=== PATIENT | female | born 1970 | race Hispanic/Latino ===

== ENCOUNTER 2018-07-03 00:18 | Observation (INO) | payer MEDICAID ==
[~2018-07-03] VITALS: Ht 152.4 cm; Wt 97.2 kg
[2018-07-03] VITALS (9 sets, daily range): BP systolic 132–213; BP diastolic 60–102
--- OUTSIDE RECORDS SUMMARY | 2018-07-03 00:20 | XMS REPORT ---
Author Author [facility] Address Unknown Phone Unavailable Care Team Providers Care Landman Name Role Phone Sarwat WHYTE Unavailable Unavailable Payers Payer Name Policy Type Policy Number Effective Date Expiration Date Problems This patient has no known problems. Allergies, Adverse Reactions, Alerts Allergy Name Allergy Type Status Severity Reaction(s) Onset Date Inactive Date Treating Clinician Comments No Known Allergies DA Active U 2017-06-02 00:00:00 Medications This patient has no known medications. Results Test Description Test Time Test Comments Text Results Atomic Results Result Comments ABDOMEN ACUTE SERIES W/PA CXR 2018-03-29 23:30:00 [facility] [address] [place] [id number] Patient Name: MERLY MORGAN MR #: [id number] : 1970 Age/Sex: 48/F Req #: [id number] Adm Physician: Ordered by: ANURADHA WHYTE MD Report #: [id number] Location: ER Room/Bed: Procedure: [id number] DX/ABDOMEN ACUTE SERIES W/PA CXR Exam Date: 03/29/18 Exam Time: 2240 REPORT STATUS: Signed ABDOMEN ACUTE SERIES W/PA CXR Clinical history: Abdominal pain Technique: AP view abdomen, supine and upright, frontal view of the chest Comparison: None Findings: Abdomen: Nonobstructive bowel gas pattern. Moderate to large stool burden. No free air. Other: Heart size is upper limits of normal. No consolidation or edema. No effusion or pneumothorax. Impression: Nonobstructive bowel gas pattern with moderate to large stool burden. Signed by: Dr Darlene Galvez MD on 03/29/2018 11:32 PM Dictated By: DARLENE GALVEZ MD 233 Transcribed By: AILYN on 03/29/182331 COPY TO: ANURADHA WHYTE MD
[2018-07-03] MEDS ORDERED: PROCARDIA XL60 MG PO (00:42)
[2018-07-03] MEDS ORDERED: LOPRESSOR25 MG PO (00:42)
[2018-07-03] MEDS ORDERED: ASPIRIN 81 MG CHEW TAB PO ONE (00:45)
[2018-07-03] MEDS ORDERED: LABETALOL HCL 5 MG/ML 20ML VIAL IV STA (00:47)
[2018-07-03 01:05] LABS: BASOPHILS # (AUTO) 0.1 (0.0-0.1); BASOPHILS % 0.4 % (0.0-1.0); EOSINOPHILS # (AUTO) 0.7 (0.0-0.4); EOSINOPHILS % 5.1 % (0.0-6.0); HEMATOCRIT 26.4 % (34.2-44.1); LYMPHOCYTES # (AUTO) 2.2 (1.0-3.2); LYMPHOCYTES % 16.1 % (18.0-39.1); MEAN CORPUSCULAR HEMOGLOBIN 23.8 pg (28-32); MEAN CORPUSCULAR HGB CONC 30.3 g/dL (31-35); MEAN CORPUSCULAR VOLUME 78.6 fL (81-99); NEUTROPHILS # (AUTO) 9.6 (2.1-6.9); NEUTROPHILS % 70.9 % (38.7-80.0); PLATELET COUNT 348 x10e3/uL (140-360); RED BLOOD COUNT 3.36 x10e6/uL (3.6-5.1); RED CELL DISTRIBUTION WIDTH 14.5 % (11.7-14.4)
[2018-07-03 01:15] LABS: INR 0.86; PROTHROMBIN TIME 12.5 seconds (11.9-14.5)
[2018-07-03 01:16] LABS: PARTIAL THROMBOPLASTIN TIME 35.4 seconds (23.8-35.5)
[2018-07-03] MEDS ORDERED: LABETALOL HCL 20 MG/4 ML SYRINGE IV ONE (01:22)
--- NOTE | 2018-07-03 01:32 | Diagnostic Imaging Report ---
CHEST 2 VIEWS, Technique: CHEST 2 VIEWS Comparison: 03/29/2018 Clinical history: Chest pain DISCUSSION: Slightly enlarged cardiac silhouette with central vascular congestion. No consolidation or edema. No effusion or pneumothorax. IMPRESSION: Slightly enlarged cardiac silhouette with central vascular congestion. Signed by: Dr Tasha Galvez MD on 07/03/2018 1:29 AM
[2018-07-03 01:38] LABS: BLOOD UREA NITROGEN 52 mg/dL (7-26); CARBON DIOXIDE 22 mmol/L (22-29); GLUCOSE 126 mg/dL (74-118)
[2018-07-03 02:04] LABS: ANION GAP 11.6 mmol/L (8-16); BUN/CREATININE RATIO 20 (6-25); CALCIUM 8.6 mg/dL (8.4-10.2); CHLORIDE 107 mmol/L (98-107); CREATINE KINASE 46 IU/L (29-168); CREATININE, SERUM 2.64 mg/dL (0.57-1.11); EST GLOMERULAR FILTRATION RATE 19 ML/MIN (60-); POTASSIUM 4.6 mmol/L (3.5-5.1); SODIUM 136 mmol/L (136-145)
[2018-07-03] MEDS ORDERED: NITROGLYCERIN 0.4 MG SUBL SL PRN (02:15)
[2018-07-03] MEDS ORDERED: ONDANSETRON HCL INJ 2 MG/ML VIAL IV PRN ×2 (02:15→10:30)
[2018-07-03] MEDS ORDERED: MORPHINE SULFATE 2 MG/ML SYR IV PRN (02:15)
[2018-07-03] MEDS ORDERED: HYDRALAZINE HCL 20 MG/ML VIAL IV PRN ×2 (02:15→10:30)
[2018-07-03] MEDS ORDERED: DEXTROSE 50% SYRINGE 50 ML IV PRN ×2 (02:30→09:45)
[2018-07-03] MEDS ORDERED: INSULIN LISPRO 100 UNIT/1 ML 3ML VIAL SQ SCH (07:30)
[2018-07-03 08:05] LABS: AMPHETAMINES SCREEN,URINE NEGATIVE (NEGATIVE); BENZODIAZEPINES SCREEN,URINE NEGATIVE (NEGATIVE); PHENCYCLIDINE SCREEN,URINE NEGATIVE (NEGATIVE)
[2018-07-03 08:30] LABS: CREATINE KINASE MB 0.9 ng/mL (0-5.0)
[2018-07-03] MEDS ORDERED: NIFEDIPINE CR 30 MG TAB PO SCH (09:00)
[2018-07-03] MEDS ORDERED: METOPROLOL TARTRATE 25 MG TAB PO SCH (09:00)
[2018-07-03] MEDS: ASPIRIN 81 MG ENTERIC COATED PO SCH (09:25)
[2018-07-03] MEDS: FAMOTIDINE 20 MG/2 ML VIAL IV SCH ×2 (09:25→21:43)
[2018-07-03] MEDS ORDERED: NOVOLOG100 UNIT/1 SQ ×2 (09:49)
[2018-07-03 10:29] LABS: CLARITY,URINE HAZY (CLEAR); COLOR,URINE YELLOW (YELLOW); LEUKOCYTE ESTERASE ,URINE TRACE (NEGATIVE); NITRITE,URINE NEGATIVE (NEGATIVE); PROTEIN,URINE DIPSTICK 3+ (NEGATIVE)
[2018-07-03 10:30] LABS: AMORPHOUS SEDIMENT,URINE FEW (FEW); BACTERIA,URINE MODERATE /HPF; BILIRUBIN,URINE NEGATIVE (NEGATIVE); EPITHELIAL CELLS,URINE FEW /LPF; KETONES,URINE NEGATIVE (NEGATIVE); RBC,URINE 0-5 /HPF (0-5); URINE UROBILINOGEN 0.2 mg/dL (0.2 - 1); WBC,URINE (MAN) 21-50 /HPF (0-5)
[2018-07-03] MEDS ORDERED: ACETAMINOPHEN 325 MG TAB PO PRN (10:30)
[2018-07-03] MEDS ORDERED: VANCOMYCIN 1GM/NS 250 ML 250 ML IV SCH (10:30)
[2018-07-03] MEDS ORDERED: FUROSEMIDE INJ 10 MG/ML 2 ML VIAL ONE (11:25)
[2018-07-03] MEDS: INSULIN LISPRO 100 UNIT/1 ML 3ML VIAL SQ SCH ×3 (11:30→21:43)
[2018-07-03] MEDS ORDERED: FUROSEMIDE INJ 10 MG/ML 2 ML VIAL IV ONE (12:00)
--- NOTE | 2018-07-03 12:23 | Diagnostic Imaging Report ---
Exam: Head CT without contrast History:A 48-year-old female with headache and hypertension. Comparison: None Technique: Axial images were obtained from the skull base to the vertex. Coronal and sagittal images reconstructed from the axial data. Dose modulation, iterative reconstruction, and/or weight based adjustment of the mA/kV was utilized to reduce the radiation dose to as low as reasonably achievable. Intravenous contrast: None Findings: Scalp/skull: No abnormalities. Extra-axial spaces: No masses. No fluid collections. Brain sulci: Adequate for age Ventricles: Normal in size and configuration. No hydrocephalus. Parenchyma: Subtle hypodensities in the supratentorial white matter are small vessel ischemic changes. No masses, hemorrhage, acute or chronic cortical vascular insults. Sellar/suprasellar region: Partially empty sella. Craniocervical junction: Patent foramen magnum. No Chiari one malformation. Impression: No acute abnormalities. Chronic findings: Mild nonspecific supratentorial white matter small vessel ischemic changes. Nonenlarged partially empty sella A preliminary report was provided by Dr. Regan on 07/03/2018 12:22 PM. Signed by: Dr. Contreras Lozano M.D. on 07/03/2018 1:42 PM
[2018-07-03] MEDS ORDERED: SODIUM CHLORIDE 0.9% 250ML 250 ML ONE (15:55)
[2018-07-03] MEDS: PIPER-TAZ 3.375 GM 50 ML IV SCH ×2 (16:45→22:04)
[2018-07-03 16:51] LABS: CREATINE KINASE MB 0.8 ng/mL (0-5.0)
[2018-07-03] MEDS ORDERED: FAMOTIDINE 20 MG/2 ML VIAL IV SCH (17:00)
[2018-07-03] MEDS: VANCOMYCIN 1GM/NS 250 ML 250 ML IV SCH (20:31)
[2018-07-04] VITALS (8 sets, daily range): BP systolic 140–175; BP diastolic 74–90
[2018-07-04 04:15] LABS: BASOPHILS # (AUTO) 0.1 (0.0-0.1); BASOPHILS % 0.6 % (0.0-1.0); EOSINOPHILS # (AUTO) 0.8 (0.0-0.4); EOSINOPHILS % 6.4 % (0.0-6.0); HEMATOCRIT 23.7 % (34.2-44.1); HEMOGLOBIN 7.2 g/dL (12.0-16.0); LYMPHOCYTES # (AUTO) 1.9 (1.0-3.2); LYMPHOCYTES % 15.5 % (18.0-39.1); MEAN CORPUSCULAR HEMOGLOBIN 23.7 pg (28-32); MEAN CORPUSCULAR HGB CONC 30.4 g/dL (31-35); MONOCYTES # (AUTO) 1.1 (0.2-0.8); MONOCYTES % 8.7 % (4.4-11.3); NEUTROPHILS # (AUTO) 8.6 (2.1-6.9); NEUTROPHILS % 68.4 % (38.7-80.0); PLATELET COUNT 320 x10e3/uL (140-360); RED BLOOD COUNT 3.04 x10e6/uL (3.6-5.1); RED CELL DISTRIBUTION WIDTH 14.8 % (11.7-14.4)
[2018-07-04 04:38] LABS: ANION GAP 9.9 mmol/L (8-16); CALCIUM 8.3 mg/dL (8.4-10.2); CREATININE, SERUM 2.77 mg/dL (0.57-1.11); MAGNESIUM 1.8 MG/DL (1.3-2.1); POTASSIUM 4.9 mmol/L (3.5-5.1)
[2018-07-04 04:59] LABS: FERRITIN 45.91 ng/mL (4.63-204.00)
[2018-07-04 05:20] LABS: CHOL/HDL RATIO 3.9 (3.0-3.6)
[2018-07-04 05:39] LABS: FOLATE 4.5 ng/mL (7.0-15.4)
[2018-07-04] MEDS: PIPER-TAZ 3.375 GM 50 ML IV SCH (05:53)
[2018-07-04] MEDS: INSULIN LISPRO 100 UNIT/1 ML 3ML VIAL SQ SCH ×4 (08:00→21:16)
[2018-07-04] MEDS ORDERED: SODIUM CHLORIDE 0.9% 1000ML 1,000 ML IV ONE (08:30)
[2018-07-04] MEDS ORDERED: SODIUM CHLORIDE 0.9% 250ML 250 ML IV ONE (08:30)
[2018-07-04] MEDS ORDERED: FUROSEMIDE INJ 10 MG/ML 2 ML VIAL IV ONE (08:30)
[2018-07-04] MEDS ORDERED: IBUPROFEN 400 MG TAB PO PRN (09:00)
[2018-07-04] MEDS ORDERED: NIFEDIPINE CR 30 MG TAB PO SCH (09:00)
[2018-07-04] MEDS ORDERED: METOPROLOL TARTRATE 25 MG TAB PO SCH ×2 (09:00)
[2018-07-04] MEDS: FAMOTIDINE 20 MG/2 ML VIAL IV SCH ×2 (09:23→21:14)
[2018-07-04] MEDS: ASPIRIN 81 MG ENTERIC COATED PO SCH (09:23)
[2018-07-04] MEDS: FOLIC ACID 1 MG TAB PO SCH (09:23)
[2018-07-04] MEDS: OYST-CAL-D 500MG TABLET PO SCH ×2 (09:25→16:55)
[2018-07-04] MEDS: NIFEDIPINE CR 30 MG TAB PO SCH (09:25)
[2018-07-04] MEDS: GUAIFENESIN 600MG/DEXTROMETHORPHAN 30MG TABSR PO SCH ×2 (09:25→16:55)
[2018-07-04] MEDS: POLYETHYLENE GLYCOL 3350 17 GM PACK PO SCH ×2 (09:59→16:55)
[2018-07-04] MEDS: DOCUSATE SODIUM 100 MG CAP PO SCH ×2 (09:59→16:55)
[2018-07-04] MEDS ORDERED: MORPHINE SULFATE INJ 4 MG/ML INJ IV PRN (10:15)
[2018-07-04] MEDS ORDERED: FUROSEMIDE INJ 10 MG/ML 2 ML VIAL IV PRN (13:15)
[2018-07-04] MEDS ORDERED: SODIUM CHLORIDE 0.9% 250ML 250 ML ONE (14:00)
--- NOTE | 2018-07-04 15:46 | Consultation ---
DATE OF CONSULTATION: REASON: Hidradenitis. HISTORY: This patient is a 48-year-old female comes into the emergency room with chest pain. She was admitted. The patient has underlying obesity. The patient does have history of hidradenitis. She has been treated with surgical debridement. She was given antibiotic, but she did not get it because she could not afford them. The patient is admitted with chest pain. Cardiology workup is in progress, but, however, surgery was consulted because of hidradenitis on the left axilla. Patient has no fever, no chills. Patient is currently comfortable, laying in bed with no complaints. PHYSICAL EXAMINATION: GENERAL: She is alert, oriented, does not seem to be in any acute distress. VITALS: Stable. Currently afebrile. HEENT: She is not icteric. NECK: Supple. CHEST: Coarse. HEART: S1, S2. No S3, S4, murmur. ABDOMEN: Soft. Bowel sounds present. No tenderness. EXTREMITIES: No edema. In the left axilla, there is erythema and induration. The scar from previous surgeries. IMPRESSION: Hidradenitis, old. I would suggest to, while in the hospital, continue with vancomycin; however, can discharge home with oral doxycycline for 6 months. Follow up as an outpatient. Job#: [id number] CQ
[2018-07-04] MEDS ORDERED: PIPER-TAZ 3.375 GM 50 ML IV SCH (18:00)
[2018-07-04 20:39] LABS: HEMATOCRIT 32.1 % (34.2-44.1); HEMOGLOBIN 10.1 g/dL (12.0-16.0)
[2018-07-04] MEDS ORDERED: LORAZEPAM 0.5 MG TAB PO PRN (20:45)
[2018-07-04] MEDS ORDERED: MIRTAZAPINE 15 MG TAB PO SCH (21:00)
[2018-07-04] MEDS: VANCOMYCIN 1GM/NS 250 ML 250 ML IV SCH (21:14)
[2018-07-04] MEDS: METOPROLOL TARTRATE 25 MG TAB PO SCH (21:14)
--- NOTE | 2018-07-04 22:35 | Consultation ---
DATE OF CONSULTATION: July 04, 2018 PSYCHIATRIC CONSULTATION REASON FOR CONSULTATION: To evaluate the patient's mood. HISTORY OF PRESENT ILLNESS: The patient is a 48-year-old female admitted to the hospital for chest pain, hypertensive urgency and renal insufficiency. Psychiatric consultation was sought to evaluate the patient's mood. As per the medical record, the patient came into the ER due to chest pain. Past medical history includes diabetes, hypertensive urgency and renal insufficiency. Upon evaluation today, the patient is found to be in the room surrounded by family members. She is alert, awake and oriented to situation. She states that she is feeling depressed and anxious due to her medical issues and her family issues. She denies feeling hopeless or helpless. She denies any passive wish. She denies any suicidal or homicidal ideation. She reports poor sleep and poor appetite. She denies any hallucination. PAST PSYCHIATRIC HISTORY: The patient denies past psychiatric history. She denies past suicide thoughts. She has alcohol and drug use. FAMILY HISTORY: Denies. SOCIAL HISTORY: The patient states she lives with her daughter. MENTAL STATUS EXAMINATION: The patient is a middle aged female. She is alert, awake and oriented to situation. Her mood is depressed and anxious. She denies any suicidal or homicidal ideation. She denies any hallucination. Thought process is concrete. No delusion elicited. Insight and judgment are fair. Memory is grossly intact. Cognitive retention is average. CURRENT MEDICATIONS 1. MiraLAX. 2. Colace. 3. Mucinex. 4. Calcium carbonate. 5. Insulin. 6. Furosemide. 7. Sodium chloride. 8. Nifedipine. 9. Folic acid. 10. Famotidine. 11. Aspirin. 12. Vancomycin. 13. Hydralazine. 14. Morphine. 15. Metoprolol. 16. Ibuprofen. 17. Ondansetron. 18. Acetaminophen. 19. Dextrose. 20. Nitroglycerin. CURRENT LABS: WBC is 12.48, RBC is 3.04, hemoglobin 7.2, hematocrit 23.7, and platelets 320,000. Chemistry: Sodium 134, potassium 4.9, chloride 107, CO2 22, BUN 51, creatinine 2.77. AST 10, ALT 6. ASSESSMENT: Adjustment disorder with mixed mood. PLAN 1. Add Remeron 15 mg p.o. nightly. 2. Add Ativan 0.5 mg p.o. q.6 h. p.r.n. 3. Monitor for mood. Thank you for the consultation. Dictated By: GISELLE Uriostegui. Job#: [id number]
[2018-07-05] VITALS: BP 141/78
[2018-07-05 04:00] VITALS: BP 175/85
[2018-07-05] MEDS: INSULIN LISPRO 100 UNIT/1 ML 3ML VIAL SQ SCH ×2 (07:30→12:10)
[2018-07-05 07:36] LABS: BASOPHILS # (AUTO) 0.1 (0.0-0.1); BASOPHILS % 0.7 % (0.0-1.0); EOSINOPHILS # (AUTO) 0.9 (0.0-0.4); EOSINOPHILS % 7.4 % (0.0-6.0); HEMATOCRIT 31.2 % (34.2-44.1); HEMOGLOBIN 9.7 g/dL (12.0-16.0); LYMPHOCYTES # (AUTO) 1.9 (1.0-3.2); LYMPHOCYTES % 15.1 % (18.0-39.1); MEAN CORPUSCULAR HEMOGLOBIN 24.9 pg (28-32); MEAN CORPUSCULAR HGB CONC 31.1 g/dL (31-35); MEAN CORPUSCULAR VOLUME 80.2 fL (81-99); MONOCYTES # (AUTO) 0.9 (0.2-0.8); MONOCYTES % 7.7 % (4.4-11.3); NEUTROPHILS # (AUTO) 8.4 (2.1-6.9); NEUTROPHILS % 68.6 % (38.7-80.0); PLATELET COUNT 331 x10e3/uL (140-360); RED BLOOD COUNT 3.89 x10e6/uL (3.6-5.1); RED CELL DISTRIBUTION WIDTH 15.4 % (11.7-14.4)
[2018-07-05 07:51] LABS: ANION GAP 13.2 mmol/L (8-16); CALCIUM 8.6 mg/dL (8.4-10.2); CREATININE, SERUM 3.22 mg/dL (0.57-1.11); POTASSIUM 5.2 mmol/L (3.5-5.1)
[2018-07-05 08:33] VITALS: BP 171/96
[2018-07-05 09:05] VITALS: BP 171/96
[2018-07-05] MEDS: FOLIC ACID 1 MG TAB PO SCH (09:05)
[2018-07-05] MEDS: FAMOTIDINE 20 MG/2 ML VIAL IV SCH (09:05)
[2018-07-05] MEDS: POLYETHYLENE GLYCOL 3350 17 GM PACK PO SCH (09:05)
[2018-07-05] MEDS: OYST-CAL-D 500MG TABLET PO SCH (09:05)
[2018-07-05] MEDS: GUAIFENESIN 600MG/DEXTROMETHORPHAN 30MG TABSR PO SCH (09:05)
[2018-07-05] MEDS: ASPIRIN 81 MG ENTERIC COATED PO SCH (09:05)
[2018-07-05] MEDS: METOPROLOL TARTRATE 25 MG TAB PO SCH (09:05)
[2018-07-05] MEDS: DOCUSATE SODIUM 100 MG CAP PO SCH (09:05)
[2018-07-05] MEDS: NIFEDIPINE CR 30 MG TAB PO SCH (09:05)
[2018-07-05] MEDS ORDERED: NIFEDIPINE ER30 M1 PO (10:10)
[2018-07-05] MEDS ORDERED: LOPRESSOR25 MG PO ×2 (10:10)
[2018-07-05] MEDS ORDERED: ATIVAN0.5 MG PO (10:10)
[2018-07-05] MEDS ORDERED: MUCINEX DM ER1 EACH PO (10:10)
[2018-07-05] MEDS ORDERED: FOLIC ACID1 MG PO (10:10)
[2018-07-05] MEDS ORDERED: MIRTAZAPINE15 MG PO (10:10)
[2018-07-05] MEDS ORDERED: Calcium Carbonate PO (10:10)
[2018-07-05] MEDS ORDERED: DOXYCYCLINE HY100 MG PO (10:51)
[2018-07-05 11:57] VITALS: BP 157/91
--- NOTE | 2018-07-05 14:51 | Discharge Summary ---
ADMISSION DIAGNOSES 1. Chest pain. 2. Hypertensive urgency. 3. Type 2 diabetes. 4. Acute kidney injury on chronic kidney disease 4. 5. Leukocytosis. 6. Right axillary buttock and labial wounds. 7. Dizziness. 8. Obesity. 9. Anemia. DISCHARGE DIAGNOSES 1. Chest pain. 2. Hypertensive urgency. 3. Type 2 diabetes. 4. Acute kidney injury on chronic kidney disease 4. 5. Leukocytosis. 6. Right axillary buttock and labial wounds. 7. Dizziness. 8. Obesity. 9. Anemia. 10. Rule out acute coronary syndrome. 11. Rule out transient ischemic attack. 12. Rule out cerebrovascular accident. 13. Rule out flu. 14. Rule out gastrointestinal bleed. 15. Hidradenitis suppurativa. HISTORY: Patient has a history of hypertension, type 2 diabetes, CKD 4. SURGICAL HISTORY: Hysterectomy. FAMILY HISTORY: Patient's grandma and dad have diabetes. Patient's mom had cancer. SOCIAL HISTORY: Patient admits to alcohol and tobacco use but quit 10 years ago. She denies illicit drug use. HOSPITAL COURSE: A 48-year-old female complains of central intermittent chest pressure that does not radiate but is associated with shortness of breath and dizziness since she went to her uncle's on Wednesday. Nothing improves or worsens the pain. She also has hypertension but did not fill her meds due to issues with money. She also complains of right axillary wound that is intermittent since she was 16 years old. Patient appears to be a poor historian and keeps changing her story. On admission, patient troponins negative x3. Echo showed EF of 50% to 55%. Carotid Doppler showed elevated velocities due to tortuous vessel but no significant stenosis. EKG was normal sinus rhythm x2. Chest x-ray shows slightly enlarged cardiac silhouette with central vascular congestion. CT of the brain showed no acute abnormalities. ID was consulted who diagnosed the patient with hidradenitis. Psychology was also consulted for patient's apparent mood disorder. Patient was started on Remeron and Ativan per psych. Patient's blood pressure was controlled with nifedipine and metoprolol. CKD 4 was stable. Patient will discharge home with 30 days of doxycycline b.i.d. per infectious disease. She was also given a prescription for nifedipine, metoprolol which she was advised to fill as well as lorazepam p.r.n., Remeron, Mucinex, folic acid, and calcium carbonate. She will follow up with primary care in 1 to [address] Montgomery as discussed. I informed the patient and daughter of the importance of taking care of her blood pressure and diabetes. Patient verbalized understanding. Vital signs stable, patient afebrile. Patient agrees to discharge plan and is ready for discharge. Dictated by Jodi Galan NP BENNY BARRIOS MD Job#: [id number]
== END 2018-07-05 12:29 | disposition home or self-care (01) ==
LOC: ER 00:18 → ERHOLD 02:44 → MED/SURG 03:15
PROVIDERS: ADMIT Internal Medicine; ATTEND Internal Medicine
DX: R07.9 Chest pain, unspecified (principal); I16.0 Hypertensive urgency; E78.5 Hyperlipidemia, unspecified; E66.9 Obesity, unspecified; L73.2 Hidradenitis suppurativa; T36.96XA Underdosing of unspecified systemic antibiotic, initial encounter; Z91.120 Patient's intentional underdosing of medication regimen due to financial hardship; F43.23 Adjustment disorder with mixed anxiety and depressed mood; E11.22 Type 2 diabetes mellitus with diabetic chronic kidney disease; I12.9 Hypertensive chronic kidney disease with stage 1 through stage 4 chronic kidney disease, or unspecified chronic kidney disease; N18.4 Chronic kidney disease, stage 4 (severe); N17.9 Acute kidney failure, unspecified; D72.829 Elevated white blood cell count, unspecified; D64.9 Anemia, unspecified; E83.51 Hypocalcemia; Z87.891 Personal history of nicotine dependence; Z83.3 Family history of diabetes mellitus; Z82.49 Family history of ischemic heart disease and other diseases of the circulatory system; Z79.4 Long term (current) use of insulin
CPT/HCPCS: 36415 ×3; 36430; 70450; 71046; 80048 ×3; 80061; 80307; 81001; 82270; 82550; 82553; 82607; 82728; 82746; 82948 ×3; 83036; 83540; 83735; 83880 ×3; 84466; 84484; 85014; 85018; 85025 ×3; 85610; 85730; 86850; 86900; 86920; 87040; 87071; 87086; 87205; 87400; 93005; 93306; 93880; 97139; 99284; G0378 ×3; J0360; J1940 ×2; J2543 ×2; J3370 ×2; J7030; J7050 ×2; P9016

== ENCOUNTER 2018-11-09 21:23 | Emergency (ER) | payer SELFPAY ==
[~2018-11-09] VITALS: Ht 152.4 cm; Wt 97.1 kg
[~2018-11-09 21:23] MED LIST: ATIVAN0.5 MG PO; Calcium Carbonate PO; DOXYCYCLINE HY100 MG PO; FOLIC ACID1 MG PO; LOPRESSOR25 MG PO; MIRTAZAPINE15 MG PO; MUCINEX DM ER1 EACH PO; NIFEDIPINE ER30 M1 PO; NOVOLOG100 UNIT/1 SQ; PROCARDIA XL60 MG PO
[2018-11-09] MEDS ORDERED: CLONIDINE HCL 0.1 MG TAB PO ONE (21:45)
--- NOTE | 2018-11-09 22:40 | Diagnostic Imaging Report ---
EXAMINATION: CHEST SINGLE (PORTABLE) COMPARISON: Chest x-ray 07/03/2018 INDICATION: ^chest pain ^[id number] ^2211 ^Y DISCUSSION: Frontal view of the chest obtained at 2217 hours. HEART AND MEDIASTINUM: The heart is top normal in size but stable in morphology. LINES: None. LUNGS: The lungs are well inflated and clear. No pneumonia or pulmonary edema. PLEURA: No pleural effusion or pneumothorax. BONES AND SOFT TISSUES: No focal osseous lesion. The soft tissues are normal. IMPRESSION: Stable chest. No acute cardiopulmonary disease. Signed by: Dr. Anthony Dominique MD on 11/09/2018 10:37 PM
[2018-11-09 23:06] LABS: BASOPHILS # (AUTO) 0.1 (0.0-0.1); BASOPHILS % 0.4 % (0.0-1.0); EOSINOPHILS # (AUTO) 0.5 (0.0-0.4); HEMOGLOBIN 8.5 g/dL (12.0-16.0); LYMPHOCYTES # (AUTO) 1.6 (1.0-3.2); LYMPHOCYTES % 9.7 % (18.0-39.1); MEAN CORPUSCULAR HEMOGLOBIN 25.6 pg (28-32); MEAN CORPUSCULAR HGB CONC 31.5 g/dL (31-35); MEAN CORPUSCULAR VOLUME 81.3 fL (81-99); MONOCYTES # (AUTO) 0.9 (0.2-0.8); MONOCYTES % 5.1 % (4.4-11.3); NEUTROPHILS # (AUTO) 13.6 (2.1-6.9); NEUTROPHILS % 81.3 % (38.7-80.0); PLATELET COUNT 348 x10e3/uL (140-360); RED BLOOD COUNT 3.32 x10e6/uL (3.6-5.1); RED CELL DISTRIBUTION WIDTH 14.4 % (11.7-14.4)
[2018-11-09 23:23] LABS: ALBUMIN 2.2 g/dL (3.5-5.0); ALBUMIN/GLOBULIN RATIO 0.4 (0.8-2.0); ANION GAP 14.2 mmol/L (8-16); CALCIUM 9.3 mg/dL (8.4-10.2); CREATININE, SERUM 2.83 mg/dL (0.57-1.11); POTASSIUM 5.2 mmol/L (3.5-5.1)
[2018-11-09 23:35] LABS: CREATINE KINASE MB 0.8 ng/mL (0-5.0)
[2018-11-10 01:54] VITALS: BP 166/86
== END 2018-11-10 02:15 | disposition home or self-care (01) ==
LOC: ER 21:23
DX: R07.89 Other chest pain (principal); I10 Essential (primary) hypertension; N28.9 Disorder of kidney and ureter, unspecified; E11.9 Type 2 diabetes mellitus without complications; E78.5 Hyperlipidemia, unspecified
CPT/HCPCS: 36415; 71045; 80053; 82550; 82553; 84484; 85025; 93005; 99284

== ENCOUNTER 2019-08-29 10:48 | Inpatient (IN) | payer SELFPAY ==
[~2019-08-29] VITALS: Ht 152.4 cm; Wt 97.1 kg
[2019-08-29] MEDS ORDERED: HYDRALAZINE HCL 20 MG/ML VIAL IV STA (11:09)
[2019-08-29] MEDS ORDERED: ASPIRIN 81 MG CHEW TAB PO NR (11:15)
[2019-08-29] MEDS ORDERED: ASPIRIN 81 MG CHEW TAB PO ONE ×2 (11:15→16:00)
[2019-08-29] MEDS ORDERED: SODIUM CHLORIDE 0.9% 1000ML 1,000 ML IV ONE (11:15)
--- NOTE | 2019-08-29 12:17 | Diagnostic Imaging Report ---
EXAMINATION: CHEST SINGLE (NOT PORTABLE) INDICATION: Chest pain COMPARISON: Chest radiograph 11/09/2018 FINDINGS: LINES/TUBES:None LUNGS:The lungs are well-inflated. No focal consolidation or pulmonary edema. PLEURA:No pleural effusion or pneumothorax. MEDIASTINUM:The cardiomediastinal silhouette appears normal in size and shape. BONES/SOFT TISSUES:No acute osseous injury. ABDOMEN:No free air under the diaphragm. IMPRESSION: No focal pneumonia or pulmonary edema. Signed by: Dyllan Hansen MD on 08/29/2019 12:14 PM
[2019-08-29 13:46] LABS: BASOPHILS # (AUTO) 0.1 (0.0-0.1); BASOPHILS % 0.5 % (0.0-1.0); EOSINOPHILS # (AUTO) 0.8 (0.0-0.4); EOSINOPHILS % 5.8 % (0.0-6.0); HEMATOCRIT 23.4 % (34.2-44.1); HEMOGLOBIN 7.2 g/dL (12.0-16.0); LYMPHOCYTES # (AUTO) 1.8 (1.0-3.2); LYMPHOCYTES % 12.5 % (18.0-39.1); MEAN CORPUSCULAR HEMOGLOBIN 24.9 pg (28-32); MEAN CORPUSCULAR HGB CONC 30.8 g/dL (31-35); MONOCYTES % 6.8 % (4.4-11.3); NEUTROPHILS # (AUTO) 10.8 (2.1-6.9); NEUTROPHILS % 74.1 % (38.7-80.0); PLATELET COUNT 265 x10e3/uL (140-360); RED BLOOD COUNT 2.89 x10e6/uL (3.6-5.1); RED CELL DISTRIBUTION WIDTH 15.6 % (11.7-14.4)
[2019-08-29 14:05] LABS: ALBUMIN 2.6 g/dL (3.5-5.0); ALBUMIN/GLOBULIN RATIO 0.6 (0.8-2.0); ANION GAP 15.9 mmol/L (8-16); CALCIUM 8.1 mg/dL (8.4-10.2); CREATININE, SERUM 5.13 mg/dL (0.57-1.11); POTASSIUM 4.9 mmol/L (3.5-5.1)
[2019-08-29 14:11] LABS: CREATINE KINASE MB 1.2 ng/mL (0-5.0)
[2019-08-29 15:42] LABS: CLARITY,URINE CLOUDY (CLEAR); COLOR,URINE YELLOW (YELLOW); LEUKOCYTE ESTERASE ,URINE NEGATIVE (NEGATIVE); NITRITE,URINE NEGATIVE (NEGATIVE)
[2019-08-29 15:43] LABS: BILIRUBIN,URINE NEGATIVE (NEGATIVE); KETONES,URINE NEGATIVE (NEGATIVE); PROTEIN,URINE DIPSTICK 3+ (NEGATIVE); URINE UROBILINOGEN 0.2 mg/dL (0.2 - 1)
[2019-08-29 15:45] LABS: STREPTOCOCCUS GRP A ANTIGEN POSITIVE (NEGATIVE)
[2019-08-29] MEDS ORDERED: FUROSEMIDE INJ 10 MG/ML 4 ML VIAL IV NR (15:45)
[2019-08-29 15:47] LABS: INFLUENZAE A&B ANTIGEN (RAPID) NEGATIVE (NEGATIVE)
[2019-08-29 15:56] LABS: EPITHELIAL CELLS,URINE FEW /LPF; WBC,URINE (MAN) 0-5 /HPF (0-5)
[2019-08-29 15:57] LABS: AMORPHOUS SEDIMENT,URINE FEW (FEW)
[2019-08-29] MEDS ORDERED: MORPHINE SULFATE 2 MG/ML SYR 1ML IV PRN (16:00)
[2019-08-29] MEDS ORDERED: DEXTROSE 50% SYRINGE 50 ML IV PRN (16:00)
[2019-08-29] MEDS ORDERED: HYDRALAZINE HCL 20 MG/ML VIAL IV PRN (16:00)
[2019-08-29] MEDS ORDERED: ONDANSETRON HCL INJ 2MG/ML 2ML 2 MG/ML VIAL IV PRN (16:00)
[2019-08-29] MEDS ORDERED: SODIUM CHLORIDE FLUSH 10 ML SYR INJ PRN (16:00)
[2019-08-29] MEDS ORDERED: CLONIDINE HCL 0.2 MG TAB PO NR (16:45)
[2019-08-29] MEDS: INSULIN REGULAR, HUMAN 100 UNIT/1 ML 3ML VIAL SQ SCH ×2 (16:57→22:33)
[2019-08-29] MEDS: SODIUM BICARBONATE 650 MG TAB PO SCH (16:57)
[2019-08-29] MEDS ORDERED: PENICILLIN G BENZATHINE LA 1.2 MU TBX IM NR (19:08)
[2019-08-29 22:48] VITALS: BP 161/79
[2019-08-29 23:00] VITALS: BP 161/79
[2019-08-30] VITALS (8 sets, daily range): BP systolic 143–189; BP diastolic 68–111
--- NOTE | 2019-08-30 00:45 | Consultation ---
DATE OF CONSULTATION: 08/29/2019 Cardiac Consultation REASON FOR CONSULTATION: Volume overload, hypertension. HISTORY OF PRESENT ILLNESS: A 49-year-old lady, who is very poorly historian. She has known diabetes mellitus of many years duration, hypertension poorly compliant, obesity, and chronic kidney disease. The patient was at this institution in 2018, with axillary abscess where she was treated. At that time, her creatinine was 3.2. She has not followed and she does not take any medication. She came to this institution with failure to thrive, weakness, shortness of breath, severe hypertension, nausea, not feeling well and debilitated. The patient's lab showed BUN of 75, creatinine of 5.1, her CO2 at 16. Her chest x-ray showed cardiomegaly with possible mild volume overload. She was anemic with hemoglobin of 7.2. Her blood pressure was 210/110. Cardiac consultation is obtained. I visited with the patient, whom she does have all above health problems as described. REVIEW OF SYSTEMS: GENERAL: Weakness, no energy. HEENT: Decreased vision. PULMONARY AND CARDIAC: Easy fatigue and shortness of breath on minimal activity, vague chest discomfort at that time. No pleuritic chest pain or pericarditic chest pain. GI: Bloating, indigestion, nausea. No hematemesis. No melena. : Increased frequency of urination. MUSCULOSKELETAL: Back pain, tingling and numbness of the lower extremities. ENDOCRINE: Poorly controlled diabetes. SKIN: She does have repeated skin infections and axillaries abscess. She does have skin discoloration. ENDOCRINE: Poorly controlled diabetes. SOCIAL HISTORY: She is . She is nonsmoker. No alcohol drinker. HOME MEDICATIONS: Not taking any. ALLERGIES: NONE. PAST MEDICAL HISTORY: 1. Hypertension. 2. Diabetes mellitus. 3. Chronic kidney disease. 4. Obesity. 5. Chronic anemia. 6. Right axillary abscess and repeated skin infection. FAMILY HISTORY: Father at age 48 with myocardial infarction, he was diabetic. Mother in her 70s. She was also diabetic. Eight siblings, several of them are diabetic. Five children. PHYSICAL EXAMINATION: VITAL SIGNS: An obese lady. Height of 5 feet, weight of 214 pounds. Blood pressure 180/110, heart rate of 80, respiratory rate of 18. HEENT: Pupils are reactive. NECK: Elevation of jugular venous pulsation noted. CHEST: Bilateral basilar crackles. HEART: PMI, 5th left intercostal space. Normal first and second heart sounds with ejection systolic murmur. ABDOMEN: Soft. EXTREMITIES: No cyanosis, no clubbing, mild peripheral edema. NEURO: Decreased feet pulses. NEUROLOGIC: Awake, alert, able to move her extremities. LABORATORY DATA: BUN of 75, creatinine of 5.1, potassium of 4.9, bicarb of 16. Hemoglobin of 7.2, hematocrit 23%, [place] [id number]. EKG show normal sinus rhythm, nonspecific ST changes. IMPRESSION AND PLAN: 1. Diabetes mellitus, severe end organ damage. 2. Hypertension. 3. Volume overload. 4. Chronic renal insufficiency. 5. End-organ damage, secondary to diabetes. 6. Peripheral neuropathy. 7. Anemia. 8. Electrolyte imbalance. 9. Repeated skin infection. 10. Obesity. 11. Probability of coronary artery disease. Cardiac-michaels, we would recommend medical therapy for the time being controlling blood pressure. I believe the patient will probably start her hemodialysis. This will help quite a lot of her volume load, blood pressure, etc. For the time being, the treatment is medical till the patient establish hemodialysis. MD YASSINE Yeung/CORTEZL /[id number]
[2019-08-30 03:29] LABS: CREATINE KINASE MB 1.4 ng/mL (0-5.0)
[2019-08-30 05:06] LABS: BASOPHILS # (AUTO) 0.1 (0.0-0.1); BASOPHILS % 0.6 % (0.0-1.0); EOSINOPHILS # (AUTO) 0.9 (0.0-0.4); EOSINOPHILS % 7.1 % (0.0-6.0); LYMPHOCYTES # (AUTO) 1.7 (1.0-3.2); LYMPHOCYTES % 12.7 % (18.0-39.1); MEAN CORPUSCULAR HEMOGLOBIN 24.5 pg (28-32); MEAN CORPUSCULAR HGB CONC 30.6 g/dL (31-35); MEAN CORPUSCULAR VOLUME 79.9 fL (81-99); MONOCYTES # (AUTO) 0.9 (0.2-0.8); NEUTROPHILS # (AUTO) 9.4 (2.1-6.9); NEUTROPHILS % 72.3 % (38.7-80.0); PLATELET COUNT 244 x10e3/uL (140-360); RED BLOOD COUNT 2.78 x10e6/uL (3.6-5.1); RED CELL DISTRIBUTION WIDTH 15.7 % (11.7-14.4)
[2019-08-30 05:17] LABS: INR 1.05; PROTHROMBIN TIME 13.9 seconds (11.9-14.5)
[2019-08-30 05:18] LABS: PARTIAL THROMBOPLASTIN TIME 35.4 seconds (23.8-35.5)
[2019-08-30 05:20] LABS: HEMATOCRIT 22.2 % (34.2-44.1); HEMOGLOBIN 6.8 g/dL (12.0-16.0)
[2019-08-30 05:32] LABS: ANION GAP 13.7 mmol/L (8-16); CALCIUM 7.8 mg/dL (8.4-10.2); CREATININE, SERUM 5.24 mg/dL (0.57-1.11); POTASSIUM 4.7 mmol/L (3.5-5.1)
[2019-08-30 05:59] LABS: CREATINE KINASE MB 1.5 ng/mL (0-5.0)
--- NOTE | 2019-08-30 06:00 | NUR ---
PAGED DR VARNER FOR LOW HGB.
--- NOTE | 2019-08-30 06:12 | NUR ---
NOTIFIED DR SUBRAMANIAN ABOUT CONSULT AND LOW HGB 6.8
--- NOTE | 2019-08-30 06:26 | NUR ---
SPOKE TO DR VARNER ABOUT LOW HBG, NEW ORDER RECEIVED FOR TRANSFUSION 2 UNIT OF BLOOD
[2019-08-30] MEDS ORDERED: SODIUM CHLORIDE 0.9% 250ML 250 ML IV ONE (06:30)
--- NOTE | 2019-08-30 07:12 | Diagnostic Imaging Report ---
EXAMINATION: CHEST SINGLE (PORTABLE) COMPARISON: Chest x-ray 08/29/2019 INDICATION: Chest pain. DISCUSSION: HEART AND MEDIASTINUM: The cardiac silhouette is mildly enlarged. LINES: None. LUNGS: Mild prominence of the pulmonary vasculature bilaterally suggestive of mild congestion.. No pneumonia or pulmonary edema. PLEURA: No pleural effusion or pneumothorax. BONES AND SOFT TISSUES: No focal osseous lesion. The soft tissues are normal. IMPRESSION: Mild bilateral pulmonary venous congestion. Signed by: Dr. Matilde Felix M.D. on 08/30/2019 7:10 AM
[2019-08-30] MEDS: INSULIN REGULAR, HUMAN 100 UNIT/1 ML 3ML VIAL SQ SCH ×4 (07:30→20:23)
[2019-08-30] MEDS: SODIUM BICARBONATE 650 MG TAB PO SCH ×2 (08:56→17:00)
[2019-08-30] MEDS ORDERED: SODIUM CHLORIDE 0.9% 250ML 250 ML ONE ×2 (11:10→16:18)
[2019-08-30] MEDS ORDERED: HYDRALAZINE HCL 20 MG/ML VIAL IV PRN (13:00)
[2019-08-30] MEDS ORDERED: HYDRALAZINE HCL 25 MG TAB PO SCH (14:00)
--- NOTE | 2019-08-30 14:14 | NUR ---
1ST Unit of blood finished, no adverse reaction noted, patient up in bed talking thru phone
[2019-08-30] MEDS: HYDRALAZINE HCL 25 MG TAB PO SCH ×2 (14:22→20:39)
[2019-08-30] MEDS: AMLODIPINE BESYLATE 5 MG TAB PO SCH (14:25)
[2019-08-30] MEDS: FUROSEMIDE INJ 10 MG/ML 4 ML VIAL IV SCH ×2 (14:25→20:38)
--- NOTE | 2019-08-30 16:16 | Diagnostic Imaging Report ---
Renal ultrasound, 08/30/2019. History: Chronic kidney disease. Discussion: Transverse and longitudinal images of the kidneys were obtained demonstrating normal renal sizes but mildly increased cortical echogenicities. There is no evidence of hydronephrosis, mass, or renal calculus. The right kidney measures 10 cm and the left kidney measures 10.7 cm in length. Renal cortex measures 1.1 and 1.6 cm respectively. The urinary bladder is unremarkable. Bladder volume measures 45 mL. There is no evidence of free fluid. IMPRESSION: Increase renal echogenicity suggestive of medical renal disease. No evidence of hydronephrosis or nephrolithiasis. Signed by: Mayur Fuentes on 08/30/2019 4:13 PM
[2019-08-30] MEDS ORDERED: METOPROLOL TARTRATE 25 MG TAB PO SCH (17:00)
[2019-08-30 17:18] LABS: CREATINE KINASE MB 1.4 ng/mL (0-5.0)
--- NOTE | 2019-08-30 19:35 | NUR ---
2ND UNIT OF BLOOD FINISHED. VITAL SIGN STABLE AT THIS TIME. CONTINUE TO MONITOR CLOSELY
--- NOTE | 2019-08-30 20:26 | History and Physical ---
CHIEF COMPLAINT: Shortness of breath and medical noncompliance. HISTORY OF PRESENT ILLNESS: A 49-year-old female, morbidly obese, history of type 2 diabetes, hypertension, very noncompliant with her medical care, goes to multiple hospitals where she is admitted for similar findings, has underlying chronic kidney disease, comes into the ED with complaints of shortness of breath, found to be anemic and underlying chest pain. As for her chest pain, Cardiology was consulted. Cardiac enzymes were found to be negative. EKG shows no acute findings. Cardiology evaluated the patient already. As for her shortness of breath, it is likely secondary to anemia. Imaging studies have found to be negative. Hemoglobin is 6.8. The patient has a history of anemia in the past as well. The patient has received blood transfusions in the past. Denies any palpitation, nausea, or vomiting. The patient is seen and evaluated at bedside on the medical floor. She is currently doing very well at baseline with no other complaints at this time. REVIEW OF SYSTEMS: Pertinent Positives: Shortness of breath and chest pain. The rest of 14-point review of systems have been reviewed with the patient and are negative. ALLERGIES: NO KNOWN DRUG ALLERGIES. HOME MEDICATIONS: See med reconciliation form. PAST MEDICAL HISTORY: Type 2 diabetes, morbid obese, hypertension, hyperlipidemia, CKD, and medical noncompliance. PAST SURGICAL HISTORY: Reports none. FAMILY HISTORY: Hypertension and diabetes. SOCIAL HISTORY: No drugs. No alcohol. Does not smoke. Good social support. The patient does not work. PHYSICAL EXAMINATION: VITAL SIGNS: Temperature is 97.7, pulse 82, respiratory rate is 18, blood pressure 183/110, pulse ox 98% on room air. GENERAL: Not in acute distress. Alert and oriented x3. Cooperative on examination. HEENT: Head is normocephalic and atraumatic. Eyes; pupils are equal, round, and reactive to light bilaterally. Extraocular movements are intact bilaterally. Throat; no evidence of erythema or exudates in the posterior pharynx. Has poor dentition. NECK: Supple. Good range of motion. PULMONARY: Clear to auscultation bilaterally. No wheezing, rales or rhonchi. No crackles appreciated. CARDIOVASCULAR: Positive S1 and S2. No murmurs, rubs, or gallops. ABDOMEN: Soft, nondistended, nontender to palpation. Bowel sounds are present. MUSCULOSKELETAL: Strength is 5/5 throughout. No evidence of any muscle deficits on examination. No weakness appreciated. NEUROLOGIC: Cranial nerves II through XII grossly intact. No evidence of any neurologic deficits on exam. SKIN: Intact. Warm to touch. Good cap refill. PSYCHIATRIC: Normal affect and mood. EXTREMITIES: No edema. Good range of motion throughout. LABORATORY DATA: Labs show white count 12.9, hemoglobin 6.8, hematocrit 27, platelets of 244. Coagulation; PT 13, INR 1, PTT 35. Chemistry; sodium 138, potassium 4.7, chloride 113, bicarb is 16, anion gap of 13, BUN 76, creatinine is 5.2, glucose 128, calcium is 7.8. Troponins were all negative. LFTs within normal range. Albumin was 2.6. Urinalysis; 3+ protein, 1+ glucose. IMAGING STUDIES: Chest x-ray shows mild bilateral pulmonary venous congestion. IMPRESSION: 1. Anemia, likely leading to underlying shortness of breath-resolved. 2. Uncontrolled hypertension. 3. Chronic kidney disease stage 5 at baseline. 4. Uncontrolled type 2 diabetes. 5. Medical noncompliance. 6. Morbidly obese. PLAN: At this time, the patient's shortness of breath all resolved. Imaging studies performed, shows pulmonary vascular congestion. The patient will be on IV Lasix. She is receiving 2 units of packed RBCs today. She did report after the blood, she is actually feeling much better now during the blood transfusion. We will get repeat labs in the morning. Resume same antihypertensive medications and adjust accordingly. Insulin sliding scale. Resume same insulin at home. Repeat labs in the morning. Cardiology consulted. If everything is negative and cleared by Cardiology, discharge to home. Once again, I have talked to the patient about [facility]. She reports she has been there several times and refused to sign up. The patient is very noncompliant with her medical care. We will continue to follow. MD TEDDY Gonzalez/MODL /[id number]
[2019-08-30] MEDS: MIRTAZAPINE 15 MG TAB PO SCH (20:38)
[2019-08-30] MEDS: METOPROLOL TARTRATE 25 MG TAB PO SCH (20:38)
[2019-08-30] MEDS: ONDANSETRON HCL 4 MG ORAL DISINTEGRATING TAB PO PRN (20:39)
[2019-08-30] MEDS ORDERED: INSULIN LISPRO 100 UNIT/1 ML 3ML VIAL SQ SCH (21:00)
[2019-08-31] VITALS (8 sets, daily range): BP systolic 112–137; BP diastolic 59–97
[2019-08-31 05:17] LABS: BASOPHILS # (AUTO) 0.1 (0.0-0.1); BASOPHILS % 0.7 % (0.0-1.0); EOSINOPHILS # (AUTO) 0.2 (0.0-0.4); EOSINOPHILS % 1.6 % (0.0-6.0); HEMATOCRIT 28.8 % (34.2-44.1); HEMOGLOBIN 9.1 g/dL (12.0-16.0); LYMPHOCYTES # (AUTO) 1.1 (1.0-3.2); LYMPHOCYTES % 7.5 % (18.0-39.1); MEAN CORPUSCULAR HEMOGLOBIN 25.4 pg (28-32); MEAN CORPUSCULAR HGB CONC 31.6 g/dL (31-35); MEAN CORPUSCULAR VOLUME 80.4 fL (81-99); MONOCYTES # (AUTO) 0.6 (0.2-0.8); MONOCYTES % 3.6 % (4.4-11.3); NEUTROPHILS % 86.2 % (38.7-80.0); PLATELET COUNT 333 x10e3/uL (140-360); RED BLOOD COUNT 3.58 x10e6/uL (3.6-5.1); RED CELL DISTRIBUTION WIDTH 15.9 % (11.7-14.4)
[2019-08-31 05:35] LABS: ANION GAP 16.5 mmol/L (8-16); CALCIUM 8.1 mg/dL (8.4-10.2); CREATININE, SERUM 5.33 mg/dL (0.57-1.11); POTASSIUM 5.5 mmol/L (3.5-5.1)
[2019-08-31] MEDS: ONDANSETRON HCL 4 MG ORAL DISINTEGRATING TAB PO PRN (05:45)
[2019-08-31] MEDS: HYDRALAZINE HCL 25 MG TAB PO SCH ×3 (05:50→21:16)
[2019-08-31] MEDS: INSULIN REGULAR, HUMAN 100 UNIT/1 ML 3ML VIAL SQ SCH ×4 (07:30→21:00)
[2019-08-31] MEDS ORDERED: INSULIN LISPRO 100 UNIT/1 ML 3ML VIAL SQ SCH (07:30)
[2019-08-31] MEDS: ASPIRIN 325 MG TAB PO SCH (08:47)
[2019-08-31] MEDS: METOPROLOL TARTRATE 25 MG TAB PO SCH ×2 (08:47→20:57)
[2019-08-31] MEDS: AMLODIPINE BESYLATE 5 MG TAB PO SCH (08:47)
[2019-08-31] MEDS: FUROSEMIDE INJ 10 MG/ML 4 ML VIAL IV SCH ×2 (08:47→20:59)
[2019-08-31] MEDS: FOLIC ACID 1 MG TAB PO SCH (08:47)
[2019-08-31] MEDS: NIFEDIPINE CR 30 MG TAB PO SCH (08:47)
[2019-08-31] MEDS: SODIUM BICARBONATE 650 MG TAB PO SCH ×2 (08:48→17:37)
[2019-08-31] MEDS ORDERED: SOD POLYSTYRENE SULFONATE SUSP 15 GM/60 ML BTL PO NR (12:30)
--- NOTE | 2019-08-31 18:15 | NUR ---
Patient resting in bed, Alert with no distress, tolerated Dinner
--- NOTE | 2019-08-31 19:15 | NUR ---
Received report from day RN- 49 year old female in semi-fowlers position. Alert and oriented x3. Respirations even and unlabored. Tele#29 monitor on-SR.Denies pain. Call light within reach.
[2019-08-31] MEDS ORDERED: SOD POLYSTYRENE SULFONATE SUSP 15 GM/60 ML BTL PO ONE (20:00)
[2019-08-31] MEDS ORDERED: CEFTRIAXONE SOD 1 GM/NS 50 ML 50 ML IV SCH (20:00)
[2019-08-31] MEDS: MIRTAZAPINE 15 MG TAB PO SCH (20:57)
[2019-09-01] VITALS (8 sets, daily range): BP systolic 110–169; BP diastolic 56–84
--- NOTE | 2019-09-01 01:12 | NUR ---
PCT CALLED NURSE TO ROOM AT 1112 PT HAD SHOWER HELPED BACK TO BED AFTER C/O OF FEELING WEAK. PT IS ALERT AND ORIENTED X3. t 96.1 hr 78 r20 O2 SAT 97% ON ra B/P LEFT WRIST 143/78. ACCUCHECK WAS 117. MONITOR PLACED BACK ON. PT COVEERED WITH WARM BLANKET. PT REPORT FEELING BETTER. AT 0130 PT SAID, " I AM BLEEDING DOWN THERE. i HAVE BOILS IN MY RT GROIN AND UNDER BOTH ARMS. tHE ONLY ONE BLEEDING IS RT GROIN LESION. " SCAR TISSUE NOTED UNDER BOTH ARMS HARD TO PALPATION.PT STATES" i HAVE HAD THEM FOR A LONG TIME." MULTIPLE LESIONS NOTED IN RT GROIN ONLY ONE BLEEDING SMALL AMOUNT.TELFA DRESSING AND ABD PAD ON.PT REPORTS SHE HAS HAD THIS A WHILE TOO BUT NOT BLEEDING.WILL NOTIFY PHYSICIAN. Addendum: 09/01/19 at 0715 by NOEL WILSON RN pct called nurse to room at 0112- not at 1112
[2019-09-01 05:10] LABS: BASOPHILS # (AUTO) 0.1 (0.0-0.1); BASOPHILS % 0.5 % (0.0-1.0); EOSINOPHILS # (AUTO) 0.9 (0.0-0.4); HEMATOCRIT 30.7 % (34.2-44.1); HEMOGLOBIN 9.3 g/dL (12.0-16.0); LYMPHOCYTES # (AUTO) 1.6 (1.0-3.2); LYMPHOCYTES % 9.4 % (18.0-39.1); MEAN CORPUSCULAR HEMOGLOBIN 25.3 pg (28-32); MEAN CORPUSCULAR HGB CONC 30.3 g/dL (31-35); MONOCYTES # (AUTO) 1.1 (0.2-0.8); MONOCYTES % 6.3 % (4.4-11.3); NEUTROPHILS # (AUTO) 13.2 (2.1-6.9); NEUTROPHILS % 78.1 % (38.7-80.0); PLATELET COUNT 320 x10e3/uL (140-360); RED BLOOD COUNT 3.68 x10e6/uL (3.6-5.1)
[2019-09-01 05:23] LABS: MEAN CORPUSCULAR VOLUME 83.4 fL (81-99)
[2019-09-01 05:28] LABS: ALBUMIN 2.6 g/dL (3.5-5.0); ALBUMIN/GLOBULIN RATIO 0.5 (0.8-2.0); ALKALINE PHOSPHATASE 101 IU/L (40-150); ANION GAP 17.4 mmol/L (8-16); BLOOD UREA NITROGEN 73 mg/dL (7-26); BUN/CREATININE RATIO 12 (6-25); CALCIUM 7.7 mg/dL (8.4-10.2); CARBON DIOXIDE 17 mmol/L (22-29); CHLORIDE 107 mmol/L (98-107); EST GLOMERULAR FILTRATION RATE 7 ML/MIN (60-); GLUCOSE 116 mg/dL (74-118); POTASSIUM 4.4 mmol/L (3.5-5.1); SODIUM 137 mmol/L (136-145)
[2019-09-01 05:42] LABS: ALANINE AMINOTRANSFERASE < 6 IU/L (0-55)
--- NOTE | 2019-09-01 06:28 | NUR ---
PAGE PLACED FOR MD VARNER CONCERNING WOUND TO PT GROIN, NO ANSWER UNABLE TO LEAVE MESSAGE. WILL ATTEMPT AGAIN
[2019-09-01] MEDS: HYDRALAZINE HCL 25 MG TAB PO SCH ×2 (06:33→14:00)
--- NOTE | 2019-09-01 07:00 | NUR ---
BEDSIDE SHIFT REPORT RECEIVED FROM THE SOLAR POWER INSTALLER RN. EDUCATED PT ABOUT FALL PRECAUTIONS. CALL LIGHT WITH IN EASY REACH. INSTRUCTED PT TO USE CALL LIGHT FOR ALL THE NEEDS. PT VERBALIZED UNDERSTANDING. BED IS LOW AND LOCKED. SIDE RAILS X2. BED ALARM IS ON. PT DENIES NEEDS AT THIS TIME.
[2019-09-01] MEDS: INSULIN REGULAR, HUMAN 100 UNIT/1 ML 3ML VIAL SQ SCH ×4 (07:30→21:00)
[2019-09-01] MEDS: FUROSEMIDE INJ 10 MG/ML 4 ML VIAL IV SCH (08:19)
[2019-09-01] MEDS: ASPIRIN 325 MG TAB PO SCH (08:20)
[2019-09-01] MEDS: FOLIC ACID 1 MG TAB PO SCH (08:20)
[2019-09-01] MEDS: AMLODIPINE BESYLATE 5 MG TAB PO SCH (08:20)
[2019-09-01] MEDS: SODIUM BICARBONATE 650 MG TAB PO SCH ×2 (08:21→17:09)
[2019-09-01] MEDS: NIFEDIPINE CR 30 MG TAB PO SCH (08:21)
[2019-09-01] MEDS: METOPROLOL TARTRATE 25 MG TAB PO SCH ×2 (08:22→21:28)
[2019-09-01] MEDS: ACETAMINOPHEN 325 MG TAB PO PRN (08:46)
[2019-09-01 09:54] LABS: CHOL/HDL RATIO 3.9 (3.0-3.6)
--- NOTE | 2019-09-01 13:15 | NUR ---
Visit made by MANI Floyd. Sign Language Teacher provided pastoral presence, hospitality, and supportive listening. Sign Language Teacher informed pt/family of the scope of [employer] and availability. MEAGAN MURRAY Sign Language Teacher Spiritual Care Department O: [phone] Pager: [phone] ([phone] number calling from)
--- NOTE | 2019-09-01 19:00 | NUR ---
BEDSIDE SHIFT REPORT GIVEN TO THE RUG MEASURER RN. PT DENIED FURTHER NEEDS.
--- NOTE | 2019-09-01 19:02 | NUR ---
RECEIVED REPORT FROM DAY RN. PT IS ALERT AND ORIENTED X1. RT SIDED WEAKNESS NOTED- WEAK RT ARM. PT RESTING IN BED IN SEMI-FOWLERS POSITION. RESPIRATIONS EVEN AND UNLABORED.TELE -SR. 20G PIV IN LEFT FOREARM- SITE HEALTHY. BED IN LOW POSITION. CALL LIGHT WITHIN REACH.PUREWICK ON - DIAPER ON.REPOSITIONED.SCDS ON GABRIELLE LOWER EXTREMITIES.
--- NOTE | 2019-09-01 19:16 | NUR ---
Report received from day RN. Pt is alert and oriented x3. Pt in semi-fowlers position. Respirations even and unlabored. 20g SL in rt AC.Dressing to rt groin dry and intact.Pt up to BR with minimal assist.pt denies pain.Bed in low position. Call light within reach.
[2019-09-01] MEDS ORDERED: SODIUM CHLORIDE 0.9% 1000ML 1,000 ML IV ONE (20:00)
[2019-09-01] MEDS ORDERED: VANCOMYCIN 1GM/NS 250 ML 250 ML IV ONE (20:00)
[2019-09-01] MEDS ORDERED: PIPER-TAZ 3.375 GM 50 ML IV SCH (21:00)
--- NOTE | 2019-09-01 21:20 | NUR ---
IV rt AC leaking when flushed. IV d/c with catheter intact. Pressure dressing to site. No bleeding noted. Pt tolerated procedure well.
[2019-09-01] MEDS: MIRTAZAPINE 15 MG TAB PO SCH (21:24)
[2019-09-01] MEDS: ATORVASTATIN 10 MG TAB PO SCH (21:24)
[2019-09-01] MEDS ORDERED: HYDRALAZINE HCL 25 MG TAB PO SCH (22:00)
--- NOTE | 2019-09-01 22:00 | NUR ---
IV attempted x3 using vein finder- unsuccessful. Charge Nurse notified.
--- NOTE | 2019-09-01 22:33 | NUR ---
IV 22 g started by Charge nurse into rt wrist. IVF started ns at 75ml/hr via pump. IV ABT started as per Dr orders. Pt tolerated procedure well.
[2019-09-01] MEDS: CEFEPIME 1GM/NS 0.9% 50 ML 50 ML IV SCH (22:35)
[2019-09-01] MEDS: MUPIROCIN 2% OINT 22 GM TUBE TOP SCH (23:15)
[2019-09-02] VITALS (8 sets, daily range): BP systolic 119–154; BP diastolic 56–77
[2019-09-02 06:54] LABS: BASOPHILS # (AUTO) 0.1 (0.0-0.1); BASOPHILS % 0.6 % (0.0-1.0); EOSINOPHILS # (AUTO) 1.3 (0.0-0.4); EOSINOPHILS % 9.9 % (0.0-6.0); HEMOGLOBIN 9.5 g/dL (12.0-16.0); LYMPHOCYTES # (AUTO) 1.8 (1.0-3.2); LYMPHOCYTES % 13.4 % (18.0-39.1); MEAN CORPUSCULAR HEMOGLOBIN 25.3 pg (28-32); MEAN CORPUSCULAR HGB CONC 30.6 g/dL (31-35); MEAN CORPUSCULAR VOLUME 82.7 fL (81-99); MONOCYTES # (AUTO) 1.1 (0.2-0.8); MONOCYTES % 8.1 % (4.4-11.3); NEUTROPHILS % 67.5 % (38.7-80.0); PLATELET COUNT 334 x10e3/uL (140-360); RED BLOOD COUNT 3.75 x10e6/uL (3.6-5.1)
--- NOTE | 2019-09-02 07:00 | NUR ---
RCD PT AT BED PT IS ALERT AND ORIENTED AND RESTING ON BED IV PATENT BY SALINE FLUSH BED LOW AND LOCKED CALL LIGHT IN REACH
[2019-09-02 07:20] LABS: ANION GAP 16.3 mmol/L (8-16); CALCIUM 7.4 mg/dL (8.4-10.2); CREATININE, SERUM 6.2 mg/dL (0.57-1.11); POTASSIUM 4.3 mmol/L (3.5-5.1)
[2019-09-02] MEDS: INSULIN REGULAR, HUMAN 100 UNIT/1 ML 3ML VIAL SQ SCH ×4 (07:30→20:25)
[2019-09-02] MEDS: SODIUM BICARBONATE 650 MG TAB PO SCH ×2 (09:00→16:38)
[2019-09-02] MEDS: HYDRALAZINE HCL 25 MG TAB PO SCH ×2 (09:00→16:38)
[2019-09-02] MEDS: NIFEDIPINE CR 30 MG TAB PO SCH (09:00)
[2019-09-02] MEDS: FOLIC ACID 1 MG TAB PO SCH (09:00)
[2019-09-02] MEDS: ASPIRIN 325 MG TAB PO SCH (09:00)
[2019-09-02] MEDS: METOPROLOL TARTRATE 25 MG TAB PO SCH ×2 (09:00→20:25)
[2019-09-02] MEDS: MUPIROCIN 2% OINT 22 GM TUBE TOP SCH ×3 (09:00→20:37)
[2019-09-02] MEDS ORDERED: DOCUSATE SODIUM 100 MG CAP PO PRN (12:45)
--- NOTE | 2019-09-02 18:42 | NUR ---
PT RESTING ON BED BED SIDE REPORT GIVEN TO ONCOMING NURSE
[2019-09-02] MEDS: CEFEPIME 1GM/NS 0.9% 50 ML 50 ML IV SCH (20:20)
[2019-09-02] MEDS: MIRTAZAPINE 15 MG TAB PO SCH (20:25)
[2019-09-02] MEDS: ATORVASTATIN 10 MG TAB PO SCH (20:25)
--- NOTE | 2019-09-02 20:25 | NUR ---
PATIENT IS IN STABLE CONDITION, NO SIGNS OF DISTRESS NOTED. IV ANTIBIOTICS ARE RUNNING AT ORDERED RATE AND PATIENT VOICES A HEADACHE AT A LEVEL OF 5 AND WAS MEDICATED ORDERED. BED IS IN LOWEST POSITION, BOTH SIDE RAILS ARE UP, CALL LIGHT WITHIN EASY REACH, WILL CONTINUE TO MONITOR.
[2019-09-02] MEDS: ACETAMINOPHEN 325 MG TAB PO PRN (20:54)
[2019-09-03 01:04] VITALS: BP 142/76
[2019-09-03 05:00] VITALS: BP 152/81
[2019-09-03 05:28] LABS: BASOPHILS # (AUTO) 0.1 (0.0-0.1); BASOPHILS % 0.6 % (0.0-1.0); EOSINOPHILS % 8.3 % (0.0-6.0); HEMATOCRIT 29.8 % (34.2-44.1); HEMOGLOBIN 8.8 g/dL (12.0-16.0); LYMPHOCYTES # (AUTO) 1.4 (1.0-3.2); LYMPHOCYTES % 10.9 % (18.0-39.1); MEAN CORPUSCULAR HEMOGLOBIN 25.2 pg (28-32); MEAN CORPUSCULAR HGB CONC 29.5 g/dL (31-35); MEAN CORPUSCULAR VOLUME 85.4 fL (81-99); MONOCYTES # (AUTO) 0.8 (0.2-0.8); MONOCYTES % 6.5 % (4.4-11.3); NEUTROPHILS # (AUTO) 9.2 (2.1-6.9); NEUTROPHILS % 73.3 % (38.7-80.0); PLATELET COUNT 280 x10e3/uL (140-360); RED BLOOD COUNT 3.49 x10e6/uL (3.6-5.1); RED CELL DISTRIBUTION WIDTH 15.7 % (11.7-14.4)
[2019-09-03 05:39] LABS: ANION GAP 17.2 mmol/L (8-16); CALCIUM 7.5 mg/dL (8.4-10.2); CREATININE, SERUM 5.78 mg/dL (0.57-1.11); POTASSIUM 4.2 mmol/L (3.5-5.1)
--- NOTE | 2019-09-03 07:00 | NUR ---
RCD PT AT BED PT IS ALERT AND ORIENTED AND RESTING ON BED IV PATENT BY SALINE FLUSH BED LOW AND LOCKED CALL LIGHT IN REACH
[2019-09-03] MEDS: INSULIN REGULAR, HUMAN 100 UNIT/1 ML 3ML VIAL SQ SCH ×3 (07:30→16:04)
[2019-09-03 08:30] VITALS: BP 144/79
[2019-09-03 08:38] VITALS: BP 144/79
[2019-09-03] MEDS: HYDRALAZINE HCL 25 MG TAB PO SCH ×2 (09:00→16:04)
[2019-09-03] MEDS: METOPROLOL TARTRATE 25 MG TAB PO SCH (09:00)
[2019-09-03] MEDS: FOLIC ACID 1 MG TAB PO SCH (09:00)
[2019-09-03] MEDS: SODIUM BICARBONATE 650 MG TAB PO SCH ×2 (09:00→16:04)
[2019-09-03] MEDS: NIFEDIPINE CR 30 MG TAB PO SCH (09:00)
[2019-09-03] MEDS: MUPIROCIN 2% OINT 22 GM TUBE TOP SCH ×2 (09:00→15:00)
[2019-09-03] MEDS: ASPIRIN 325 MG TAB PO SCH (09:00)
[2019-09-03 11:54] VITALS: BP 130/72
[2019-09-03] MEDS ORDERED: LACTULOSE SYRUP 20 GM/30 ML UDC PO NR (13:15)
--- NOTE | 2019-09-03 16:02 | NUR ---
RCD PT FROM ER BY BED PT IS ALERT AND ORIENTED PT RESTING ON BED NO SIGNS OF ANY DISTRESS NOTED VITALS CHECKED IV PATENT BY SALINE FLUSH ADMISSION ASSESSMENT AND HISTORY DONE FAMILY AT BED SIDE INSTRUCTED THE PT AND FAMILY REGARDING HOSPITAL POLICY AND ROUTINE BED LOW AND LOCKED CALL LIGHT IN REACH Addendum: 09/03/19 at 1647 by Betty Ceron RN WRONG PATIENT
[2019-09-03 16:08] VITALS: BP 179/94
[2019-09-03] MEDS ORDERED: FUROSEMIDE40 MG PO (18:01)
[2019-09-03] MEDS ORDERED: SODIUM BICARBO650 MG PO (18:02)
[2019-09-03] MEDS ORDERED: LIPITOR20 MG PO (18:03)
[2019-09-03] MEDS ORDERED: KEFLEX500 MG PO (18:03)
[2019-09-03] MEDS ORDERED: ASPIR 8181 MG PO (18:04)
--- NOTE | 2019-09-03 18:40 | NUR ---
DISCHARGE INSTRUCTIONS GIVEN REGARDING LOW POTASSIUM DIET,STOPPED MEDS AND IMPORTANCE OF FOLLOW UP WITH CARDIOLOGY AND NEPHROLOGY
--- NOTE | 2019-09-03 18:44 | NUR ---
PATIENT WENT HOME IN SAFE CONDITION WITH HER SON
--- NOTE | 2019-09-04 01:35 | Discharge Summary ---
FINAL DISCHARGE DIAGNOSES: 1. Hypertension urgency-improved. 2. Chronic kidney disease stage 5 at baseline. 3. Uncontrolled type 2 diabetes. 4. Anemia, status post blood transfusion, resolved. 5. Right groin cellulitis, improved. 6. Morbidly obese. 7. Medical noncompliance. 8. Atypical chest pain. CADWORX PIPING DESIGNER: Cardiology. VITAL SIGNS: Temperature is 97.5, pulse is 81, respiratory rate is 18, blood pressure 130/72, pulse ox 97% on room air. LABORATORY FINDINGS: Show white count is 4.5, hemoglobin 8.8, hematocrit was 29.8, and platelets of 280. Coagulation; PT 13, INR 1, PTT 35. Chemistry; sodium 137, potassium 4.2, chloride 107, bicarb 17, anion gap is 17, BUN 64, bicarb 12.7, calcium 7.5, albumin was 2.6. LFTs within normal range. Troponins were all negative. Corrected calcium is greater than 8. LDL was 88. Urinalysis was found to be negative. Serology flu was negative. Group A strep throat was found to be positive for group A strep. MICROBIOLOGY: None were collected by the ER. IMAGING STUDIES: Chest x-ray shows no focal pneumonia or pulmonary edema. Renal ultrasound shows increased echogenicity suggestive of renal medical disease. No evidence of hydronephrosis or nephrolithiasis. Right kidney is 10 cm and left kidney is 10.7 cm. Chest x-ray on 08/30/2019, mild bilateral pulmonary venous congestion. HOSPITAL COURSE: This is a 49-year-old female, very noncompliant with the medical care, has a history of hypertension and type 2 diabetes, comes into the ED with complaints of chest pain as well as shortness of breath. The patient was admitted for further evaluation and management. The patient was found to be anemic, requiring blood transfusion with much improvement in hemoglobin level prior to being discharged home. Hemoglobin was 8.8 prior to discharge. The patient likely has underlying anemia of chronic disease as well as anemia of renal failure. The patient's hemoglobin maintained stable here in the hospital stay. Cardiology was consulted for chest pain, found to be atypical in nature. Cardiac enzymes found to be negative. EKG showed no acute findings. No longer on cardiac telemetry. Cardiology recommends cardioprotective medications for discharge home. She was also found to have some leukocytosis, but it was found that she had this right groin cellulitis that she did not report to us, in which she was initiated antibiotics with much improvement in white count of 12.5 prior to being discharged home. She was afebrile. Normotensive. Respiratory rate is good. She was discharged on oral antibiotics. She was on IV antibiotics while here in the hospital stay. As far her blood pressure, that was controlled and managed appropriately after adjustment of her antihypertensive medications. She also required IV diuretics for diuresis and she has noted incomplete edema as well as pulmonary edema. On discharge, the patient was doing well, back to normal baseline. She was afebrile. Normotensive. Breathing well with no complaints. On the day of discharge, vital signs were stable, labs reviewed and stable. The patient was seen, evaluated, and examined thoroughly on the day of discharge with no other complaints. The patient verbalized understanding and agreed to plan of care to follow up accordingly as an outpatient with primary care physician in 1 week. MEDICATIONS: See med reconciliation form including Lasix 40 mg daily, metoprolol 25 mg p.o. b.i.d., nifedipine XL 90 mg daily, sodium bicarbonate tabs 1300 mg p.o. b.i.d., Keflex 500 mg one tab p.o. b.i.d. x5 days, Lipitor 10 mg daily, aspirin 81 mg one tab daily. DISPOSITION: Home. CONDITION: Stable. DIET: Heart healthy. In the event of any worsening symptoms, the patient was advised to come back to the ED for further evaluation. Discharge summary greater than 35 minutes. I actually discussed with the patient that she needs to follow very close with her PCP in about 1 week time, to get repeat labs and also needed very close follow with the inspector shells. She verbalized understanding. We also discussed with her about avoiding potassium foods, which she was provided with a pamphlet as well. She verbalized understanding. MD TEDDY Gonzalez/LARISSA /[id number]
== END 2019-09-03 18:42 | disposition home or self-care (01) | DRG 305 ==
LOC: ER 10:48 → ERHOLD 15:50 → MED/SURG2 22:56
PROVIDERS: ADMIT Internal Medicine; ATTEND Internal Medicine
PROC: 30233N1 Transfusion of Nonautologous Red Blood Cells into Peripheral Vein, Percutaneous Approach (ICD-10-PCS; principal; 2019-08-29)
DX: I16.0 Hypertensive urgency (principal); N18.5 Chronic kidney disease, stage 5; Z68.41 Body mass index [BMI] 40.0-44.9, adult; E11.22 Type 2 diabetes mellitus with diabetic chronic kidney disease; I12.0 Hypertensive chronic kidney disease with stage 5 chronic kidney disease or end stage renal disease; Z79.4 Long term (current) use of insulin; E11.40 Type 2 diabetes mellitus with diabetic neuropathy, unspecified; E87.8 Other disorders of electrolyte and fluid balance, not elsewhere classified; D64.9 Anemia, unspecified; I25.10 Atherosclerotic heart disease of native coronary artery without angina pectoris; E66.01 Morbid (severe) obesity due to excess calories; E87.5 Hyperkalemia; K59.00 Constipation, unspecified; D63.1 Anemia in chronic kidney disease; D63.8 Anemia in other chronic diseases classified elsewhere; E11.65 Type 2 diabetes mellitus with hyperglycemia; Z91.19 Patient's noncompliance with other medical treatment and regimen; R07.89 Other chest pain
CPT/HCPCS: 36415; 71045; 76770; 80048; 80053; 80061; 81001; 82550; 82553; 82948; 83518; 83880; 84484; 85025; 85610; 85730; 86850; 86900; 86920; 87400; 93005; 99284; J0360; J0561; J0692; J0696; J1817; J1940; J3370; J7030; J7050; P9016; Q0162

== ENCOUNTER 2020-02-29 22:44 | Inpatient (IN) | payer SELFPAY ==
[~2020-02-29] VITALS: Ht 152.4 cm; Wt 80.5 kg
[~2020-02-29 22:44] MED LIST changes: +ASPIR 8181 MG PO; +FUROSEMIDE40 MG PO; +KEFLEX500 MG PO; +LIPITOR20 MG PO; +SODIUM BICARBO650 MG PO
--- NOTE | 2020-02-29 23:21 | Emergency Department Note ---
History of Present Illnes History of Present Illness Chief Complaint: General Medicine Complaints History of Present Illness This is a 50 year old female presents with c/o "i want my dialysis catheter out", she states" i do not need to be on dialysis, pt states signed out ama from [facility] about 2 weeks ago, states she was started on dialysis during that admission, also reports she has not had any dialysis since she signed out ama from [facility] 2 weeks ago. per records from previous admissions and visits to this facility pt has long h/o noncompliance with treatment of her htn and diabetes, she also according to records had stage 5 kidney disease on last admission. . Historian: Patient Arrival Mode: Car Onset (how long ago): week(s) (2) Location: right subclavian Quality: sanju dialysis catheter placed and pt states she wants it out. Onset quality: unable to specify Duration (how long): week(s) (2) Timing of current episode: constant Progression: unchanged Chronicity: new Context: Reports non-compliance w/ medications, Reports other (placment of dialysis catheter at [facility]); Denies recent illness, Denies recent surgery Relieving factors: none Exacerbating factors: none Associated symptoms: Reports denies other symptoms Treatments prior to arrival: none Past Medical/Family History Physician Review I have reviewed the patient's past medical and family history. Any updates have been documented here. Past Medical History Recent Fever: No Clinical Suspicion of Infectio: No New/Unexplained Change in Ment: No Past Medical History: Hypertension, Diabetes, Chronic Kidney Disease Past Surgical History: None Social History Smoking Cessation: Never Smoker Alcohol Use: Occasional Any Illegal Drug Use: No Family History Family history of heart diseas: No Other family history htn,dm Other Last Tetanus: unk Review of Systems Review of Systems Constitutional: Reports no symptoms EENTM: Reports no symptoms Cardiovascular: Reports no symptoms Respiratory: Reports no symptoms Gastrointestinal: Reports no symptoms Genitourinary: Reports no symptoms Musculoskeletal: Reports no symptoms Integumentary: Reports no symptoms Neurological: Reports no symptoms Psychological: Reports no symptoms Endocrine: Reports no symptoms Hematological/Lymphatic: Reports no symptoms Physical Exam Related Data Allergies: Coded Allergies: No Known Allergies (Unverified , 07/03/18) Triage Vital Signs Vital Signs Date Time Temp Pulse Resp B/P (MAP) Pulse Ox O2 Delivery O2 Flow Rate FiO2 8/6/20 22:50 99.8 86 20 203/113 100 Room Air Vital signs reviewed: Yes Physical Exam CONSTITUTIONAL Constitutional: Present well-developed, Present well-nourished; Absent distressed HENT HENT: Present normocephalic, Present atraumatic, Present oropharynx clear/moist, Present nose normal HENT L/R: Present left ext ear normal, Present right ext ear normal EYES Eyes: Reports PERRL, Reports conjunctivae normal NECK Neck: Present ROM normal PULMONARY Pulmonary: Present effort normal, Present breath sounds normal CARDIOVASCULAR Cardiovascular: Present regular rhythm, Present heart sounds normal, Present capillary refill normal, Present normal rate GASTROINTESTINAL Abdominal: Present soft, Present nontender, Present bowel sounds normal GENITOURINARY Genitourinary: Present exam deferred SKIN Skin: Present warm, Present dry MUSCULOSKELETAL Musculoskeletal: Present ROM normal, Present other (sanju dialysis catheter in right subclavian. no sign of infection) NEUROLOGICAL Neurological: Present alert, Present oriented x 3, Present no gross motor or sensory deficits PSYCHOLOGICAL Psychological: Present mood/affect normal, Present judgement normal Results Laboratory Laboratory Laboratory Tests Test 02/29/20 23:22 White Blood Count 13.63 x10e3/uL (4.8-10.8) Red Blood Count 2.96 x10e6/uL (3.6-5.1) Hemoglobin 7.4 g/dL (12.0-16.0) Hematocrit 24.6 % (34.2-44.1) Mean Corpuscular Volume 83.1 fL (81-99) Mean Corpuscular Hemoglobin 25.0 pg (28-32) Mean Corpuscular Hemoglobin Concent 30.1 g/dL (31-35) Red Cell Distribution Width 15.2 % (11.7-14.4) Platelet Count 247 x10e3/uL (140-360) Neutrophils (%) (Auto) 75.9 % (38.7-80.0) Lymphocytes (%) (Auto) 13.9 % (18.0-39.1) Monocytes (%) (Auto) 6.5 % (4.4-11.3) Eosinophils (%) (Auto) 2.9 % (0.0-6.0) Basophils (%) (Auto) 0.4 % (0.0-1.0) Neutrophils # (Auto) 10.3 (2.1-6.9) Lymphocytes # (Auto) 1.9 (1.0-3.2) Monocytes # (Auto) 0.9 (0.2-0.8) Eosinophils # (Auto) 0.4 (0.0-0.4) Basophils # (Auto) 0.1 (0.0-0.1) Absolute Immature Granulocyte (auto 0.06 x10e3/uL (0-0.1) Sodium Level 136 mmol/L (136-145) Potassium Level 5.6 mmol/L (3.5-5.1) Chloride Level 111 mmol/L (98-107) Carbon Dioxide Level 14 mmol/L (22-29) Anion Gap 16.6 mmol/L (8-16) Blood Urea Nitrogen 96 mg/dL (7-26) Creatinine 6.67 mg/dL (0.57-1.11) Estimat Glomerular Filtration Rate 7 ML/MIN (60-) BUN/Creatinine Ratio 14 (6-25) Glucose Level 104 mg/dL (74-118) Calcium Level 8.0 mg/dL (8.4-10.2) Total Bilirubin 0.2 mg/dL (0.2-1.2) Aspartate Amino Transf (AST/SGOT) 12 IU/L (5-34) Alanine Aminotransferase (ALT/SGPT) 7 IU/L (0-55) Alkaline Phosphatase 120 IU/L (40-150) B-Type Natriuretic Peptide 313.4 pg/mL (0-100) Total Protein 8.1 g/dL (6.5-8.1) Albumin 2.8 g/dL (3.5-5.0) Globulin 5.3 g/dL (2.3-3.5) Albumin/Globulin Ratio 0.5 (0.8-2.0) Lab results reviewed: Yes Imaging Imaging results reviewed: Yes Procedures 12 Lead ECG Interpretation ECG Interpretation : ECG: ECG 1 Sock Turner: Interpreted by ED physician Date: Feb 29, 2020 Time: 23:29 Rhythm: sinus rhythm Rate: normal BPM: 77 QRS axis: normal ST segments normal: Yes T waves flattening: V6 Q waves: III, V1 Clinical Impression: abnormal ECG Critical Care Time Critcal care necessary due to: renal failure Critcal care time spent by me: develop tx plan w patient/surrogate, discussion w consultants, examination of patient, obtaining hx from patient/surrogate, or lynn/review laboratory studies, order/review radiographic studies, review of old charts Assessment & Plan Medical Decision Making MDM pt with dialysis catheter placed at another hospital recently. pt states she wants catheter out. pt was on dialysis at the other hospital until she signed out ama 2 weeks ago cbc, cmp, ekg, cxr ordered to eval fro hyperkalemia, uremia, electrolyte abnormality, volume overload, pulmonary edema pt founc to have hyperkalemia of 5.6 and is also uremic calcium gluconate 1 amp iv ordered bicarb 1 am iv ordered d50 1 amp iv ordered regular insulin 10 units iv ordered kayexalate 30 grams po ordered. i spoke with dr zee and dr brito admit inpatient. . 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 07/05/18 Metoprolol Tartrate (LOPRESSOR) 25 Mg Tab, 25 MG PO Q12HR for 30 Days, TAB Prov:SUJATHA CUMMINGS ENTRY LEV[employer] AUTOMOTIVE TECHNICIAN 07/05/18 Folic Acid (FOLIC ACID) 1 Mg Tablet, 1 MG PO DAILY for 30 Days Prov:SUJATHA CUMMINGS [employer]EV[employer]OMOTIVE TECHNICIAN 07/05/18 Reported Medications Aspirin (ASPIR 81) 81 Mg Tablet.dr, MG PO DAILY, #30 09/03/19 Atorvastatin Calcium (LIPITOR) 20 Mg Tablet, 20 MG PO HS, #30 TAB 09/03/19 Cephalexin Monohydrate (KEFLEX) 500 Mg Capsule, MG PO BID for 5 Days, #10 09/03/19 Sodium Bicarbonate (SODIUM BICARBONATE) 650 Mg Tablet, 650 MG PO BID, #120 TAB 09/03/19 Furosemide (FUROSEMIDE) 40 Mg Tablet, 40 MG PO Daily, #30 TAB 09/03/19 ANURADHA WHYTE MD Feb 29, 2020 23:21
[2020-02-29 23:31] LABS: BASOPHILS # (AUTO) 0.1 (0.0-0.1); BASOPHILS % 0.4 % (0.0-1.0); EOSINOPHILS # (AUTO) 0.4 (0.0-0.4); EOSINOPHILS % 2.9 % (0.0-6.0); HEMATOCRIT 24.6 % (34.2-44.1); HEMOGLOBIN 7.4 g/dL (12.0-16.0); LYMPHOCYTES # (AUTO) 1.9 (1.0-3.2); LYMPHOCYTES % 13.9 % (18.0-39.1); MEAN CORPUSCULAR HGB CONC 30.1 g/dL (31-35); MEAN CORPUSCULAR VOLUME 83.1 fL (81-99); MONOCYTES # (AUTO) 0.9 (0.2-0.8); MONOCYTES % 6.5 % (4.4-11.3); NEUTROPHILS # (AUTO) 10.3 (2.1-6.9); NEUTROPHILS % 75.9 % (38.7-80.0); PLATELET COUNT 247 x10e3/uL (140-360); RED BLOOD COUNT 2.96 x10e6/uL (3.6-5.1); RED CELL DISTRIBUTION WIDTH 15.2 % (11.7-14.4)
[2020-02-29 23:47] LABS: ALBUMIN 2.8 g/dL (3.5-5.0); ALBUMIN/GLOBULIN RATIO 0.5 (0.8-2.0); ANION GAP 16.6 mmol/L (8-16); CREATININE, SERUM 6.67 mg/dL (0.57-1.11); POTASSIUM 5.6 mmol/L (3.5-5.1)
[2020-02-29] MEDS ORDERED: SODIUM BICARBONATE 8.4% INJ 50 ML SYR IV STA (23:54)
[2020-02-29] MEDS ORDERED: DEXTROSE 50% SYRINGE 50 ML IV STA (23:54)
[2020-03-01] VITALS (8 sets, daily range): BP systolic 134–196; BP diastolic 66–102
[2020-03-01] MEDS ORDERED: INSULIN REGULAR, HUMAN 100 UNIT/1 ML 3ML VIAL IV ONE
[2020-03-01] MEDS ORDERED: CALCIUM GLUCONATE 10% INJ 13.95 MEQ in SODIUM CHLORIDE 0.9% 100 ML 100 ML IV ONE ×2
[2020-03-01] MEDS ORDERED: SOD POLYSTYRENE SULFONATE SUSP 15 GM/60 ML BTL PO ONE
[2020-03-01] MEDS ORDERED: CALCIUM GLUCONATE 10% INJ 0.465 MEQ/ML VIAL ONE ×2 (00:18→00:23)
[2020-03-01] MEDS ORDERED: SODIUM CHLORIDE 0.9% 100 ML ONE (00:19)
[2020-03-01] MEDS ORDERED: SODIUM CHLORIDE FLUSH 10 ML SYR INJ PRN (00:30)
[2020-03-01] MEDS ORDERED: DEXTROSE 50% SYRINGE 50 ML IV PRN (00:30)
--- OUTSIDE RECORDS SUMMARY | 2020-03-01 00:31 | XMS REPORT | Clinical Summary ---
Author Author [facility] Organization [facility] ict Address Unknown Phone Unavailable Care Team Providers Care Cardiopulmonary Technician Name Role Phone PCP Unavailable Allergies Comments Active Allergy Reactions Severity Noted Date No Known Allergies 05/11/2009 Medications End Date Status Medication Sig Dispensed Refills Start Date Active clotrimazole (LOTRIMIN) 1 Apply to 60 g 3 % topical affected area 2 creamIndications: 2 times Hydradenitis daily. Active povidone-iodine Apply to 500 mL 3 (BETADINE) 10 % external affected area 2 solutionIndications: as needed for Hydradenitis Wound Care. Active Bismuth Apply to 3 Each 3 Tribrom-Petrolatum,Wh affected 2 (XEROFORM PETROLATUM area. DRESSING) 4 X 3 "-yard BndgIndications: Hydradenitis Active LANCETSIndications: Use as 2 Box 3 Diabetes mellitus Directed 2 Active blood glucose meter Use as 1 Kit 0 (PRECISION directed. 2 XTRA)Indications: Diabetes mellitus Active glucose blood test strips Use as 2 Box 3 (PRECISION XTRA) directed. 2 stripIndications: Diabetes mellitus Active Insulin Frederick, Inject 2 Box 3 Disposable, 29 x 1/2 " insulin 2 2 NdleIndications: Diabetes times a day mellitus as directed for diabetes Active traMADol (ULTRAM) 50 mg Take 1 tablet 90 tablet 0 tabletIndications: by mouth 2 Cellulitis of breast every 8 hours as needed for Pain. Active spironolactone Take 1 tablet 14 tablet 0 (ALDACTONE) 50 mg by mouth 3 tabletIndications: daily. Hydradenitis Active HYDROcodone-acetaminophen Take 1 tablet 20 tablet 0 (NORCO) 5-325 mg by mouth 3 tabletIndications: every 6 hours Hydradenitis as needed for Pain. Active insulin syringe 1cc/29g Inject 1 Box 0 (INSULIN SYRINGE) 1 mL 29 insulin 2 4 x 1/2" times a day syringeIndications: as Diabetes mellitus instructed. Active insulin NPH (NOVOLIN N, Inject 25 3 Month 1 HUMULIN N) 100 unit/mL Units under Supply 6 injectionIndications: the skin 2 Diabetes mellitus due to times daily underlying condition, (before uncontrolled, with meals). microalbuminuria, with long-term current use of insulin Active INSULIN SYRINGE 0.5mL Use to inject 1 Box 1 30GX5/16" (MONOJECT medication 2 6 ULTRACOMFORT INSULIN SYR times daily. 0.5ML 30GX5/16") Use a new syringe-needleIndications syringe each : Diabetes mellitus due time. to underlying condition, uncontrolled, with microalbuminuria, with long-term current use of insulin Active metFORMIN (GLUCOPHAGE) Take 1 tablet 60 tablet 1 0 500 mg tabletIndications: by mouth 2 6 Diabetes mellitus due to times daily underlying condition, (with meals). uncontrolled, with microalbuminuria, with long-term current use of insulin Active insulin NPH (NOVOLIN N, Inject 25 3 Month 0 HUMULIN N) 100 unit/mL Units under Supply 6 injectionIndications: the skin 2 Diabetes mellitus due to times daily underlying condition, (before uncontrolled, with meals). microalbuminuria, with long-term current use of insulin Active metFORMIN (GLUCOPHAGE) Take 1 tablet 30 tablet 0 0 500 mg tabletIndications: by mouth 2 6 Diabetes mellitus due to times daily underlying condition, (with meals). uncontrolled, with microalbuminuria, with long-term current use of insulin Active lisinopril (PRINIVIL) 5 Take 1 tablet 30 tablet 0 mg tabletIndications: by mouth 6 Essential hypertension daily. with goal blood pressure less than 140/90 Active Problems Problem Noted Date Essential hypertension 04/14/2016 Abscess of neck 04/14/2016 Uncontrolled diabetes mellitus 02/08/2016 Cough 02/07/2016 Hidradenitis suppurativa 12/17/2012 Cellulitis of breast 05/06/2012 Bacteremia 11/22/2011 UTI (lower urinary tract infection) 11/19/2011 Abscess 11/19/2011 Diabetes mellitus 06/24/2011 Abscess of breast, left 06/23/2011 Breast pain 06/22/2011 Hyperglycemia 11/25/2010 Fever and chills Nausea and vomiting Diabetes mellitus due to underlying con dition, uncontrolled, with microalbuminuria, with long-term curren t use of insulin Essential hypertension with goal blood pressure less than 140/90 Immunizations Name Administration Dates Next Due Influenza Vaccine 05/23/2012, 06/27/2011 PPV 23 Pneumococcal 05/23/2012 Polysaccaride Tdap Tetanus, diphtheria, 05/23/2012 acellular pertussis Vaccine Family History Medical History Relation Name Comments Diabetes Father Cancer Mother Relation Name Status Comments Father Mother Social History Date Tobacco Use Types Packs/Day Years Used Quit: 06/23/2009 Former Smoker Drinks/Week oz/Week Comments Alcohol Use No Sex Assigned at Date Recorded Not on file Industry Job Start Date Occupation Not on file Not on file Not on file Travel End Travel History Travel Start No recent travel history available. Last Filed Vital Signs Not on file Plan of Treatment Health Maintenance Due Date Last Done Comments DM Foot Exam (Yearly) 1989 DM Retinal Exam (Yearly) 1989 Cervical Cancer Scrn (3 02/29/1992 Yrs) Breast Cancer Scrn 06/22/2012 06/22/2011 (Yearly) DM HGBA1C (Yearly) 05/24/2013 05/24/2012, 06/23/2011 Results Not on fileafter 03/01/2019 Insurance Type Payer Benefit Subscriber ID Effective Phone Address Plan / Dates Group [facility] SELF-PAY SELF-PAY xxxxxx 2016- [phone] [id number] [place] [address] (Work) Advance Directives Date Inactivated Comments Code Status Date Activated 02/08/2016 7:02 PM Full Code 02/08/2016 5:44 AM 11/22/2011 8:07 PM Full Code 11/19/2011 1:01 PM 06/27/2011 7:09 PM Full Code 06/23/2011 6:23 AM
--- OUTSIDE RECORDS SUMMARY | 2020-03-01 00:33 | XMS REPORT | Continuity of Care Document ---
Author Author [facility] t Organization [facility] Address [address] [place] [address] Phone Unavailable Care Team Providers Care Gallery Director Name Role Phone NO, PCP PCP Unavailable TELLY, S RONAN Attphys Unavailable Sarwat WHYTE Attphys Unavailable BENNY BARRIOS Attphys Unavailable DAHU, S MICHELRIES Admphys Unavailable BENNY BARRIOS Admphys Unavailable Payers Payer Name Policy Type Policy Number Effective Date Expiration Date S liyah [facility] [id number] [facility] Self Pay NA [facility] Problems Condition Name Condition Details Condition Category Status Onset Date Resolution Date Last Treatment Date Treating Clinician Comments Source Abscess of neck Abscess of neck Disease Active 2016-04-14 00:00:00 [facility] Uncontrolled diabetes mellitus Uncontrolled diabetes mellitus Disea se Active 2016-02-08 00:00:00 [facility] Cough Cough Disease Active 2016-02-07 00:00:00 [facility] Hidradenitis suppurativa Hidradenitis suppurativa Disease Acti ve 2012-12-17 00:00:00 [facility] Cellulitis of breast Cellulitis of breast Disease Active 00:00:00 [facility] Bacteremia Bacteremia Disease Active 2011-11-22 00:00:00 [facility] UTI (lower urinary tract infection) UTI (lower urinary tract inf ection) Disease Active 2011-11-19 00:00:00 [facility] Abscess Abscess Disease Active 2011-11-19 00:00:00 [facility] Diabetes mellitus Diabetes mellitus Disease Active 2011-06-24 00:00:00 [facility] Abscess of breast, left Abscess of breast, left Disease Active 2011-06-23 00:00:00 [facility] Breast pain Breast pain Disease Active 2011-06-22 00:00:00 [facility] Hyperglycemia Hyperglycemia Disease Active 2010-11-25 00:00:00 [facility] Chest pain Chest pain Problem Active [facility] Hypertensive urgency Hypertensive urgency Problem Active [facility] Renal insufficiency Renal insufficiency Problem Active 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 Essential hypertension with goal blood pressure less t saucedo 140/90 Essential hypertension with goal blood pressure less than 140/90 Disease Active [facility] Allergies, Adverse Reactions, Alerts Allergy Name Allergy Type Status Severity Reaction(s) Onset Date Inacti ve Date Treating Clinician Comments Source No Known Allergies DA Active U 2020-01-22 00:00:00 [facility] No Known Allergies DA Active U 2019-03-10 00:00:00 [facility] No Known Allergies DA Active U 2018-12-26 00:00:00 [facility] No Known Allergies DA Active U 2017-06-02 00:00:00 [facility] No Known Allergies DA Active U 2016-12-14 00:00:00 [facility] Family History Family Member Diagnosis Comments Start Date Stop Date Source Natural father Diabetes [facility] Natural mother Cancer [facility] Social History Social Habit Start Date Stop Date Quantity Comments Source Sex Assigned At [facility] Alcohol intake 2016-04-14 00:00:00 2016-04-14 00:00:00 Current non-drinker of alcohol (finding) [facility] History of tobacco use 2009-06-23 00:00:00 Current smoker [facility] Smoking Status Start Date Stop Date Source Former smoker 2016-04-14 00:00:00 2016-04-14 00:00:00 [facility] Medic[facility] Ordered Medication Name Filled Medication Name Start Date Stop Da te Current Medication? Ordering Clinician Indication Dosage Frequency Signature (SIG) Comments Components Source Folic Acid 1 Mg Tablet Folic Acid 1 Mg Tablet 2018-07-05 00:00:00 Yes Sujatha Herminia Cummings Endodontist 1 Daily [facility] Metoprolol Tartrate (Lopressor) 25 Mg Tab Metoprolol T artrate (Lopressor) 25 Mg Tab 2018-07-05 00:00:00 Yes Sujatha Cummings Endodontist [address] [facility] Nifedipine (Nifedipine Er) 30 Mg Tab.er.24 Nifedipine (Nifedipine Er) 30 Mg Tab.er.24 2018-07-05 00:00:00 Yes Sujatha Herminia Cummings Endodontist [address] [facility] Calcium Carbonate 500 Mg Tab, 500 Mg Oral Calcium Carb derek 500 Mg Tab, 500 Mg Oral 2018-07-05 00:00:00 2019-09-03 00:00:00 No Sujatha Herminia Cummings Endodontist 500 Twice A Day [facility] Guaifenesin/Dextromethorphan (Mucinex Dm Er 600-30 Mg Tablet) 1 Each Tab.er.12h, 1 Each Oral Guaifenesin/Dextromethorphan (Mucinex Dm Er 600-30 Mg Tablet) 1 Each Tab.er.12h, 1 Each Oral 2018-07-05 00:00:00 2019-09-03 00:00:00 No Sujatha M Vassar Endodontist [address] [facility] Lorazepam (Ativan*) 0.5 Mg Tablet, 0.5 Mg Oral Lorazep am (Ativan*) 0.5 Mg Tablet, 0.5 Mg Oral 2018-07-05 00:00:00 2019-09-03 00:00:00 No Sujatha Cummings Endodontist .5 Every 6 Hours as needed for Anxiety [facility] Mirtazapine 15 Mg Tab, 15 Mg Oral Mirtazapine 15 Mg Tab, 15 Mg Oral 2018-07-05 00:00:00 2019-09-03 00:00:00 No Sujatha Cummings Endodontist [address] [facility] insulin NPH (NOVOLIN N, HUMULIN N) 100 unit/mL injection 2016-04-14 00:00:00 Yes Diabetes mellitus du e to underlying condition, uncontrolled, with microalbuminuria, with long-term current use of insulin 25U Q.5D Inject 25 Units under the skin 2 times daily (before meals). [employer] metFORMIN (GLUCOPHAGE) 500 mg tablet 2016-04-14 00:00:00 Yes Diabetes mellitus due to underlying condition, uncontrolled, with microalbuminuria, with long-term current use of insulin 500mg Take 1 tablet by mouth 2 times daily (with meals). [employer] lisinopril (PRINIVIL) 5 mg tablet 2016-04-14 00:00:00 Yes Essential hypertension with goal blood pressure less than 140/90 5mg QD Take 1 tablet by mouth daily. [employer] insulin NPH (NOVOLIN N, HUMULIN N) 100 unit/mL injection 2016-02-08 00:00:00 Yes Diabetes mellitus du e to underlying condition, uncontrolled, with microalbuminuria, with long-term current use of insulin 25U Q.5D Inject 25 Units under the skin 2 times daily (before meals). [employer] INSULIN SYRINGE 0.5mL 30GX5/16" (MONOJEC T ULTRACOMFORT INSULIN SYR 0.5ML 30GX5/16") syringe-needle 2016-02-08 00:00:00 Yes Diabetes mellitus due to underlying condition, uncontrolled, with microalbuminuria, with long-term current use of insulin Q.5D Use to inject med ication 2 times daily. Use a new syringe each time. [employer] metFORMIN (GLUCOPHAGE) 500 mg tablet 2016-02-08 00:00:00 Yes Diabetes mellitus due to underlying condition, uncontrolled, with microalbuminuria, with long-term current use of insulin 500mg Take 1 tablet by mouth 2 times daily (with meals). [employer] insulin syringe 1cc/29g (INSULIN SYRINGE) 1 mL 29 x 1/2" syr jeremiah 2013-07-30 00:00:00 Yes Diabetes mellitus In ject insulin 2 times a day as instructed. [facility] spironolactone (ALDACTONE) 50 mg tablet 2012-12-17 00:00:00 Yes Hydradenitis 50mg QD Take 1 tablet by mouth daily. [facility] HYDROcodone-acetaminophen (NORCO) 5-325 mg tablet 2012-12-17 00:00:00 Yes Hydradenitis 1{tbl} Take 1 tablet by mouth every 6 h ours as needed for Pain. [facility] Insulin [place], Disposable, 29 x 1/2 " Ndle 2012-05-23 00:0 0:00 Yes Diabetes mellitus Inject insulin 2 times a day as directed for diabetes [facility] traMADol (ULTRAM) 50 mg tablet 2012-05-23 00:00:00 Yes Cellulitis of breast 50mg Take 1 tablet by mouth every 8 hours as needed for Pain. [facility] clotrimazole (LOTRIMIN) 1 % topical cream 2011-11-22 00:00:0 0 Yes Hydradenitis Q.5D Apply to affected area 2 times daily. [facility] povidone-iodine (BETADINE) 10 % external solution 2011-11-22 00:00:00 Yes Hydradenitis Apply to affected area as needed for Wound C are. [facility] Bismuth Tribrom-Petrolatum,Wh (XEROFORM PETROLATUM LEIDY SSING) 4 X 3 "-yard Bndg 2011-11-22 00:00:00 Yes Hydradenitis Apply to a ffected area. [facility] LANCETS 2011-11-22 00:00:00 Yes Diabetes mellitus Use as Directed [facility] blood glucose meter (PRECISION XTRA) 2011-11-22 00:00:00 Yes Diabetes mellitus Use as directed. [facility] glucose blood test strips (PRECISION XTRA) strip 2011-11-22 00:00:00 Yes Diabetes mellitus Use as directed. June starkey [facility] Aspirin (Aspir 81) 81 Mg Tablet. Aspirin (Aspir 81) [address] [facility] Atorvastatin Calcium (Lipitor) 20 Mg Tablet Atorvastat in Calcium (Lipitor) 20 Mg Tablet Yes 20 Bedtime [facility] Cephalexin Monohydrate (Keflex) 500 Mg Capsule Cephale alice Monohydrate (Keflex) 500 Mg Capsule Yes Twice A Day [facility] Furosemide 40 Mg Tablet Furosemide 40 Mg Tablet Yes [address] [facility] Sodium Bicarbonate 650 Mg Tablet Sodium Bicarbonate 650 Mg Tablet Yes [address] [facility] Doxycycline Hyclate 100 Mg Capsule, 100 Mg Oral Doxycy llanos Hyclate 100 Mg Capsule, 100 Mg Oral 2019-09-03 00:00:00 No [address] [facility] Insulin Aspart (Novolog) 100 Unit/1 Ml Cartridge, 25 U nits Sub-Q Insulin Aspart (Novolog) 100 Unit/1 Ml Cartridge, 25 Units Sub-Q 2019-09-03 00:00:00 No 25 Before Breakfast [facility] Insulin Aspart (Novolog) 100 Unit/1 Ml Cartridge, 14 U nits Sub-Q Insulin Aspart (Novolog) 100 Unit/1 Ml Cartridge, 14 Units Sub-Q 2019-09-03 00:00:[address] [facility] Metoprolol Tartrate (Lopressor) 25 Mg Tab, 25 Mg Oral Metoprolol Tartrate (Lopressor) 25 Mg Tab, 25 Mg Oral 2018-07-05 00:00:[address] [facility] Nifedipine (Procardia Xl) 60 Mg Tab.er.24, 60 Mg Oral Nifedipine (Procardia Xl) 60 Mg Tab.er.24, 60 Mg Oral 2018-07-05 00:00:[address] [facility] Immunizations Ordered Immunization Name Filled Immunization Name Date Status Comments Source Influenza Vaccine 2012-05-23 00:00:00 Completed [facility] Tdap Tetanus, diphtheria, acellular pertussis Vaccine 2012-05-23 00:00:00 Completed [facility] PPV 23 Pneumococcal Polysaccaride 2012-05-23 00:00:00 Comp leted [facility] Influenza Vaccine 2011-06-27 00:00:00 Completed [facility] Procedures Procedure Date / Time Performed Performing Clinician Sour e Ultrasound, renal 2019-08-30 00:00:00 RONAN VARNER [facility] X-ray of chest, single view 2019-08-29 00:00:[address] [facility] Plan of Care Planned Activity Planned Date Details Comments Source Future Scheduled Test 2013-05-24 00:00:00 Hemoglobin A1c becca surement (procedure) [code = 72076612] [facility] Scheduled Test 2012-06-22 00:00:00 Breast Cancer Scrn (Yearly) [code = Breast Cancer Scrn (Yearly)] [facility] Scheduled Test 1992-02-29 00:00:00 Screening for clary gnant neoplasm of cervix (procedure) [code = 163012764] [facility] Scheduled Test 1989 00:00:00 DM Foot Exam (Year ly) [code = DM Foot Exam (Yearly)] [facility] Scheduled Test 1989 00:00:00 DM Retinal Exam (Y early) [code = DM Retinal Exam (Yearly)] [facility] Encounters Start Date/Time End Date/Time Encounter Type Admission Type [facility] Care Department Encounter ID Source 2019-08-29 15:50:00 2019-09-03 18:42:00 Discharged Inpatient [address] [facility] [id number] [facility] 2018-11-09 21:23:00 2018-11-10 02:15:00 Departed Emergency Room [address] [facility] [id number] [facility] 2018-07-03 02:44:00 2018-07-05 12:29:00 Discharged Inpatient (obs) [address] [facility] [id number] [facility] 2018-03-29 21:15:00 2018-03-30 00:24:00 Departed Emergency Room [address] [facility] [id number] [facility] Results Test Description Test Time Test Comments Results Result Comments Source GLUBED 2020-02-10 16:01:00 Test Item GLUBED (test code = GLUBED) 73 mg/dL 74-106 L Performed by certified rubber covering machine operator at [facility] BASIC METABOLIC [id number] 12:11:00* Test Item Value Reference Range Interpretation Comments SODIUM (test code = NA) 140 mmol/L 136-145 N POTASSIUM (test code = K) 4.1 mmol/L 3.5-5.1 N CHLORIDE (test code = CL) 103.0 mmol/L 98-107 N CARBON DIOXIDE (test code = CO2) 30.0 mmol/L 21-32 N ANION GAP (test code = GAP) 11.1 10-20 N GLUCOSE (test code = GLU) 78 mg/dL 74-106 N BLOOD UREA NITROGEN (test code = BUN) 18 mg/dL 7-18 N GLOMERULAR FILTRATION RATE (test code = GFR) 11 mL/min >=60 Estimated GFR by using Modified MDRD formula.Chronic kidney disease is defined as either kidney damageor GFR <60 mL/min/1.73 m2 for >3 months. CREATININE (test code = CREAT) 4.30 mg/dL 0.55-1.02 H Note change in reference range due to change in reagent. BUN/CREATININE RATIO (test code = BUN/CREA) 4.2 10-20 L CALCIUM (test code = CA) 8.2 mg/dL 8.5-10.1 L BASIC METABOLIC [id number] 11:38:00* Test Item Value Reference Range Interpretation Comments SODIUM (test code = NA) 140 mmol/L 136-145 N POTASSIUM (test code = K) 4.1 mmol/L 3.5-5.1 N CHLORIDE (test code = CL) 103.0 mmol/L 98-107 N CARBON DIOXIDE (test code = CO2) mmol/L 21-32 ANION GAP (test code = GAP) 10-20 GLUCOSE (test code = GLU) mg/dL 74-106 BLOOD UREA NITROGEN (test code = BUN) mg/dL 7-18 GLOMERULAR FILTRATION RATE (test code = GFR) mL/min >=60 CREATININE (test code = CREAT) mg/dL 0.55-1.02 BUN/CREATININE RATIO (test code = BUN/CREA) 10-20 CALCIUM (test code = CA) mg/dL 8.5-10.1 CBC W/AUTO [id number] 11:30:00* Test Item Value Reference Range Interpretation Comments WHITE BLOOD CELL (test code = WBC) 8.4 K/mm3 4.5-12.5 N RED BLOOD CELL (test code = RBC) 3.47 mill/mm3 3.7-5.2 L HEMOGLOBIN (test code = HGB) 8.9 gram/dL 11.5-15.5 L HEMATOCRIT (test code = HCT) 29.4 % 36.0-46.0 L MEAN CELL VOLUME (test code = MCV) 84.7 fL 80-98 N MEAN CELL HGB (test code = MCH) 25.6 picogram 27.0-33.0 L MEAN CELL HGB CONCETRATION (test code = MCHC) 30.3 gram/dL 33.0-36. 0 L RED CELL DISTRIBUTION WIDTH (test code = RDW) 14.8 % 11.6-16. 2 N RED CELL DISTRIBUTION WIDTH SD (test code = RDW-SD) 45.6 fL 37 .0-51.0 N PLATELET COUNT (test code = PLT) 201 K/mm3 150-450 N MEAN PLATELET VOLUME (test code = MPV) 10.5 fL 6.7-11.0 N NEUTROPHIL % (test code = NT%) 61.7 % 39.0-69.0 N IMMATURE GRANULOCYTE % (test code = IG%) 0.5 % 0.0-5.0 N LYMPHOCYTE % (test code = LY%) 21.0 % 25.0-55.0 L MONOCYTE % (test code = MO%) 11.3 % 0.0-10.0 H EOSINOPHIL % (test code = EO%) 5.0 % 0.0-5.0 N BASOPHIL % (test code = BA%) 0.5 % 0.0-1.0 N NUCLEATED RBC % (test code = NRBC%) 0.0 % 0-0 N NEUTROPHIL # (test code = NT#) 5.20 K/mm3 1.8-7.7 N IMMATURE GRANULOCYTE # (test code = IG#) 0.04 x10 3/uL 0-0.03 H LYMPHOCYTE # (test code = LY#) 1.77 K/mm3 1.0-5.0 N MONOCYTE # (test code = MO#) 0.95 K/mm3 0-0.8 H EOSINOPHIL # (test code = EO#) 0.42 K/mm3 0.0-0.5 N BASOPHIL # (test code = BA#) 0.04 K/mm3 0.0-0.2 N NUCLEATED RBC # (test code = NRBC#) 0.00 K/mm3 0.0-0.1 N [id number] 11:17:00* Test Item Value Reference Range Interpretation Comments GLUBED (test code = GLUBED) 89 mg/dL 74-106 N Performed by certified rubber covering machine operator at [facility] [id number] 07:59:00* Test Item Value Reference Range Interpretation Comments GLUBED (test code = GLUBED) 73 mg/dL 74-106 L Performed by certified rubber covering machine operator at [facility] [id number] 05:06:00* Test Item Value Reference Range Interpretation Comments GLUBED (test code = GLUBED) 76 mg/dL 74-106 N Performed by certified rubber covering machine operator at [facility] [id number] 17:22:00* Test Item Value Reference Range Interpretation Comments GLUBED (test code = GLUBED) 97 mg/dL 74-106 N Performed by certified rubber covering machine operator at [facility] [id number] 12:37:00* Test Item Value Reference Range Interpretation Comments GLUBED (test code = GLUBED) 85 mg/dL 74-106 N Performed by certified rubber covering machine operator at [facility] [id number] 08:24:00* Test Item Value Reference Range Interpretation Comments GLUBED (test code = GLUBED) 68 mg/dL 74-106 L Performed by certified rubber covering machine operator at [facility] BASIC METABOLIC [id number] 06:10:00* Test Item Value Reference Range Interpretation Comments SODIUM (test code = NA) 139 mmol/L 136-145 N POTASSIUM (test code = K) 4.3 mmol/L 3.5-5.1 N CHLORIDE (test code = CL) 102.0 mmol/L 98-107 N CARBON DIOXIDE (test code = CO2) 29.0 mmol/L 21-32 N ANION GAP (test code = GAP) 12.3 10-20 N GLUCOSE (test code = GLU) 76 mg/dL 74-106 N BLOOD UREA NITROGEN (test code = BUN) 28 mg/dL 7-18 H RESULT VERIFIED BY REPEAT ANALYSIS GLOMERULAR FILTRATION RATE (test code = GFR) 9 mL/min >=60 Estimated GFR by using Modified MDRD formula.Chronic kidney disease is defined as either kidney damageor GFR <60 mL/min/1.73 m2 for >3 months. CREATININE (test code = CREAT) 5.20 mg/dL 0.55-1.02 H Note change in reference range due to change in reagent. BUN/CREATININE RATIO (test code = BUN/CREA) 5.4 10-20 L CALCIUM (test code = CA) 8.0 mg/dL 8.5-10.1 L [id number] 06:10:00* Test Item Value Reference Range Interpretation Comments ALBUMIN (test code = ALB) 2.2 g/dL 3.4-5.0 L BASIC METABOLIC [id number] 05:48:00* Test Item Value Reference Range Interpretation Comments SODIUM (test code = NA) 139 mmol/L 136-145 N POTASSIUM (test code = K) 4.3 mmol/L 3.5-5.1 N CHLORIDE (test code = CL) 102.0 mmol/L 98-107 N CARBON DIOXIDE (test code = CO2) mmol/L 21-32 ANION GAP (test code = GAP) 10-20 GLUCOSE (test code = GLU) mg/dL 74-106 BLOOD UREA NITROGEN (test code = BUN) mg/dL 7-18 GLOMERULAR FILTRATION RATE (test code = GFR) mL/min >=60 CREATININE (test code = CREAT) mg/dL 0.55-1.02 BUN/CREATININE RATIO (test code = BUN/CREA) 10-20 CALCIUM (test code = CA) mg/dL 8.5-10.1 [id number] 05:48:00* Test Item Value Reference Range Interpretation Comments ALBUMIN (test code = ALB) g/dL 3.4-5.0 CBC W/AUTO [id number] 05:29:00* Test Item Value Reference Range Interpretation Comments WHITE BLOOD CELL (test code = WBC) 6.7 K/mm3 4.5-12.5 N RED BLOOD CELL (test code = RBC) 3.32 mill/mm3 3.7-5.2 L HEMOGLOBIN (test code = HGB) 8.5 gram/dL 11.5-15.5 L HEMATOCRIT (test code = HCT) 28.0 % 36.0-46.0 L MEAN CELL VOLUME (test code = MCV) 84.3 fL 80-98 N MEAN CELL HGB (test code = MCH) 25.6 picogram 27.0-33.0 L MEAN CELL HGB CONCETRATION (test code = MCHC) 30.4 gram/dL 33.0-36. 0 L RED CELL DISTRIBUTION WIDTH (test code = RDW) 14.7 % 11.6-16. 2 N RED CELL DISTRIBUTION WIDTH SD (test code = RDW-SD) 45.1 fL 37 .0-51.0 N PLATELET COUNT (test code = PLT) 162 K/mm3 150-450 N MEAN PLATELET VOLUME (test code = MPV) 10.3 fL 6.7-11.0 N NEUTROPHIL % (test code = NT%) 61.9 % 39.0-69.0 N IMMATURE GRANULOCYTE % (test code = IG%) 0.5 % 0.0-5.0 N LYMPHOCYTE % (test code = LY%) 21.4 % 25.0-55.0 L MONOCYTE % (test code = MO%) 11.9 % 0.0-10.0 H EOSINOPHIL % (test code = EO%) 3.8 % 0.0-5.0 N BASOPHIL % (test code = BA%) 0.5 % 0.0-1.0 N NUCLEATED RBC % (test code = NRBC%) 0.0 % 0-0 N NEUTROPHIL # (test code = NT#) 4.13 K/mm3 1.8-7.7 N IMMATURE GRANULOCYTE # (test code = IG#) 0.03 x10 3/uL 0-0.03 N LYMPHOCYTE # (test code = LY#) 1.42 K/mm3 1.0-5.0 N MONOCYTE # (test code = MO#) 0.79 K/mm3 0-0.8 N EOSINOPHIL # (test code = EO#) 0.25 K/mm3 0.0-0.5 N BASOPHIL # (test code = BA#) 0.03 K/mm3 0.0-0.2 N NUCLEATED RBC # (test code = NRBC#) 0.00 K/mm3 0.0-0.1 N MANUAL DIFF REQUIRED (test code = MDIFF) NO [id number] 20:34:00* Test Item Value Reference Range Interpretation Comments GLUBED (test code = GLUBED) 138 mg/dL 74-106 H Performed by certified rubber covering machine operator at [facility] [id number] 16:02:00* Test Item Value Reference Range Interpretation Comments GLUBED (test code = GLUBED) 93 mg/dL 74-106 N Performed by certified rubber covering machine operator at [facility] - [facility] GUIDANCE VASC [id number] 13:10:00 Name: MERLY MORGAN [facility] : 1970 Age/S: 49 / F [address] Unit #: [id number] Loc: [place] [address] Phys: Taylor Suh MD Acct: [id number] Dis Date: Status: ADM IN PHONE #: [phone] Exam Date: 02/07/2020 1707 FAX #: [phone] Reason: / EXAMS: CPT CODE: [id number] [facility] VASC ACCESS 11488 Fluoro Time: DAP (Gy m2): Air Kerma (mGy): REASON FOR EXAM: ESRD Referring Physician: Taylor Suh MD PROCEDURE: Conversion of temporary dialysis catheter into a tunneled dialysis catheter CPT code: 71026, 02213 Location:[facility] [id number] procedure time is approximately: 30 minutes FINDINGS: After informed consent was obtained, the patient was brought to OR Room 2 and placed supine on the table. The right neck and chest wall were prepped and draped in the usual fashion. All elements of maximal sterile barrier technique were followed. The existing temporary dialysis catheter was removed over a guidewire. A longterm dialysis catheter was tunneled under the subcutaneous tissue and inserted through a sheath with the tip positioned in the SVC (confirmed by follow-up chest x-ray). The catheter was sutured to the subcutaneous tissue with prolene sutures and is ready for use. MEDICATIONS: 1mg versed, 25mcg fentanyl. COMPLICATIONS: None. Blood loss: less than 5cc IMPRESSION: right IJ tunneled hemodi alysis catheter is ready for use. at 1310 Reported and signed by: Nikko gagnon M.D. CC: Taylor Suh MD T echnologist: Ana M Guillermo RT(R) Trnscb Date/ Time: 02/08/2020 (1310) GideonL Orig Print D/T: S: 01/23 (6721) PAGE 1 Signed Report [id number] 12:00:00* Test Item Value Reference Range Interpretation Comments GLUBED (test code = GLUBED) 81 mg/dL 74-106 N Performed by certified rubber covering machine operator at [facility] [id number] 08:53:00* Test Item Value Reference Range Interpretation Comments GLUBED (test code = GLUBED) 116 mg/dL 74-106 H Performed by certified rubber covering machine operator at [facility] BASIC METABOLIC [id number] 06:47:00* Test Item Value Reference Range Interpretation Comments SODIUM (test code = NA) 139 mmol/L 136-145 N POTASSIUM (test code = K) 4.0 mmol/L 3.5-5.1 N CHLORIDE (test code = CL) 103.0 mmol/L 98-107 N CARBON DIOXIDE (test code = CO2) 30.0 mmol/L 21-32 N ANION GAP (test code = GAP) 10.0 10-20 N GLUCOSE (test code = GLU) 75 mg/dL 74-106 N BLOOD UREA NITROGEN (test code = BUN) 15 mg/dL 7-18 N GLOMERULAR FILTRATION RATE (test code = GFR) 13 mL/min >=60 Estimated GFR by using Modified MDRD formula.Chronic kidney disease is defined as either kidney damageor GFR <60 mL/min/1.73 m2 for >3 months. CREATININE (test code = CREAT) 3.60 mg/dL 0.55-1.02 H Note change in reference range due to change in reagent. BUN/CREATININE RATIO (test code = BUN/CREA) 4.2 10-20 L CALCIUM (test code = CA) 8.3 mg/dL 8.5-10.1 L CBC W/AUTO [id number] 06:21:00* Test Item Value Reference Range Interpretation Comments WHITE BLOOD CELL (test code = WBC) 5.7 K/mm3 4.5-12.5 N RED BLOOD CELL (test code = RBC) 3.22 mill/mm3 3.7-5.2 L HEMOGLOBIN (test code = HGB) 8.3 gram/dL 11.5-15.5 L HEMATOCRIT (test code = HCT) 27.4 % 36.0-46.0 L MEAN CELL VOLUME (test code = MCV) 85.1 fL 80-98 N MEAN CELL HGB (test code = MCH) 25.8 picogram 27.0-33.0 L MEAN CELL HGB CONCETRATION (test code = MCHC) 30.3 gram/dL 33.0-36. 0 L RED CELL DISTRIBUTION WIDTH (test code = RDW) 14.6 % 11.6-16. 2 N RED CELL DISTRIBUTION WIDTH SD (test code = RDW-SD) 45.1 fL 37 .0-51.0 N PLATELET COUNT (test code = PLT) 151 K/mm3 150-450 N MEAN PLATELET VOLUME (test code = MPV) 10.5 fL 6.7-11.0 N NEUTROPHIL % (test code = NT%) 65.6 % 39.0-69.0 N IMMATURE GRANULOCYTE % (test code = IG%) 0.2 % 0.0-5.0 N LYMPHOCYTE % (test code = LY%) 18.2 % 25.0-55.0 L MONOCYTE % (test code = MO%) 11.7 % 0.0-10.0 H EOSINOPHIL % (test code = EO%) 3.9 % 0.0-5.0 N BASOPHIL % (test code = BA%) 0.4 % 0.0-1.0 N NUCLEATED RBC % (test code = NRBC%) 0.0 % 0-0 N NEUTROPHIL # (test code = NT#) 3.71 K/mm3 1.8-7.7 N IMMATURE GRANULOCYTE # (test code = IG#) 0.01 x10 3/uL 0-0.03 N LYMPHOCYTE # (test code = LY#) 1.03 K/mm3 1.0-5.0 N MONOCYTE # (test code = MO#) 0.66 K/mm3 0-0.8 N EOSINOPHIL # (test code = EO#) 0.22 K/mm3 0.0-0.5 N BASOPHIL # (test code = BA#) 0.02 K/mm3 0.0-0.2 N NUCLEATED RBC # (test code = NRBC#) 0.00 K/mm3 0.0-0.1 N MANUAL DIFF REQUIRED (test code = MDIFF) NO [id number] 20:41:00* Test Item Value Reference Range Interpretation Comments GLUBED (test code = GLUBED) 130 mg/dL 74-106 H Performed by certified rubber covering machine operator at [facility] - XR CHEST 1 [id number] 17:52:00 FAX: Taylor Suh [place]: B St: [facility] [birth year] Age/S: 49/F [address] [facility] Unit #: [id number] Loc: V.3029 [place] [address] Phys: Nikko Morales MD Acct: [id number] Dis Date: Status: ADM IN PHONE #: [phone] Exam Date: 02/07/20201713 FAX #: [phone] Reason: S/P LINE EXAMS: CPT CODE: [id number] XR CHEST 1 V [id number] EXAM: Chest x-ray, one view; INFORMATION: Renal failure; status post line placement; IMPRESSION: 1. Well-positioned right IJ tunneled hemodialysis catheter. Its tip is in the right atrium. The line is ready for use. 2. No evidence of a pneumothorax. 3. No further changes compared with a recent study from January 25, 2020; heart borderline in size; no acute pulmonary abnormalities. Location code: [facility] Electr onically Signed by Mere Sheth on 0 at 1752 Reported and signed by: Chele mijares M.D. CC: Taylor Suh MD Technologist: Yaneth Mendoza RT(R); Ana M Guillermo RT(R) Trnscrd Date/Time/By: 02/07/2020 (1751) : By: AlexeyGRW Orig Print D/T: S: 02/07/2020 (1755) PAGE 1 Signed Report [id number] 12:05:00* Test Item Value Reference Range Interpretation Comments GLUBED (test code = GLUBED) 76 mg/dL 74-106 N Performed by certified rubber covering machine operator at [facility] BASIC METABOLIC [id number] 07:16:00* Test Item Value Reference Range Interpretation Comments SODIUM (test code = NA) 139 mmol/L 136-145 N POTASSIUM (test code = K) 4.8 mmol/L 3.5-5.1 N CHLORIDE (test code = CL) 103.0 mmol/L 98-107 N CARBON DIOXIDE (test code = CO2) 30.0 mmol/L 21-32 N ANION GAP (test code = GAP) 10.8 10-20 N GLUCOSE (test code = GLU) 72 mg/dL 74-106 L BLOOD UREA NITROGEN (test code = BUN) 34 mg/dL 7-18 H GLOMERULAR FILTRATION RATE (test code = GFR) 8 mL/min >=60 Estimated GFR by using Modified MDRD formula.Chronic kidney disease is defined as either kidney damageor GFR <60 mL/min/1.73 m2 for >3 months. CREATININE (test code = CREAT) 5.40 mg/dL 0.55-1.02 H Note change in reference range due to change in reagent. BUN/CREATININE RATIO (test code = BUN/CREA) 6.3 10-20 L CALCIUM (test code = CA) 7.6 mg/dL 8.5-10.1 L BASIC METABOLIC [id number] 07:12:00* Test Item Value Reference Range Interpretation Comments SODIUM (test code = NA) 139 mmol/L 136-145 N POTASSIUM (test code = K) 4.8 mmol/L 3.5-5.1 N CHLORIDE (test code = CL) 103.0 mmol/L 98-107 N CARBON DIOXIDE (test code = CO2) mmol/L 21-32 ANION GAP (test code = GAP) 10-20 GLUCOSE (test code = GLU) mg/dL 74-106 BLOOD UREA NITROGEN (test code = BUN) mg/dL 7-18 GLOMERULAR FILTRATION RATE (test code = GFR) mL/min >=60 CREATININE (test code = CREAT) mg/dL 0.55-1.02 BUN/CREATININE RATIO (test code = BUN/CREA) 10-20 CALCIUM (test code = CA) mg/dL 8.5-10.1 [id number] 07:04:00* Test Item Value Reference Range Interpretation Comments GLUBED (test code = GLUBED) 80 mg/dL 74-106 N Performed by certified rubber covering machine operator at [facility] CBC W/AUTO [id number] 06:40:00* Test Item Value Reference Range Interpretation Comments WHITE BLOOD CELL (test code = WBC) 5.3 K/mm3 4.5-12.5 N RED BLOOD CELL (test code = RBC) 3.04 mill/mm3 3.7-5.2 L HEMOGLOBIN (test code = HGB) 7.9 gram/dL 11.5-15.5 L HEMATOCRIT (test code = HCT) 25.9 % 36.0-46.0 L MEAN CELL VOLUME (test code = MCV) 85.2 fL 80-98 N MEAN CELL HGB (test code = MCH) 26.0 picogram 27.0-33.0 L MEAN CELL HGB CONCETRATION (test code = MCHC) 30.5 gram/dL 33.0-36. 0 L RED CELL DISTRIBUTION WIDTH (test code = RDW) 14.8 % 11.6-16. 2 N RED CELL DISTRIBUTION WIDTH SD (test code = RDW-SD) 45.6 fL 37 .0-51.0 N PLATELET COUNT (test code = PLT) 158 K/mm3 150-450 N MEAN PLATELET VOLUME (test code = MPV) 10.6 fL 6.7-11.0 N NEUTROPHIL % (test code = NT%) 60.0 % 39.0-69.0 N IMMATURE GRANULOCYTE % (test code = IG%) 0.4 % 0.0-5.0 N LYMPHOCYTE % (test code = LY%) 20.6 % 25.0-55.0 L MONOCYTE % (test code = MO%) 13.5 % 0.0-10.0 H EOSINOPHIL % (test code = EO%) 4.9 % 0.0-5.0 N BASOPHIL % (test code = BA%) 0.6 % 0.0-1.0 N NUCLEATED RBC % (test code = NRBC%) 0.0 % 0-0 N NEUTROPHIL # (test code = NT#) 3.20 K/mm3 1.8-7.7 N IMMATURE GRANULOCYTE # (test code = IG#) 0.02 x10 3/uL 0-0.03 N LYMPHOCYTE # (test code = LY#) 1.10 K/mm3 1.0-5.0 N MONOCYTE # (test code = MO#) 0.72 K/mm3 0-0.8 N EOSINOPHIL # (test code = EO#) 0.26 K/mm3 0.0-0.5 N BASOPHIL # (test code = BA#) 0.03 K/mm3 0.0-0.2 N NUCLEATED RBC # (test code = NRBC#) 0.00 K/mm3 0.0-0.1 N MANUAL DIFF REQUIRED (test code = MDIFF) NO [id number] 21:58:00* Test Item Value Reference Range Interpretation Comments GLUBED (test code = GLUBED) 96 mg/dL 74-106 N Performed by certified rubber covering machine operator at [facility] [id number] 17:57:00* Test Item Value Reference Range Interpretation Comments GLUBED (test code = GLUBED) 99 mg/dL 74-106 N Performed by certified rubber covering machine operator at [facility] [id number] 12:15:00* Test Item Value Reference Range Interpretation Comments GLUBED (test code = GLUBED) 88 mg/dL 74-106 N Performed by certified rubber covering machine operator at [facility] [id number] 08:31:00* Test Item Value Reference Range Interpretation Comments GLUBED (test code = GLUBED) 71 mg/dL 74-106 L Performed by certified rubber covering machine operator at [facility] [id number] 06:00:00* Test Item Value Reference Range Interpretation Comments GLUBED (test code = GLUBED) 77 mg/dL 74-106 N Performed by certified rubber covering machine operator at [facility] COMPREHENSIVE METABOLIC [id number] 05:51:00* Test Item Value Reference Range Interpretation Comments SODIUM (test code = NA) 140 mmol/L 136-145 N POTASSIUM (test code = K) 4.4 mmol/L 3.5-5.1 N CHLORIDE (test code = CL) 104.0 mmol/L 98-107 N CARBON DIOXIDE (test code = CO2) 31.0 mmol/L 21-32 N ANION GAP (test code = GAP) 9.4 10-20 L GLUCOSE (test code = GLU) 80 mg/dL 74-106 N BLOOD UREA NITROGEN (test code = BUN) 27 mg/dL 7-18 H GLOMERULAR FILTRATION RATE (test code = GFR) 11 mL/min >=60 Estimated GFR by using Modified MDRD formula.Chronic kidney disease is defined as either kidney damageor GFR <60 mL/min/1.73 m2 for >3 months. CREATININE (test code = CREAT) 4.20 mg/dL 0.55-1.02 H Note change in reference range due to change in reagent. BUN/CREATININE RATIO (test code = BUN/CREA) 6.4 10-20 L TOTAL PROTEIN (test code = PROT) 6.9 gram/dL 6.4-8.2 N ALBUMIN (test code = ALB) 2.1 g/dL 3.4-5.0 L GLOBULIN (test code = GLOB) 4.8 gram/dL 2.7-4.2 H ALBUMIN/GLOBULIN RATIO (test code = A/G) 0.4 0.75-1.50 L CALCIUM (test code = CA) 7.6 mg/dL 8.5-10.1 L BILIRUBIN TOTAL (test code = BILT) 0.30 mg/dL 0.0-1.0 N SGOT/AST (test code = AST) 24 IUnit/L 15-37 N SGPT/ALT (test code = ALT) 21 IUnit/L 12-78 N ALKALINE PHOSPHATASE TOTAL (test code = ALKP) 97 IUnit/L 45-117 N Note change in reference range due to change in reagent. CBC W/AUTO [id number] 05:43:00* Test Item Value Reference Range Interpretation Comments WHITE BLOOD CELL (test code = WBC) 6.5 K/mm3 4.5-12.5 N RED BLOOD CELL (test code = RBC) 3.10 mill/mm3 3.7-5.2 L HEMOGLOBIN (test code = HGB) 7.9 gram/dL 11.5-15.5 L HEMATOCRIT (test code = HCT) 26.3 % 36.0-46.0 L MEAN CELL VOLUME (test code = MCV) 84.8 fL 80-98 N MEAN CELL HGB (test code = MCH) 25.5 picogram 27.0-33.0 L MEAN CELL HGB CONCETRATION (test code = MCHC) 30.0 gram/dL 33.0-36. 0 L RED CELL DISTRIBUTION WIDTH (test code = RDW) 14.8 % 11.6-16. 2 N RED CELL DISTRIBUTION WIDTH SD (test code = RDW-SD) 45.8 fL 37 .0-51.0 N PLATELET COUNT (test code = PLT) 163 K/mm3 150-450 N MEAN PLATELET VOLUME (test code = MPV) 11.0 fL 6.7-11.0 N NEUTROPHIL % (test code = NT%) 64.4 % 39.0-69.0 N IMMATURE GRANULOCYTE % (test code = IG%) 0.5 % 0.0-5.0 N LYMPHOCYTE % (test code = LY%) 19.2 % 25.0-55.0 L MONOCYTE % (test code = MO%) 11.7 % 0.0-10.0 H EOSINOPHIL % (test code = EO%) 3.9 % 0.0-5.0 N BASOPHIL % (test code = BA%) 0.3 % 0.0-1.0 N NUCLEATED RBC % (test code = NRBC%) 0.0 % 0-0 N NEUTROPHIL # (test code = NT#) 4.17 K/mm3 1.8-7.7 N IMMATURE GRANULOCYTE # (test code = IG#) 0.03 x10 3/uL 0-0.03 N LYMPHOCYTE # (test code = LY#) 1.24 K/mm3 1.0-5.0 N MONOCYTE # (test code = MO#) 0.76 K/mm3 0-0.8 N EOSINOPHIL # (test code = EO#) 0.25 K/mm3 0.0-0.5 N BASOPHIL # (test code = BA#) 0.02 K/mm3 0.0-0.2 N NUCLEATED RBC # (test code = NRBC#) 0.00 K/mm3 0.0-0.1 N COMPREHENSIVE METABOLIC [id number] 05:34:00* Test Item Value Reference Range Interpretation Comments SODIUM (test code = NA) 140 mmol/L 136-145 N POTASSIUM (test code = K) 4.4 mmol/L 3.5-5.1 N CHLORIDE (test code = CL) 104.0 mmol/L 98-107 N CARBON DIOXIDE (test code = CO2) mmol/L 21-32 ANION GAP (test code = GAP) 10-20 GLUCOSE (test code = GLU) mg/dL 74-106 BLOOD UREA NITROGEN (test code = BUN) mg/dL 7-18 GLOMERULAR FILTRATION RATE (test code = GFR) mL/min >=60 CREATININE (test code = CREAT) mg/dL 0.55-1.02 BUN/CREATININE RATIO (test code = BUN/CREA) 10-20 TOTAL PROTEIN (test code = PROT) gram/dL 6.4-8.2 ALBUMIN (test code = ALB) g/dL 3.4-5.0 GLOBULIN (test code = GLOB) gram/dL 2.7-4.2 ALBUMIN/GLOBULIN RATIO (test code = A/G) 0.75-1.50 CALCIUM (test code = CA) mg/dL 8.5-10.1 BILIRUBIN TOTAL (test code = BILT) mg/dL 0.0-1.0 SGOT/AST (test code = AST) IUnit/L 15-37 SGPT/ALT (test code = ALT) IUnit/L 12-78 ALKALINE PHOSPHATASE TOTAL (test code = ALKP) IUnit/L 45-117 [id number] 21:40:00* Test Item Value Reference Range Interpretation Comments GLUBED (test code = GLUBED) 90 mg/dL 74-106 N Performed by certified rubber covering machine operator at [facility] [id number] 16:53:00* Test Item Value Reference Range Interpretation Comments GLUBED (test code = GLUBED) 71 mg/dL 74-106 L Performed by certified rubber covering machine operator at [facility] CBC W/AUTO [id number] 14:48:00* Test Item Value Reference Range Interpretation Comments WHITE BLOOD CELL (test code = WBC) 3.8 K/mm3 4.5-12.5 L RED BLOOD CELL (test code = RBC) 2.83 mill/mm3 3.7-5.2 L HEMOGLOBIN (test code = HGB) 7.3 gram/dL 11.5-15.5 L HEMATOCRIT (test code = HCT) 23.8 % 36.0-46.0 L MEAN CELL VOLUME (test code = MCV) 84.1 fL 80-98 N MEAN CELL HGB (test code = MCH) 25.8 picogram 27.0-33.0 L MEAN CELL HGB CONCETRATION (test code = MCHC) 30.7 gram/dL 33.0-36. 0 L RED CELL DISTRIBUTION WIDTH (test code = RDW) 14.7 % 11.6-16. 2 N RED CELL DISTRIBUTION WIDTH SD (test code = RDW-SD) 45.4 fL 37 .0-51.0 N PLATELET COUNT (test code = PLT) 152 K/mm3 150-450 N MEAN PLATELET VOLUME (test code = MPV) 11.0 fL 6.7-11.0 N NEUTROPHIL % (test code = NT%) 52.8 % 39.0-69.0 N IMMATURE GRANULOCYTE % (test code = IG%) 0.3 % 0.0-5.0 N LYMPHOCYTE % (test code = LY%) 30.8 % 25.0-55.0 N MONOCYTE % (test code = MO%) 9.9 % 0.0-10.0 N EOSINOPHIL % (test code = EO%) 5.7 % 0.0-5.0 H BASOPHIL % (test code = BA%) 0.5 % 0.0-1.0 N NUCLEATED RBC % (test code = NRBC%) 0.0 % 0-0 N NEUTROPHIL # (test code = NT#) 2.02 K/mm3 1.8-7.7 N IMMATURE GRANULOCYTE # (test code = IG#) 0.01 x10 3/uL 0-0.03 N LYMPHOCYTE # (test code = LY#) 1.18 K/mm3 1.0-5.0 N MONOCYTE # (test code = MO#) 0.38 K/mm3 0-0.8 N EOSINOPHIL # (test code = EO#) 0.22 K/mm3 0.0-0.5 N BASOPHIL # (test code = BA#) 0.02 K/mm3 0.0-0.2 N NUCLEATED RBC # (test code = NRBC#) 0.00 K/mm3 0.0-0.1 N [id number] 11:43:00* Test Item Value Reference Range Interpretation Comments GLUBED (test code = GLUBED) 108 mg/dL 74-106 H Performed by certified rubber covering machine operator at [facility] COMPREHENSIVE METABOLIC [id number] 07:07:00* Test Item Value Reference Range Interpretation Comments SODIUM (test code = NA) 136 mmol/L 136-145 N POTASSIUM (test code = K) 4.7 mmol/L 3.5-5.1 N CHLORIDE (test code = CL) 102.0 mmol/L 98-107 N CARBON DIOXIDE (test code = CO2) 25.0 mmol/L 21-32 N ANION GAP (test code = GAP) 13.7 10-20 N GLUCOSE (test code = GLU) 91 mg/dL 74-106 N BLOOD UREA NITROGEN (test code = BUN) 55 mg/dL 7-18 H GLOMERULAR FILTRATION RATE (test code = GFR) 7 mL/min >=60 Estimated GFR by using Modified MDRD formula.Chronic kidney disease is defined as either kidney damageor GFR <60 mL/min/1.73 m2 for >3 months. CREATININE (test code = CREAT) 6.20 mg/dL 0.55-1.02 H Note change in reference range due to change in reagent. BUN/CREATININE RATIO (test code = BUN/CREA) 8.9 10-20 L TOTAL PROTEIN (test code = PROT) 7.0 gram/dL 6.4-8.2 N ALBUMIN (test code = ALB) 2.2 g/dL 3.4-5.0 L GLOBULIN (test code = GLOB) 4.8 gram/dL 2.7-4.2 H ALBUMIN/GLOBULIN RATIO (test code = A/G) 0.5 0.75-1.50 L CALCIUM (test code = CA) 7.7 mg/dL 8.5-10.1 L BILIRUBIN TOTAL (test code = BILT) 0.30 mg/dL 0.0-1.0 N SGOT/AST (test code = AST) 27 IUnit/L 15-37 N SGPT/ALT (test code = ALT) 22 IUnit/L 12-78 N ALKALINE PHOSPHATASE TOTAL (test code = ALKP) 98 IUnit/L 45-117 N Note change in reference range due to change in reagent. COMPREHENSIVE METABOLIC [id number] 06:52:00* Test Item Value Reference Range Interpretation Comments SODIUM (test code = NA) 136 mmol/L 136-145 N POTASSIUM (test code = K) 4.7 mmol/L 3.5-5.1 N CHLORIDE (test code = CL) 102.0 mmol/L 98-107 N CARBON DIOXIDE (test code = CO2) mmol/L 21-32 ANION GAP (test code = GAP) 10-20 GLUCOSE (test code = GLU) mg/dL 74-106 BLOOD UREA NITROGEN (test code = BUN) mg/dL 7-18 GLOMERULAR FILTRATION RATE (test code = GFR) mL/min >=60 CREATININE (test code = CREAT) mg/dL 0.55-1.02 BUN/CREATININE RATIO (test code = BUN/CREA) 10-20 TOTAL PROTEIN (test code = PROT) gram/dL 6.4-8.2 ALBUMIN (test code = ALB) g/dL 3.4-5.0 GLOBULIN (test code = GLOB) gram/dL 2.7-4.2 ALBUMIN/GLOBULIN RATIO (test code = A/G) 0.75-1.50 CALCIUM (test code = CA) mg/dL 8.5-10.1 BILIRUBIN TOTAL (test code = BILT) mg/dL 0.0-1.0 SGOT/AST (test code = AST) IUnit/L 15-37 SGPT/ALT (test code = ALT) IUnit/L 12-78 ALKALINE PHOSPHATASE TOTAL (test code = ALKP) IUnit/L 45-117 [id number] 05:49:00* Test Item Value Reference Range Interpretation Comments GLUBED (test code = GLUBED) 87 mg/dL 74-106 N Performed by certified rubber covering machine operator at [facility] [id number] 21:34:00* Test Item Value Reference Range Interpretation Comments GLUBED (test code = GLUBED) 83 mg/dL 74-106 N Performed by certified rubber covering machine operator at [facility] [id number] 18:47:00* Test Item Value Reference Range Interpretation Comments GLUBED (test code = GLUBED) 103 mg/dL 74-106 N Performed by certified rubber covering machine operator at [facility] [id number] 13:35:00* Test Item Value Reference Range Interpretation Comments GLUBED (test code = GLUBED) 79 mg/dL 74-106 N Performed by certified rubber covering machine operator at [facility] COMPREHENSIVE METABOLIC [id number] 08:29:00* Test Item Value Reference Range Interpretation Comments SODIUM (test code = NA) 138 mmol/L 136-145 N POTASSIUM (test code = K) 4.6 mmol/L 3.5-5.1 N CHLORIDE (test code = CL) 102.0 mmol/L 98-107 N CARBON DIOXIDE (test code = CO2) 30.0 mmol/L 21-32 N ANION GAP (test code = GAP) 10.6 10-20 N GLUCOSE (test code = GLU) 74 mg/dL 74-106 N BLOOD UREA NITROGEN (test code = BUN) 50 mg/dL 7-18 H RESULT VERIFIED BY REPEAT ANALYSIS GLOMERULAR FILTRATION RATE (test code = GFR) 8 mL/min >=60 Estimated GFR by using Modified MDRD formula.Chronic kidney disease is defined as either kidney damageor GFR <60 mL/min/1.73 m2 for >3 months. CREATININE (test code = CREAT) 5.40 mg/dL 0.55-1.02 H Note change in reference range due to change in reagent. BUN/CREATININE RATIO (test code = BUN/CREA) 9.3 10-20 L TOTAL PROTEIN (test code = PROT) 6.7 gram/dL 6.4-8.2 N ALBUMIN (test code = ALB) 2.1 g/dL 3.4-5.0 L GLOBULIN (test code = GLOB) 4.6 gram/dL 2.7-4.2 H ALBUMIN/GLOBULIN RATIO (test code = A/G) 0.5 0.75-1.50 L CALCIUM (test code = CA) 7.3 mg/dL 8.5-10.1 L BILIRUBIN TOTAL (test code = BILT) 0.20 mg/dL 0.0-1.0 N SGOT/AST (test code = AST) 29 IUnit/L 15-37 N SGPT/ALT (test code = ALT) 24 IUnit/L 12-78 N ALKALINE PHOSPHATASE TOTAL (test code = ALKP) 95 IUnit/L 45-117 N Note change in reference range due to change in reagent. CBC W/AUTO [id number] 06:30:00* Test Item Value Reference Range Interpretation Comments WHITE BLOOD CELL (test code = WBC) 4.7 K/mm3 4.5-12.5 N RED BLOOD CELL (test code = RBC) 2.99 mill/mm3 3.7-5.2 L HEMOGLOBIN (test code = HGB) 7.7 gram/dL 11.5-15.5 L HEMATOCRIT (test code = HCT) 25.3 % 36.0-46.0 L MEAN CELL VOLUME (test code = MCV) 84.6 fL 80-98 N MEAN CELL HGB (test code = MCH) 25.8 picogram 27.0-33.0 L MEAN CELL HGB CONCETRATION (test code = MCHC) 30.4 gram/dL 33.0-36. 0 L RED CELL DISTRIBUTION WIDTH (test code = RDW) 14.7 % 11.6-16. 2 N RED CELL DISTRIBUTION WIDTH SD (test code = RDW-SD) 45.5 fL 37 .0-51.0 N PLATELET COUNT (test code = PLT) 165 K/mm3 150-450 N MEAN PLATELET VOLUME (test code = MPV) 11.1 fL 6.7-11.0 H NEUTROPHIL % (test code = NT%) 50.3 % 39.0-69.0 N IMMATURE GRANULOCYTE % (test code = IG%) 0.2 % 0.0-5.0 N LYMPHOCYTE % (test code = LY%) 27.4 % 25.0-55.0 N MONOCYTE % (test code = MO%) 17.4 % 0.0-10.0 H EOSINOPHIL % (test code = EO%) 4.3 % 0.0-5.0 N BASOPHIL % (test code = BA%) 0.4 % 0.0-1.0 N NUCLEATED RBC % (test code = NRBC%) 0.0 % 0-0 N NEUTROPHIL # (test code = NT#) 2.36 K/mm3 1.8-7.7 N IMMATURE GRANULOCYTE # (test code = IG#) 0.01 x10 3/uL 0-0.03 N LYMPHOCYTE # (test code = LY#) 1.29 K/mm3 1.0-5.0 N MONOCYTE # (test code = MO#) 0.82 K/mm3 0-0.8 H EOSINOPHIL # (test code = EO#) 0.20 K/mm3 0.0-0.5 N BASOPHIL # (test code = BA#) 0.02 K/mm3 0.0-0.2 N NUCLEATED RBC # (test code = NRBC#) 0.00 K/mm3 0.0-0.1 N MANUAL DIFF REQUIRED (test code = MDIFF) NO [id number] 05:41:00* Test Item Value Reference Range Interpretation Comments GLUBED (test code = GLUBED) 78 mg/dL 74-106 N Performed by certified rubber covering machine operator at [facility] [id number] 20:36:00* Test Item Value Reference Range Interpretation Comments GLUBED (test code = GLUBED) 98 mg/dL 74-106 N Performed by certified rubber covering machine operator at [facility] [id number] 17:36:00* Test Item Value Reference Range Interpretation Comments GLUBED (test code = GLUBED) 113 mg/dL 74-106 H Performed by certified rubber covering machine operator at [facility] [id number] 12:55:00* Test Item Value Reference Range Interpretation Comments GLUBED (test code = GLUBED) 93 mg/dL 74-106 N Performed by certified rubber covering machine operator at [facility] COMPREHENSIVE METABOLIC [id number] 11:02:00* Test Item Value Reference Range Interpretation Comments SODIUM (test code = NA) 138 mmol/L 136-145 N POTASSIUM (test code = K) 4.5 mmol/L 3.5-5.1 N CHLORIDE (test code = CL) 102.0 mmol/L 98-107 N CARBON DIOXIDE (test code = CO2) 30.0 mmol/L 21-32 N ANION GAP (test code = GAP) 10.5 10-20 N GLUCOSE (test code = GLU) 78 mg/dL 74-106 N BLOOD UREA NITROGEN (test code = BUN) 38 mg/dL 7-18 H GLOMERULAR FILTRATION RATE (test code = GFR) 10 mL/min >=60 Estimated GFR by using Modified MDRD formula.Chronic kidney disease is defined as either kidney damageor GFR <60 mL/min/1.73 m2 for >3 months. CREATININE (test code = CREAT) 4.70 mg/dL 0.55-1.02 H Note change in reference range due to change in reagent. BUN/CREATININE RATIO (test code = BUN/CREA) 8.1 10-20 L TOTAL PROTEIN (test code = PROT) 6.7 gram/dL 6.4-8.2 N ALBUMIN (test code = ALB) 2.2 g/dL 3.4-5.0 L GLOBULIN (test code = GLOB) 4.5 gram/dL 2.7-4.2 H ALBUMIN/GLOBULIN RATIO (test code = A/G) 0.5 0.75-1.50 L CALCIUM (test code = CA) 7.3 mg/dL 8.5-10.1 L BILIRUBIN TOTAL (test code = BILT) 0.30 mg/dL 0.0-1.0 N SGOT/AST (test code = AST) 33 IUnit/L 15-37 N SGPT/ALT (test code = ALT) 28 IUnit/L 12-78 N ALKALINE PHOSPHATASE TOTAL (test code = ALKP) 104 IUnit/L 45-117 N Note change in reference range due to change in reagent. COMPREHENSIVE METABOLIC [id number] 10:56:00* Test Item Value Reference Range Interpretation Comments SODIUM (test code = NA) 138 mmol/L 136-145 N POTASSIUM (test code = K) 4.5 mmol/L 3.5-5.1 N CHLORIDE (test code = CL) 102.0 mmol/L 98-107 N CARBON DIOXIDE (test code = CO2) mmol/L 21-32 ANION GAP (test code = GAP) 10-20 GLUCOSE (test code = GLU) mg/dL 74-106 BLOOD UREA NITROGEN (test code = BUN) mg/dL 7-18 GLOMERULAR FILTRATION RATE (test code = GFR) mL/min >=60 CREATININE (test code = CREAT) mg/dL 0.55-1.02 BUN/CREATININE RATIO (test code = BUN/CREA) 10-20 TOTAL PROTEIN (test code = PROT) gram/dL 6.4-8.2 ALBUMIN (test code = ALB) g/dL 3.4-5.0 GLOBULIN (test code = GLOB) gram/dL 2.7-4.2 ALBUMIN/GLOBULIN RATIO (test code = A/G) 0.75-1.50 CALCIUM (test code = CA) mg/dL 8.5-10.1 BILIRUBIN TOTAL (test code = BILT) mg/dL 0.0-1.0 SGOT/AST (test code = AST) IUnit/L 15-37 SGPT/ALT (test code = ALT) IUnit/L 12-78 ALKALINE PHOSPHATASE TOTAL (test code = ALKP) IUnit/L 45-117 CBC W/AUTO [id number] 10:46:00* Test Item Value Reference Range Interpretation Comments WHITE BLOOD CELL (test code = WBC) 5.7 K/mm3 4.5-12.5 N RED BLOOD CELL (test code = RBC) 3.16 mill/mm3 3.7-5.2 L HEMOGLOBIN (test code = HGB) 8.1 gram/dL 11.5-15.5 L HEMATOCRIT (test code = HCT) 26.8 % 36.0-46.0 L MEAN CELL VOLUME (test code = MCV) 84.8 fL 80-98 N MEAN CELL HGB (test code = MCH) 25.6 picogram 27.0-33.0 L MEAN CELL HGB CONCETRATION (test code = MCHC) 30.2 gram/dL 33.0-36. 0 L RED CELL DISTRIBUTION WIDTH (test code = RDW) 14.7 % 11.6-16. 2 N RED CELL DISTRIBUTION WIDTH SD (test code = RDW-SD) 45.7 fL 37 .0-51.0 N PLATELET COUNT (test code = PLT) 167 K/mm3 150-450 N MEAN PLATELET VOLUME (test code = MPV) 10.7 fL 6.7-11.0 N NEUTROPHIL % (test code = NT%) 55.1 % 39.0-69.0 N IMMATURE GRANULOCYTE % (test code = IG%) 0.2 % 0.0-5.0 N LYMPHOCYTE % (test code = LY%) 23.6 % 25.0-55.0 L MONOCYTE % (test code = MO%) 18.8 % 0.0-10.0 H EOSINOPHIL % (test code = EO%) 1.8 % 0.0-5.0 N BASOPHIL % (test code = BA%) 0.5 % 0.0-1.0 N NUCLEATED RBC % (test code = NRBC%) 0.0 % 0-0 N NEUTROPHIL # (test code = NT#) 3.14 K/mm3 1.8-7.7 N IMMATURE GRANULOCYTE # (test code = IG#) 0.01 x10 3/uL 0-0.03 N LYMPHOCYTE # (test code = LY#) 1.34 K/mm3 1.0-5.0 N MONOCYTE # (test code = MO#) 1.07 K/mm3 0-0.8 H EOSINOPHIL # (test code = EO#) 0.10 K/mm3 0.0-0.5 N BASOPHIL # (test code = BA#) 0.03 K/mm3 0.0-0.2 N NUCLEATED RBC # (test code = NRBC#) 0.00 K/mm3 0.0-0.1 N MANUAL DIFF REQUIRED (test code = MDIFF) NO REPLACES H60; HH NOT MATCHING; PREWARM NOT WORKING; NO MANHCT AVAILABLEGLUBED 2020-02-03 06:03:00* Test Item Value Reference Range Interpretation Comments GLUBED (test code = GLUBED) 116 mg/dL 74-106 H Performed by certified rubber covering machine operator at [facility] [id number] 20:41:00* Test Item Value Reference Range Interpretation Comments GLUBED (test code = GLUBED) 101 mg/dL 74-106 N Performed by certified rubber covering machine operator at [facility] [id number] 16:01:00* Test Item Value Reference Range Interpretation Comments GLUBED (test code = GLUBED) 125 mg/dL 74-106 H Performed by certified rubber covering machine operator at [facility] [id number] 12:23:00* Test Item Value Reference Range Interpretation Comments GLUBED (test code = GLUBED) 89 mg/dL 74-106 N Performed by certified rubber covering machine operator at [facility] [id number] 07:58:00* Test Item Value Reference Range Interpretation Comments GLUBED (test code = GLUBED) 71 mg/dL 74-106 L Performed by certified rubber covering machine operator at [facility] COMPREHENSIVE METABOLIC [id number] 07:17:00* Test Item Value Reference Range Interpretation Comments SODIUM (test code = NA) 136 mmol/L 136-145 N POTASSIUM (test code = K) 4.8 mmol/L 3.5-5.1 N CHLORIDE (test code = CL) 102.0 mmol/L 98-107 N CARBON DIOXIDE (test code = CO2) 26.0 mmol/L 21-32 N ANION GAP (test code = GAP) 12.8 10-20 N GLUCOSE (test code = GLU) 75 mg/dL 74-106 N BLOOD UREA NITROGEN (test code = BUN) 58 mg/dL 7-18 H RESULT VERIFIED BY REPEAT ANALYSIS GLOMERULAR FILTRATION RATE (test code = GFR) 8 mL/min >=60 Estimated GFR by using Modified MDRD formula.Chronic kidney disease is defined as either kidney damageor GFR <60 mL/min/1.73 m2 for >3 months. CREATININE (test code = CREAT) 5.50 mg/dL 0.55-1.02 H Note change in reference range due to change in reagent. BUN/CREATININE RATIO (test code = BUN/CREA) 10.5 10-20 N TOTAL PROTEIN (test code = PROT) 7.7 gram/dL 6.4-8.2 N ALBUMIN (test code = ALB) 2.3 g/dL 3.4-5.0 L GLOBULIN (test code = GLOB) 5.4 gram/dL 2.7-4.2 H ALBUMIN/GLOBULIN RATIO (test code = A/G) 0.4 0.75-1.50 L CALCIUM (test code = CA) 8.1 mg/dL 8.5-10.1 L BILIRUBIN TOTAL (test code = BILT) 0.20 mg/dL 0.0-1.0 N SGOT/AST (test code = AST) 32 IUnit/L 15-37 N SGPT/ALT (test code = ALT) 29 IUnit/L 12-78 N ALKALINE PHOSPHATASE TOTAL (test code = ALKP) 109 IUnit/L 45-117 N Note change in reference range due to change in reagent. [id number] 07:17:00* Test Item Value Reference Range Interpretation Comments PHOSPHORUS (test code = PHOS) 5.0 mg/dL 2.5-4.9 H [id number] 07:17:00* Test Item Value Reference Range Interpretation Comments MAGNESIUM (test code = MAG) 1.7 mg/dL 1.8-2.4 L COMPREHENSIVE METABOLIC [id number] 06:59:00* Test Item Value Reference Range Interpretation Comments SODIUM (test code = NA) 136 mmol/L 136-145 N POTASSIUM (test code = K) 4.8 mmol/L 3.5-5.1 N CHLORIDE (test code = CL) 102.0 mmol/L 98-107 N CARBON DIOXIDE (test code = CO2) mmol/L 21-32 ANION GAP (test code = GAP) 10-20 GLUCOSE (test code = GLU) mg/dL 74-106 BLOOD UREA NITROGEN (test code = BUN) mg/dL 7-18 GLOMERULAR FILTRATION RATE (test code = GFR) mL/min >=60 CREATININE (test code = CREAT) mg/dL 0.55-1.02 BUN/CREATININE RATIO (test code = BUN/CREA) 10-20 TOTAL PROTEIN (test code = PROT) gram/dL 6.4-8.2 ALBUMIN (test code = ALB) g/dL 3.4-5.0 GLOBULIN (test code = GLOB) gram/dL 2.7-4.2 ALBUMIN/GLOBULIN RATIO (test code = A/G) 0.75-1.50 CALCIUM (test code = CA) mg/dL 8.5-10.1 BILIRUBIN TOTAL (test code = BILT) mg/dL 0.0-1.0 SGOT/AST (test code = AST) IUnit/L 15-37 SGPT/ALT (test code = ALT) IUnit/L 12-78 ALKALINE PHOSPHATASE TOTAL (test code = ALKP) IUnit/L 45-117 [id number] 06:59:00* Test Item Value Reference Range Interpretation Comments PHOSPHORUS (test code = PHOS) mg/dL 2.5-4.9 [id number] 06:59:00* Test Item Value Reference Range Interpretation Comments MAGNESIUM (test code = MAG) mg/dL 1.8-2.4 CBC W/AUTO [id number] 06:52:00* Test Item Value Reference Range Interpretation Comments WHITE BLOOD CELL (test code = WBC) 6.1 K/mm3 4.5-12.5 N RED BLOOD CELL (test code = RBC) 3.35 mill/mm3 3.7-5.2 L HEMOGLOBIN (test code = HGB) 8.6 gram/dL 11.5-15.5 L HEMATOCRIT (test code = HCT) 28.1 % 36.0-46.0 L MEAN CELL VOLUME (test code = MCV) 83.9 fL 80-98 N MEAN CELL HGB (test code = MCH) 25.7 picogram 27.0-33.0 L MEAN CELL HGB CONCETRATION (test code = MCHC) 30.6 gram/dL 33.0-36. 0 L RED CELL DISTRIBUTION WIDTH (test code = RDW) 14.6 % 11.6-16. 2 N RED CELL DISTRIBUTION WIDTH SD (test code = RDW-SD) 45.1 fL 37 .0-51.0 N PLATELET COUNT (test code = PLT) 174 K/mm3 150-450 N MEAN PLATELET VOLUME (test code = MPV) 10.4 fL 6.7-11.0 N NEUTROPHIL % (test code = NT%) 61.3 % 39.0-69.0 N IMMATURE GRANULOCYTE % (test code = IG%) 0.3 % 0.0-5.0 N LYMPHOCYTE % (test code = LY%) 20.0 % 25.0-55.0 L MONOCYTE % (test code = MO%) 17.2 % 0.0-10.0 H EOSINOPHIL % (test code = EO%) 0.7 % 0.0-5.0 N BASOPHIL % (test code = BA%) 0.5 % 0.0-1.0 N NUCLEATED RBC % (test code = NRBC%) 0.0 % 0-0 N NEUTROPHIL # (test code = NT#) 3.74 K/mm3 1.8-7.7 N IMMATURE GRANULOCYTE # (test code = IG#) 0.02 x10 3/uL 0-0.03 N LYMPHOCYTE # (test code = LY#) 1.22 K/mm3 1.0-5.0 N MONOCYTE # (test code = MO#) 1.05 K/mm3 0-0.8 H EOSINOPHIL # (test code = EO#) 0.04 K/mm3 0.0-0.5 N BASOPHIL # (test code = BA#) 0.03 K/mm3 0.0-0.2 N NUCLEATED RBC # (test code = NRBC#) 0.00 K/mm3 0.0-0.1 N [id number] 21:20:00* Test Item Value Reference Range Interpretation Comments GLUBED (test code = GLUBED) 93 mg/dL 74-106 N Performed by certified rubber covering machine operator at [facility] [id number] 17:14:00* Test Item Value Reference Range Interpretation Comments GLUBED (test code = GLUBED) 96 mg/dL 74-106 N Performed by certified rubber covering machine operator at [facility] [id number] 12:39:00* Test Item Value Reference Range Interpretation Comments GLUBED (test code = GLUBED) 84 mg/dL 74-106 N Performed by certified rubber covering machine operator at [facility] COMPREHENSIVE METABOLIC [id number] 09:32:00* Test Item Value Reference Range Interpretation Comments SODIUM (test code = NA) 138 mmol/L 136-145 N POTASSIUM (test code = K) 4.2 mmol/L 3.5-5.1 N CHLORIDE (test code = CL) 100.0 mmol/L 98-107 N CARBON DIOXIDE (test code = CO2) 32.0 mmol/L 21-32 N ANION GAP (test code = GAP) 10.2 10-20 N GLUCOSE (test code = GLU) 82 mg/dL 74-106 N BLOOD UREA NITROGEN (test code = BUN) 34 mg/dL 7-18 H GLOMERULAR FILTRATION RATE (test code = GFR) 11 mL/min >=60 Estimated GFR by using Modified MDRD formula.Chronic kidney disease is defined as either kidney damageor GFR <60 mL/min/1.73 m2 for >3 months. CREATININE (test code = CREAT) 4.40 mg/dL 0.55-1.02 H Note change in reference range due to change in reagent. BUN/CREATININE RATIO (test code = BUN/CREA) 7.7 10-20 L TOTAL PROTEIN (test code = PROT) 7.4 gram/dL 6.4-8.2 N ALBUMIN (test code = ALB) 2.3 g/dL 3.4-5.0 L GLOBULIN (test code = GLOB) 5.1 gram/dL 2.7-4.2 H ALBUMIN/GLOBULIN RATIO (test code = A/G) 0.5 0.75-1.50 L CALCIUM (test code = CA) 8.1 mg/dL 8.5-10.1 L BILIRUBIN TOTAL (test code = BILT) 0.30 mg/dL 0.0-1.0 N SGOT/AST (test code = AST) 40 IUnit/L 15-37 H SGPT/ALT (test code = ALT) 27 IUnit/L 12-78 N ALKALINE PHOSPHATASE TOTAL (test code = ALKP) 105 IUnit/L 45-117 N Note change in reference range due to change in reagent. NURSE HAS TO COLLECT THE BLOOD,V.LAB.VP1 01/31/20 [id number] 09:32:00* Test Item Value Reference Range Interpretation Comments PHOSPHORUS (test code = PHOS) 3.9 mg/dL 2.5-4.9 N NURSE HAS TO COLLECT THE BLOOD,V.LAB.VP1 01/31/20 [id number] 09:32:00* Test Item Value Reference Range Interpretation Comments MAGNESIUM (test code = MAG) 1.6 mg/dL 1.8-2.4 L NURSE HAS TO COLLECT THE BLOOD,V.LAB.VP1 01/31/20 0232PARATHYROID HORMONE INTACT 2020-02-01 09:32:00* Test Item Value Reference Range Interpretation Comments PARATHYROID HORMONE INTACT (test code = PARAI) 388.10 pgram/mL 8.4- 88 H NURSE HAS TO COLLECT THE BLOOD,V.LAB.VP1 01/31/20 0232COMPREHENSIVE METABOLIC [id number] 08:57:00* Test Item Value Reference Range Interpretation Comments SODIUM (test code = NA) 138 mmol/L 136-145 N POTASSIUM (test code = K) 4.2 mmol/L 3.5-5.1 N CHLORIDE (test code = CL) 100.0 mmol/L 98-107 N CARBON DIOXIDE (test code = CO2) 32.0 mmol/L 21-32 N ANION GAP (test code = GAP) 10.2 10-20 N GLUCOSE (test code = GLU) 82 mg/dL 74-106 N BLOOD UREA NITROGEN (test code = BUN) 34 mg/dL 7-18 H GLOMERULAR FILTRATION RATE (test code = GFR) 11 mL/min >=60 Estimated GFR by using Modified MDRD formula.Chronic kidney disease is defined as either kidney damageor GFR <60 mL/min/1.73 m2 for >3 months. CREATININE (test code = CREAT) 4.40 mg/dL 0.55-1.02 H Note change in reference range due to change in reagent. BUN/CREATININE RATIO (test code = BUN/CREA) 7.7 10-20 L TOTAL PROTEIN (test code = PROT) 7.4 gram/dL 6.4-8.2 N ALBUMIN (test code = ALB) 2.3 g/dL 3.4-5.0 L GLOBULIN (test code = GLOB) 5.1 gram/dL 2.7-4.2 H ALBUMIN/GLOBULIN RATIO (test code = A/G) 0.5 0.75-1.50 L CALCIUM (test code = CA) 8.1 mg/dL 8.5-10.1 L BILIRUBIN TOTAL (test code = BILT) 0.30 mg/dL 0.0-1.0 N SGOT/AST (test code = AST) 40 IUnit/L 15-37 H SGPT/ALT (test code = ALT) 27 IUnit/L 12-78 N ALKALINE PHOSPHATASE TOTAL (test code = ALKP) 105 IUnit/L 45-117 N Note change in reference range due to change in reagent. NURSE HAS TO COLLECT THE BLOOD,V.LAB.VP1 01/31/20 [id number] 08:57:00* Test Item Value Reference Range Interpretation Comments PHOSPHORUS (test code = PHOS) 3.9 mg/dL 2.5-4.9 N NURSE HAS TO COLLECT THE BLOOD,V.LAB.VP1 01/31/20 [id number] 08:57:00* Test Item Value Reference Range Interpretation Comments MAGNESIUM (test code = MAG) 1.6 mg/dL 1.8-2.4 L NURSE HAS TO COLLECT THE BLOOD,V.LAB.VP1 01/31/20 0232PARATHYROID HORMONE INTACT 2020-02-01 08:57:00* Test Item Value Reference Range Interpretation Comments PARATHYROID HORMONE INTACT (test code = PARAI) pgram/mL 8.4-88 NURSE HAS TO COLLECT THE BLOOD,V.LAB.VP1 01/31/20 0232COMPREHENSIVE METABOLIC [id number] 08:45:00* Test Item Value Reference Range Interpretation Comments SODIUM (test code = NA) 138 mmol/L 136-145 N POTASSIUM (test code = K) 4.2 mmol/L 3.5-5.1 N CHLORIDE (test code = CL) 100.0 mmol/L 98-107 N CARBON DIOXIDE (test code = CO2) mmol/L 21-32 ANION GAP (test code = GAP) 10-20 GLUCOSE (test code = GLU) mg/dL 74-106 BLOOD UREA NITROGEN (test code = BUN) mg/dL 7-18 GLOMERULAR FILTRATION RATE (test code = GFR) mL/min >=60 CREATININE (test code = CREAT) mg/dL 0.55-1.02 BUN/CREATININE RATIO (test code = BUN/CREA) 10-20 TOTAL PROTEIN (test code = PROT) gram/dL 6.4-8.2 ALBUMIN (test code = ALB) g/dL 3.4-5.0 GLOBULIN (test code = GLOB) gram/dL 2.7-4.2 ALBUMIN/GLOBULIN RATIO (test code = A/G) 0.75-1.50 CALCIUM (test code = CA) mg/dL 8.5-10.1 BILIRUBIN TOTAL (test code = BILT) mg/dL 0.0-1.0 SGOT/AST (test code = AST) IUnit/L 15-37 SGPT/ALT (test code = ALT) IUnit/L 12-78 ALKALINE PHOSPHATASE TOTAL (test code = ALKP) IUnit/L 45-117 NURSE HAS TO COLLECT THE BLOOD,V.LAB.VP1 01/31/20 [id number] 08:45:00* Test Item Value Reference Range Interpretation Comments PHOSPHORUS (test code = PHOS) mg/dL 2.5-4.9 NURSE HAS TO COLLECT THE BLOOD,V.LAB.VP1 01/31/20 [id number] 08:45:00* Test Item Value Reference Range Interpretation Comments MAGNESIUM (test code = MAG) mg/dL 1.8-2.4 NURSE HAS TO COLLECT THE BLOOD,V.LAB.VP1 01/31/20 0232PARATHYROID HORMONE INTACT 2020-02-01 08:45:00* Test Item Value Reference Range Interpretation Comments PARATHYROID HORMONE INTACT (test code = PARAI) pgram/mL 8.4-88 NURSE HAS TO COLLECT THE BLOOD,V.LAB.VP1 01/31/20 0232CBC W/AUTO [id number] 08:26:00* Test Item Value Reference Range Interpretation Comments WHITE BLOOD CELL (test code = WBC) 5.2 K/mm3 4.5-12.5 N RED BLOOD CELL (test code = RBC) 3.22 mill/mm3 3.7-5.2 L HEMOGLOBIN (test code = HGB) 8.2 gram/dL 11.5-15.5 L HEMATOCRIT (test code = HCT) 27.2 % 36.0-46.0 L MEAN CELL VOLUME (test code = MCV) 84.5 fL 80-98 N MEAN CELL HGB (test code = MCH) 25.5 picogram 27.0-33.0 L MEAN CELL HGB CONCETRATION (test code = MCHC) 30.1 gram/dL 33.0-36. 0 L RED CELL DISTRIBUTION WIDTH (test code = RDW) 14.5 % 11.6-16. 2 N RED CELL DISTRIBUTION WIDTH SD (test code = RDW-SD) 45.1 fL 37 .0-51.0 N PLATELET COUNT (test code = PLT) 166 K/mm3 150-450 N MEAN PLATELET VOLUME (test code = MPV) 10.3 fL 6.7-11.0 N NEUTROPHIL % (test code = NT%) 49.0 % 39.0-69.0 N IMMATURE GRANULOCYTE % (test code = IG%) 0.4 % 0.0-5.0 N LYMPHOCYTE % (test code = LY%) 23.7 % 25.0-55.0 L MONOCYTE % (test code = MO%) 24.2 % 0.0-10.0 H EOSINOPHIL % (test code = EO%) 1.7 % 0.0-5.0 N BASOPHIL % (test code = BA%) 1.0 % 0.0-1.0 N NUCLEATED RBC % (test code = NRBC%) 0.0 % 0-0 N NEUTROPHIL # (test code = NT#) 2.55 K/mm3 1.8-7.7 N IMMATURE GRANULOCYTE # (test code = IG#) 0.02 x10 3/uL 0-0.03 N LYMPHOCYTE # (test code = LY#) 1.23 K/mm3 1.0-5.0 N MONOCYTE # (test code = MO#) 1.26 K/mm3 0-0.8 H EOSINOPHIL # (test code = EO#) 0.09 K/mm3 0.0-0.5 N BASOPHIL # (test code = BA#) 0.05 K/mm3 0.0-0.2 N NUCLEATED RBC # (test code = NRBC#) 0.00 K/mm3 0.0-0.1 N PATIENT UNDER INVESTIGATION FOR [id number] 06:16:00* Test Item Value Reference Range Interpretation Comments GLUBED (test code = GLUBED) 86 mg/dL 74-106 N Performed by certified rubber covering machine operator at [facility] [id number] 22:08:00* Test Item Value Reference Range Interpretation Comments GLUBED (test code = GLUBED) 91 mg/dL 74-106 N Performed by certified rubber covering machine operator at [facility] COVID 19 INHOUSE [id number] 20:23:00* Test Item Value Reference Range Interpretation Comments COVID 19 INHOUSE AG (test code = [id number]) POSITIVE [id number] 19:20:00* Test Item Value Reference Range Interpretation Comments GLUBED (test code = GLUBED) 90 mg/dL 74-106 N Performed by certified rubber covering machine operator at [facility] [id number] 12:05:00* Test Item Value Reference Range Interpretation Comments GLUBED (test code = GLUBED) 97 mg/dL 74-106 N Performed by certified rubber covering machine operator at [facility] [id number] 06:30:00* Test Item Value Reference Range Interpretation Comments GLUBED (test code = GLUBED) 103 mg/dL 74-106 N Performed by certified rubber covering machine operator at [facility] [id number] 21:57:00* Test Item Value Reference Range Interpretation Comments GLUBED (test code = GLUBED) 86 mg/dL 74-106 N Performed by certified rubber covering machine operator at [facility] [id number] 16:51:00* Test Item Value Reference Range Interpretation Comments GLUBED (test code = GLUBED) 90 mg/dL 74-106 N Performed by certified rubber covering machine operator at [facility] [id number] 12:46:00* Test Item Value Reference Range Interpretation Comments GLUBED (test code = GLUBED) 86 mg/dL 74-106 N Performed by certified rubber covering machine operator at [facility] AB HEPATITIS B [id number] 09:11:00* Test Item Value Reference Range Interpretation Comments AB HEPATITIS B SURFACE (test code = HBSAB) Non Reactive () Non Reactive: Inconsistent with immunity, less than 10 mIU/mL Reactive: Consistent with immunity, greater than 9.9 mIU/mLPerformed At: [facility] [id number] Fam MD Ph:[phone] HEPATITIS B CORE ANTIBODY,[id number] 09:11:00* Test Item Value Reference Range Interpretation Comments HEPATITIS B CORE ANTIBODY,TOT (test code = HBCAB) Negative Nega tive Performed At: [facility] [address] [id number] Fam MD Ph:[phone] HEPATITIS B CORE ANTIBODY,[id number] 09:11:00* Test Item Value Reference Range Interpretation Comments HEPATITIS B CORE ANTIBODY,IGM (test code = HBCMAB) Negative Neg ative Performed At: [facility] [address] [place], [place] [id number] Robert Fam MD Ph:[phone] BASIC METABOLIC [id number] 07:16:00* Test Item Value Reference Range Interpretation Comments SODIUM (test code = NA) 139 mmol/L 136-145 N POTASSIUM (test code = K) 4.4 mmol/L 3.5-5.1 N CHLORIDE (test code = CL) 103.0 mmol/L 98-107 N CARBON DIOXIDE (test code = CO2) 28.0 mmol/L 21-32 N ANION GAP (test code = GAP) 12.4 10-20 N GLUCOSE (test code = GLU) 119 mg/dL 74-106 H BLOOD UREA NITROGEN (test code = BUN) 39 mg/dL 7-18 H GLOMERULAR FILTRATION RATE (test code = GFR) 10 mL/min >=60 Estimated GFR by using Modified MDRD formula.Chronic kidney disease is defined as either kidney damageor GFR <60 mL/min/1.73 m2 for >3 months. CREATININE (test code = CREAT) 4.70 mg/dL 0.55-1.02 H Note change in reference range due to change in reagent. BUN/CREATININE RATIO (test code = BUN/CREA) 8.3 10-20 L CALCIUM (test code = CA) 7.6 mg/dL 8.5-10.1 L BASIC METABOLIC [id number] 07:09:00* Test Item Value Reference Range Interpretation Comments SODIUM (test code = NA) 139 mmol/L 136-145 N POTASSIUM (test code = K) 4.3 mmol/L 3.5-5.1 N CHLORIDE (test code = CL) 104.0 mmol/L 98-107 N CARBON DIOXIDE (test code = CO2) 28.0 mmol/L 21-32 N ANION GAP (test code = GAP) 11.3 10-20 N GLUCOSE (test code = GLU) 122 mg/dL 74-106 H BLOOD UREA NITROGEN (test code = BUN) 40 mg/dL 7-18 H GLOMERULAR FILTRATION RATE (test code = GFR) 10 mL/min >=60 Estimated GFR by using Modified MDRD formula.Chronic kidney disease is defined as either kidney damageor GFR <60 mL/min/1.73 m2 for >3 months. CREATININE (test code = CREAT) 4.80 mg/dL 0.55-1.02 H Note change in reference range due to change in reagent. BUN/CREATININE RATIO (test code = BUN/CREA) 8.4 10-20 L CALCIUM (test code = CA) 7.8 mg/dL 8.5-10.1 L BASIC METABOLIC [id number] 07:04:00* Test Item Value Reference Range Interpretation Comments SODIUM (test code = NA) 139 mmol/L 136-145 N POTASSIUM (test code = K) 4.3 mmol/L 3.5-5.1 N CHLORIDE (test code = CL) 104.0 mmol/L 98-107 N CARBON DIOXIDE (test code = CO2) mmol/L 21-32 ANION GAP (test code = GAP) 10-20 GLUCOSE (test code = GLU) mg/dL 74-106 BLOOD UREA NITROGEN (test code = BUN) mg/dL 7-18 GLOMERULAR FILTRATION RATE (test code = GFR) mL/min >=60 CREATININE (test code = CREAT) mg/dL 0.55-1.02 BUN/CREATININE RATIO (test code = BUN/CREA) 10-20 CALCIUM (test code = CA) mg/dL 8.5-10.1 BASIC METABOLIC [id number] 07:04:00* Test Item Value Reference Range Interpretation Comments SODIUM (test code = NA) 139 mmol/L 136-145 N POTASSIUM (test code = K) 4.4 mmol/L 3.5-5.1 N CHLORIDE (test code = CL) 103.0 mmol/L 98-107 N CARBON DIOXIDE (test code = CO2) mmol/L 21-32 ANION GAP (test code = GAP) 10-20 GLUCOSE (test code = GLU) mg/dL 74-106 BLOOD UREA NITROGEN (test code = BUN) mg/dL 7-18 GLOMERULAR FILTRATION RATE (test code = GFR) mL/min >=60 CREATININE (test code = CREAT) mg/dL 0.55-1.02 BUN/CREATININE RATIO (test code = BUN/CREA) 10-20 CALCIUM (test code = CA) mg/dL 8.5-10.1 [id number] 05:50:00* Test Item Value Reference Range Interpretation Comments GLUBED (test code = GLUBED) 104 mg/dL 74-106 N Performed by certified rubber covering machine operator at [facility] [id number] 20:14:00* Test Item Value Reference Range Interpretation Comments GLUBED (test code = GLUBED) 114 mg/dL 74-106 H Performed by certified rubber covering machine operator at [facility] [id number] 20:14:00* Test Item Value Reference Range Interpretation Comments GLUBED (test code = GLUBED) 160 mg/dL 74-106 H Performed by certified rubber covering machine operator at [facility] Novel Coronavirus 2019 [id number] 14:14:00* Test Item Value Reference Range Interpretation Comments Novel Coronavirus 2019 nCoV (test code = COVID19) NEGATIVE Does patient have the clinical criteria consistent with COVID-19? YIs the patien t going to be discharged home? YCA 13:09:00* Test Item Value Reference Range Interpretation Comments CA 125 (test code = CA125) 5.4 U/mL 0.0-38.1 R [employer] Electrochemiluminescence Immunoassay(ECLIA)Values obtained with different assay methods or kits cannotbe used interchangeably. Results cannot be interpreted asabsolute evidence of the presence or absence of malignantdisease.Performed At: [facility] [id number] Kyle L MD Ph:[phone] [id number] 06:06:00* Test Item Value Reference Range Interpretation Comments GLUBED (test code = GLUBED) 84 mg/dL 74-106 N Performed by certified rubber covering machine operator at [facility] BASIC METABOLIC [id number] 04:26:00* Test Item Value Reference Range Interpretation Comments SODIUM (test code = NA) 139 mmol/L 136-145 N POTASSIUM (test code = K) 4.4 mmol/L 3.5-5.1 N CHLORIDE (test code = CL) 104.0 mmol/L 98-107 N CARBON DIOXIDE (test code = CO2) 28.0 mmol/L 21-32 N ANION GAP (test code = GAP) 11.4 10-20 N GLUCOSE (test code = GLU) 92 mg/dL 74-106 N BLOOD UREA NITROGEN (test code = BUN) 53 mg/dL 7-18 H RESULT VERIFIED BY REPEAT ANALYSIS GLOMERULAR FILTRATION RATE (test code = GFR) 8 mL/min >=60 Estimated GFR by using Modified MDRD formula.Chronic kidney disease is defined as either kidney damageor GFR <60 mL/min/1.73 m2 for >3 months. CREATININE (test code = CREAT) 5.70 mg/dL 0.55-1.02 H Note change in reference range due to change in reagent. BUN/CREATININE RATIO (test code = BUN/CREA) 9.3 10-20 L CALCIUM (test code = CA) 7.7 mg/dL 8.5-10.1 L BASIC METABOLIC [id number] 04:15:00* Test Item Value Reference Range Interpretation Comments SODIUM (test code = NA) 139 mmol/L 136-145 N POTASSIUM (test code = K) 4.4 mmol/L 3.5-5.1 N CHLORIDE (test code = CL) 104.0 mmol/L 98-107 N CARBON DIOXIDE (test code = CO2) mmol/L 21-32 ANION GAP (test code = GAP) 10-20 GLUCOSE (test code = GLU) mg/dL 74-106 BLOOD UREA NITROGEN (test code = BUN) mg/dL 7-18 GLOMERULAR FILTRATION RATE (test code = GFR) mL/min >=60 CREATININE (test code = CREAT) mg/dL 0.55-1.02 BUN/CREATININE RATIO (test code = BUN/CREA) 10-20 CALCIUM (test code = CA) mg/dL 8.5-10.1 CBC W/O [id number] 04:12:00* Test Item Value Reference Range Interpretation Comments WHITE BLOOD CELL (test code = WBC) 10.8 K/mm3 4.5-12.5 N RED BLOOD CELL (test code = RBC) 3.03 mill/mm3 3.7-5.2 L HEMOGLOBIN (test code = HGB) 7.7 gram/dL 11.5-15.5 L HEMATOCRIT (test code = HCT) 25.0 % 36.0-46.0 L MEAN CELL VOLUME (test code = MCV) 82.5 fL 80-98 N MEAN CELL HGB (test code = MCH) 25.4 picogram 27.0-33.0 L MEAN CELL HGB CONCETRATION (test code = MCHC) 30.8 gram/dL 33.0-36. 0 L RED CELL DISTRIBUTION WIDTH (test code = RDW) 14.6 % 11.6-16. 2 N PLATELET COUNT (test code = PLT) 222 K/mm3 150-450 N MEAN PLATELET VOLUME (test code = MPV) 9.6 fL 6.7-11.0 N [id number] 20:42:00* Test Item Value Reference Range Interpretation Comments GLUBED (test code = GLUBED) 150 mg/dL 74-106 H Performed by certified rubber covering machine operator at [facility] [id number] 16:03:00* Test Item Value Reference Range Interpretation Comments GLUBED (test code = GLUBED) 107 mg/dL 74-106 H Performed by certified rubber covering machine operator at [facility] [id number] 11:32:00* Test Item Value Reference Range Interpretation Comments GLUBED (test code = GLUBED) 118 mg/dL 74-106 H Performed by certified rubber covering machine operator at [facility] BASIC METABOLIC [id number] 07:56:00* Test Item Value Reference Range Interpretation Comments SODIUM (test code = NA) 140 mmol/L 136-145 N POTASSIUM (test code = K) 4.0 mmol/L 3.5-5.1 N CHLORIDE (test code = CL) 104.0 mmol/L 98-107 N CARBON DIOXIDE (test code = CO2) 26.0 mmol/L 21-32 N ANION GAP (test code = GAP) 14.0 10-20 N GLUCOSE (test code = GLU) 76 mg/dL 74-106 N BLOOD UREA NITROGEN (test code = BUN) 38 mg/dL 7-18 H RESULT VERIFIED BY REPEAT ANALYSIS GLOMERULAR FILTRATION RATE (test code = GFR) 10 mL/min >=60 Estimated GFR by using Modified MDRD formula.Chronic kidney disease is defined as either kidney damageor GFR <60 mL/min/1.73 m2 for >3 months. CREATININE (test code = CREAT) 4.80 mg/dL 0.55-1.02 H Note change in reference range due to change in reagent. BUN/CREATININE RATIO (test code = BUN/CREA) 7.9 10-20 L CALCIUM (test code = CA) 7.7 mg/dL 8.5-10.1 L BASIC METABOLIC [id number] 06:57:00* Test Item Value Reference Range Interpretation Comments SODIUM (test code = NA) 140 mmol/L 136-145 N POTASSIUM (test code = K) 4.0 mmol/L 3.5-5.1 N CHLORIDE (test code = CL) 104.0 mmol/L 98-107 N CARBON DIOXIDE (test code = CO2) mmol/L 21-32 ANION GAP (test code = GAP) 10-20 GLUCOSE (test code = GLU) mg/dL 74-106 BLOOD UREA NITROGEN (test code = BUN) mg/dL 7-18 GLOMERULAR FILTRATION RATE (test code = GFR) mL/min >=60 CREATININE (test code = CREAT) mg/dL 0.55-1.02 BUN/CREATININE RATIO (test code = BUN/CREA) 10-20 CALCIUM (test code = CA) mg/dL 8.5-10.1 [id number] 05:28:00* Test Item Value Reference Range Interpretation Comments GLUBED (test code = GLUBED) 77 mg/dL 74-106 N Performed by certified rubber covering machine operator at [facility] [id number] 22:09:00* Test Item Value Reference Range Interpretation Comments GLUBED (test code = GLUBED) 107 mg/dL 74-106 H Performed by certified rubber covering machine operator at [facility] [id number] 16:21:00* Test Item Value Reference Range Interpretation Comments GLUBED (test code = GLUBED) 85 mg/dL 74-106 N Performed by certified rubber covering machine operator at [facility] [id number] 11:16:00* Test Item Value Reference Range Interpretation Comments GLUBED (test code = GLUBED) 93 mg/dL 74-106 N Performed by certified rubber covering machine operator at [facility] BASIC METABOLIC [id number] 06:46:00* Test Item Value Reference Range Interpretation Comments SODIUM (test code = NA) 139 mmol/L 136-145 N POTASSIUM (test code = K) 3.8 mmol/L 3.5-5.1 N CHLORIDE (test code = CL) 105.0 mmol/L 98-107 N CARBON DIOXIDE (test code = CO2) 27.0 mmol/L 21-32 N ANION GAP (test code = GAP) 10.8 10-20 N GLUCOSE (test code = GLU) 90 mg/dL 74-106 N BLOOD UREA NITROGEN (test code = BUN) 29 mg/dL 7-18 H GLOMERULAR FILTRATION RATE (test code = GFR) 12 mL/min >=60 Estimated GFR by using Modified MDRD formula.Chronic kidney disease is defined as either kidney damageor GFR <60 mL/min/1.73 m2 for >3 months. CREATININE (test code = CREAT) 4.10 mg/dL 0.55-1.02 H Note change in reference range due to change in reagent. BUN/CREATININE RATIO (test code = BUN/CREA) 7.0 10-20 L CALCIUM (test code = CA) 8.0 mg/dL 8.5-10.1 L [id number] 06:46:00* Test Item Value Reference Range Interpretation Comments ALBUMIN (test code = ALB) 2.2 g/dL 3.4-5.0 L [id number] 06:46:00* Test Item Value Reference Range Interpretation Comments PHOSPHORUS (test code = PHOS) 3.9 mg/dL 2.5-4.9 N [id number] 06:46:00* Test Item Value Reference Range Interpretation Comments MAGNESIUM (test code = MAG) 1.7 mg/dL 1.8-2.4 L [id number] 06:14:00* Test Item Value Reference Range Interpretation Comments GLUBED (test code = GLUBED) 99 mg/dL 74-106 N Performed by certified rubber covering machine operator at [facility] CBC W/AUTO [id number] 06:00:00* Test Item Value Reference Range Interpretation Comments WHITE BLOOD CELL (test code = WBC) 9.8 K/mm3 4.5-12.5 N RED BLOOD CELL (test code = RBC) 3.21 mill/mm3 3.7-5.2 L HEMOGLOBIN (test code = HGB) 8.2 gram/dL 11.5-15.5 L HEMATOCRIT (test code = HCT) 26.1 % 36.0-46.0 L MEAN CELL VOLUME (test code = MCV) 81.3 fL 80-98 N MEAN CELL HGB (test code = MCH) 25.5 picogram 27.0-33.0 L MEAN CELL HGB CONCETRATION (test code = MCHC) 31.4 gram/dL 33.0-36. 0 L RED CELL DISTRIBUTION WIDTH (test code = RDW) 15.1 % 11.6-16. 2 N RED CELL DISTRIBUTION WIDTH SD (test code = RDW-SD) 44.7 fL 37 .0-51.0 N PLATELET COUNT (test code = PLT) 254 K/mm3 150-450 N MEAN PLATELET VOLUME (test code = MPV) 9.3 fL 6.7-11.0 N NEUTROPHIL % (test code = NT%) 73.7 % 39.0-69.0 H IMMATURE GRANULOCYTE % (test code = IG%) 0.3 % 0.0-5.0 N LYMPHOCYTE % (test code = LY%) 13.4 % 25.0-55.0 L MONOCYTE % (test code = MO%) 9.1 % 0.0-10.0 N EOSINOPHIL % (test code = EO%) 2.9 % 0.0-5.0 N BASOPHIL % (test code = BA%) 0.6 % 0.0-1.0 N NUCLEATED RBC % (test code = NRBC%) 0.0 % 0-0 N NEUTROPHIL # (test code = NT#) 7.24 K/mm3 1.8-7.7 N IMMATURE GRANULOCYTE # (test code = IG#) 0.03 x10 3/uL 0-0.03 N LYMPHOCYTE # (test code = LY#) 1.32 K/mm3 1.0-5.0 N MONOCYTE # (test code = MO#) 0.89 K/mm3 0-0.8 H EOSINOPHIL # (test code = EO#) 0.28 K/mm3 0.0-0.5 N BASOPHIL # (test code = BA#) 0.06 K/mm3 0.0-0.2 N NUCLEATED RBC # (test code = NRBC#) 0.00 K/mm3 0.0-0.1 N MANUAL DIFF REQUIRED (test code = MDIFF) NO [id number] 21:09:00* Test Item Value Reference Range Interpretation Comments GLUBED (test code = GLUBED) 119 mg/dL 74-106 H Performed by certified rubber covering machine operator at [facility] AG HEPAT B [id number] 21:09:00* Test Item Value Reference Range Interpretation Comments AG HEPAT B SURF (test code = HBSAG) Negative Index Nonreactive [id number] 16:58:00* Test Item Value Reference Range Interpretation Comments GLUBED (test code = GLUBED) 153 mg/dL 74-106 H Performed by certified rubber covering machine operator at [facility] [id number] 13:11:00* Test Item Value Reference Range Interpretation Comments GLUBED (test code = GLUBED) 97 mg/dL 74-106 N Performed by certified rubber covering machine operator at [facility] [id number] 05:42:00* Test Item Value Reference Range Interpretation Comments GLUBED (test code = GLUBED) 96 mg/dL 74-106 N Performed by certified rubber covering machine operator at [facility] BASIC METABOLIC [id number] 05:33:00* Test Item Value Reference Range Interpretation Comments SODIUM (test code = NA) 142 mmol/L 136-145 N POTASSIUM (test code = K) 4.3 mmol/L 3.5-5.1 N CHLORIDE (test code = CL) 109.0 mmol/L 98-107 H CARBON DIOXIDE (test code = CO2) 22.0 mmol/L 21-32 N ANION GAP (test code = GAP) 15.3 10-20 N GLUCOSE (test code = GLU) 83 mg/dL 74-106 N BLOOD UREA NITROGEN (test code = BUN) 51 mg/dL 7-18 H GLOMERULAR FILTRATION RATE (test code = GFR) 10 mL/min >=60 Estimated GFR by using Modified MDRD formula.Chronic kidney disease is defined as either kidney damageor GFR <60 mL/min/1.73 m2 for >3 months. CREATININE (test code = CREAT) 4.50 mg/dL 0.55-1.02 H Note change in reference range due to change in reagent. BUN/CREATININE RATIO (test code = BUN/CREA) 11.4 10-20 N CALCIUM (test code = CA) 7.8 mg/dL 8.5-10.1 L [id number] 05:33:00* Test Item Value Reference Range Interpretation Comments ALBUMIN (test code = ALB) 2.3 g/dL 3.4-5.0 L CBC W/AUTO [id number] 05:31:00* Test Item Value Reference Range Interpretation Comments WHITE BLOOD CELL (test code = WBC) 10.1 K/mm3 4.5-12.5 N RED BLOOD CELL (test code = RBC) 3.28 mill/mm3 3.7-5.2 L HEMOGLOBIN (test code = HGB) 8.4 gram/dL 11.5-15.5 L HEMATOCRIT (test code = HCT) 26.3 % 36.0-46.0 L MEAN CELL VOLUME (test code = MCV) 80.2 fL 80-98 N MEAN CELL HGB (test code = MCH) 25.6 picogram 27.0-33.0 L MEAN CELL HGB CONCETRATION (test code = MCHC) 31.9 gram/dL 33.0-36. 0 L RED CELL DISTRIBUTION WIDTH (test code = RDW) 15.0 % 11.6-16. 2 N RED CELL DISTRIBUTION WIDTH SD (test code = RDW-SD) 44.1 fL 37 .0-51.0 N PLATELET COUNT (test code = PLT) 262 K/mm3 150-450 N MEAN PLATELET VOLUME (test code = MPV) 9.5 fL 6.7-11.0 N NEUTROPHIL % (test code = NT%) 79.8 % 39.0-69.0 H IMMATURE GRANULOCYTE % (test code = IG%) 0.3 % 0.0-5.0 N LYMPHOCYTE % (test code = LY%) 11.0 % 25.0-55.0 L MONOCYTE % (test code = MO%) 5.7 % 0.0-10.0 N EOSINOPHIL % (test code = EO%) 2.5 % 0.0-5.0 N BASOPHIL % (test code = BA%) 0.7 % 0.0-1.0 N NUCLEATED RBC % (test code = NRBC%) 0.0 % 0-0 N NEUTROPHIL # (test code = NT#) 8.09 K/mm3 1.8-7.7 H IMMATURE GRANULOCYTE # (test code = IG#) 0.03 x10 3/uL 0-0.03 N LYMPHOCYTE # (test code = LY#) 1.11 K/mm3 1.0-5.0 N MONOCYTE # (test code = MO#) 0.58 K/mm3 0-0.8 N EOSINOPHIL # (test code = EO#) 0.25 K/mm3 0.0-0.5 N BASOPHIL # (test code = BA#) 0.07 K/mm3 0.0-0.2 N NUCLEATED RBC # (test code = NRBC#) 0.00 K/mm3 0.0-0.1 N MANUAL DIFF REQUIRED (test code = MDIFF) NO [id number] 20:34:00* Test Item Value Reference Range Interpretation Comments GLUBED (test code = GLUBED) 83 mg/dL 74-106 N Performed by certified rubber covering machine operator at [facility] - US GUIDANCE VASC [id number] 18:06:00 Name: MERLY MORGAN [facility] : 1970 Age/S: 49 / F [address] [facility] Unit #: [id number] Loc: [place] [address] Phys: Edilson Hall MD Acct: [id number] Dis Date: Status: ADM IN PHONE #: [phone] Exam Date: 01/25/2020 1505 FAX #: [phone] Reason: EXAMS: CPT CODE: [id number] US GUIDANCE VASC ACCESS [id number] Fluoro Time: DAP (Gy m2): Air Kerma (mGy): EXAM: Insertion of a non-tunneled triple-lumen temporary hemodialysis catheter with sonographic guidance; CPT: 96130, 06825; INFORMATION: Renal failure; TECHNIQUE AND FINDINGS: After obtaining informed consent, sonography was performed, demonstrating a patent and compressible right internal jugular vein. Sonographic images were stored in PACS. The patient's skin in the right neck region was prepped and draped in the usual sterile fashion, applying all elements of maximal sterile barrier technique. Xylocaine was administered and using real-time sonographic guidance the right IJ was accessed with a micropuncture system, followed by insertion of an 035 guidewire. Sequential dilatation was performed and a 13 Welsh triple lumen temporary hemodialysis catheter was then inserted over the guidewire. Good bl ood return was noticed; the catheter was sutured to the skin and flushed w ith heparinized saline. There were no apparent complications. IMPRESSION: Successful insertion of a non-tunneled triple-lumen temp orary hemodialysis catheter via right IJ access, using sonographic sudeep nce. Location code: [facility] Electronically Si gned by Mere Sheth on 01/25/2020 at 1806 Reported and signed by: Chele Sheth M.D. CC: Edilson Hall MD Techno logist: TOM HUITRON [facility] Trnscb Date/Time: 01/25/2020 (374) [email or web address] Orig Print D/T: S: 01/25/2020 (5086) PAGE 1 Signed Report - XR CHEST 1 [id number] 16:01:00 FAX: Edilson Hall MD [phone] [place]: St: ADM Name: MERLY BENTON [facility] : [birth year] Age/S: 49/F [address] [facility] Unit #: [id number] Loc: V.[address] [place] [address] Phys: Chele Sheth MD Acct: [id number] Dis Date: Status: ADM IN PHONE #: [phone] Exam Date: 01/25/2020 1558 FAX #: [phone] Reason: POST LINE PLACEMENT EXAMS: CPT CODE: [id number] XR CHEST 1 V 94340 REASON FOR EXAM: POST LINE PLACEMENT Exam Order Date: 01/25/2020 3:20 PM Ordering M.D.: Chele Sheth MD PROCEDURE: - XR CHEST 1 V COMPARISON: Chest x-ray January 22, 2020 FINDINGS: The l ungs are clear. There is no pleural effusion or pneumothorax. Pulmonary v ascularity is within normal limits. Cardiomediastinal silhouette i s normal in size for technique. The mediastinal contours are within normal limits. Musculoskeletal structures are within normal limits. The visualized upper abdomen is within normal limits. IMPRESSION: No acute cardiopulmonary process. Location: [facility] at 1601 Reported and signed by: Efraín Cardoza MD CC: Edilson Hall MD Technologist: RAFAEL CROW Trnscrd Date/Time/By: 2019 (0042) : By: [email or web address] Orig Print D/T: S: 01/25/2020 (6461) PAGE 1 Signed Report [id number] 12:48:00* Test Item Value Reference Range Interpretation Comments GLUBED (test code = GLUBED) 85 mg/dL 74-106 N Performed by certified rubber covering machine operator at [facility] CBC W/AUTO [id number] 06:55:00* Test Item Value Reference Range Interpretation Comments WHITE BLOOD CELL (test code = WBC) 11.7 K/mm3 4.5-12.5 N RED BLOOD CELL (test code = RBC) 2.68 mill/mm3 3.7-5.2 L HEMOGLOBIN (test code = HGB) 6.9 gram/dL 11.5-15.5 L HEMATOCRIT (test code = HCT) 21.8 % 36.0-46.0 LL Results called to [id number] by [email or web address] 01/25/20 0655Critical results verified and read back by Nurse? YES MEAN CELL VOLUME (test code = MCV) 81.3 fL 80-98 N MEAN CELL HGB (test code = MCH) 25.7 picogram 27.0-33.0 L MEAN CELL HGB CONCETRATION (test code = MCHC) 31.7 gram/dL 33.0-36. 0 L RED CELL DISTRIBUTION WIDTH (test code = RDW) 15.6 % 11.6-16. 2 N RED CELL DISTRIBUTION WIDTH SD (test code = RDW-SD) 45.9 fL 37 .0-51.0 N PLATELET COUNT (test code = PLT) 266 K/mm3 150-450 N MEAN PLATELET VOLUME (test code = MPV) 9.6 fL 6.7-11.0 N NEUTROPHIL % (test code = NT%) 70.4 % 39.0-69.0 H IMMATURE GRANULOCYTE % (test code = IG%) 1.3 % 0.0-5.0 N LYMPHOCYTE % (test code = LY%) 15.1 % 25.0-55.0 L MONOCYTE % (test code = MO%) 6.1 % 0.0-10.0 N EOSINOPHIL % (test code = EO%) 6.2 % 0.0-5.0 H BASOPHIL % (test code = BA%) 0.9 % 0.0-1.0 N NUCLEATED RBC % (test code = NRBC%) 0.0 % 0-0 N NEUTROPHIL # (test code = NT#) 8.23 K/mm3 1.8-7.7 H IMMATURE GRANULOCYTE # (test code = IG#) 0.15 x10 3/uL 0-0.03 H LYMPHOCYTE # (test code = LY#) 1.76 K/mm3 1.0-5.0 N MONOCYTE # (test code = MO#) 0.71 K/mm3 0-0.8 N EOSINOPHIL # (test code = EO#) 0.72 K/mm3 0.0-0.5 H BASOPHIL # (test code = BA#) 0.11 K/mm3 0.0-0.2 N NUCLEATED RBC # (test code = NRBC#) 0.00 K/mm3 0.0-0.1 N BASIC METABOLIC [id number] 06:15:00* Test Item Value Reference Range Interpretation Comments SODIUM (test code = NA) 140 mmol/L 136-145 N POTASSIUM (test code = K) 5.0 mmol/L 3.5-5.1 N CHLORIDE (test code = CL) 112.0 mmol/L 98-107 H CARBON DIOXIDE (test code = CO2) 16.0 mmol/L 21-32 L ANION GAP (test code = GAP) 17.0 10-20 N GLUCOSE (test code = GLU) 96 mg/dL 74-106 N BLOOD UREA NITROGEN (test code = BUN) 103 mg/dL 7-18 H GLOMERULAR FILTRATION RATE (test code = GFR) 6 mL/min >=60 Estimated GFR by using Modified MDRD formula.Chronic kidney disease is defined as either kidney damageor GFR <60 mL/min/1.73 m2 for >3 months. CREATININE (test code = CREAT) 7.20 mg/dL 0.55-1.02 H Note change in reference range due to change in reagent. BUN/CREATININE RATIO (test code = BUN/CREA) 14.4 10-20 N CALCIUM (test code = CA) 6.9 mg/dL 8.5-10.1 L [id number] 06:15:00* Test Item Value Reference Range Interpretation Comments ALBUMIN (test code = ALB) 2.3 g/dL 3.4-5.0 L [id number] 06:12:00* Test Item Value Reference Range Interpretation Comments GLUBED (test code = GLUBED) 98 mg/dL 74-106 N Performed by certified rubber covering machine operator at [facility] BASIC METABOLIC [id number] 06:02:00* Test Item Value Reference Range Interpretation Comments SODIUM (test code = NA) 140 mmol/L 136-145 N POTASSIUM (test code = K) 5.0 mmol/L 3.5-5.1 N CHLORIDE (test code = CL) 112.0 mmol/L 98-107 H CARBON DIOXIDE (test code = CO2) mmol/L 21-32 ANION GAP (test code = GAP) 10-20 GLUCOSE (test code = GLU) mg/dL 74-106 BLOOD UREA NITROGEN (test code = BUN) mg/dL 7-18 GLOMERULAR FILTRATION RATE (test code = GFR) mL/min >=60 CREATININE (test code = CREAT) mg/dL 0.55-1.02 BUN/CREATININE RATIO (test code = BUN/CREA) 10-20 CALCIUM (test code = CA) mg/dL 8.5-10.1 [id number] 06:02:00* Test Item Value Reference Range Interpretation Comments ALBUMIN (test code = ALB) g/dL 3.4-5.0 [id number] 21:13:00* Test Item Value Reference Range Interpretation Comments GLUBED (test code = GLUBED) 99 mg/dL 74-106 N Performed by certified rubber covering machine operator at [facility] [id number] 19:54:00* Test Item Value Reference Range Interpretation Comments GLUBED (test code = GLUBED) 120 mg/dL 74-106 H Performed by certified rubber covering machine operator at [facility] HGB [id number] 19:41:00* Test Item Value Reference Range Interpretation Comments HEMOGLOBIN (test code = HGB) 7.2 gram/dL 11.5-15.5 L HEMATOCRIT (test code = HCT) 23.1 % 36.0-46.0 L [id number] 12:02:00* Test Item Value Reference Range Interpretation Comments GLUBED (test code = GLUBED) 94 mg/dL 74-106 N Performed by certified rubber covering machine operator at [facility] LIPID PROFILE (CORONARY RISK)2020-01-24 06:18:00* Test Item Value Reference Range Interpretation Comments TRIGLYCERIDES (test code = TRIG) 105 mg/dL 20-150 N CHOLESTEROL (test code = CHOL) 102 mg/dL 0-200 N CHOLESTEROL/HDL RATIO (test code = CHOLHDL) 3.0 RATIO 0-4.9 N RISK ASSOCIATED WITH CHOL/HDL RATIOS: Risk Male Female1/2 AVERAGE 3.43 3.27AVERAGE 4.97 4.442X AVERAGE 9.55 7.053X AVERAGE 23.39 11.04 REFERENCE VALUE IS RELATED TO RISK LEVELS ASRECOMMENDED BY THE SHIN. HEART, LUNG, AND BLOOD INST. HDL CHOLESTEROL (test code = HDL) 30 mg/dL 40-60 L LIPOPROTEIN LDL (test code = LDL) 61 mg/dL 100-129 L Reference Interval: mg/dL mmol/L Optimal <100 <2.6Near/above optimal 100-129 2.6- 3.3Borderline High 130-159 3.4-4.1High 160-189 4.1-4.9Very High >=190 >=4.9========= This LDL result is a direct measurement.========= BASIC METABOLIC [id number] 05:58:00* Test Item Value Reference Range Interpretation Comments SODIUM (test code = NA) 141 mmol/L 136-145 N POTASSIUM (test code = K) 4.7 mmol/L 3.5-5.1 N CHLORIDE (test code = CL) 112.0 mmol/L 98-107 H CARBON DIOXIDE (test code = CO2) mmol/L 21-32 ANION GAP (test code = GAP) 10-20 GLUCOSE (test code = GLU) mg/dL 74-106 BLOOD UREA NITROGEN (test code = BUN) mg/dL 7-18 GLOMERULAR FILTRATION RATE (test code = GFR) mL/min >=60 CREATININE (test code = CREAT) mg/dL 0.55-1.02 BUN/CREATININE RATIO (test code = BUN/CREA) 10-20 CALCIUM (test code = CA) mg/dL 8.5-10.1 [id number] 05:58:00* Test Item Value Reference Range Interpretation Comments ALBUMIN (test code = ALB) g/dL 3.4-5.0 BASIC METABOLIC [id number] 05:58:00* Test Item Value Reference Range Interpretation Comments SODIUM (test code = NA) 141 mmol/L 136-145 N POTASSIUM (test code = K) 4.7 mmol/L 3.5-5.1 N CHLORIDE (test code = CL) 112.0 mmol/L 98-107 H CARBON DIOXIDE (test code = CO2) 19.0 mmol/L 21-32 L ANION GAP (test code = GAP) 14.7 10-20 N GLUCOSE (test code = GLU) 127 mg/dL 74-106 H BLOOD UREA NITROGEN (test code = BUN) 102 mg/dL 7-18 H GLOMERULAR FILTRATION RATE (test code = GFR) 6 mL/min >=60 Estimated GFR by using Modified MDRD formula.Chronic kidney disease is defined as either kidney damageor GFR <60 mL/min/1.73 m2 for >3 months. CREATININE (test code = CREAT) 6.90 mg/dL 0.55-1.02 H Note change in reference range due to change in reagent. BUN/CREATININE RATIO (test code = BUN/CREA) 14.7 10-20 N CALCIUM (test code = CA) 6.9 mg/dL 8.5-10.1 L [id number] 05:58:00* Test Item Value Reference Range Interpretation Comments ALBUMIN (test code = ALB) 2.1 g/dL 3.4-5.0 L CBC W/AUTO [id number] 05:40:00* Test Item Value Reference Range Interpretation Comments WHITE BLOOD CELL (test code = WBC) 11.5 K/mm3 4.5-12.5 N RED BLOOD CELL (test code = RBC) 2.43 mill/mm3 3.7-5.2 L HEMOGLOBIN (test code = HGB) 6.0 gram/dL 11.5-15.5 L HEMATOCRIT (test code = HCT) 19.7 % 36.0-46.0 LL Results called to [id number] by [email or web address] 01/24/20 0538Critical results verified and read back by Nurse? Y MEAN CELL VOLUME (test code = MCV) 81.1 fL 80-98 N MEAN CELL HGB (test code = MCH) 24.7 picogram 27.0-33.0 L MEAN CELL HGB CONCETRATION (test code = MCHC) 30.5 gram/dL 33.0-36. 0 L RED CELL DISTRIBUTION WIDTH (test code = RDW) 15.1 % 11.6-16. 2 N RED CELL DISTRIBUTION WIDTH SD (test code = RDW-SD) 44.6 fL 37 .0-51.0 N PLATELET COUNT (test code = PLT) 255 K/mm3 150-450 RESULT VERIFIED BY REPEAT ANALYSIS MEAN PLATELET VOLUME (test code = MPV) 9.6 fL 6.7-11.0 N NEUTROPHIL % (test code = NT%) 73.3 % 39.0-69.0 H IMMATURE GRANULOCYTE % (test code = IG%) 0.4 % 0.0-5.0 N LYMPHOCYTE % (test code = LY%) 11.9 % 25.0-55.0 L MONOCYTE % (test code = MO%) 7.6 % 0.0-10.0 N EOSINOPHIL % (test code = EO%) 5.8 % 0.0-5.0 H BASOPHIL % (test code = BA%) 1.0 % 0.0-1.0 N NUCLEATED RBC % (test code = NRBC%) 0.0 % 0-0 N NEUTROPHIL # (test code = NT#) 8.42 K/mm3 1.8-7.7 H IMMATURE GRANULOCYTE # (test code = IG#) 0.05 x10 3/uL 0-0.03 H LYMPHOCYTE # (test code = LY#) 1.36 K/mm3 1.0-5.0 N MONOCYTE # (test code = MO#) 0.87 K/mm3 0-0.8 H EOSINOPHIL # (test code = EO#) 0.66 K/mm3 0.0-0.5 H BASOPHIL # (test code = BA#) 0.11 K/mm3 0.0-0.2 N NUCLEATED RBC # (test code = NRBC#) 0.00 K/mm3 0.0-0.1 N [id number] 22:04:00* Test Item Value Reference Range Interpretation Comments GLUBED (test code = GLUBED) 97 mg/dL 74-106 N Performed by certified rubber covering machine operator at [facility] PROTHROMBIN [id number] 16:53:00* Test Item Value Reference Range Interpretation Comments PROTHROMBIN TIME PATIENT (test code = PTP) 11.2 seconds 9.0-14.0 N INTERNATIONAL NORMAL RATIO (test code = INR) 1.0 0.8-1.2 N The therapeutic range for oral anticoagulant therapy formost indications is an international normalized ratio (INR)of between 2.0 and 3.0. The recommended therapeutic INRrange for various clinical situations is listed below: Clinical Situation INR range Pulmonary e mbolism treatment (2.0-3.0)Venous thrombosis treatmentVenous thrombosis prophylaxis (high risk surgery)Prevention of systemic embolism from: Acute myocardial infarction Valvular heart disease Atrial fibrillation Mechanical prosthetic heart valves (2.5-3.5) IS PATIENT ON ANTICOAGULANTS? YLIST ANTICOAGULANTS HEPARINSPECIMEN COMMENTS: FOR PROCEDURE TOMORROW.THROMBOPLASTIN TIME [id number] 16:53:00* Test Item Value Reference Range Interpretation Comments THROMBOPLASTIN TIME PARTIAL (test code = PTT) 24.3 seconds 23.0-37. 0 N IS PATIENT ON ANTICOAGULANTS? YLIST ANTICOAGULANTS HEPARINSPECIMEN COMMENTS: FOR PROCEDURE TOMORROW.- HEPA IMAG INCL GB W [id number] 14:46:00 FAX: Tom Ortega MD [place]: [address]: ADM FAX: Jamee Ni MD [phone] Name: MERLY MORGAN [facility] : 1970 Age/S: 49/F [address] [facility] Unit #: [id number] Loc: V.2059 [place] [address] Phys: Jamee Silverman MD Acct: [id number] Dis Date: Status: ADM IN PHONE #: [phone] Exam Date: 01/23/2020 1440 FAX #: [phone] Reason: eval for cholecystitis EXAMS: CPT CODE: [id number] HEPA IMAG INCL GB W PHA [id number] HISTORY: eval for cholecystitis EXAM: NUCLEAR MED ICINE HEPATOBILIARY SCAN. TECHNIQUE: After IV injection of 5.6 mC i Tc 99m Choletec, sequential planar images were obtained over the upper a bdomen out to 60 minutes. FINDINGS: Homogeneous distribution of r adiopharmaceutical in the liver. Normal accumulation of radiopharmaceutica l in the gallbladder by 15 minutes. Normal accumulation of radiopharmaceut ical in small bowel by 30 minutes. Following the administration of cholecy stokinin no appreciable gallbladder contraction is seen. I MPRESSION: 1. No evidence of acute cholecystitis or biliary obstruction. 2. Biliary dyskinesia. Location: [facility] at 1444 Reported and signed by: Efraín Cardoza MD CC: oTm Hernadez MD; Jamee Silverman MD Technologist: Shaheed Lozano [facility] Trnscrd Date/Time/By: 01/23/2020 (1821) : By: [email or web address] Orig Print D/T: S: 01/23/2020 (4050) PAGE 1 Signed Report AG HEPAT B [id number] 14:28:00* Test Item Value Reference Range Interpretation Comments AG HEPAT B SURF (test code = HBSAG) Nonreactive Index Nonreactive [id number] 12:16:00* Test Item Value Reference Range Interpretation Comments GLUBED (test code = GLUBED) 121 mg/dL 74-106 H Performed by certified rubber covering machine operator at [facility] [id number] 10:30:00* Test Item Value Reference Range Interpretation Comments GLYCOSYLATED HEMOGLOBIN (HA1C) (test code = GLYHGB) 5.5 % HbA1 SUGGESTED DIAGNOSIS: HbA1C (%) Diabetic >6.4Prediabetes 5.7 - 6.4Normal <5.7 ESTIMATED AVERAGE GLUCOSE (test code = EAG) 111 MG/DL [id number] 06:59:00* Test Item Value Reference Range Interpretation Comments PHOSPHORUS (test code = PHOS) 7.4 mg/dL 2.5-4.9 H [id number] 06:59:00* Test Item Value Reference Range Interpretation Comments MAGNESIUM (test code = MAG) 1.4 mg/dL 1.8-2.4 L [id number] 06:56:00* Test Item Value Reference Range Interpretation Comments PHOSPHORUS (test code = PHOS) mg/dL 2.5-4.9 [id number] 06:56:00* Test Item Value Reference Range Interpretation Comments MAGNESIUM (test code = MAG) 1.4 mg/dL 1.8-2.4 L [id number] 06:37:00* Test Item Value Reference Range Interpretation Comments GLUBED (test code = GLUBED) 158 mg/dL 74-106 H Per[facility] certified rubber covering machine [facility]~ [id number] 06:27:00* Test Item Value Reference Range Interpretation Comments GLUBED (test code = GLUBED) 93 mg/dL 74-106 N Performed by certified rubber covering machine operator at [facility] - DUP AB/PEL/SC [id number] 00:49:00 Name: MERLY MORGAN [facility] : 1970 Age/S: 49 / F Ramone Clemonsncer [facility] Unit #: [id number] Loc: GIULIANA [place] [address] Phys: Tom Ortega MD Acct: [id number] Dis Date: Status: ADM IN PHONE #: [phone] Exam Date: 01/22/2020 001 FAX #: [phone] Reason: EVAL OF ADNEXAL MASS EXAMS: CPT CODE: [id number] DUP AB/PEL/SC COMP 86192 DICTATION LOCATION: 8 HISTORY: Female, 49 years of age with cystic adnexal mass EXAM: TRANSABDOMINAL PELVIC ULTRASOUND COMPARISON: Previous CT abdomen and pelvis without contrast performed 3 hours ago; CT abdomen and pelvis performed 08/08/2019 TECHNIQUE: Transabdominal scans with color and pulse wave Doppler were performed. According to technologist, patient refused transvaginal scanning. FINDINGS: UTERUS: Normal size measuring 6.3 x 3.4 x 5.2 cm. No myometrial masses are seen. Endometrium: 3.0 mm AP dimension. Endometrium is normal thickness and echogenicity. RIGHT OVARY: Not seen. LEFT OVARY: 7.0 x 9.6 x 7.3 cm The left ovary is completely occupied by 6.4 x 8.6 x 7.5 cm unilocular anechoic cyst with imperceptible wall. Ovarian blood flow documented with Doppler. OTHER: No complex adnexal mass. No free fluid in cul-de-sac. IMPRESSION: 8.6 cm unilocular cyst in left ovary. As mentioned in previous CT report, recommend contrast enhanced MRI of the pelvis to further evaluate. at 0049 Reported and signed by: Nataly Hernandez MD CC: Tom Ortega MD Technologist: ROSALINO REHMAN RDMS Trnscb Date/Time: 01/23/2020 (48) tSTAN Orig Print D/T: S: 01/23/2020 (005) Probe: PAGE 1 Signed Report - US PELVIS LTD OR [id number] 00:49:00 Name: MERLY MORGAN [facility] : 1970 Age/S: 49 / F Ramone Clemonsncer [facility] Unit #: [id number] Loc: [place]GI[place] [address] Phys: Adeline Benitez HEALTH IT SPECIALIST Acct: [id number] Dis Date: Status: ADM IN PHONE #: [phone] Exam Date: 01/22/2020 0011 FAX #: [phone] Reason: eval of adnexal mass EXAMS: CPT CODE: [id number] [place] [address] DICTATION LOCATION: 8 HISTORY: Female, 49 years of age with cystic adnexal mass EXAM: TRANSABDOMINAL PELVIC ULTRASOUND COMPARISON: Previous CT abdomen and pelvis without contrast performed 3 hours ago; CT abdomen and pelvis performed 08/08/2019 TECHNIQUE: Transabdominal scans with color and pulse wave Doppler were performed. According to technologist, patient refused transvaginal scanning. FINDINGS: UTERUS: Normal size measuring 6.3 x 3.4 x 5.2 cm. No myometrial masses are seen. Endometrium: 3.0 mm AP dimension. Endometrium is normal thickness and echogenicity. RIGHT OVARY: Not seen. LEFT OVARY: 7.0 x 9.6 x 7.3 cm The left ovary is completely occupied by 6.4 x 8.6 x 7.5 cm unilocular anechoic cyst with imperceptible wall. Ovarian blood flow documented with Doppler. OTHER: No complex adnexal mass. No free fluid in cul-de-sac. IMPRESSION: 8.6 cm unilocular cyst in left ovary. As mentioned in previous CT report, recommend contrast enhanced MRI of the pelvis to further evaluate. at 0049 Reported and signed by: Nataly Hernandez MD CC: Steffen Liriano MD; Adeline Benitez NP Technologist: ROSALINO REHMAN RDMS Trnscb Date/Time: 01/23/2020 (48) tSTAN Orig Print D/T: S: 01/23/2020 (51) Probe: PAGE 1 Signed Report - US ABDOMEN [id number] 00:44:00 Name: MERLY MORGAN [facility] : 1970 Age/S: 49 / F [address] [facility] Unit #: [id number] Loc: Aleah [place] [address] Phys: Adeline Benitez NP Acct: [id number] Dis Date: Status: ADM IN PHONE #: [phone] Exam Date: 01/22/2020 2359 FAX #: [phone] Reason: acute kidne injury; focus on kidney EXAMS: CPT CODE: [id number] US ABDOMEN COMPLETE 88632 DICTATION LOCATION: H48 HISTORY: Female, 49 years of age with acute kidney injury; focus on kidney EXAM: ULTRASOUND OF THE ABDOMEN AND URINARY BLADDER (PELVIS) COMPARISON: Correlation made with CT abdomen and pelvis without contrast performed 2 hours prior TECHNIQUE: Real time sonography was performed with the variable megahertz curved array transducer transabdominally over the upper abdomen and pelvis. FINDINGS: PANCREAS: Obscured by bowel gas. GALLBLADDER: Multiple shadowing stones are present in gallbladder lumen. Gallbladder wall mildly thickened at 3 mm. No pericholecystic fluid. COMMON BILE DUCT: 2.3 mm, normal caliber. LIVER: Normal in echogenicity. No focal mass or enlargement. Portal vein is patent with appropriate hepatopedal flow. SPLEEN: Normal, measuring up to 10 cm greatest diameter. KIDNEYS: Right kidney measures 9.9 x 3.2 x 4.9 cm and left kidney measures 10.7 x 4.9 x 4.8 cm. Both kidneys are normal in size and shape without hydronephrosis, calculus, cortical thinning or cortical mass. Cortical echogenicity of both kidneys is increased however, consistent with medical renal disease. AORTA AND IVC: Within normal limits. URINARY BLADDER: Limited images of the moderately full bladder show no obvious wall thickening, calculus, or filling defect. Bilateral ureteral jets are documented. OTHER: There is no free fluid in the abdomen or pelvis. It should be noted that CT abdomen and pelvis performed earlier today demonstrated a 9.7 x 7.9 cm midline pelvic cystic mass which will be described on pelvic ultrasound report to follow. IMPRESSION: 1. Gallstones and mild gallbladder wall thickening. Please correlate for cholecystitis. 2. No biliary dilatation. 3. Increased renal cortical echogenicity consistent with medical renal disease. No hydronephrosis. 4. Urinary bladder is unremarkable. PAGE 1 Signed Report (CONTINUED) Name: MERLY MORGAN [facility] : 1970 Age/S: 49 / F [address] [facility] Unit #: [id number] Loc: [place]GIULIANA [address] Phys: Adeline Benitez HEALTH IT SPECIALIST Acct: [id number] Dis Date: Status: ADM IN PHONE #: [phone] Exam Date: 01/22/2020 2358 FAX #: [phone] Reason: acute kidne injury; focus on kidney EXAMS: CPT CODE: [id number] US ABDOMEN COMPLETE 36239 <Continued> at 0044 Reported and signed by: Nataly Hernandez MD CC: Steffen Liriano MD; Adeline Benitez NP Technologist: ROSALINO REHMAN RDMS Trnutb Date/Time: 01/23/2020 (43) t.CLW Orig Print D/T: S: 01/23/2020 (004) Probe: PAGE 2 Signed Report Coronavirus 2019 nCoV [id number] 22:33:00* Test Item Value Reference Range Interpretation Comments Coronavirus 2019 nCoV Bedside (test code = [id number]) Negative Is patient requiring admission or transfer? YIndication for rapid COVID-19 testi ng: Mod Clinical Suspicion- CT ABD PELVIS W/O [id number] 21:53:00 Name: MERLY MORGAN [facility] : 1970 Age/S: 49 / F [address] [facility] Unit #: [id number] Loc: [place] [address] Phys: Jana Ashley NP Acct: [id number] Dis Date: Status: REG ER PHONE #: [phone] Exam Date: 01/22/20202101 FAX #: [phone] Reason: vomiting, abd pain EXAMS: CPT CODE: [id number] CT ABD PELVIS W/O CONT 03263 REASON FOR EXAM: vomiting, abd pain EXAM ORDER DATE: 01/22/2020 8:00 PM Ordering M.DVioleta: Jana Ashley NP PROCEDURE: Axial CT images were acquired through the abdomen/pelvis at 5 mm intervals. Sagittal and coronal reformatted images were generated. Automated exposure control was utilized for this reduction. Phases of contrast: None COMPARISON: CT of the abdomen and pelvis August 08, 2019 FINDINGS: The absence of IV contrast limits sensitivity of this exam for the detection of soft tissue pathology Visualized thorax: Grossly normal Hepatobiliary system: Large cholesterol stone is present in the gallbladder lumen. No pericholecystic fat stranding. Hepatic parenchyma is grossly within normal limits Pancreas: Grossly normal Spleen: Grossly normal Adrenal glands: Grossly normal Genitourinary system: Cystic lesion in the pelvis that appears to arise from the left adnexa measures up to 7.9 x 9.7 x 7.1 cm in size. Gastrointestinal tract and appendix: Grossly normal Abdominal vascular structures: Grossly normal Peritoneum and retrop eritoneum: No free fluid or free air. No omental or mesenteric masses. N o abnormal lymph nodes. Musculoskeletal structures and abdominal w all: Mild degenerative changes are present in the spine. Small fat-contain ing umbilical hernia is present PAGE 1 Signed R eport (CONTINUED) Name: MERLY MORGAN [facility] : 1970 Age/S: 49 / F [address] [facility] Unit #: [id number] Loc: [place]ahGIULIANA [address] Phys: Jana Ashley NP Acct: [id number] Dis Date: Status: REG ER PHONE #: [phone] Exam Date: 01/22/20202101 FAX #: [phone] Reason: vomiting, abd pain EXAMS: CPT CODE: [id number] CT ABD PELVIS W/O CONT 18186 <Continued> IMPRESSION: Large cystic appearing lesion, which appears to arise from the left adnexa. Given the size of this lesion, further evaluation by surgical device sales representative as well as a contrast- enhanced pelvic MRI is recommended. Cholelithiasis without findings of acute cholecystitis. Location: [facility] at 2153 Reported and signed by: Efraín Cardoza MD CC: Jana Ashley NP Technologist:Mellissa Rowe RT(R); LO Hyatt CTDI: DLP: Trnscb Date/Time: 01/22/2020 (2152) [email or web address] Orig Print D/T: S: 01/22/2020 (2155) PAGE 2 Signed Report BASIC METABOLIC [id number] 19:03:00* Test Item Value Reference Range Interpretation Comments SODIUM (test code = NA) 138 mmol/L 136-145 N POTASSIUM (test code = K) 5.6 mmol/L 3.5-5.1 H CHLORIDE (test code = CL) 116.0 mmol/L 98-107 H CARBON DIOXIDE (test code = CO2) 12.0 mmol/L 21-32 L ANION GAP (test code = GAP) 15.6 10-20 N GLUCOSE (test code = GLU) 90 mg/dL 74-106 N BLOOD UREA NITROGEN (test code = BUN) 115 mg/dL 7-18 H GLOMERULAR FILTRATION RATE (test code = GFR) 6 mL/min >=60 Estimated GFR by using Modified MDRD formula.Chronic kidney disease is defined as either kidney damageor GFR <60 mL/min/1.73 m2 for >3 months. CREATININE (test code = CREAT) 7.70 mg/dL 0.55-1.02 H Note change in reference range due to change in reagent. BUN/CREATININE RATIO (test code = BUN/CREA) 14.9 10-20 N CALCIUM (test code = CA) 7.6 mg/dL 8.5-10.1 L HEPATIC FUNCTION [id number] 19:03:00* Test Item Value Reference Range Interpretation Comments TOTAL PROTEIN (test code = PROT) 8.8 gram/dL 6.4-8.2 H ALBUMIN (test code = ALB) 2.6 g/dL 3.4-5.0 L GLOBULIN (test code = GLOB) 6.2 gram/dL 2.7-4.2 H ALBUMIN/GLOBULIN RATIO (test code = A/G) 0.4 0.75-1.50 L BILIRUBIN TOTAL (test code = BILT) 0.20 mg/dL 0.0-1.0 N BILIRUBIN DIRECT (test code = BILD) 0.08 mg/dL 0.0-0.20 N SGOT/AST (test code = AST) 16 IUnit/L 15-37 N SGPT/ALT (test code = ALT) 12 IUnit/L 12-78 N ALKALINE PHOSPHATASE TOTAL (test code = ALKP) 142 IUnit/L 45-117 H Note change in reference range due to change in reagent. [id number] 19:03:00* Test Item Value Reference Range Interpretation Comments LIPASE (test code = LIP) 462 U/L 73.0-393.0 H HCG SERUM [id number] 19:03:00* Test Item Value Reference Range Interpretation Comments HCG SERUM QUAL (test code = HCGQL) NEGATIVE NEGATIVE This HCGQL test is NOT applicable for MALE patients.Check with nurse about probable order error.If Tumor Marker Test needed, nurse should order test "HCGTU"(Test #[id number]) BASIC METABOLIC [id number] 18:53:00* Test Item Value Reference Range Interpretation Comments SODIUM (test code = NA) 138 mmol/L 136-145 N POTASSIUM (test code = K) 5.6 mmol/L 3.5-5.1 H CHLORIDE (test code = CL) 116.0 mmol/L 98-107 H CARBON DIOXIDE (test code = CO2) 12.0 mmol/L 21-32 L ANION GAP (test code = GAP) 15.6 10-20 N GLUCOSE (test code = GLU) 90 mg/dL 74-106 N BLOOD UREA NITROGEN (test code = BUN) 115 mg/dL 7-18 H GLOMERULAR FILTRATION RATE (test code = GFR) 6 mL/min >=60 Estimated GFR by using Modified MDRD formula.Chronic kidney disease is defined as either kidney damageor GFR <60 mL/min/1.73 m2 for >3 months. CREATININE (test code = CREAT) 7.70 mg/dL 0.55-1.02 H Note change in reference range due to change in reagent. BUN/CREATININE RATIO (test code = BUN/CREA) 14.9 10-20 N CALCIUM (test code = CA) 7.6 mg/dL 8.5-10.1 L HEPATIC FUNCTION [id number] 18:53:00* Test Item Value Reference Range Interpretation Comments TOTAL PROTEIN (test code = PROT) 8.8 gram/dL 6.4-8.2 H ALBUMIN (test code = ALB) 2.6 g/dL 3.4-5.0 L GLOBULIN (test code = GLOB) 6.2 gram/dL 2.7-4.2 H ALBUMIN/GLOBULIN RATIO (test code = A/G) 0.4 0.75-1.50 L BILIRUBIN TOTAL (test code = BILT) 0.20 mg/dL 0.0-1.0 N BILIRUBIN DIRECT (test code = BILD) 0.08 mg/dL 0.0-0.20 N SGOT/AST (test code = AST) 16 IUnit/L 15-37 N SGPT/ALT (test code = ALT) 12 IUnit/L 12-78 N ALKALINE PHOSPHATASE TOTAL (test code = ALKP) 142 IUnit/L 45-117 H Note change in reference range due to change in reagent. [id number] 18:53:00* Test Item Value Reference Range Interpretation Comments LIPASE (test code = LIP) 462 U/L 73.0-393.0 H HCG SERUM [id number] 18:53:00* Test Item Value Reference Range Interpretation Comments HCG SERUM QUAL (test code = HCGQL) NEGATIVE URINALYSIS [id number] 18:48:00* Test Item Value Reference Range Interpretation Comments UA COLOR (test code = COLU) Light-Yellow YELLOW UA APPEARANCE (test code = APPU) Cloudy CLEAR A UA GLUCOSE DIPSTICK (test code = DGLUU) 30 (Trace) mg/dL NEGATIVE A UA BILIRUBIN DIPSTICK (test code = BILU) NEGATIVE mg/dL NEGATIVE UA KETONE DIPSTICK (test code = KETU) NEGATIVE mg/dL NEGATIVE UA SPECIFIC GRAVITY (test code = SGU) 1.014 1.001-1.035 UA BLOOD DIPSTICK (test code = LIZZ) 0.2 mg/dL (2+) mg/dL NEGATIVE A UA PH DIPSTICK (test code = TIMI) 6.0 5.0-8.0 UA PROTEIN DIPSTICK (test code = PROU) 300 (3+) mg/dL NEGATIVE A UA UROBILINIOGEN DIPSTICK (test code = URO) Normal mg/dL NEGATIVE UA NITRITE DIPSTICK (test code = HEMAL) NEGATIVE NEGATIVE UA LEUKOCYTE ESTERASE W REFLEX (test code = LEUUR) 75 Alfa/uL (1+) Alfa/uL NEGATIVE A UA WBC (test code = WBCU) 11-20 per HPF 0-5 A UA RBC (test code = RBCU) 3-5 #/HPF 0-5 UA WBC CLUMPS (test code = WBCUCL) 3-6 /HPF NONE A UA EPITHELIAL CELLS (test code = EPIU) FEW per HPF FEW UA BACTERIA (test code = BACU) MODERATE #/HPF NONE A UA MUCUS (test code = MUCU) FEW #/LPF FEW Urine Source? Clean CatchBASIC METABOLIC [id number] 18:41:00* Test Item Value Reference Range Interpretation Comments SODIUM (test code = NA) 138 mmol/L 136-145 N POTASSIUM (test code = K) 5.6 mmol/L 3.5-5.1 H CHLORIDE (test code = CL) 116.0 mmol/L 98-107 H CARBON DIOXIDE (test code = CO2) mmol/L 21-32 ANION GAP (test code = GAP) 10-20 GLUCOSE (test code = GLU) mg/dL 74-106 BLOOD UREA NITROGEN (test code = BUN) mg/dL 7-18 GLOMERULAR FILTRATION RATE (test code = GFR) mL/min >=60 CREATININE (test code = CREAT) mg/dL 0.55-1.02 BUN/CREATININE RATIO (test code = BUN/CREA) 10-20 CALCIUM (test code = CA) mg/dL 8.5-10.1 HEPATIC FUNCTION [id number] 18:41:00* Test Item Value Reference Range Interpretation Comments TOTAL PROTEIN (test code = PROT) gram/dL 6.4-8.2 ALBUMIN (test code = ALB) g/dL 3.4-5.0 GLOBULIN (test code = GLOB) gram/dL 2.7-4.2 ALBUMIN/GLOBULIN RATIO (test code = A/G) 0.75-1.50 BILIRUBIN TOTAL (test code = BILT) mg/dL 0.0-1.0 BILIRUBIN DIRECT (test code = BILD) mg/dL 0.0-0.20 SGOT/AST (test code = AST) IUnit/L 15-37 SGPT/ALT (test code = ALT) IUnit/L 12-78 ALKALINE PHOSPHATASE TOTAL (test code = ALKP) IUnit/L 45-117 [id number] 18:41:00* Test Item Value Reference Range Interpretation Comments LIPASE (test code = LIP) U/L 73.0-393.0 HCG SERUM [id number] 18:41:00* Test Item Value Reference Range Interpretation Comments HCG SERUM QUAL (test code = HCGQL) NEGATIVE CBC W/O [id number] 18:28:00* Test Item Value Reference Range Interpretation Comments WHITE BLOOD CELL (test code = WBC) 17.7 K/mm3 4.5-12.5 H RED BLOOD CELL (test code = RBC) 2.90 mill/mm3 3.7-5.2 L HEMOGLOBIN (test code = HGB) 7.2 gram/dL 11.5-15.5 L HEMATOCRIT (test code = HCT) 23.6 % 36.0-46.0 L MEAN CELL VOLUME (test code = MCV) 81.4 fL 80-98 N MEAN CELL HGB (test code = MCH) 24.8 picogram 27.0-33.0 L MEAN CELL HGB CONCETRATION (test code = MCHC) 30.5 gram/dL 33.0-36. 0 L RED CELL DISTRIBUTION WIDTH (test code = RDW) 15.1 % 11.6-16. 2 N PLATELET COUNT (test code = PLT) 340 K/mm3 150-450 N MEAN PLATELET VOLUME (test code = MPV) 9.1 fL 6.7-11.0 N - XR CHEST 1 [id number] 15:35:00 FAX: Jana Ashley NP [place]: St: REG Name: MERLY BENTON [facility] : [birth year] Age/S: 49/F [address] [facility] Unit #: [id number] Loc: GIULIA[place] [address] Phys: Jana Ashley NP Acct: [id number] Dis Date: Status: REG ER PHONE #: [phone] Exam Date: 01/22/2020 4060 FAX #: [phone] Reason: Abdominal Pain EXAMS: CPT CODE: [id number] XR CHEST 1 V 49066 REASON FOR EXAM: Abdominal Pain Exam Order Date: 01/22/2020 2:22 PM Ordering MVioleta Yan: Jana Ashley NP PROCEDURE: - XR CHEST 1 V GREGORIO RISON: Chest x-ray March 10, 2019 FINDINGS: The lungs are clear. There is no pleural effusion or pneumothorax. Pulmonary vasculari ty is within normal limits. Cardiomediastinal silhouette is normal in size for technique. The mediastinal contours are within normal limits. Musculoskeletal structures are within normal limits. The visualized upper abdomen is within normal limits. IMPRESSION: No acute cardiopulmonary process. Location : [facility] at 1535 Reported and signed by: Efraín Cardoza MD CC: Jana Rodríguez NP Technologist: MANASA MCDONALD, RT(R); RAFAEL CROW Trnscrd Date/Time/By: 01/22/2020 (15 35) : By: [email or web address] Orig Print D/T: S: 01/22/2020 (1600) PAGE 1 Signed Report Bedside [id number] 16:04:00* Test Item Value Reference Range Interpretation Comments Bedside Glucose (test code = 94093-0) 134 70-120 H Meter ID: [id number] [facility] 2019-09-03 05:42:00* Test Item Value Reference Range Interpretation Comments Sodium Level (test code = 2951-2) 137 136-145 [facility] HospitalPotassium [id number] 05:42:00* Test Item Value Reference Range Interpretation Comments Potassium Level (test code = 2823-3) 4.2 3.5-5.1 [facility] HospitalChloride [id number] 05:42:00* Test Item Value Reference Range Interpretation Comments Chloride Level (test code = 2075-0) 107 98-107 [facility] HospitalCarbon Dioxide [id number] 05:42:00* Test Item Value Reference Range Interpretation Comments Carbon Dioxide Level (test code = 2028-9) 17 22-[address] [facility] HospitalAnion [id number] 05:42:00* Test Item Value Reference Range Interpretation Comments Anion Gap (test code = 77762-8) 17.2 8-[address] [facility] HospitalBlood Urea [id number] 05:42:00* Test Item Value Reference Range Interpretation Comments Blood Urea Nitrogen (test code = 3094-0) 64 7-[address] [facility] HospitalCreatinine2020-02-09 05:42:00* Test Item Value Reference Range Interpretation Comments Creatinine (test code = 2160-0) 5.78 0.57-1.[address] [facility] HospitalBUN/Creatinine [id number] 05:42:00* Test Item Value Reference Range Interpretation Comments BUN/Creatinine Ratio (test code = 3097-3) 11 6-25 [facility] HospitalEstimat Glomerular Filtration Rate 2019-09-03 05:42:00* Test Item Value Reference Range Interpretation Comments Estimat Glomerular Filtration Rate (test code = 238316630) 8 >60 L Ranges were taken from the National Kidney Disease Education Program and the [facility]ney Foundation literature.Reference ranges:60 or greater: Xcyqpf99-25 ( for 3 consecutive months): Chronic kidney disease 15 or less: Kidney failureSt. Luke's Health – The Woodlands HospitalGlucose [id number] 05:42:00* Test Item Value Reference Range Interpretation Comments Glucose Level (test code = VYE3146) 96 74-118 [facility] HospitalCalcium [id number] 05:42:00* Test Item Value Reference Range Interpretation Comments Calcium Level (test code = 55018-8) 7.5 8.4-10.[address] [facility] HospitalWhite Blood [id number] 05:40:00* Test Item Value Reference Range Interpretation Comments White Blood Count (test code = 6690-2) 12.50 4.8-10.[address] [facility] HospitalRed Blood Paabu5964-36-15 05:40:00* Test Item Value Reference Range Interpretation Comments Red Blood Count (test code = 789-8) 3.49 3.6-5.[address] [facility] HospitalHemoglobin2020-02-09 05:40:00* Test Item Value Reference Range Interpretation Comments Hemoglobin (test code = 88710-2) 8.8 12.0-16.[address] [facility] HospitalHematocrit2020-02-09 05:40:00* Test Item Value Reference Range Interpretation Comments Hematocrit (test code = 4544-3) 29.8 34.2-44.[address] [facility] HospitalMean Corpuscular Oputfq7766-84-65 05:40:00* Test Item Value Reference Range Interpretation Comments Mean Corpuscular Volume (test code = 787-2) 85.4 81-99 [facility] HospitalMean Corpuscular Gqggpmqgsp5927-41-49 05:40:00* Test Item Value Reference Range Interpretation Comments Mean Corpuscular Hemoglobin (test code = 785-6) 25.2 28-[address] [facility] HospitalMean Corpuscular Hemoglobin Concent 2019-09-03 05:40:00* Test Item Value Reference Range Interpretation Comments Mean Corpuscular Hemoglobin Concent (test code = 786-4) 29.5 31-[address] [facility] HospitalRed Cell Distribution [id number] 05:40:00* Test Item Value Reference Range Interpretation Comments Red Cell Distribution Width (test code = 45548-0) 15.7 11.7 -14.[address] [facility] HospitalPlatelet Tpcgt7857-40-03 05:40:00* Test Item Value Reference Range Interpretation Comments Platelet Count (test code = 777-3) 280 140-360 [facility] HospitalNeutrophils (%) (Auto)2019-09-03 05:40:00 * Test Item Value Reference Range Interpretation Comments Neutrophils (%) (Auto) (test code = 51398-3) 73.3 38.7-80.0 [facility] HospitalLymphocytes (%) (Auto)2019-09-03 05:40:00 * Test Item Value Reference Range Interpretation Comments Lymphocytes (%) (Auto) (test code = 736-9) 10.9 18.0-39.[address] [facility] HospitalMonocytes (%) (Auto)2019-09-03 05:40:00* Test Item Value Reference Range Interpretation Comments Monocytes (%) (Auto) (test code = 5905-5) 6.5 4.4-11.3 [facility] HospitalEosinophils (%) (Auto)2019-09-03 05:40:00 * Test Item Value Reference Range Interpretation Comments Eosinophils (%) (Auto) (test code = 713-8) 8.3 0.0-6.[address] [facility] HospitalBasophils (%) (Auto)2019-09-03 05:40:00* Test Item Value Reference Range Interpretation Comments Basophils (%) (Auto) (test code = 706-2) 0.6 0.0-1.0 [facility] HospitalIM GRANULOCYTES %2019-09-03 05:40:00* Test Item Value Reference Range Interpretation Comments IM GRANULOCYTES % (test code = IM GRANULOCYTES %) 0.4 0.0- 1.0 [facility] HospitalNeutrophils # (Auto)2019-09-03 05:40:00* Test Item Value Reference Range Interpretation Comments Neutrophils # (Auto) (test code = 751-8) 9.2 2.1-6.[address] [facility] HospitalLymphocytes # (Auto)2019-09-03 05:40:00* Test Item Value Reference Range Interpretation Comments Lymphocytes # (Auto) (test code = 05994-8) 1.4 1.0-3.2 [facility] HospitalMonocytes # (Auto)2019-09-03 05:40:00* Test Item Value Reference Range Interpretation Comments Monocytes # (Auto) (test code = 742-7) 0.8 0.2-0.8 [facility] HospitalEosinophils # (Auto)2019-09-03 05:40:00* Test Item Value Reference Range Interpretation Comments Eosinophils # (Auto) (test code = 711-2) 1.0 0.0-0.[address] [facility] HospitalBasophils # (Auto)2019-09-03 05:40:00* Test Item Value Reference Range Interpretation Comments Basophils # (Auto) (test code = 704-7) 0.1 0.0-0.1 [facility] HospitalAbsolute Immature Granulocyte (auto 2019-09-03 05:40:00* Test Item Value Reference Range Interpretation Comments Absolute Immature Granulocyte (auto (lawrence t code = Absolute Immature Granulocyte (auto) 0.05 0-0.1 [facility] HospitalTriglycerides [id number] 09:55:00* Test Item Value Reference Range Interpretation Comments Triglycerides Level (test code = 2571-8) 104 0-149 [facility] HospitalCholesterol Lkiur1455-92-42 09:55:00* Test Item Value Reference Range Interpretation Comments Cholesterol Level (test code = 2093-3) 146 0-199 Less than 200 mg/dL Low Zyku470 - 239 mg/dL Borderline Cflp075 m g/dl and greater High Risk [facility] HospitalLDL Fttcrortnun8193-89-33 09:55:00* Test Item Value Reference Range Interpretation Comments LDL Cholesterol (test code = 2089-1) 88 60-130 [facility] HospitalHDL Txwbblmioak7801-09-80 09:55:00* Test Item Value Reference Range Interpretation Comments HDL Cholesterol (test code = 2085-9) 37 40-[address] [facility] HospitalCholesterol/HDL Sgnve0687-59-60 09:55:00 * Test Item Value Reference Range Interpretation Comments Cholesterol/HDL Ratio (test code = 9830-1) 3.9 3.0-3.[address] [facility] HospitalTotal Euhsopsbt4426-24-56 05:43:00* Test Item Value Reference Range Interpretation Comments Total Bilirubin (test code = 1975-2) 0.4 0.2-1.2 [facility] HospitalAspartate Amino Transf (AST/SGOT) 2019-09-01 05:43:00* Test Item Value Reference Range Interpretation Comments Aspartate Amino Transf (AST/SGOT) (test code = Aspartate Amino Transf (AST/SGOT)) 10 5-34 [facility] HospitalAlanine Aminotransferase (ALT/SGPT) 2019-09-01 05:43:00* Test Item Value Reference Range Interpretation Comments Alanine Aminotransferase (ALT/SGPT) (test code = 1742-6) < 6 0-55 [facility] HospitalTotal Fctymfe7123-48-59 05:43:00* Test Item Value Reference Range Interpretation Comments Total Protein (test code = 2885-2) 7.7 6.5-8.1 [facility] HospitalAlbumin2020-02-07 05:43:00* Test Item Value Reference Range Interpretation Comments Albumin (test code = 1751-7) 2.6 3.5-5.[address] [facility] HospitalGlobulin2020-02-07 05:43:00* Test Item Value Reference Range Interpretation Comments Globulin (test code = 15472-1) 5.1 2.3-3.[address] [facility] HospitalAlbumin/Globulin Yhuld9948-28-44 05:43:00 * Test Item Value Reference Range Interpretation Comments Albumin/Globulin Ratio (test code = 1759-0) 0.5 0.8-2.[address] [facility] HospitalAlkaline Sksgetpllqd7027-57-44 05:43:00* Test Item Value Reference Range Interpretation Comments Alkaline Phosphatase (test code = 6768-6) 101 40-150 [facility] HospitalCreatine Kinase [id number] 17:21:00* Test Item Value Reference Range Interpretation Comments Creatine Kinase MB (test code = 81078-6) 1.40 0-5.0 [facility] HospitalTroponin [id number] 17:21:00* Test Item Value Reference Range Interpretation Comments Troponin I (test code = BZF9462) 0.015 0-0.300 [facility] HospitalCreatine Ccbptb4180-36-75 17:13:00* Test Item Value Reference Range Interpretation Comments Creatine Kinase (test code = 2157-6) 72 29-168 [facility] HospitalUS RENAL RETROPERITONEAL [id number] 16:12:00 [facility] [address] [address] Patient Name: MERLY MORGAN MR #: [id number] : 1970 Age/Sex: 49/F Req #: [id number] Adm Physician: RONAN VARNER MD Ordered by: RONAN VARNER MD Report #: [id number] Location: MED/SURG2 Room/Bed: [facility] Procedure: [id number] U S/US RENAL RETROPERITONEAL COMP Exam Date: 08/30/19 Exam Time: 1411 REPORT STATUS: Sign ed Renal ultrasound, 08/30/2019. History: Chronic kidney disease. Discussion: Transverse and longitudinal images of the kidneys were obtained demonstrating normal renal sizes but mildly increased cortical echogenicities. There is no evidence of hydronephrosis, mass, or renal calculus. The right k idney measures 10 cm and the left kidney measures 10.7 cm in length. Renal cor nick measures 1.1 and 1.6 cm respectively. The urinary bladder is unremarkable. Bladder volume measures 45 mL. There is no evidence of free fluid. IMPRESSION: Increase renal echogenicity suggestive of medical renal disease. No evidence of hydronephrosis or nephrolithiasis. Signed by: Mayur ryan on 08/30/2019 4:13 PM Dictated By: MAYUR CHANEL MD Electronically Leatha d By: MAYUR CHANEL MD on 08/30/19 1613 Transcribed By: AILYN on 08/30/19 161 3 COPY TO: RONAN VARNER MD [facility] SINGLE (PORTABLE)2019-08-30 07:08:[address] [address] Patient Name: MERLY MORGAN MR #: [id number] : 1970 Age/Sex: 49/F Req #: [id number] Adm Physician: RONAN VARNER MD Ordered by: CHRISTOPHER SEPULVEDA NP Report #: [id number] Location: MED/SURG2 Room/Bed: Procedure: [id number] DX/CHEST SINGLE (PORTABLE) Exam Date: 08/30/19 Exam Time: 0610 REPORT STATUS: Signed EXAMINATION: CHEST SINGLE (PORTABLE) COMPARISON: Chest x-ray 08/29/2019 INDICATION: Chest pain. DISCUSSION: HEART AND MEDIASTINUM: The cardiac silhouette is mildly enlarged. LINES: None. LUNGS: Mild p rominence of the pulmonary vasculature bilaterally suggestive of mild congesti on.. No pneumonia or pulmonary edema. PLEURA: No pleural effusion or pneum othorax. BONES AND SOFT TISSUES: No focal osseous lesion. The soft tissues are normal. IMPRESSION: Mild bilateral pulmonary venous congestio n. Signed by: Dr. Matilde Felix M.D. on 08/30/2019 7:10 AM Dic tated By: NINOSKA FELIX MD, MD 0710 COPY TO: CHRISTOPHER PEREZ NP Prothrombin Ixph8462-87-11 05:20:00* Test Item Value Reference Range Interpretation Comments Prothrombin Time (test code = 5902-2) 13.9 11.9-14.5 [facility] HospitalProthromb Time International Ratio 2019-08-30 05:20:00* Test Item Value Reference Range Interpretation Comments Prothromb Time International Ratio (test code = 6301-6) 1.05 Oral Anticoagulant Therapy INR Values:1. Low Intensity Therapy 1.5 - 2.02 . Moderate Intensity Therapy 2.0 - 3.03. High Intensity Therapy(1) 2.5 - 3. 54. High Intensity Therapy(2) 3.0 - 4.05. Panic Value INR > 5.0 [facility] HospitalActivated Partial Thromboplast Time 2019-08-30 05:20:00* Test Item Value Reference Range Interpretation Comments Activated Partial Thromboplast Time (test code = 40912-0) 35.4 23.8-35.5 [facility] HospitalUrine [id number] 15:57:00* Test Item Value Reference Range Interpretation Comments Urine WBC (test code = 5821-4) 0-5 0-5 [facility] HospitalUrine [id number] 15:57:00* Test Item Value Reference Range Interpretation Comments Urine RBC (test code = 49870-4) 11-20 0-[address] [facility] HospitalUrine Fxmhviti0561-18-93 15:57:00* Test Item Value Reference Range Interpretation Comments Urine Bacteria (test code = 45528-2) NONE NONE [facility] HospitalUrine Epithelial Ptjev0275-37-93 15:57:00 * Test Item Value Reference Range Interpretation Comments Urine Epithelial Cells (test code = 52039-3) FEW NONE [facility] HospitalUrine Amorphous Lzljymcc6574-28-76 15:57:00* Test Item Value Reference Range Interpretation Comments Urine Amorphous Sediment (test code = 8246-1) FEW FEW [facility] HospitalInfluenza Virus Types A,B Antigen 2019-08-29 15:47:00* Test Item Value Reference Range Interpretation Comments Influenza Virus Types A,B Antigen (test code = 32829-6) NEGATIVE NEGATIVE [facility] HospitalGroup A Streptococcus Izsnrb2451-33-18 15:45:00* Test Item Value Reference Range Interpretation Comments Group A Streptococcus Screen (test code = 42982-5) POSITIVE NEG ATIVE [facility] HospitalUrine Gpsno3879-33-46 15:43:00* Test Item Value Reference Range Interpretation Comments Urine Color (test code = 5778-6) YELLOW YELLOW [facility] HospitalUrine Xjxdulp7785-26-94 15:43:00* Test Item Value Reference Range Interpretation Comments Urine Clarity (test code = 34162-6) CLOUDY CLEAR H [facility] HospitalUrine Specific Ooxphmt6848-88-24 15:43:00 * Test Item Value Reference Range Interpretation Comments Urine Specific Matthews (test code = 5811-5) 1.025 1.010-1.[address] [facility] HospitalUrine [id number] 15:43:00* Test Item Value Reference Range Interpretation Comments Urine pH (test code = 86977-3) 6.5 5-7 [facility] HospitalUrine Leukocyte Rlrfbygz8515-06-57 15:43:00* Test Item Value Reference Range Interpretation Comments Urine Leukocyte Esterase (test code = 5799-2) NEGATIVE NEGATIVE [facility] HospitalUrine Qozkjsi9040-82-67 15:43:00* Test Item Value Reference Range Interpretation Comments Urine Nitrite (test code = 38597-1) NEGATIVE NEGATIVE [facility] HospitalUrine Elzqkvp4970-88-41 15:43:00* Test Item Value Reference Range Interpretation Comments Urine Protein (test code = 5804-0) 3+ NEGATIVE H [facility] HospitalUrine Glucose (UA)2019-08-29 15:43:00* Test Item Value Reference Range Interpretation Comments Urine Glucose (UA) (test code = 2349-9) 1+ NEGATIVE H [facility] HospitalUrine Ubaurot0007-61-54 15:43:00* Test Item Value Reference Range Interpretation Comments Urine Ketones (test code = 25260-5) NEGATIVE NEGATIVE [facility] HospitalUrine Mkeqchivbspl5030-49-77 15:43:00* Test Item Value Reference Range Interpretation Comments Urine Urobilinogen (test code = 78772-2) 0.2 0.2-1 [facility] HospitalUrine Ryaphabme0627-80-06 15:43:00* Test Item Value Reference Range Interpretation Comments Urine Bilirubin (test code = 1978-6) NEGATIVE NEGATIVE [facility] HospitalUrine Drvln3474-91-03 15:43:00* Test Item Value Reference Range Interpretation Comments Urine Blood (test code = 24195-3) MODERATE NEGATIVE [facility] HospitalB-Type Natriuretic Hggfekj7466-57-68 14:13:00* Test Item Value Reference Range Interpretation Comments B-Type Natriuretic Peptide (test code = 77557-6) 401.4 0-[address] [facility] HospitalCHEST SINGLE (NOT PORTABLE)2019-08-29 12:14:00 [facility] [address] [place] [address] Patient Name: MERLY MORGAN MR #: [id number] : 1970 Age/Sex: 49/F Req #: [id number] Adm Physician: Ordered by: GLORIA COSME MD Report #: [id number] Location: ER Room/Bed: Procedure: [id number] DX /CHEST SINGLE (NOT PORTABLE) Exam Date: 08/29/19 Richard muniz Time: 1140 REPORT STATUS: Signed EXAMINATION: CHEST SINGLE (NOT PORTABLE) INDICATION: Chest pain COMPARISON: Chest radiograph 11/09/2018 FINDINGS: LINES/TUBES:None LUNGS:The lungs are well-inflated. No focal consolidation or pulmonary e francy. PLEURA:No pleural effusion or pneumothorax. MEDIASTINUM:The card iomediastinal silhouette appears normal in size and shape. BONES/SOFT TISSU ES:No acute osseous injury. ABDOMEN:No free air under the diaphragm. IMPRESSION: No focal pneumonia or pulmonary edema. Signed by: Deep Lauren MD on 08/29/2019 12:14 PM Dictated By: DEEP LAUREN MD Electronically Si gned By: DEEP LAUREN MD on 08/29/19 1214 Transcribed By: AILYN on 08/29/19 121 4 COPY TO: GLORIA COSME MD URINALYSIS [id number] 00:37:00* Test Item Value Reference Range Interpretation Comments UA COLOR (test code = COLU) Light-Yellow YELLOW UA APPEARANCE (test code = APPU) CLEAR CLEAR UA GLUCOSE DIPSTICK (test code = DGLUU) 70 (1+) mg/dL NEGATIVE A UA BILIRUBIN DIPSTICK (test code = BILU) NEGATIVE mg/dL NEGATIVE UA KETONE DIPSTICK (test code = KETU) NEGATIVE mg/dL NEGATIVE UA SPECIFIC GRAVITY (test code = SGU) 1.013 1.001-1.035 UA BLOOD DIPSTICK (test code = LIZZ) 0.2 mg/dL (2+) mg/dL NEGATIVE A UA PH DIPSTICK (test code = TIMI) 6.5 5.0-8.0 UA PROTEIN DIPSTICK (test code = PROU) 300 (3+) mg/dL NEGATIVE A UA UROBILINIOGEN DIPSTICK (test code = URO) Normal mg/dL NEGATIVE UA NITRITE DIPSTICK (test code = HEMAL) NEGATIVE NEGATIVE UA LEUKOCYTE ESTERASE W REFLEX (test code = LEUUR) NEGATIVE Alfa/uL NEGATIVE UA WBC (test code = WBCU) 0-5 per HPF 0-5 UA RBC (test code = RBCU) 11-20 #/HPF 0-5 A UA EPITHELIAL CELLS (test code = EPIU) FEW per HPF FEW UA BACTERIA (test code = BACU) FEW #/HPF NONE A Urine Source? CatheterBASIC METABOLIC [id number] 23:30:00* Test Item Value Reference Range Interpretation Comments SODIUM (test code = NA) TEST NOT PERFORMED mmol/L 136-145 N Previously reported result: 139 mmol/LEdited by: Vive UniqueMICHELLE2 on 08/08/19:777916 2328: NA previously reported as: 139 mmol/L POTASSIUM (test code = K) TEST NOT PERFORMED mmol/L 3.5-5.1 Previously reported result: 5.7 mmol/LEdited by: Vive [email or web address].[email or web address] on 08/08/19: 2329: K previously reported as: 5.7 H mmol/L CHLORIDE (test code = CL) TEST NOT PERFORMED mmol/L 98-107 Previously reported result: 112.0 mmol/LEdited by: Vive [email or web address].[email or web address] on 08/08/19:189778 2329: CL previously reported as: 112.0 H mmol/L CARBON DIOXIDE (test code = CO2) TEST NOT PERFORMED mmol/L 21-32 ANION GAP (test code = GAP) TEST NOT PERFORMED 10-20 GLUCOSE (test code = GLU) TEST NOT PERFORMED mg/dL 74-106 BLOOD UREA NITROGEN (test code = BUN) TEST NOT PERFORMED mg/dL 7-18 GLOMERULAR FILTRATION RATE (test code = GFR) TEST NOT PERFORMED mL/ min >=60 CREATININE (test code = CREAT) TEST NOT PERFORMED mg/dL 0.55-1.02 BUN/CREATININE RATIO (test code = BUN/CREA) TEST NOT PERFORMED 10-2 0 CALCIUM (test code = CA) TEST NOT PERFORMED mg/dL 8.5-10.1 HEPATIC FUNCTION [id number] 23:30:00* Test Item Value Reference Range Interpretation Comments TOTAL PROTEIN (test code = PROT) TEST NOT PERFORMED gram/dL 6.4-8.2 ALBUMIN (test code = ALB) TEST NOT PERFORMED g/dL 3.4-5.0 GLOBULIN (test code = GLOB) TEST NOT PERFORMED gram/dL 2.7-4.2 ALBUMIN/GLOBULIN RATIO (test code = A/G) TEST NOT PERFORMED 0.75-1. 50 BILIRUBIN TOTAL (test code = BILT) TEST NOT PERFORMED mg/dL 0.0-1.0 BILIRUBIN DIRECT (test code = BILD) TEST NOT PERFORMED mg/dL 0.0-0. 20 SGOT/AST (test code = AST) TEST NOT PERFORMED IUnit/L 15-37 SGPT/ALT (test code = ALT) TEST NOT PERFORMED IUnit/L 12-78 ALKALINE PHOSPHATASE TOTAL (test code = ALKP) TEST NOT PERFORMED IUnit/L 45-117 [id number] 23:30:00* Test Item Value Reference Range Interpretation Comments LIPASE (test code = LIP) TEST NOT PERFORMED U/L 73.0-393.0 HCG SERUM [id number] 23:30:00* Test Item Value Reference Range Interpretation Comments HCG SERUM QUAL (test code = HCGQL) TEST NOT PERFORMED NEGATIVE [id number] 23:30:00* Test Item Value Reference Range Interpretation Comments TROPONIN-I (test code = TROPI) TEST NOT PERFORMED ng/mL 0-0.045 BASIC METABOLIC [id number] 23:21:00* Test Item Value Reference Range Interpretation Comments SODIUM (test code = NA) 139 mmol/L 136-145 N POTASSIUM (test code = K) 5.7 mmol/L 3.5-5.1 H CHLORIDE (test code = CL) 112.0 mmol/L 98-107 H CARBON DIOXIDE (test code = CO2) mmol/L 21-32 ANION GAP (test code = GAP) 10-20 GLUCOSE (test code = GLU) mg/dL 74-106 BLOOD UREA NITROGEN (test code = BUN) mg/dL 7-18 GLOMERULAR FILTRATION RATE (test code = GFR) mL/min >=60 CREATININE (test code = CREAT) mg/dL 0.55-1.02 BUN/CREATININE RATIO (test code = BUN/CREA) 10-20 CALCIUM (test code = CA) mg/dL 8.5-10.1 HEPATIC FUNCTION [id number] 23:21:00* Test Item Value Reference Range Interpretation Comments TOTAL PROTEIN (test code = PROT) gram/dL 6.4-8.2 ALBUMIN (test code = ALB) g/dL 3.4-5.0 GLOBULIN (test code = GLOB) gram/dL 2.7-4.2 ALBUMIN/GLOBULIN RATIO (test code = A/G) 0.75-1.50 BILIRUBIN TOTAL (test code = BILT) mg/dL 0.0-1.0 BILIRUBIN DIRECT (test code = BILD) mg/dL 0.0-0.20 SGOT/AST (test code = AST) IUnit/L 15-37 SGPT/ALT (test code = ALT) IUnit/L 12-78 ALKALINE PHOSPHATASE TOTAL (test code = ALKP) IUnit/L 45-117 [id number] 23:21:00* Test Item Value Reference Range Interpretation Comments LIPASE (test code = LIP) U/L 73.0-393.0 HCG SERUM [id number] 23:21:00* Test Item Value Reference Range Interpretation Comments HCG SERUM QUAL (test code = HCGQL) NEGATIVE [id number] 23:21:00* Test Item Value Reference Range Interpretation Comments TROPONIN-I (test code = TROPI) ng/mL 0-0.045 CBC W/O [id number] 23:00:00* Test Item Value Reference Range Interpretation Comments WHITE BLOOD CELL (test code = WBC) 15.1 K/mm3 4.5-12.5 H RED BLOOD CELL (test code = RBC) 3.06 mill/mm3 3.7-5.2 L HEMOGLOBIN (test code = HGB) 7.4 gram/dL 11.5-15.5 L HEMATOCRIT (test code = HCT) 25.2 % 36.0-46.0 L MEAN CELL VOLUME (test code = MCV) 82.4 fL 80-98 N MEAN CELL HGB (test code = MCH) 24.2 picogram 27.0-33.0 L MEAN CELL HGB CONCETRATION (test code = MCHC) 29.4 gram/dL 33.0-36. 0 L RED CELL DISTRIBUTION WIDTH (test code = RDW) 15.0 % 11.6-16. 2 N PLATELET COUNT (test code = PLT) 279 K/mm3 150-450 N MEAN PLATELET VOLUME (test code = MPV) 9.3 fL 6.7-11.0 N URINALYSIS [id number] 22:49:00* Test Item Value Reference Range Interpretation Comments UA COLOR (test code = COLU) Light-Yellow YELLOW UA APPEARANCE (test code = APPU) Cloudy CLEAR A UA GLUCOSE DIPSTICK (test code = DGLUU) 100 (1+) mg/dL NEGATIVE A UA BILIRUBIN DIPSTICK (test code = BILU) NEGATIVE mg/dL NEGATIVE UA KETONE DIPSTICK (test code = KETU) NEGATIVE mg/dL NEGATIVE UA SPECIFIC GRAVITY (test code = SGU) 1.015 1.001-1.035 UA BLOOD DIPSTICK (test code = LIZZ) 0.2 mg/dL (2+) mg/dL NEGATIVE A UA PH DIPSTICK (test code = TIMI) 6.5 5.0-8.0 UA PROTEIN DIPSTICK (test code = PROU) 300 (3+) mg/dL NEGATIVE A UA UROBILINIOGEN DIPSTICK (test code = URO) Normal mg/dL NEGATIVE UA NITRITE DIPSTICK (test code = HEMAL) NEGATIVE NEGATIVE UA LEUKOCYTE ESTERASE W REFLEX (test code = LEUUR) 75 Alfa/uL (1+) Alfa/uL NEGATIVE A UA WBC (test code = WBCU) 6-10 per HPF 0-5 A UA RBC (test code = RBCU) 11-20 #/HPF 0-5 A UA EPITHELIAL CELLS (test code = EPIU) MANY per HPF FEW UA BACTERIA (test code = BACU) FEW #/HPF NONE A UA MUCUS (test code = MUCU) FEW #/LPF FEW Urine Source? Clean Catch- CT ABD PELVIS W/O [id number] 22:18:00 Name: MERLY MORGAN [facility] : 1970 Age/S: 49 / F [address] Unit #: [id number] Loc: [place] [address] Phys: Óscar Harley HEALTH IT SPECIALIST Acct: [id number] Di s Date: Status: REG ER PHONE #: Exam Date: 08/08/20192154 FAX #: Reason: RIGHT FLANK PAIN EXAMS: CPT CODE: [id number] CT ABD PELVIS W/O CONT 88314 EXAM: CT of the abdomen a nd pelvis without contrast; INFORMATION: Right flank pain; TECHNIQUE AND FINDINGS: CT dose reduction protocol; 5 mm cuts through the abdomen and pelvis without contrast. The kidneys are of normal size and shape; no stones, no hydronephrosis. No acute bowel abnor malities. The liver is of normal size and shape; no focal lesions. A large calcified stone is seen within the gallbladder; no biliary dilatati on. Pancreas, spleen and adrenal glands are unremarkable. There is a n oval-shaped large left adnexal cyst, measuring 9.8 x 7.6 cm. It displace s the uterus laterally and anteriorly. Lung bases are clear. IMPRESSION: 1. No acute abdominal or pelvic abnormalities. 2. No evidence of renal or ureteral stones or of obstructive uropathy. 3. Cholecystolithiasis. 4. Greater than 7 cm left ovarian cyst. Further estiven luation with MRI or surgical evaluation is recommended. Location code: [facility] at 2218 Reported and signed by: Chele Sheth M.D. CC: Daniel Estrada MD; Leon Harley NP Technologist:Mellissa Dumont(Will)Mack Hyatt CTDI: DLP: Trnscb Date/Time: 08/08/2019 (2217) t.Jennifer CERVANTES Orig Print D/T: S: 08/08/2019 (2221) PAGE 1 Signed Report GLUBED 2019-08-08 21:41:00* Test Item Value Reference Range Interpretation Comments GLUBED (test code = GLUBED) 114 mg/dL 74-106 H Performed by certified rubber covering machine operator at [facility] [id number] 15:41:00* Test Item Value Reference Range Interpretation Comments GLUBED (test code = GLUBED) 134 mg/dL 74-106 H Performed by certified rubber covering machine operator at [facility] [id number] 11:54:00* Test Item Value Reference Range Interpretation Comments GLUBED (test code = GLUBED) 147 mg/dL 74-106 H Performed by certified rubber covering machine operator at [facility] CBC W/AUTO [id number] 09:51:00* Test Item Value Reference Range Interpretation Comments WHITE BLOOD CELL (test code = WBC) 12.6 K/mm3 4.5-12.5 H RED BLOOD CELL (test code = RBC) 3.99 mill/mm3 3.7-5.2 N HEMOGLOBIN (test code = HGB) 9.5 gram/dL 11.5-15.5 L HEMATOCRIT (test code = HCT) 31.9 % 36.0-46.0 L MEAN CELL VOLUME (test code = MCV) 79.9 fL 80-98 L MEAN CELL HGB (test code = MCH) 23.8 picogram 27.0-33.0 L MEAN CELL HGB CONCETRATION (test code = MCHC) 29.8 gram/dL 33.0-36. 0 L RED CELL DISTRIBUTION WIDTH (test code = RDW) 15.0 % 11.6-16. 2 N RED CELL DISTRIBUTION WIDTH SD (test code = RDW-SD) 43.7 fL 37 .0-51.0 N PLATELET COUNT (test code = PLT) 394 K/mm3 150-450 RESULT VERIFIED BY REPEAT ANALYSIS MEAN PLATELET VOLUME (test code = MPV) 9.5 fL 6.7-11.0 N NEUTROPHIL % (test code = NT%) 76.6 % 39.0-69.0 H IMMATURE GRANULOCYTE % (test code = IG%) 0.6 % 0.0-5.0 N LYMPHOCYTE % (test code = LY%) 11.6 % 25.0-55.0 L MONOCYTE % (test code = MO%) 6.1 % 0.0-10.0 N EOSINOPHIL % (test code = EO%) 4.4 % 0.0-5.0 N BASOPHIL % (test code = BA%) 0.7 % 0.0-1.0 N NUCLEATED RBC % (test code = NRBC%) 0.0 % 0-0 N NEUTROPHIL # (test code = NT#) 9.68 K/mm3 1.8-7.7 H IMMATURE GRANULOCYTE # (test code = IG#) 0.07 x10 3/uL 0-0.03 H LYMPHOCYTE # (test code = LY#) 1.46 K/mm3 1.0-5.0 N MONOCYTE # (test code = MO#) 0.77 K/mm3 0-0.8 N EOSINOPHIL # (test code = EO#) 0.56 K/mm3 0.0-0.5 H BASOPHIL # (test code = BA#) 0.09 K/mm3 0.0-0.2 N NUCLEATED RBC # (test code = NRBC#) 0.00 K/mm3 0.0-0.1 N MANUAL DIFF REQUIRED (test code = MDIFF) NO BASIC METABOLIC [id number] 07:11:00* Test Item Value Reference Range Interpretation Comments SODIUM (test code = NA) 142 mmol/L 136-145 N POTASSIUM (test code = K) 5.3 mmol/L 3.5-5.1 H CHLORIDE (test code = CL) 114.0 mmol/L 98-107 H CARBON DIOXIDE (test code = CO2) 17.0 mmol/L 21-32 L ANION GAP (test code = GAP) 16.3 10-20 N GLUCOSE (test code = GLU) 85 mg/dL 74-106 N BLOOD UREA NITROGEN (test code = BUN) 47 mg/dL 7-18 H GLOMERULAR FILTRATION RATE (test code = GFR) 15 mL/min >=60 Estimated GFR by using Modified MDRD formula.Chronic kidney disease is defined as either kidney damageor GFR <60 mL/min/1.73 m2 for >3 months. CREATININE (test code = CREAT) 3.20 mg/dL 0.55-1.02 H Note change in reference range due to change in reagent. BUN/CREATININE RATIO (test code = BUN/CREA) 14.5 10-20 N CALCIUM (test code = CA) 8.0 mg/dL 8.5-10.1 L BASIC METABOLIC [id number] 07:02:00* Test Item Value Reference Range Interpretation Comments SODIUM (test code = NA) 142 mmol/L 136-145 N POTASSIUM (test code = K) 5.3 mmol/L 3.5-5.1 H CHLORIDE (test code = CL) 114.0 mmol/L 98-107 H CARBON DIOXIDE (test code = CO2) mmol/L 21-32 ANION GAP (test code = GAP) 10-20 GLUCOSE (test code = GLU) mg/dL 74-106 BLOOD UREA NITROGEN (test code = BUN) mg/dL 7-18 GLOMERULAR FILTRATION RATE (test code = GFR) mL/min >=60 CREATININE (test code = CREAT) mg/dL 0.55-1.02 BUN/CREATININE RATIO (test code = BUN/CREA) 10-20 CALCIUM (test code = CA) mg/dL 8.5-10.1 [id number] 04:59:00* Test Item Value Reference Range Interpretation Comments GLUBED (test code = GLUBED) 83 mg/dL 74-106 N Performed by certified rubber covering machine operator at [facility] [id number] 21:05:00* Test Item Value Reference Range Interpretation Comments GLUBED (test code = GLUBED) 127 mg/dL 74-106 H Performed by certified rubber covering machine operator at [facility] [id number] 16:56:00* Test Item Value Reference Range Interpretation Comments GLUBED (test code = GLUBED) 110 mg/dL 74-106 H Performed by certified rubber covering machine operator at [facility] [id number] 11:27:00* Test Item Value Reference Range Interpretation Comments GLUBED (test code = GLUBED) 108 mg/dL 74-106 H Performed by certified rubber covering machine operator at [facility] BASIC METABOLIC [id number] 11:22:00* Test Item Value Reference Range Interpretation Comments SODIUM (test code = NA) 142 mmol/L 136-145 N POTASSIUM (test code = K) 4.9 mmol/L 3.5-5.1 N CHLORIDE (test code = CL) 116.0 mmol/L 98-107 H CARBON DIOXIDE (test code = CO2) 18.0 mmol/L 21-32 L ANION GAP (test code = GAP) 12.9 10-20 N GLUCOSE (test code = GLU) 91 mg/dL 74-106 N BLOOD UREA NITROGEN (test code = BUN) 50 mg/dL 7-18 H GLOMERULAR FILTRATION RATE (test code = GFR) 15 mL/min >=60 Estimated GFR by using Modified MDRD formula.Chronic kidney disease is defined as either kidney damageor GFR <60 mL/min/1.73 m2 for >3 months. CREATININE (test code = CREAT) 3.30 mg/dL 0.55-1.02 H Note change in reference range due to change in reagent. BUN/CREATININE RATIO (test code = BUN/CREA) 15.2 10-20 N CALCIUM (test code = CA) 7.8 mg/dL 8.5-10.1 L [id number] 11:22:00* Test Item Value Reference Range Interpretation Comments PHOSPHORUS (test code = PHOS) 4.9 mg/dL 2.5-4.9 N [id number] 11:22:00* Test Item Value Reference Range Interpretation Comments MAGNESIUM (test code = MAG) 1.6 mg/dL 1.8-2.4 L BASIC METABOLIC [id number] 10:21:00* Test Item Value Reference Range Interpretation Comments SODIUM (test code = NA) 142 mmol/L 136-145 N POTASSIUM (test code = K) 4.9 mmol/L 3.5-5.1 N CHLORIDE (test code = CL) 116.0 mmol/L 98-107 H CARBON DIOXIDE (test code = CO2) 18.0 mmol/L 21-32 L ANION GAP (test code = GAP) 12.9 10-20 N GLUCOSE (test code = GLU) mg/dL 74-106 BLOOD UREA NITROGEN (test code = BUN) 50 mg/dL 7-18 H GLOMERULAR FILTRATION RATE (test code = GFR) mL/min >=60 CREATININE (test code = CREAT) mg/dL 0.55-1.02 BUN/CREATININE RATIO (test code = BUN/CREA) 10-20 CALCIUM (test code = CA) 7.8 mg/dL 8.5-10.1 L [id number] 10:21:00* Test Item Value Reference Range Interpretation Comments PHOSPHORUS (test code = PHOS) mg/dL 2.5-4.9 [id number] 10:21:00* Test Item Value Reference Range Interpretation Comments MAGNESIUM (test code = MAG) mg/dL 1.8-2.4 BASIC METABOLIC [id number] 09:26:00* Test Item Value Reference Range Interpretation Comments SODIUM (test code = NA) mmol/L 136-145 POTASSIUM (test code = K) mmol/L 3.5-5.1 CHLORIDE (test code = CL) mmol/L 98-107 CARBON DIOXIDE (test code = CO2) mmol/L 21-32 ANION GAP (test code = GAP) 10-20 GLUCOSE (test code = GLU) mg/dL 74-106 BLOOD UREA NITROGEN (test code = BUN) 50 mg/dL 7-18 H GLOMERULAR FILTRATION RATE (test code = GFR) mL/min >=60 CREATININE (test code = CREAT) mg/dL 0.55-1.02 BUN/CREATININE RATIO (test code = BUN/CREA) 10-20 CALCIUM (test code = CA) 7.8 mg/dL 8.5-10.1 L [id number] 09:26:00* Test Item Value Reference Range Interpretation Comments PHOSPHORUS (test code = PHOS) mg/dL 2.5-4.9 [id number] 09:26:00* Test Item Value Reference Range Interpretation Comments MAGNESIUM (test code = MAG) mg/dL 1.8-2.4 CBC W/AUTO [id number] 08:33:00* Test Item Value Reference Range Interpretation Comments WHITE BLOOD CELL (test code = WBC) 10.6 K/mm3 4.5-12.5 N RED BLOOD CELL (test code = RBC) 3.38 mill/mm3 3.7-5.2 L HEMOGLOBIN (test code = HGB) 8.3 gram/dL 11.5-15.5 L HEMATOCRIT (test code = HCT) 26.8 % 36.0-46.0 L MEAN CELL VOLUME (test code = MCV) 79.3 fL 80-98 L MEAN CELL HGB (test code = MCH) 24.6 picogram 27.0-33.0 L MEAN CELL HGB CONCETRATION (test code = MCHC) 31.0 gram/dL 33.0-36. 0 L RED CELL DISTRIBUTION WIDTH (test code = RDW) 15.1 % 11.6-16. 2 N RED CELL DISTRIBUTION WIDTH SD (test code = RDW-SD) 43.8 fL 37 .0-51.0 N PLATELET COUNT (test code = PLT) 329 K/mm3 150-450 N MEAN PLATELET VOLUME (test code = MPV) 9.8 fL 6.7-11.0 N NEUTROPHIL % (test code = NT%) 69.1 % 39.0-69.0 H IMMATURE GRANULOCYTE % (test code = IG%) 0.3 % 0.0-5.0 N LYMPHOCYTE % (test code = LY%) 18.2 % 25.0-55.0 L MONOCYTE % (test code = MO%) 6.5 % 0.0-10.0 N EOSINOPHIL % (test code = EO%) 5.3 % 0.0-5.0 H BASOPHIL % (test code = BA%) 0.6 % 0.0-1.0 N NUCLEATED RBC % (test code = NRBC%) 0.0 % 0-0 N NEUTROPHIL # (test code = NT#) 7.30 K/mm3 1.8-7.7 N IMMATURE GRANULOCYTE # (test code = IG#) 0.03 x10 3/uL 0-0.03 N LYMPHOCYTE # (test code = LY#) 1.92 K/mm3 1.0-5.0 N MONOCYTE # (test code = MO#) 0.69 K/mm3 0-0.8 N EOSINOPHIL # (test code = EO#) 0.56 K/mm3 0.0-0.5 H BASOPHIL # (test code = BA#) 0.06 K/mm3 0.0-0.2 N NUCLEATED RBC # (test code = NRBC#) 0.00 K/mm3 0.0-0.1 N UR PROTEIN/CREATININE [id number] 07:39:00* Test Item Value Reference Range Interpretation Comments UR PROTEIN RANDOM (test code = PROTU) 421.2 mg/dL 0.0-11.9 H Protein levels may be falsely elevated in patients withelevated level of aminoglycoside antibiotics in CSF and inhighly concentrated urine specimens. If false elevation issuspected, contact lab for alternated testing technique. UR CREATININE RANDOM (test code = CREATU) 55.0 mg/dL 30-125 N PROTEIN/CREATININE RATIO (test code = P/CRATIO) 7.66 RATIO 0.0-0. 20 H [id number] 06:44:00* Test Item Value Reference Range Interpretation Comments GLUBED (test code = GLUBED) 121 mg/dL 74-106 H Performed by certified rubber covering machine operator at [facility] [id number] 06:23:00* Test Item Value Reference Range Interpretation Comments GLUBED (test code = GLUBED) 106 mg/dL 74-106 N Performed by certified rubber covering machine operator at [facility] [id number] 16:51:00* Test Item Value Reference Range Interpretation Comments GLUBED (test code = GLUBED) 174 mg/dL 74-106 H Performed by certified rubber covering machine operator at [facility] [id number] 11:19:00* Test Item Value Reference Range Interpretation Comments GLUBED (test code = GLUBED) 99 mg/dL 74-106 N Performed by certified rubber covering machine operator at [facility] [id number] 08:28:00* Test Item Value Reference Range Interpretation Comments PHOSPHORUS (test code = PHOS) 5.6 mg/dL 2.5-4.9 H [id number] 08:28:00* Test Item Value Reference Range Interpretation Comments MAGNESIUM (test code = MAG) 1.6 mg/dL 1.8-2.4 L BASIC METABOLIC [id number] 08:28:00* Test Item Value Reference Range Interpretation Comments SODIUM (test code = NA) 142 mmol/L 136-145 N POTASSIUM (test code = K) 5.1 mmol/L 3.5-5.1 N CHLORIDE (test code = CL) 117.0 mmol/L 98-107 H CARBON DIOXIDE (test code = CO2) 16.0 mmol/L 21-32 L ANION GAP (test code = GAP) 14.1 10-20 N GLUCOSE (test code = GLU) 81 mg/dL 74-106 N BLOOD UREA NITROGEN (test code = BUN) 51 mg/dL 7-18 H GLOMERULAR FILTRATION RATE (test code = GFR) 14 mL/min >=60 Estimated GFR by using Modified MDRD formula.Chronic kidney disease is defined as either kidney damageor GFR <60 mL/min/1.73 m2 for >3 months. CREATININE (test code = CREAT) 3.50 mg/dL 0.55-1.02 H Note change in reference range due to change in reagent. BUN/CREATININE RATIO (test code = BUN/CREA) 14.7 10-20 N CALCIUM (test code = CA) 7.4 mg/dL 8.5-10.1 L BASIC METABOLIC [id number] 08:16:00* Test Item Value Reference Range Interpretation Comments SODIUM (test code = NA) 142 mmol/L 136-145 N POTASSIUM (test code = K) 5.1 mmol/L 3.5-5.1 N CHLORIDE (test code = CL) 117.0 mmol/L 98-107 H CARBON DIOXIDE (test code = CO2) mmol/L 21-32 ANION GAP (test code = GAP) 10-20 GLUCOSE (test code = GLU) mg/dL 74-106 BLOOD UREA NITROGEN (test code = BUN) mg/dL 7-18 GLOMERULAR FILTRATION RATE (test code = GFR) mL/min >=60 CREATININE (test code = CREAT) mg/dL 0.55-1.02 BUN/CREATININE RATIO (test code = BUN/CREA) 10-20 CALCIUM (test code = CA) mg/dL 8.5-10.1 CBC W/AUTO [id number] 07:52:00* Test Item Value Reference Range Interpretation Comments WHITE BLOOD CELL (test code = WBC) 11.9 K/mm3 4.5-12.5 N RED BLOOD CELL (test code = RBC) 2.82 mill/mm3 3.7-5.2 L HEMOGLOBIN (test code = HGB) 6.8 gram/dL 11.5-15.5 L HEMATOCRIT (test code = HCT) 22.7 % 36.0-46.0 L MEAN CELL VOLUME (test code = MCV) 80.5 fL 80-98 N MEAN CELL HGB (test code = MCH) 24.1 picogram 27.0-33.0 L MEAN CELL HGB CONCETRATION (test code = MCHC) 30.0 gram/dL 33.0-36. 0 L RED CELL DISTRIBUTION WIDTH (test code = RDW) 15.0 % 11.6-16. 2 N RED CELL DISTRIBUTION WIDTH SD (test code = RDW-SD) 43.9 fL 37 .0-51.0 N PLATELET COUNT (test code = PLT) 334 K/mm3 150-450 N MEAN PLATELET VOLUME (test code = MPV) 10.2 fL 6.7-11.0 N NEUTROPHIL % (test code = NT%) 73.4 % 39.0-69.0 H IMMATURE GRANULOCYTE % (test code = IG%) 0.3 % 0.0-5.0 N LYMPHOCYTE % (test code = LY%) 15.1 % 25.0-55.0 L MONOCYTE % (test code = MO%) 5.7 % 0.0-10.0 N EOSINOPHIL % (test code = EO%) 4.9 % 0.0-5.0 N BASOPHIL % (test code = BA%) 0.6 % 0.0-1.0 N NUCLEATED RBC % (test code = NRBC%) 0.0 % 0-0 N NEUTROPHIL # (test code = NT#) 8.76 K/mm3 1.8-7.7 H IMMATURE GRANULOCYTE # (test code = IG#) 0.04 x10 3/uL 0-0.03 H LYMPHOCYTE # (test code = LY#) 1.80 K/mm3 1.0-5.0 N MONOCYTE # (test code = MO#) 0.68 K/mm3 0-0.8 N EOSINOPHIL # (test code = EO#) 0.58 K/mm3 0.0-0.5 H BASOPHIL # (test code = BA#) 0.07 K/mm3 0.0-0.2 N NUCLEATED RBC # (test code = NRBC#) 0.00 K/mm3 0.0-0.1 N [id number] 05:49:00* Test Item Value Reference Range Interpretation Comments GLUBED (test code = GLUBED) 93 mg/dL 74-106 N Performed by certified rubber covering machine operator at [facility] [id number] 20:25:00* Test Item Value Reference Range Interpretation Comments GLUBED (test code = GLUBED) 152 mg/dL 74-106 H Performed by certified rubber covering machine operator at [facility] [id number] 17:42:00* Test Item Value Reference Range Interpretation Comments POTASSIUM (test code = K) 5.1 mmol/L 3.5-5.1 N [id number] 17:38:00* Test Item Value Reference Range Interpretation Comments GLUBED (test code = GLUBED) 146 mg/dL 74-106 H Performed by certified rubber covering machine operator at [facility] [id number] 13:55:00* Test Item Value Reference Range Interpretation Comments GLUBED (test code = GLUBED) 220 mg/dL 74-106 H Performed by certified rubber covering machine operator at [facility] DRUGS OF ABUSE SCREEN [id number] 13:15:00* Test Item Value Reference Range Interpretation Comments UA PH DIPSTICK (test code = TIMI) 6.0 5.0-8.0 URN COCAINE (test code = COCAURN) NEGATIVE <300 ng/mL URN CANNABINOIDS (test code = CANNABURN) NEGATIVE <50 ng/mL URN AMPHETAMINE (test code = AMPHETURN) NEGATIVE <1000 ng/mL URN BARBITURATE (test code = BARBITURN) NEGATIVE <200 ng/mL URN BENZODIAZEPINE (test code = BENZOURN) NEGATIVE <200 ng/mL URN OPIATES (test code = OPIATURN) NEGATIVE <300 ng/mL URN PHENCYCLIDINE (PCP) (test code = PHENCURN) NEGATIVE <25 ng/ mL URN METHADONE (test code = METHAURN) NEGATIVE <300 ng/mL [id number] 13:05:00* Test Item Value Reference Range Interpretation Comments GLUBED (test code = GLUBED) 128 mg/dL 74-106 H Performed by certified rubber covering machine operator at [facility] DRUGS OF ABUSE SCREEN [id number] 12:47:00* Test Item Value Reference Range Interpretation Comments UA PH DIPSTICK (test code = TIMI) 6.0 5.0-8.0 URN COCAINE (test code = COCAURN) <300 ng/mL URN CANNABINOIDS (test code = CANNABURN) <50 ng/mL URN AMPHETAMINE (test code = AMPHETURN) <1000 ng/mL URN BARBITURATE (test code = BARBITURN) <200 ng/mL URN BENZODIAZEPINE (test code = BENZOURN) <200 ng/mL URN OPIATES (test code = OPIATURN) <300 ng/mL URN PHENCYCLIDINE (PCP) (test code = PHENCURN) <25 ng/ mL URN METHADONE (test code = METHAURN) <300 ng/mL CBC W/AUTO [id number] 07:46:00* Test Item Value Reference Range Interpretation Comments WHITE BLOOD CELL (test code = WBC) 13.3 K/mm3 4.5-12.5 H RED BLOOD CELL (test code = RBC) 2.98 mill/mm3 3.7-5.2 L HEMOGLOBIN (test code = HGB) 7.2 gram/dL 11.5-15.5 L HEMATOCRIT (test code = HCT) 24.1 % 36.0-46.0 L MEAN CELL VOLUME (test code = MCV) 80.9 fL 80-98 N MEAN CELL HGB (test code = MCH) 24.2 picogram 27.0-33.0 L MEAN CELL HGB CONCETRATION (test code = MCHC) 29.9 gram/dL 33.0-36. 0 L RED CELL DISTRIBUTION WIDTH (test code = RDW) 14.9 % 11.6-16. 2 N RED CELL DISTRIBUTION WIDTH SD (test code = RDW-SD) 43.8 fL 37 .0-51.0 N PLATELET COUNT (test code = PLT) 320 K/mm3 150-450 N MEAN PLATELET VOLUME (test code = MPV) 9.7 fL 6.7-11.0 N NEUTROPHIL % (test code = NT%) 70.9 % 39.0-69.0 H IMMATURE GRANULOCYTE % (test code = IG%) 0.5 % 0.0-5.0 N LYMPHOCYTE % (test code = LY%) 14.8 % 25.0-55.0 L MONOCYTE % (test code = MO%) 7.2 % 0.0-10.0 N EOSINOPHIL % (test code = EO%) 6.2 % 0.0-5.0 H BASOPHIL % (test code = BA%) 0.4 % 0.0-1.0 N NUCLEATED RBC % (test code = NRBC%) 0.0 % 0-0 N NEUTROPHIL # (test code = NT#) 9.43 K/mm3 1.8-7.7 H IMMATURE GRANULOCYTE # (test code = IG#) 0.07 x10 3/uL 0-0.03 H LYMPHOCYTE # (test code = LY#) 1.96 K/mm3 1.0-5.0 N MONOCYTE # (test code = MO#) 0.95 K/mm3 0-0.8 H EOSINOPHIL # (test code = EO#) 0.82 K/mm3 0.0-0.5 H BASOPHIL # (test code = BA#) 0.05 K/mm3 0.0-0.2 N NUCLEATED RBC # (test code = NRBC#) 0.00 K/mm3 0.0-0.1 N MANUAL DIFF REQUIRED (test code = MDIFF) NO, ONLY SCAN NEEDED DIFFERENTIAL [id number] 07:46:00* Test Item Value Reference Range Interpretation Comments STAIN ACCEPTABILITY (test code = STN ACCEPTABLE) STAIN ACCEPTABLE MORPHOLOGY COMMENT (test code = MOC) NORMAL PLATELET ESTIMATE (test code = PLTEST) ADEQUATE PLATELET MORPHOLOGY (test code = PLTMORPH) NORMAL BASIC METABOLIC [id number] 07:01:00* Test Item Value Reference Range Interpretation Comments SODIUM (test code = NA) 142 mmol/L 136-145 N POTASSIUM (test code = K) 5.8 mmol/L 3.5-5.1 H NO HEMOLYSIS CHLORIDE (test code = CL) 117.0 mmol/L 98-107 H CARBON DIOXIDE (test code = CO2) 17.0 mmol/L 21-32 L ANION GAP (test code = GAP) 13.8 10-20 N GLUCOSE (test code = GLU) 95 mg/dL 74-106 N BLOOD UREA NITROGEN (test code = BUN) 71 mg/dL 7-18 H GLOMERULAR FILTRATION RATE (test code = GFR) 14 mL/min >=60 Estimated GFR by using Modified MDRD formula.Chronic kidney disease is defined as either kidney damageor GFR <60 mL/min/1.73 m2 for >3 months. CREATININE (test code = CREAT) 3.50 mg/dL 0.55-1.02 H Note change in reference range due to change in reagent. BUN/CREATININE RATIO (test code = BUN/CREA) 20.1 10-20 H CALCIUM (test code = CA) 7.9 mg/dL 8.5-10.1 L CBC W/AUTO [id number] 06:54:00* Test Item Value Reference Range Interpretation Comments WHITE BLOOD CELL (test code = WBC) 13.3 K/mm3 4.5-12.5 H RED BLOOD CELL (test code = RBC) 2.98 mill/mm3 3.7-5.2 L HEMOGLOBIN (test code = HGB) 7.2 gram/dL 11.5-15.5 L HEMATOCRIT (test code = HCT) 24.1 % 36.0-46.0 L MEAN CELL VOLUME (test code = MCV) 80.9 fL 80-98 N MEAN CELL HGB (test code = MCH) 24.2 picogram 27.0-33.0 L MEAN CELL HGB CONCETRATION (test code = MCHC) 29.9 gram/dL 33.0-36. 0 L RED CELL DISTRIBUTION WIDTH (test code = RDW) 14.9 % 11.6-16. 2 N RED CELL DISTRIBUTION WIDTH SD (test code = RDW-SD) 43.8 fL 37 .0-51.0 N PLATELET COUNT (test code = PLT) 320 K/mm3 150-450 N MEAN PLATELET VOLUME (test code = MPV) 9.7 fL 6.7-11.0 N NEUTROPHIL % (test code = NT%) 70.9 % 39.0-69.0 H IMMATURE GRANULOCYTE % (test code = IG%) 0.5 % 0.0-5.0 N LYMPHOCYTE % (test code = LY%) 14.8 % 25.0-55.0 L MONOCYTE % (test code = MO%) 7.2 % 0.0-10.0 N EOSINOPHIL % (test code = EO%) 6.2 % 0.0-5.0 H BASOPHIL % (test code = BA%) 0.4 % 0.0-1.0 N NUCLEATED RBC % (test code = NRBC%) 0.0 % 0-0 N NEUTROPHIL # (test code = NT#) 9.43 K/mm3 1.8-7.7 H IMMATURE GRANULOCYTE # (test code = IG#) 0.07 x10 3/uL 0-0.03 H LYMPHOCYTE # (test code = LY#) 1.96 K/mm3 1.0-5.0 N MONOCYTE # (test code = MO#) 0.95 K/mm3 0-0.8 H EOSINOPHIL # (test code = EO#) 0.82 K/mm3 0.0-0.5 H BASOPHIL # (test code = BA#) 0.05 K/mm3 0.0-0.2 N NUCLEATED RBC # (test code = NRBC#) 0.00 K/mm3 0.0-0.1 N MANUAL DIFF REQUIRED (test code = MDIFF) NO, ONLY SCAN NEEDED DIFFERENTIAL [id number] 06:54:00* Test Item Value Reference Range Interpretation Comments STAIN ACCEPTABILITY (test code = STN ACCEPTABLE) CABOT RINGS (test code = CAB) MORPHOLOGY COMMENT (test code = MOC) PLATELET ESTIMATE (test code = PLTEST) PLATELET MORPHOLOGY (test code = PLTMORPH) CBC W/AUTO [id number] 06:54:00* Test Item Value Reference Range Interpretation Comments WHITE BLOOD CELL (test code = WBC) 13.3 K/mm3 4.5-12.5 H RED BLOOD CELL (test code = RBC) 2.98 mill/mm3 3.7-5.2 L HEMOGLOBIN (test code = HGB) 7.2 gram/dL 11.5-15.5 L HEMATOCRIT (test code = HCT) 24.1 % 36.0-46.0 L MEAN CELL VOLUME (test code = MCV) 80.9 fL 80-98 N MEAN CELL HGB (test code = MCH) 24.2 picogram 27.0-33.0 L MEAN CELL HGB CONCETRATION (test code = MCHC) 29.9 gram/dL 33.0-36. 0 L RED CELL DISTRIBUTION WIDTH (test code = RDW) 14.9 % 11.6-16. 2 N RED CELL DISTRIBUTION WIDTH SD (test code = RDW-SD) 43.8 fL 37 .0-51.0 N PLATELET COUNT (test code = PLT) 320 K/mm3 150-450 N MEAN PLATELET VOLUME (test code = MPV) 9.7 fL 6.7-11.0 N NEUTROPHIL % (test code = NT%) 70.9 % 39.0-69.0 H IMMATURE GRANULOCYTE % (test code = IG%) 0.5 % 0.0-5.0 N LYMPHOCYTE % (test code = LY%) 14.8 % 25.0-55.0 L MONOCYTE % (test code = MO%) 7.2 % 0.0-10.0 N EOSINOPHIL % (test code = EO%) 6.2 % 0.0-5.0 H BASOPHIL % (test code = BA%) 0.4 % 0.0-1.0 N NUCLEATED RBC % (test code = NRBC%) 0.0 % 0-0 N NEUTROPHIL # (test code = NT#) 9.43 K/mm3 1.8-7.7 H IMMATURE GRANULOCYTE # (test code = IG#) 0.07 x10 3/uL 0-0.03 H LYMPHOCYTE # (test code = LY#) 1.96 K/mm3 1.0-5.0 N MONOCYTE # (test code = MO#) 0.95 K/mm3 0-0.8 H EOSINOPHIL # (test code = EO#) 0.82 K/mm3 0.0-0.5 H BASOPHIL # (test code = BA#) 0.05 K/mm3 0.0-0.2 N NUCLEATED RBC # (test code = NRBC#) 0.00 K/mm3 0.0-0.1 N MANUAL DIFF REQUIRED (test code = MDIFF) NO, ONLY SCAN NEEDED DIFFERENTIAL [id number] 06:54:00* Test Item Value Reference Range Interpretation Comments STAIN ACCEPTABILITY (test code = STN ACCEPTABLE) MORPHOLOGY COMMENT (test code = MOC) PLATELET ESTIMATE (test code = PLTEST) PLATELET MORPHOLOGY (test code = PLTMORPH) CBC W/AUTO [id number] 06:54:00* Test Item Value Reference Range Interpretation Comments WHITE BLOOD CELL (test code = WBC) 13.3 K/mm3 4.5-12.5 H RED BLOOD CELL (test code = RBC) 2.98 mill/mm3 3.7-5.2 L HEMOGLOBIN (test code = HGB) 7.2 gram/dL 11.5-15.5 L HEMATOCRIT (test code = HCT) 24.1 % 36.0-46.0 L MEAN CELL VOLUME (test code = MCV) 80.9 fL 80-98 N MEAN CELL HGB (test code = MCH) 24.2 picogram 27.0-33.0 L MEAN CELL HGB CONCETRATION (test code = MCHC) 29.9 gram/dL 33.0-36. 0 L RED CELL DISTRIBUTION WIDTH (test code = RDW) 14.9 % 11.6-16. 2 N RED CELL DISTRIBUTION WIDTH SD (test code = RDW-SD) 43.8 fL 37 .0-51.0 N PLATELET COUNT (test code = PLT) 320 K/mm3 150-450 N MEAN PLATELET VOLUME (test code = MPV) 9.7 fL 6.7-11.0 N NEUTROPHIL % (test code = NT%) 70.9 % 39.0-69.0 H IMMATURE GRANULOCYTE % (test code = IG%) 0.5 % 0.0-5.0 N LYMPHOCYTE % (test code = LY%) 14.8 % 25.0-55.0 L MONOCYTE % (test code = MO%) 7.2 % 0.0-10.0 N EOSINOPHIL % (test code = EO%) 6.2 % 0.0-5.0 H BASOPHIL % (test code = BA%) 0.4 % 0.0-1.0 N NUCLEATED RBC % (test code = NRBC%) 0.0 % 0-0 N NEUTROPHIL # (test code = NT#) 9.43 K/mm3 1.8-7.7 H IMMATURE GRANULOCYTE # (test code = IG#) 0.07 x10 3/uL 0-0.03 H LYMPHOCYTE # (test code = LY#) 1.96 K/mm3 1.0-5.0 N MONOCYTE # (test code = MO#) 0.95 K/mm3 0-0.8 H EOSINOPHIL # (test code = EO#) 0.82 K/mm3 0.0-0.5 H BASOPHIL # (test code = BA#) 0.05 K/mm3 0.0-0.2 N NUCLEATED RBC # (test code = NRBC#) 0.00 K/mm3 0.0-0.1 N MANUAL DIFF REQUIRED (test code = MDIFF) NO, ONLY SCAN NEEDED DIFFERENTIAL [id number] 06:54:00* Test Item Value Reference Range Interpretation Comments STAIN ACCEPTABILITY (test code = STN ACCEPTABLE) MORPHOLOGY COMMENT (test code = MOC) PLATELET ESTIMATE (test code = PLTEST) PLATELET MORPHOLOGY (test code = PLTMORPH) CBC W/AUTO [id number] 06:53:00* Test Item Value Reference Range Interpretation Comments WHITE BLOOD CELL (test code = WBC) 13.3 K/mm3 4.5-12.5 H RED BLOOD CELL (test code = RBC) 2.98 mill/mm3 3.7-5.2 L HEMOGLOBIN (test code = HGB) 7.2 gram/dL 11.5-15.5 L HEMATOCRIT (test code = HCT) 24.1 % 36.0-46.0 L MEAN CELL VOLUME (test code = MCV) 80.9 fL 80-98 N MEAN CELL HGB (test code = MCH) 24.2 picogram 27.0-33.0 L MEAN CELL HGB CONCETRATION (test code = MCHC) 29.9 gram/dL 33.0-36. 0 L RED CELL DISTRIBUTION WIDTH (test code = RDW) 14.9 % 11.6-16. 2 N RED CELL DISTRIBUTION WIDTH SD (test code = RDW-SD) 43.8 fL 37 .0-51.0 N PLATELET COUNT (test code = PLT) 320 K/mm3 150-450 N MEAN PLATELET VOLUME (test code = MPV) 9.7 fL 6.7-11.0 N NEUTROPHIL % (test code = NT%) 70.9 % 39.0-69.0 H IMMATURE GRANULOCYTE % (test code = IG%) 0.5 % 0.0-5.0 N LYMPHOCYTE % (test code = LY%) 14.8 % 25.0-55.0 L MONOCYTE % (test code = MO%) 7.2 % 0.0-10.0 N EOSINOPHIL % (test code = EO%) 6.2 % 0.0-5.0 H BASOPHIL % (test code = BA%) 0.4 % 0.0-1.0 N NUCLEATED RBC % (test code = NRBC%) 0.0 % 0-0 N NEUTROPHIL # (test code = NT#) 9.43 K/mm3 1.8-7.7 H IMMATURE GRANULOCYTE # (test code = IG#) 0.07 x10 3/uL 0-0.03 H LYMPHOCYTE # (test code = LY#) 1.96 K/mm3 1.0-5.0 N MONOCYTE # (test code = MO#) 0.95 K/mm3 0-0.8 H EOSINOPHIL # (test code = EO#) 0.82 K/mm3 0.0-0.5 H BASOPHIL # (test code = BA#) 0.05 K/mm3 0.0-0.2 N NUCLEATED RBC # (test code = NRBC#) 0.00 K/mm3 0.0-0.1 N MANUAL DIFF REQUIRED (test code = MDIFF) NO, ONLY SCAN NEEDED DIFFERENTIAL [id number] 06:53:00* Test Item Value Reference Range Interpretation Comments STAIN ACCEPTABILITY (test code = STN ACCEPTABLE) CABOT RINGS (test code = CAB) MORPHOLOGY COMMENT (test code = MOC) PLATELET ESTIMATE (test code = PLTEST) PLATELET MORPHOLOGY (test code = PLTMORPH) [id number] 06:23:00* Test Item Value Reference Range Interpretation Comments GLUBED (test code = GLUBED) 107 mg/dL 74-106 H Performed by certified rubber covering machine operator at [facility] [id number] 21:40:00* Test Item Value Reference Range Interpretation Comments GLUBED (test code = GLUBED) 114 mg/dL 74-106 H Performed by certified rubber covering machine operator at [facility] [id number] 17:46:00* Test Item Value Reference Range Interpretation Comments GLUBED (test code = GLUBED) 103 mg/dL 74-106 N Performed by certified rubber covering machine operator at [facility] LIPID PROFILE (CORONARY RISK)2019-03-10 14:59:00* Test Item Value Reference Range Interpretation Comments TRIGLYCERIDES (test code = TRIG) 62 mg/dL 20-150 N CHOLESTEROL (test code = CHOL) 82 mg/dL 0-200 N CHOLESTEROL/HDL RATIO (test code = CHOLHDL) 4.0 RATIO 0-4.9 N RISK ASSOCIATED WITH CHOL/HDL RATIOS: Risk Male Female1/2 AVERAGE 3.43 3.27AVERAGE 4.97 4.442X AVERAGE 9.55 7.053X AVERAGE 23.39 11.04 REFERENCE VALUE IS RELATED TO RISK LEVELS ASRECOMMENDED BY THE SHIN. HEART, LUNG, AND BLOOD INST. HDL CHOLESTEROL (test code = HDL) 17 mg/dL 40-60 L LIPOPROTEIN LDL (test code = LDL) 16 mg/dL 100-129 L Reference Interval: mg/dL mmol/L Optimal <100 <2.6Near/above optimal 100-129 2.6- 3.3Borderline High 130-159 3.4-4.1High 160-189 4.1-4.9Very High >=190 >=4.9========= This LDL result is a direct measurement.========= ADD ONTHYROID STIMULATING [id number] 14:59:00* Test Item Value Reference Range Interpretation Comments THYROID STIMULATING HORMONE (test code = TSH) 1.540 uIU/mL 0.36-3.7 4 N TSH REFERENCE RANGES: EUTHYROID: 0.35 - 4.3 mIU/mL HYPO : > 5.5 mIU/mL HYPER : < 0.35 mIU/mL ADD ON- MRI BRAIN W/O [id number] 14:55:00 FAX: Steffen Liriano MD [phone] [place]: St: ADM Name: MERLY BENTON [facility] : [birth year] Age/S: 49/F [address] [facility] Unit #: [id number] Loc: V.5 [place] [address] Phys: Steffen Liriano MD Acct: [id number] Dis Date: Status: ADM IN PHONE #: [phone] Exam Date: 03/10/2019 1157 FAX #: [phone] Reason: L arm numbness, dizziness, blurry vision EXAMS: CPT CODE: [id number] MRI BRAIN W/O CONTRAST 45071 REASON FOR EXAM: L arm numbness, d izziness, blurry vision Exam Order Date: 03/10/2019 3:38 AM Attending M.D.: Steffen Liriano MD Procedure: - MRI BRAIN W/O CONTRAST Comparison: Noncontrast CT brain earlier today at 2:31 AM FINDINGS: Axial, sagittal, and coronal images of the head were obtained using T1, T2 weighted, inversion recovery, diffusion weighted, and gradient echo sequences. No intravenous gadolinium was given. The sagittal images show normal pituitary, cerebellum, and brain stem. No evidence of suprasellar mass. The axial T2, inversion r ecovery, and gradient echo images show no evidence of intra or extra axial mass. The ventricles, cisterns, and sulci are unremarkable. No evidence of hemorrhage. The cerebellar pontine angle area is within normal l imits. There is no evidence of mass noted. The axial T1 imag es show no evidence of mass. Multiple hyperintense foci in the per iventricular white matter on the inversion recovery images a represent lisbeth rovascular ischemic changes. No diffusion restricting lesions. The coronal images show normal optic chiasm. IMPRESSI ON: No acute intracranial process. Specifically no mass effect, acute in farct, or hemorrhage. Hyperintense foci on inversion recovery images in the periventricular white matter likely represents chronic microvascular ischemic changes. Electronically Signed by Efraín Cardoza MD on 2018 at 7807 Reported and signed by: Efraín Cardoza MD PAGE 1 Signed Report (CONTINUED) F AX: Steffen Liriano MD [phone] [place]: St: ADM Name: MERLY REYES [facility] : 1970 Age/S: 49/F [address] [facility] Unit #: [id number] Loc: V.2084 [place] [address] Phys: Steffen Liriano MD Acct: [id number] Dis Date: Status: ADM IN PHONE #: [phone] Exam Date: 03/10/2019 1157 FAX #: [phone] R immanuel: L arm numbness, dizziness, blurry vision EXAMS: CPT CODE: [id number] MRI BRAIN W/O CONTRAST 61682 <Continued> CC: Steffen Liriano MD Technologist: EMBER CASTAÑEDART - MRI Trnscrd Date/Time/By: 03/10/2019 (1806) : By: [email or web address] Orig Print D/T: S: 03/10/2019 (5089) PAGE 2 Signed Report [id number] 13:59:00* Test Item Value Reference Range Interpretation Comments GLUBED (test code = GLUBED) 156 mg/dL 74-106 H Performed by certified rubber covering machine operator at [facility] [id number] 13:59:00* Test Item Value Reference Range Interpretation Comments GLUBED (test code = GLUBED) 102 mg/dL 74-106 N Performed by certified rubber covering machine operator at [facility] - US RETRO [id number] 11:55:00 Name: MERLY MORGAN [facility] : 1970 Age/S: 49 / F [address] Unit #: [id number] Loc: [place] [address] Phys: Tom Ortega MD Acct: [id number] Dis Date: Status: ADM IN PHONE #: [phone] Exam Date: 03/10/2019 1120 FAX #: [phone] Reason: eval arf EXAMS: CPT CODE: [id number] US RETRO LTD 22391 REASON FOR EXAM: eval arf EXAM ORDER DATE: 03/10/2019 6:43 AM Attending MVioletaDVioleta: Tom Ortega MD PROCEDURE: - US RETRO LTD Comparison: None FINDINGS: Right kidney: parenchyma echogenicity: Normal echogenicity size: 11.1 x 3.4 x 3.9 cm. stones: none cysts/masses: none hydronephrosis: none Left kidney: parenchyma echogenicity: Normal echogenicity size: 11.7 x 5.1 x 5.3 cm. stones: none cysts/masses: none hydronephrosis: none Urinary Bladder Ureteral jets: Not visualized Intraluminal masses/debris: None Wall thickness: Normal Outpouching: None IMPRESSION: Sonographically unremarkable kidneys. at 1155 Reported and signed by: Efraín Cardoza MD PAGE 1 Signed Report (CONTINUED) Name: MERLY MORGAN [facility] : 1970 Age/S: 49 / F [address] Unit #: [id number] Loc: [place] [address] Phys: Tom Ortega MD Acct: [id number] Dis Date: Status: ADM IN PHONE #: [phone] Exam Date: 03/10/2019 1120 FAX #: [phone] Reason: eval arf EXAMS: CPT CODE: [id number] US RETRO LTD 03623 <Continued> CC: Tom Ortega MD Technologist: DREW ROSAS RT(R),RDMS Trnscb Date/Time: 03/10/2019 (5497) [email or web address] Orig Print D/T: S: 03/10/2019 (6078) Probe: PAGE 2 Signed Report [id number] 11:20:00* Test Item Value Reference Range Interpretation Comments TROPONIN-I (test code = TROPI) <0.015 ng/mL 0-0.045 N COMMENTS TO CAPACITOR REPAIRER: COLLECT 3 HOURS AFTER PREVIOUS SAMPLETSH REFLEX TO [id number] 09:27:00* Test Item Value Reference Range Interpretation Comments TSH REFLEX TO FT4 (test code = TSHREFLEX) 1.7 0.4-5.5 N [id number] 09:23:00* Test Item Value Reference Range Interpretation Comments TROPONIN-I (test code = TROPI) <0.015 ng/mL 0-0.045 N COMMENTS TO CAPACITOR REPAIRER: COLLECT 3 HOURS AFTER PREVIOUS SAMPLEAB [id number] 08:55:00* Test Item Value Reference Range Interpretation Comments AB TREPONEMA (test code = TREPAB) Nonreactive Index NonReactive [id number] 07:36:00* Test Item Value Reference Range Interpretation Comments GLYCOSYLATED HEMOGLOBIN (HA1C) (test code = GLYHGB) 6.6 % HbA1 4. 8-6.0 H ESTIMATED AVERAGE GLUCOSE (test code = EAG) 143 MG/DL URINALYSIS [id number] 06:15:00* Test Item Value Reference Range Interpretation Comments UA COLOR (test code = COLU) COLORLESS YELLOW A UA APPEARANCE (test code = APPU) CLEAR CLEAR UA GLUCOSE DIPSTICK (test code = DGLUU) 200 (2+) mg/dL NEGATIVE A UA BILIRUBIN DIPSTICK (test code = BILU) NEGATIVE mg/dL NEGATIVE UA KETONE DIPSTICK (test code = KETU) NEGATIVE mg/dL NEGATIVE UA SPECIFIC GRAVITY (test code = SGU) 1.013 1.001-1.035 UA BLOOD DIPSTICK (test code = LIZZ) 0.1 mg/dL (1+) mg/dL NEGATIVE A UA PH DIPSTICK (test code = TIMI) 6.0 5.0-8.0 UA PROTEIN DIPSTICK (test code = PROU) 300 (3+) mg/dL NEGATIVE A UA UROBILINIOGEN DIPSTICK (test code = URO) Normal mg/dL NEGATIVE UA NITRITE DIPSTICK (test code = HEMAL) NEGATIVE NEGATIVE UA LEUKOCYTE ESTERASE W REFLEX (test code = LEUUR) NEGATIVE Alfa/uL NEGATIVE UA WBC (test code = WBCU) 0-5 per HPF 0-5 UA RBC (test code = RBCU) 6-10 #/HPF 0-5 A UA EPITHELIAL CELLS (test code = EPIU) FEW per HPF FEW UA BACTERIA (test code = BACU) FEW #/HPF NONE A UA HYALINE CAST (test code = HYALU) 0-2 #/LPF 0-5 UA MUCUS (test code = MUCU) FEW #/LPF FEW Urine Source? Clean CatchBASIC METABOLIC [id number] 03:11:00* Test Item Value Reference Range Interpretation Comments SODIUM (test code = NA) 140 mmol/L 136-145 N POTASSIUM (test code = K) 5.3 mmol/L 3.5-5.1 H CHLORIDE (test code = CL) 111.0 mmol/L 98-107 H CARBON DIOXIDE (test code = CO2) 19.0 mmol/L 21-32 L ANION GAP (test code = GAP) 15.3 10-20 N GLUCOSE (test code = GLU) 185 mg/dL 74-106 H BLOOD UREA NITROGEN (test code = BUN) 73 mg/dL 7-18 H GLOMERULAR FILTRATION RATE (test code = GFR) 12 mL/min >=60 Estimated GFR by using Modified MDRD formula.Chronic kidney disease is defined as either kidney damageor GFR <60 mL/min/1.73 m2 for >3 months. CREATININE (test code = CREAT) 4.10 mg/dL 0.55-1.02 H Note change in reference range due to change in reagent. BUN/CREATININE RATIO (test code = BUN/CREA) 17.8 10-20 N CALCIUM (test code = CA) 8.4 mg/dL 8.5-10.1 L [id number] 03:11:00* Test Item Value Reference Range Interpretation Comments TROPONIN-I (test code = TROPI) <0.015 ng/mL 0-0.045 N BASIC METABOLIC [id number] 03:04:00* Test Item Value Reference Range Interpretation Comments SODIUM (test code = NA) 140 mmol/L 136-145 N POTASSIUM (test code = K) 5.3 mmol/L 3.5-5.1 H CHLORIDE (test code = CL) 111.0 mmol/L 98-107 H CARBON DIOXIDE (test code = CO2) mmol/L 21-32 ANION GAP (test code = GAP) 10-20 GLUCOSE (test code = GLU) mg/dL 74-106 BLOOD UREA NITROGEN (test code = BUN) mg/dL 7-18 GLOMERULAR FILTRATION RATE (test code = GFR) mL/min >=60 CREATININE (test code = CREAT) mg/dL 0.55-1.02 BUN/CREATININE RATIO (test code = BUN/CREA) 10-20 CALCIUM (test code = CA) mg/dL 8.5-10.1 [id number] 03:04:00* Test Item Value Reference Range Interpretation Comments TROPONIN-I (test code = TROPI) ng/mL 0-0.045 PROTHROMBIN [id number] 03:02:00* Test Item Value Reference Range Interpretation Comments PROTHROMBIN TIME PATIENT (test code = PTP) 11.8 seconds 9.0-14.0 N INTERNATIONAL NORMAL RATIO (test code = INR) 1.0 0.8-1.2 N The therapeutic range for oral anticoagulant therapy formost indications is an international normalized ratio (INR)of between 2.0 and 3.0. The recommended therapeutic INRrange for various clinical situations is listed below: Clinical Situation INR range Pulmonary e mbolism treatment (2.0-3.0)Venous thrombosis treatmentVenous thrombosis prophylaxis (high risk surgery)Prevention of systemic embolism from: Acute myocardial infarction Valvular heart disease Atrial fibrillation Mechanical prosthetic heart valves (2.5-3.5) IS PATIENT ON ANTICOAGULANTS? NTHROMBOPLASTIN TIME [id number] 03:02:00* Test Item Value Reference Range Interpretation Comments THROMBOPLASTIN TIME PARTIAL (test code = PTT) 31.6 seconds 25.0-36. 5 N IS PATIENT ON ANTICOAGULANTS? N- CT NECK W/O [id number] 02:54:00 Name: MERLY MORGAN [facility] : 1970 Age/S: 49 / F [address] [facility] Unit #: [id number] Loc: [place] [address] Phys: Caio Liriano MD Acct: [id number] Di s Date: Status: REG ER PHONE #: Exam Date: 03/10/2019 0244 FAX #: Reason: L neck pain/swelling anterior EXAMS: CPT CODE: [id number] CT NECK W/O C ONTRAST 56462 Dictation location: H37. CT NECK WITHOUT IV CONTRAST HISTORY: L neck pain/swe lling anterior COMPARISON:None TECHNIQUE: Axial CT i mages of the neck were obtained with coronal and/or sagittal reformatted v iews. Automated exposure control, iterative reconstruction technique, a nd/or adjustment of mA and/or kV according to patient's size was utilized for radiation dose reduction. IV CONTRAST: None. FIN DINGS: The visualized upper lungs are clear. The thyroid is unrem arkable. The airway is patent. No definite mucosal lesion seen on this noncontrast exam. The parotid and submandibular glands are un remarkable. There is a prominent lobule along the right submandibular gla nd. No cervical adenopathy. No fluid collection or soft tissue mass. The bones are unremarkable. IMPRESSION: No significant edema, mass, or fluid collection seen along the neck. No cervical adenopathy. Trace atherosclerotic calcifications affect the left carotid bulb. at 0254 Reported and signed by: Kirby Lopez M.D. PAGE 1 Signed Report (CONTINUED) Name: MERLY MORGAN [facility] : 1970 Age/S: 49 / F [address] Unit #: [id number] Loc: [place] [address] Phy s: Steffen Liriano MD Acct: [id number] Dis Date: Status: REG ER PHONE #: [phone] Exam Date: 03/10/2019 0244 FAX #: [phone] Reason: L neck pain/swelling anterior EXAMS: CPT CODE: [id number] CT NECK W/O CONTRAST 43440 <Continued> CC: Steffen Liriano MD Technologist:ZHEN CADENA, RT CTDI: DLP: Trnscb Date/Time: 03/10/2019 (0254) [email or web address] Orig Print D/T: S: 03/10/2019 (0257) PAGE 2 Signed Report CBC W/AUTO [id number] 02:52:00* Test Item Value Reference Range Interpretation Comments WHITE BLOOD CELL (test code = WBC) 16.5 K/mm3 4.5-12.5 H RED BLOOD CELL (test code = RBC) 3.27 mill/mm3 3.7-5.2 L HEMOGLOBIN (test code = HGB) 8.1 gram/dL 11.5-15.5 L HEMATOCRIT (test code = HCT) 26.4 % 36.0-46.0 L MEAN CELL VOLUME (test code = MCV) 80.7 fL 80-98 N MEAN CELL HGB (test code = MCH) 24.8 picogram 27.0-33.0 L MEAN CELL HGB CONCETRATION (test code = MCHC) 30.7 gram/dL 33.0-36. 0 L RED CELL DISTRIBUTION WIDTH (test code = RDW) 15.0 % 11.6-16. 2 N RED CELL DISTRIBUTION WIDTH SD (test code = RDW-SD) 44.3 fL 37 .0-51.0 N PLATELET COUNT (test code = PLT) 364 K/mm3 150-450 N MEAN PLATELET VOLUME (test code = MPV) 9.1 fL 6.7-11.0 N NEUTROPHIL % (test code = NT%) 76.3 % 39.0-69.0 H IMMATURE GRANULOCYTE % (test code = IG%) 0.8 % 0.0-5.0 N LYMPHOCYTE % (test code = LY%) 12.7 % 25.0-55.0 L MONOCYTE % (test code = MO%) 6.5 % 0.0-10.0 N EOSINOPHIL % (test code = EO%) 3.3 % 0.0-5.0 N BASOPHIL % (test code = BA%) 0.4 % 0.0-1.0 N NUCLEATED RBC % (test code = NRBC%) 0.0 % 0-0 N NEUTROPHIL # (test code = NT#) 12.60 K/mm3 1.8-7.7 H IMMATURE GRANULOCYTE # (test code = IG#) 0.13 x10 3/uL 0-0.03 H LYMPHOCYTE # (test code = LY#) 2.10 K/mm3 1.0-5.0 N MONOCYTE # (test code = MO#) 1.08 K/mm3 0-0.8 H EOSINOPHIL # (test code = EO#) 0.55 K/mm3 0.0-0.5 H BASOPHIL # (test code = BA#) 0.07 K/mm3 0.0-0.2 N NUCLEATED RBC # (test code = NRBC#) 0.00 K/mm3 0.0-0.1 N - CT HEAD/BRAIN W/O [id number] 02:50:00 Name: MERLY MORGAN [facility] : 1970 Age/S: 49 / F [address] [facility] Unit #: [id number] Loc: [place] [address] Phys: Steffen Liriano MD Acct: [id number] Dis Date: Status: REG ER PHONE #: [phone] Exam Date: 03/10/2019 0235 FAX #: [phone] Reason: headache L neck pain, L arm numbness EXAMS: CPT CODE: [id number] CT HEAD/BRAIN W/O CONT 31234 Dictation location: H37. CT HEAD WITHOUT CONTRAST. HISTORY: headache L neck pain, L arm numbness COMPARISON: CT head 12/06/16. TECHNIQUE: Axial CT images of the head were obtained with coronal and/or sagittal reformatted views. Automated exposure control, iterative reconstruction technique, and/or adjustment of mA and/or kV according to patient's size was utilized for radiation dose reduction. IV CONTRAST: None. FINDINGS: No intracranial abnormalities such as hemorrhage, mass, mass effect, hydrocephalus, midline shift, extra-axial fluid collection or secondary signs of an acute infarct are noted. The calvarium and skull base are intact. The visualized paranasal sinus and mastoid air cells are clear. IMPRESSION: No evidence of acute intracranial abnormality. at 0250 Reported and signed by: Kirby Lopez M.D. CC: Steffen Liriano MD Technologist:RT [place] CTDI: DLP: Trnscb Date/Time: 03/10/2019 (249) [email or web address] Orig Print D/T: S: 03/10/2019 (252) PAGE 1 Signed Report - XR CHEST 1 [id number] 02:37:00 FAX: Steffen Liriano MD [phone] [place]: St: REG Name: MERLY BENTON [facility] : [birth year] Age/S: 49/F [address] [facility] Unit #: [id number] Loc: [place] [address] Phys: Steffen Liriano MD Acct: [id number] Dis Date: Status: REG ER PHONE #: [phone] Exam Date: 03/10/2019 0236 FAX #: [phone] Reason: CODE STROKE EXAMS: CPT CODE: [id number] XR CHEST 1 V 72303 AFTER HOURS SERVICE ON: 03/10/2019 2:37 AM AP Portable Chest Location Code M12 HISTORY: CODE STROKE FINDINGS: There are no i nfiltrates. There are no pleural effusions. There is no pneumothorax. Card iac silhouette and mediastinum appear within normal limits. IMPRESSION: No active pulmonary findings. at 0237 Reported and signed by: Valente Mendoza M.D. CC: Steffen Liriano MD Technologist: Libia Nair Trnscrd Date/Time/By: 03/10/2019 (0237) : By: [email or web address] Orig Print D/T: S: 03/10/2019 (0240) PAGE 1 Signed Report [id number] 10:52:00 * Test Item Value Reference Range Interpretation Comments GLUBED (test code = GLUBED) 133 MG/DL 70-110 H Performed by certified rubber covering machine operator at [facility] [id number] 10:52:00* Test Item Value Reference Range Interpretation Comments GLUBED (test code = GLUBED) 130 MG/DL 70-110 H Performed by certified rubber covering machine operator at [facility] [id number] 10:51:00* Test Item Value Reference Range Interpretation Comments GLUBED (test code = GLUBED) 126 MG/DL 70-110 H Performed by certified rubber covering machine operator at [facility] [id number] 10:51:00* Test Item Value Reference Range Interpretation Comments GLUBED (test code = GLUBED) 162 MG/DL 70-110 H Performed by certified rubber covering machine operator at [facility] SERUM [id number] 14:10:00* Test Item Value Reference Range Interpretation Comments SERUM IRON (test code = IRON) 50 mcg/dL 35-150 N [id number] 14:10:00* Test Item Value Reference Range Interpretation Comments TRANSFERRRIN (test code = TRANSF) 164 mg/dL 200-370 A Performed At: [address] [id number] Sanjai MD Ph:[phone] [id number] 14:10:00* Test Item Value Reference Range Interpretation Comments FERRITIN (test code = MONIK) 52.8 ng/mL 11.0-306.8 N [id number] 09:26:00* Test Item Value Reference Range Interpretation Comments GLUBED (test code = GLUBED) 112 MG/DL 70-110 H Performed by certified rubber covering machine operator at [facility] BASIC METABOLIC [id number] 08:06:00* Test Item Value Reference Range Interpretation Comments SODIUM (test code = NA) 133 mEq/L 134-147 L POTASSIUM (test code = K) 4.8 mEq/L 3.4-5.0 N CHLORIDE (test code = CL) 107 mEq/L 100-108 N CARBON DIOXIDE (test code = CO2) 17 mEq/L 21-33 L ANION GAP (test code = GAP) 14 0-20 N GLUCOSE (test code = GLU) 112 mg/dL 70-110 H BLOOD UREA NITROGEN (test code = BUN) 62 mg/dL 7-18 H GLOMERULAR FILTRATION RATE (test code = GFR) 12.4 95-105 L Units of measure = ml/min/1.73 m2 CREATININE (test code = CREAT) 3.9 mg/dL 0.6-1.3 H CALCIUM (test code = CA) 7.9 mg/dL 8.0-10.5 L [id number] 05:07:00* Test Item Value Reference Range Interpretation Comments GLUBED (test code = GLUBED) 114 MG/DL 70-110 H Performed by certified rubber covering machine operator at [facility] [id number] 23:38:00* Test Item Value Reference Range Interpretation Comments GLUBED (test code = GLUBED) 131 MG/DL 70-110 H Performed by certified rubber covering machine operator at [facility] [id number] 22:18:00* Test Item Value Reference Range Interpretation Comments GLUBED (test code = GLUBED) 174 MG/DL 70-110 H Performed by certified rubber covering machine operator at [facility] [id number] 18:40:00* Test Item Value Reference Range Interpretation Comments GLUBED (test code = GLUBED) 121 MG/DL 70-110 H Performed by certified rubber covering machine operator at [facility] [id number] 18:40:00* Test Item Value Reference Range Interpretation Comments GLUBED (test code = GLUBED) 144 MG/DL 70-110 H Performed by certified rubber covering machine operator at [facility] HGB [id number] 18:31:00* Test Item Value Reference Range Interpretation Comments HEMOGLOBIN (test code = HGB) 8.0 g/dL 11.0-15.0 L HEMATOCRIT (test code = HCT) 26.5 % 33.0-45.0 L CBC W/AUTO [id number] 08:21:00* Test Item Value Reference Range Interpretation Comments WHITE BLOOD CELL (test code = WBC) 8.95 x10 3/uL 4.5-11.0 N RED BLOOD CELL (test code = RBC) 2.92 x10 6/uL 3.54-5.02 L HEMOGLOBIN (test code = HGB) 7.1 g/dL 11.0-15.0 L HEMATOCRIT (test code = HCT) 23.7 % 33.0-45.0 L MEAN CELL VOLUME (test code = MCV) 81.2 fL 81.0-99.0 N MEAN CELL HGB (test code = MCH) 24.3 pg 27.0-33.0 L MEAN CELL HGB CONCETRATION (test code = MCHC) 30.0 g/dL 33.0-37. 0 L RED CELL DISTRIBUTION WIDTH CV (test code = RDW) 14.2 % 11.5- 14.5 N RED CELL DISTRIBUTION WIDTH SD (test code = RDW-SD) 42.0 fL 37 .0-54.0 N PLATELET COUNT (test code = PLT) 314 x10 3/uL 150-400 N MEAN PLATELET VOLUME (test code = MPV) 9.5 fL 7.0-9.0 H NEUTROPHIL % (test code = NT%) 81.5 % 56.0-77.0 H IMMATURE GRANULOCYTE % (test code = IG%) 0.6 % 0.0-2.0 N LYMPHOCYTE % (test code = LY%) 7.4 % 14.0-32.0 L MONOCYTE % (test code = MO%) 9.7 % 4.8-9.0 H EOSINOPHIL % (test code = EO%) 0.2 % 0.3-3.7 L BASOPHIL % (test code = BA%) 0.6 % 0.0-2.0 N NUCLEATED RBC % (test code = NRBC%) 0.0 % 0-0 N NEUTROPHIL # (test code = NT#) 7.30 x10 3/uL 2.0-7.6 N IMMATURE GRANULOCYTE # (test code = IG#) 0.05 x10 3/uL 0.00-0.03 H LYMPHOCYTE # (test code = LY#) 0.66 x10 3/uL 1.0-3.8 L MONOCYTE # (test code = MO#) 0.87 x10 3/uL 0.1-0.8 H EOSINOPHIL # (test code = EO#) 0.02 x10 3/uL 0.0-0.2 N BASOPHIL # (test code = BA#) 0.05 x10 3/uL 0.0-0.2 N NUCLEATED RBC # (test code = NRBC#) 0.00 x10 3/uL 0.0-0.1 N MANUAL DIFF REQUIRED (test code = MDIFF) NO BASIC METABOLIC [id number] 07:42:00* Test Item Value Reference Range Interpretation Comments SODIUM (test code = NA) 134 mEq/L 134-147 N POTASSIUM (test code = K) 4.7 mEq/L 3.4-5.0 N CHLORIDE (test code = CL) 107 mEq/L 100-108 N CARBON DIOXIDE (test code = CO2) 18 mEq/L 21-33 L ANION GAP (test code = GAP) 14 0-20 N GLUCOSE (test code = GLU) 128 mg/dL 70-110 H BLOOD UREA NITROGEN (test code = BUN) 56 mg/dL 7-18 H GLOMERULAR FILTRATION RATE (test code = GFR) 12.4 95-105 L Units of measure = ml/min/1.73 m2 CREATININE (test code = CREAT) 3.9 mg/dL 0.6-1.3 H CALCIUM (test code = CA) 7.6 mg/dL 8.0-10.5 L [id number] 17:52:00* Test Item Value Reference Range Interpretation Comments GLUBED (test code = GLUBED) 133 MG/DL 70-110 H Performed by certified rubber covering machine operator at [facility] [id number] 16:26:00* Test Item Value Reference Range Interpretation Comments GLUBED (test code = GLUBED) 101 MG/DL 70-110 N Performed by certified rubber covering machine operator at [facility] BASIC METABOLIC [id number] 08:33:00* Test Item Value Reference Range Interpretation Comments SODIUM (test code = NA) 141 mEq/L 134-147 N POTASSIUM (test code = K) 5.3 mEq/L 3.4-5.0 H CHLORIDE (test code = CL) 115 mEq/L 100-108 H CARBON DIOXIDE (test code = CO2) 18 mEq/L 21-33 L ANION GAP (test code = GAP) 13 0-20 N GLUCOSE (test code = GLU) 75 mg/dL 70-110 BLOOD UREA NITROGEN (test code = BUN) 67 mg/dL 7-18 H GLOMERULAR FILTRATION RATE (test code = GFR) 12.4 95-105 L Units of measure = ml/min/1.73 m2 CREATININE (test code = CREAT) 3.9 mg/dL 0.6-1.3 H CALCIUM (test code = CA) 8.5 mg/dL 8.0-10.5 N SERUM [id number] 08:23:00* Test Item Value Reference Range Interpretation Comments SERUM IRON (test code = IRON) 50 mcg/dL 35-150 N [id number] 08:23:00* Test Item Value Reference Range Interpretation Comments TRANSFERRRIN (test code = TRANSF) [id number] 08:23:00* Test Item Value Reference Range Interpretation Comments FERRITIN (test code = MONIK) 52.8 ng/mL 11.0-306.8 N CBC W/AUTO [id number] 07:45:00* Test Item Value Reference Range Interpretation Comments WHITE BLOOD CELL (test code = WBC) 14.19 x10 3/uL 4.5-11.0 H RED BLOOD CELL (test code = RBC) 3.55 x10 6/uL 3.54-5.02 N HEMOGLOBIN (test code = HGB) 8.5 g/dL 11.0-15.0 L HEMATOCRIT (test code = HCT) 28.2 % 33.0-45.0 L MEAN CELL VOLUME (test code = MCV) 79.4 fL 81.0-99.0 L MEAN CELL HGB (test code = MCH) 23.9 pg 27.0-33.0 L MEAN CELL HGB CONCETRATION (test code = MCHC) 30.1 g/dL 33.0-37. 0 L RED CELL DISTRIBUTION WIDTH CV (test code = RDW) 14.1 % 11.5- 14.5 N RED CELL DISTRIBUTION WIDTH SD (test code = RDW-SD) 41.1 fL 37 .0-54.0 N PLATELET COUNT (test code = PLT) 452 x10 3/uL 150-400 H MEAN PLATELET VOLUME (test code = MPV) 9.4 fL 7.0-9.0 H NEUTROPHIL % (test code = NT%) 85.0 % 56.0-77.0 H IMMATURE GRANULOCYTE % (test code = IG%) 0.6 % 0.0-2.0 N LYMPHOCYTE % (test code = LY%) 7.5 % 14.0-32.0 L MONOCYTE % (test code = MO%) 5.1 % 4.8-9.0 N EOSINOPHIL % (test code = EO%) 1.1 % 0.3-3.7 N BASOPHIL % (test code = BA%) 0.7 % 0.0-2.0 N NUCLEATED RBC % (test code = NRBC%) 0.0 % 0-0 N NEUTROPHIL # (test code = NT#) 12.07 x10 3/uL 2.0-7.6 H IMMATURE GRANULOCYTE # (test code = IG#) 0.08 x10 3/uL 0.00-0.03 H LYMPHOCYTE # (test code = LY#) 1.06 x10 3/uL 1.0-3.8 N MONOCYTE # (test code = MO#) 0.73 x10 3/uL 0.1-0.8 N EOSINOPHIL # (test code = EO#) 0.15 x10 3/uL 0.0-0.2 N BASOPHIL # (test code = BA#) 0.10 x10 3/uL 0.0-0.2 N NUCLEATED RBC # (test code = NRBC#) 0.00 x10 3/uL 0.0-0.1 N MANUAL DIFF REQUIRED (test code = MDIFF) NO [id number] 06:36:00* Test Item Value Reference Range Interpretation Comments GLUBED (test code = GLUBED) 88 MG/DL 70-110 N Performed by certified rubber covering machine operator at [facility] [id number] 20:50:00* Test Item Value Reference Range Interpretation Comments GLUBED (test code = GLUBED) 161 MG/DL 70-110 H Performed by certified rubber covering machine operator at [facility] [id number] 18:46:00* Test Item Value Reference Range Interpretation Comments GLUBED (test code = GLUBED) 126 MG/DL 70-110 H Performed by certified rubber covering machine operator at [facility] [id number] 11:49:00* Test Item Value Reference Range Interpretation Comments GLUBED (test code = GLUBED) 135 MG/DL 70-110 H Performed by certified rubber covering machine operator at [facility] BASIC METABOLIC [id number] 08:06:00* Test Item Value Reference Range Interpretation Comments SODIUM (test code = NA) 139 mEq/L 134-147 N POTASSIUM (test code = K) 5.0 mEq/L 3.4-5.0 N CHLORIDE (test code = CL) 112 mEq/L 100-108 H CARBON DIOXIDE (test code = CO2) 17 mEq/L 21-33 L ANION GAP (test code = GAP) 15 0-20 N GLUCOSE (test code = GLU) 116 mg/dL 70-110 H BLOOD UREA NITROGEN (test code = BUN) 70 mg/dL 7-18 H GLOMERULAR FILTRATION RATE (test code = GFR) 12.7 95-105 L Units of measure = ml/min/1.73 m2 CREATININE (test code = CREAT) 3.8 mg/dL 0.6-1.3 H CALCIUM (test code = CA) 7.7 mg/dL 8.0-10.5 L [id number] 08:06:00* Test Item Value Reference Range Interpretation Comments PHOSPHOROUS (test code = PHOS) 5.6 mg/dL 2.5-4.9 H [id number] 08:06:00* Test Item Value Reference Range Interpretation Comments MAGNESIUM (test code = MAG) 2.10 mg/dL 1.8-2.4 N CBC W/AUTO [id number] 08:02:00* Test Item Value Reference Range Interpretation Comments WHITE BLOOD CELL (test code = WBC) 13.60 x10 3/uL 4.5-11.0 H RED BLOOD CELL (test code = RBC) 3.06 x10 6/uL 3.54-5.02 L HEMOGLOBIN (test code = HGB) 7.4 g/dL 11.0-15.0 L HEMATOCRIT (test code = HCT) 23.8 % 33.0-45.0 L MEAN CELL VOLUME (test code = MCV) 77.8 fL 81.0-99.0 L MEAN CELL HGB (test code = MCH) 24.2 pg 27.0-33.0 L MEAN CELL HGB CONCETRATION (test code = MCHC) 31.1 g/dL 33.0-37. 0 L RED CELL DISTRIBUTION WIDTH CV (test code = RDW) 13.9 % 11.5- 14.5 N RED CELL DISTRIBUTION WIDTH SD (test code = RDW-SD) 39.8 fL 37 .0-54.0 N PLATELET COUNT (test code = PLT) 392 x10 3/uL 150-400 N MEAN PLATELET VOLUME (test code = MPV) 9.6 fL 7.0-9.0 H NEUTROPHIL % (test code = NT%) 71.6 % 56.0-77.0 N IMMATURE GRANULOCYTE % (test code = IG%) 0.5 % 0.0-2.0 N LYMPHOCYTE % (test code = LY%) 15.7 % 14.0-32.0 N MONOCYTE % (test code = MO%) 6.5 % 4.8-9.0 N EOSINOPHIL % (test code = EO%) 4.9 % 0.3-3.7 H BASOPHIL % (test code = BA%) 0.8 % 0.0-2.0 N NUCLEATED RBC % (test code = NRBC%) 0.0 % 0-0 N NEUTROPHIL # (test code = NT#) 9.73 x10 3/uL 2.0-7.6 H IMMATURE GRANULOCYTE # (test code = IG#) 0.07 x10 3/uL 0.00-0.03 H LYMPHOCYTE # (test code = LY#) 2.14 x10 3/uL 1.0-3.8 N MONOCYTE # (test code = MO#) 0.88 x10 3/uL 0.1-0.8 H EOSINOPHIL # (test code = EO#) 0.67 x10 3/uL 0.0-0.2 H BASOPHIL # (test code = BA#) 0.11 x10 3/uL 0.0-0.2 N NUCLEATED RBC # (test code = NRBC#) 0.00 x10 3/uL 0.0-0.1 N MANUAL DIFF REQUIRED (test code = MDIFF) NO [id number] 20:19:00* Test Item Value Reference Range Interpretation Comments GLUBED (test code = GLUBED) 104 MG/DL 70-110 N Performed by certified rubber covering machine operator at [facility] BASIC METABOLIC [id number] 16:30:00* Test Item Value Reference Range Interpretation Comments SODIUM (test code = NA) 137 mEq/L 134-147 N POTASSIUM (test code = K) 5.1 mEq/L 3.4-5.0 H CHLORIDE (test code = CL) 112 mEq/L 100-108 H CARBON DIOXIDE (test code = CO2) 21 mEq/L 21-33 N ANION GAP (test code = GAP) 9 0-20 N GLUCOSE (test code = GLU) 166 mg/dL 70-110 H BLOOD UREA NITROGEN (test code = BUN) 73 mg/dL 7-18 H GLOMERULAR FILTRATION RATE (test code = GFR) 11.7 95-105 L Units of measure = ml/min/1.73 m2 CREATININE (test code = CREAT) 4.1 mg/dL 0.6-1.3 H CALCIUM (test code = CA) 8.0 mg/dL 8.0-10.5 N [id number] 12:12:00* Test Item Value Reference Range Interpretation Comments GLUBED (test code = GLUBED) 100 MG/DL 70-110 N Performed by certified rubber covering machine operator at [facility] - XR CHEST 1 [id number] 11:26:00 FAX: Everton Moe MD [phone] [place]: St: ADM FAX: Anuradha Crum MD [phone] Name: MERLY MORGAN [facility] : 1970 Age/S: 48/F [address] [place] [address] Unit #: [id number] Loc: [id number] [place] [address] Phys: Anuradha Rahman MD Acct: [id number] Dis Date: Status: ADM IN PHONE #: [phone] Exam Date: 12/28/2018 1117 FAX #: [phone] Reason: SURGERY EXAMS: CPT CODE: [id number] XR CHEST 1 V 97729 Patient: MERLY MORGAN. : 1970; Age: 48 years; Gender: Female. MR: [id number]. Ordering physician: Anuradha Rahman MD. PORTABLE CHEST AP: HISTORY: Preoperative evaluation. COMPARISON: Chest x-ray 02/16/2018. FINDINGS: Portable frontal view of the chest was obtained. The lungs are clear bilaterally. The cardiomediastinal silhouette and pulmonary vasculature are unremarkable. The partially visualized upper abdomen is unremarkable. IMPRESSION: No acute disease in the chest. SL: [id number] at 1126 Reported and signed by: Hansel Benedict M.D. CC: Everton Weinstein MD; Anuradha Rahman MD Technologist: RT Brian(R) Trnscrd Date/Time/By: 12/28/2018 (1126) : By: [email or web address] Orig Print D/T: S: 12/28/2018 (112) PAGE 1 Signed Report HGBA1C%2018-12-28 08:41:00* Test Item Value Reference Range Interpretation Comments HGBA1C% (test code = HGBA1C%) 7.6 %A1C 4.8-6.0 H CBC W/AUTO [id number] 08:20:00* Test Item Value Reference Range Interpretation Comments WHITE BLOOD CELL (test code = WBC) 15.90 x10 3/uL 4.5-11.0 H RED BLOOD CELL (test code = RBC) 3.29 x10 6/uL 3.54-5.02 L HEMOGLOBIN (test code = HGB) 8.0 g/dL 11.0-15.0 L HEMATOCRIT (test code = HCT) 26.0 % 33.0-45.0 L MEAN CELL VOLUME (test code = MCV) 79.0 fL 81.0-99.0 L MEAN CELL HGB (test code = MCH) 24.3 pg 27.0-33.0 L MEAN CELL HGB CONCETRATION (test code = MCHC) 30.8 g/dL 33.0-37. 0 L RED CELL DISTRIBUTION WIDTH CV (test code = RDW) 14.1 % 11.5- 14.5 N RED CELL DISTRIBUTION WIDTH SD (test code = RDW-SD) 40.2 fL 37 .0-54.0 N PLATELET COUNT (test code = PLT) 446 x10 3/uL 150-400 H MEAN PLATELET VOLUME (test code = MPV) 9.5 fL 7.0-9.0 H NEUTROPHIL % (test code = NT%) 77.0 % 56.0-77.0 N IMMATURE GRANULOCYTE % (test code = IG%) 0.4 % 0.0-2.0 N LYMPHOCYTE % (test code = LY%) 13.8 % 14.0-32.0 L MONOCYTE % (test code = MO%) 5.0 % 4.8-9.0 N EOSINOPHIL % (test code = EO%) 3.3 % 0.3-3.7 N BASOPHIL % (test code = BA%) 0.5 % 0.0-2.0 N NUCLEATED RBC % (test code = NRBC%) 0.0 % 0-0 N NEUTROPHIL # (test code = NT#) 12.24 x10 3/uL 2.0-7.6 H IMMATURE GRANULOCYTE # (test code = IG#) 0.06 x10 3/uL 0.00-0.03 H LYMPHOCYTE # (test code = LY#) 2.19 x10 3/uL 1.0-3.8 N MONOCYTE # (test code = MO#) 0.80 x10 3/uL 0.1-0.8 N EOSINOPHIL # (test code = EO#) 0.53 x10 3/uL 0.0-0.2 H BASOPHIL # (test code = BA#) 0.08 x10 3/uL 0.0-0.2 N NUCLEATED RBC # (test code = NRBC#) 0.00 x10 3/uL 0.0-0.1 N MANUAL DIFF REQUIRED (test code = MDIFF) NO BASIC METABOLIC [id number] 07:32:00* Test Item Value Reference Range Interpretation Comments SODIUM (test code = NA) 137 mEq/L 134-147 N POTASSIUM (test code = K) 5.6 mEq/L 3.4-5.0 H CHLORIDE (test code = CL) 112 mEq/L 100-108 H CARBON DIOXIDE (test code = CO2) 17 mEq/L 21-33 L ANION GAP (test code = GAP) 14 0-20 N GLUCOSE (test code = GLU) 95 mg/dL 70-110 N BLOOD UREA NITROGEN (test code = BUN) 75 mg/dL 7-18 H GLOMERULAR FILTRATION RATE (test code = GFR) 12.0 95-105 L Units of measure = ml/min/1.73 m2 CREATININE (test code = CREAT) 4.0 mg/dL 0.6-1.3 H CALCIUM (test code = CA) 8.4 mg/dL 8.0-10.5 N [id number] 07:32:00* Test Item Value Reference Range Interpretation Comments PHOSPHOROUS (test code = PHOS) 5.6 mg/dL 2.5-4.9 H [id number] 07:32:00* Test Item Value Reference Range Interpretation Comments MAGNESIUM (test code = MAG) 2.30 mg/dL 1.8-2.4 PROTHROMBIN [id number] 07:18:00* Test Item Value Reference Range Interpretation Comments PROTHROMBIN TIME PATIENT (test code = PTP) 11.0 SECONDS 9.3-12.9 N INTERNATIONAL NORMAL RATIO (test code = INR) 1.0 0.8-1.2 N TARGET INR BY INDICATION Indication INR1. Prophylaxis of venous thrombosis 2.0 - 3.0 (orthopedic surgery), Prophylaxis of venous thrombosis (other than high-risk surgery), Treatment of Deep Vein Thrombosis/Pulmonary Embolism, Prevention of systemic embolism - Tissue heart valves, Acute Myocardial Infarction (to prevent systemic embolism), Valvular heart disease, Atrial Fibrillation, Bileaflet mechanical valve in aortic position.2. Mechanical prosthetic valves (high risk), 2.5 - 3.5 Presence of Lupus Anticoagulant or Antiphospholipid Antibodies, Prevention of systemic embolism - Acute Myocardial Infarction (to prevent recurrent infarct). THROMBOPLASTIN TIME [id number] 07:18:00* Test Item Value Reference Range Interpretation Comments THROMBOPLASTIN TIME PARTIAL (test code = PTT) 29.2 Seconds 25.0-39. 5 N Therapeutic Range: 50.4 - 88.3 Seconds Effective 11/08/2018 [id number] 06:53:00* Test Item Value Reference Range Interpretation Comments GLUBED (test code = GLUBED) 103 MG/DL 70-110 N Performed by certified rubber covering machine operator at [facility] [id number] 06:53:00* Test Item Value Reference Range Interpretation Comments GLUBED (test code = GLUBED) 98 MG/DL 70-110 N Performed by certified rubber covering machine operator at [facility] UR HCG [id number] 02:56:00* Test Item Value Reference Range Interpretation Comments UR HCG QUAL (test code = HCGQLU) NEGATIVE NEGATIVE [id number] 01:05:00* Test Item Value Reference Range Interpretation Comments POTASSIUM (test code = K) 5.7 mEq/L 3.4-5.0 H URINALYSIS [id number] 22:56:00* Test Item Value Reference Range Interpretation Comments UA COLOR (test code = COLU) YELLOW YEL/STRAW UA APPEARANCE (test code = APPU) SL CLOUDY CLEAR UA GLUCOSE DIPSTICK (test code = DGLUU) 1+ NEGATIVE A UA BILIRUBIN DIPSTICK (test code = BILU) NEGATIVE NEGATIVE UA KETONE DIPSTICK (test code = KETU) NEGATIVE NEGATIVE UA SPECIFIC GRAVITY (test code = SGU) 1.013 1.005-1.030 N UA BLOOD DIPSTICK (test code = LIZZ) 1+ NEGATIVE A UA PH DIPSTICK (test code = TIMI) 5.0 5.0-7.0 N UA PROTEIN DIPSTICK (test code = PROU) 3+ NEGATIVE A UA UROBILINIOGEN DIPSTICK (test code = URO) 0.2 mg/dL 0.2-1.0 UA NITRITE DIPSTICK (test code = HEMAL) NEGATIVE NEGATIVE UA LEUKOCYTE ESTERASE DIPSTICK (test code = LEUU) 1+ NEGA TIVE A UA WBC (test code = WBCU) 21-50 WBC/HPF 0-3 A UA RBC (test code = RBCU) 11-20 RBC/HPF 0-3 UA BACTERIA (test code = BACU) TRACE /HPF NONE SEEN UA SQUAMOUS CELLS (test code = SQU) 0-5 /HPF NONE SEEN UA MUCUS (test code = MUCU) TRACE /LPF NONE SEEN UR PROTEIN [id number] 22:56:00* Test Item Value Reference Range Interpretation Comments UR PROTEIN RANDOM (test code = PROTU) 453 mg/dL Note: Change in UNITS of MEASUREMENT. The Reference Range and Method Performance specificationshave not been established for this fluid. The test resultshould be correlated into the clinical context forinterpretation. UR CREATININE [id number] 22:56:00* Test Item Value Reference Range Interpretation Comments UR CREATININE RANDOM (test code = CREATU) 82.9 mg/dL The Reference Range and Method Performance specificationshave not been established for this fluid. The test resultshould be correlated into the clinical context forinterpretation. URINALYSIS [id number] 22:47:00* Test Item Value Reference Range Interpretation Comments UA COLOR (test code = COLU) YELLOW YEL/STRAW UA APPEARANCE (test code = APPU) SL CLOUDY CLEAR UA GLUCOSE DIPSTICK (test code = DGLUU) 1+ NEGATIVE A UA BILIRUBIN DIPSTICK (test code = BILU) NEGATIVE NEGATIVE UA KETONE DIPSTICK (test code = KETU) NEGATIVE NEGATIVE UA SPECIFIC GRAVITY (test code = SGU) 1.013 1.005-1.030 N UA BLOOD DIPSTICK (test code = LIZZ) 1+ NEGATIVE A UA PH DIPSTICK (test code = TIMI) 5.0 5.0-7.0 N UA PROTEIN DIPSTICK (test code = PROU) 3+ NEGATIVE A UA UROBILINIOGEN DIPSTICK (test code = URO) 0.2 mg/dL 0.2-1.0 UA NITRITE DIPSTICK (test code = HEMAL) NEGATIVE NEGATIVE UA LEUKOCYTE ESTERASE DIPSTICK (test code = LEUU) 1+ NEGA TIVE A UA WBC (test code = WBCU) 21-50 WBC/HPF 0-3 A UA RBC (test code = RBCU) 11-20 RBC/HPF 0-3 UA BACTERIA (test code = BACU) TRACE /HPF NONE SEEN UA SQUAMOUS CELLS (test code = SQU) 0-5 /HPF NONE SEEN UA MUCUS (test code = MUCU) TRACE /LPF NONE SEEN UR PROTEIN [id number] 22:47:00* Test Item Value Reference Range Interpretation Comments UR PROTEIN RANDOM (test code = PROTU) mg/dL UR CREATININE [id number] 22:47:00* Test Item Value Reference Range Interpretation Comments UR CREATININE RANDOM (test code = CREATU) mg/dL [id number] 20:37:00* Test Item Value Reference Range Interpretation Comments HEMOGLOBIN (test code = HGB) 7.8 g/dL 11.0-15.0 L [id number] 20:17:00* Test Item Value Reference Range Interpretation Comments GLUBED (test code = GLUBED) 203 MG/DL 70-110 H Performed by certified rubber covering machine operator at [facility] [id number] 17:40:00* Test Item Value Reference Range Interpretation Comments GLUBED (test code = GLUBED) 121 MG/DL 70-110 H Performed by certified rubber covering machine operator at [facility] [id number] 13:08:00* Test Item Value Reference Range Interpretation Comments POTASSIUM (test code = K) 6.1 mEq/L 3.4-5.0 HH [id number] 13:01:00* Test Item Value Reference Range Interpretation Comments HEMOGLOBIN (test code = HGB) 7.2 g/dL 11.0-15.0 L [id number] 12:21:00* Test Item Value Reference Range Interpretation Comments GLUBED (test code = GLUBED) 90 MG/DL 70-110 N Performed by certified rubber covering machine operator at [facility] [id number] 10:32:00* Test Item Value Reference Range Interpretation Comments GLUBED (test code = GLUBED) 142 MG/DL 70-110 H Performed by certified rubber covering machine operator at [facility] BASIC METABOLIC [id number] 09:58:00* Test Item Value Reference Range Interpretation Comments SODIUM (test code = NA) 138 mEq/L 134-147 N POTASSIUM (test code = K) 5.4 mEq/L 3.4-5.0 H CHLORIDE (test code = CL) 114 mEq/L 100-108 H CARBON DIOXIDE (test code = CO2) 16 mEq/L 21-33 L ANION GAP (test code = GAP) 13 0-20 N GLUCOSE (test code = GLU) 121 mg/dL 70-110 H BLOOD UREA NITROGEN (test code = BUN) 73 mg/dL 7-18 H GLOMERULAR FILTRATION RATE (test code = GFR) 14.0 95-105 L Units of measure = ml/min/1.73 m2 CREATININE (test code = CREAT) 3.5 mg/dL 0.6-1.3 H CALCIUM (test code = CA) 8.0 mg/dL 8.0-10.5 N [id number] 09:58:00* Test Item Value Reference Range Interpretation Comments PHOSPHOROUS (test code = PHOS) 5.5 mg/dL 2.5-4.9 H [id number] 09:58:00* Test Item Value Reference Range Interpretation Comments MAGNESIUM (test code = MAG) 1.60 mg/dL 1.8-2.4 L CALCIUM [id number] 09:58:00* Test Item Value Reference Range Interpretation Comments CALCIUM IONIZED (test code = RAYMOND) 1.23 MMOL/L 1.12-1.32 N BASIC METABOLIC [id number] 09:43:00* Test Item Value Reference Range Interpretation Comments SODIUM (test code = NA) mEq/L 134-147 POTASSIUM (test code = K) mEq/L 3.4-5.0 CHLORIDE (test code = CL) mEq/L 100-108 CARBON DIOXIDE (test code = CO2) mEq/L 21-33 ANION GAP (test code = GAP) 0-20 GLUCOSE (test code = GLU) mg/dL 70-110 BLOOD UREA NITROGEN (test code = BUN) mg/dL 7-18 GLOMERULAR FILTRATION RATE (test code = GFR) 95-105 CREATININE (test code = CREAT) mg/dL 0.6-1.3 CALCIUM (test code = CA) mg/dL 8.0-10.5 [id number] 09:43:00* Test Item Value Reference Range Interpretation Comments PHOSPHOROUS (test code = PHOS) mg/dL 2.5-4.9 [id number] 09:43:00* Test Item Value Reference Range Interpretation Comments MAGNESIUM (test code = MAG) mg/dL 1.8-2.4 CALCIUM [id number] 09:43:00* Test Item Value Reference Range Interpretation Comments CALCIUM IONIZED (test code = RAYMOND) 1.23 MMOL/L 1.12-1.32 N CBC W/AUTO [id number] 09:43:00* Test Item Value Reference Range Interpretation Comments WHITE BLOOD CELL (test code = WBC) 14.06 x10 3/uL 4.5-11.0 H RED BLOOD CELL (test code = RBC) 3.10 x10 6/uL 3.54-5.02 L HEMOGLOBIN (test code = HGB) 7.5 g/dL 11.0-15.0 L HEMATOCRIT (test code = HCT) 24.4 % 33.0-45.0 L MEAN CELL VOLUME (test code = MCV) 78.7 fL 81.0-99.0 L MEAN CELL HGB (test code = MCH) 24.2 pg 27.0-33.0 L MEAN CELL HGB CONCETRATION (test code = MCHC) 30.7 g/dL 33.0-37. 0 L RED CELL DISTRIBUTION WIDTH CV (test code = RDW) 13.9 % 11.5- 14.5 N RED CELL DISTRIBUTION WIDTH SD (test code = RDW-SD) 39.7 fL 37 .0-54.0 N PLATELET COUNT (test code = PLT) 398 x10 3/uL 150-400 N MEAN PLATELET VOLUME (test code = MPV) 9.3 fL 7.0-9.0 H NEUTROPHIL % (test code = NT%) 73.1 % 56.0-77.0 N IMMATURE GRANULOCYTE % (test code = IG%) 0.4 % 0.0-2.0 N LYMPHOCYTE % (test code = LY%) 13.4 % 14.0-32.0 L MONOCYTE % (test code = MO%) 6.8 % 4.8-9.0 N EOSINOPHIL % (test code = EO%) 5.6 % 0.3-3.7 H BASOPHIL % (test code = BA%) 0.7 % 0.0-2.0 N NUCLEATED RBC % (test code = NRBC%) 0.0 % 0-0 N NEUTROPHIL # (test code = NT#) 10.27 x10 3/uL 2.0-7.6 H IMMATURE GRANULOCYTE # (test code = IG#) 0.06 x10 3/uL 0.00-0.03 H LYMPHOCYTE # (test code = LY#) 1.88 x10 3/uL 1.0-3.8 N MONOCYTE # (test code = MO#) 0.96 x10 3/uL 0.1-0.8 H EOSINOPHIL # (test code = EO#) 0.79 x10 3/uL 0.0-0.2 H BASOPHIL # (test code = BA#) 0.10 x10 3/uL 0.0-0.2 N NUCLEATED RBC # (test code = NRBC#) 0.00 x10 3/uL 0.0-0.1 N MANUAL DIFF REQUIRED (test code = MDIFF) NO [id number] 07:09:00* Test Item Value Reference Range Interpretation Comments POTASSIUM (test code = K) 5.8 mEq/L 3.4-5.0 H HGB [id number] 06:38:00* Test Item Value Reference Range Interpretation Comments HEMOGLOBIN (test code = HGB) 7.5 g/dL 11.0-15.0 L HEMATOCRIT (test code = HCT) 24.6 % 33.0-45.0 L [id number] 02:21:00* Test Item Value Reference Range Interpretation Comments POTASSIUM (test code = K) 5.3 mEq/L 3.4-5.0 H LACTIC [id number] 23:06:00* Test Item Value Reference Range Interpretation Comments LACTIC ACID (test code = LACT) 0.5 mmol/L 0.4-1.9 N HGB [id number] 22:46:00* Test Item Value Reference Range Interpretation Comments HEMOGLOBIN (test code = HGB) 7.2 g/dL 11.0-15.0 L HEMATOCRIT (test code = HCT) 23.2 % 33.0-45.0 L COMPREHENSIVE METABOLIC [id number] 21:53:00* Test Item Value Reference Range Interpretation Comments SODIUM (test code = NA) 138 mEq/L 134-147 N POTASSIUM (test code = K) 6.0 mEq/L 3.4-5.0 HH NO HEMOLYSIS CHLORIDE (test code = CL) 113 mEq/L 100-108 H CARBON DIOXIDE (test code = CO2) 21 mEq/L 21-33 N ANION GAP (test code = GAP) 10 0-20 N GLUCOSE (test code = GLU) 215 mg/dL 70-110 H BLOOD UREA NITROGEN (test code = BUN) 74 mg/dL 7-18 H GLOMERULAR FILTRATION RATE (test code = GFR) 13.1 95-105 L Units of measure = ml/min/1.73 m2 CREATININE (test code = CREAT) 3.7 mg/dL 0.6-1.3 H TOTAL PROTEIN (test code = PROT) 8.2 g/dL 6.4-8.2 N ALBUMIN (test code = ALB) 2.10 g/dL 3.4-5.0 L CALCIUM (test code = CA) 7.9 mg/dL 8.0-10.5 L BILIRUBIN TOTAL (test code = BILT) 0.10 mg/dL 0.0-1.0 N SGOT/AST (test code = AST) 7 IUnit/L 15-37 L SGPT/ALT (test code = ALT) 11 IUnit/L 15-65 L ALKALINE PHOSPHATASE TOTAL (test code = ALKP) 154 IUnit/L 20-125 H CBC W/AUTO [id number] 21:38:00* Test Item Value Reference Range Interpretation Comments WHITE BLOOD CELL (test code = WBC) 17.41 x10 3/uL 4.5-11.0 H RED BLOOD CELL (test code = RBC) 3.44 x10 6/uL 3.54-5.02 L HEMOGLOBIN (test code = HGB) 8.3 g/dL 11.0-15.0 L HEMATOCRIT (test code = HCT) 27.2 % 33.0-45.0 L MEAN CELL VOLUME (test code = MCV) 79.1 fL 81.0-99.0 L MEAN CELL HGB (test code = MCH) 24.1 pg 27.0-33.0 L MEAN CELL HGB CONCETRATION (test code = MCHC) 30.5 g/dL 33.0-37. 0 L RED CELL DISTRIBUTION WIDTH CV (test code = RDW) 13.8 % 11.5- 14.5 N RED CELL DISTRIBUTION WIDTH SD (test code = RDW-SD) 39.6 fL 37 .0-54.0 N PLATELET COUNT (test code = PLT) 420 x10 3/uL 150-400 H MEAN PLATELET VOLUME (test code = MPV) 9.2 fL 7.0-9.0 H NEUTROPHIL % (test code = NT%) 77.0 % 56.0-77.0 N IMMATURE GRANULOCYTE % (test code = IG%) 0.4 % 0.0-2.0 N LYMPHOCYTE % (test code = LY%) 11.5 % 14.0-32.0 L MONOCYTE % (test code = MO%) 5.7 % 4.8-9.0 N EOSINOPHIL % (test code = EO%) 4.9 % 0.3-3.7 H BASOPHIL % (test code = BA%) 0.5 % 0.0-2.0 N NUCLEATED RBC % (test code = NRBC%) 0.0 % 0-0 N NEUTROPHIL # (test code = NT#) 13.40 x10 3/uL 2.0-7.6 H IMMATURE GRANULOCYTE # (test code = IG#) 0.07 x10 3/uL 0.00-0.03 H LYMPHOCYTE # (test code = LY#) 2.00 x10 3/uL 1.0-3.8 N MONOCYTE # (test code = MO#) 1.00 x10 3/uL 0.1-0.8 H EOSINOPHIL # (test code = EO#) 0.86 x10 3/uL 0.0-0.2 H BASOPHIL # (test code = BA#) 0.08 x10 3/uL 0.0-0.2 N NUCLEATED RBC # (test code = NRBC#) 0.00 x10 3/uL 0.0-0.1 N MANUAL DIFF REQUIRED (test code = MDIFF) NO Sodium [id number] 00:00:00* Test Item Value Reference Range Interpretation Comments Sodium Level (test code = 2951-2) 139 136-145 [facility]Pot[facility] Vgkir6173-25-31 00:00:00* Test Item Value Reference Range Interpretation Comments Potassium Level (test code = 2823-3) 5.2 3.5-5.[address] [facility] HospitalChloride [id number] 00:00:00* Test Item Value Reference Range Interpretation Comments Chloride Level (test code = 2075-0) 111 98-[address] [facility] HospitalCarbon Dioxide Rcdbo0096-23-28 00:00:00* Test Item Value Reference Range Interpretation Comments Carbon Dioxide Level (test code = 2028-9) 19 22-[address] [facility] HospitalAnion [id number] 00:00:00* Test Item Value Reference Range Interpretation Comments Anion Gap (test code = 39210-5) 14.2 8-16 [facility] HospitalBlood Urea [id number] 00:00:00* Test Item Value Reference Range Interpretation Comments Blood Urea Nitrogen (test code = 3094-0) 49 7-[address] [facility] HospitalCreatinine2019-04-18 00:00:00* Test Item Value Reference Range Interpretation Comments Creatinine (test code = 2160-0) 2.83 0.57-1.[address] [facility] HospitalBUN/Creatinine Lftrt3129-14-27 00:00:00* Test Item Value Reference Range Interpretation Comments BUN/Creatinine Ratio (test code = 3097-3) 17 6-25 [facility] HospitalEstimat Glomerular Filtration Rate 2018-11-10 00:00:00* Test Item Value Reference Range Interpretation Comments Estimat Glomerular Filtration Rate (test code = 795246019) 18 >60 L Ranges were taken from the National Kidney Disease Education Program and the [facility] [employer] literature.Reference ranges:60 or greater: [id number] ( for 3 consecutive months): Chronic kidney disease 15 or less: Kidney failureCHI St. [facility]'S [facility] CenterGlucose Obbnk4723-09-62 00:00:00* Test Item Value Reference Range Interpretation Comments Glucose Level (test code = QIS6555) 105 74-118 [facility] HospitalCalcium Gymdh0653-16-22 00:00:00* Test Item Value Reference Range Interpretation Comments Calcium Level (test code = 78739-6) 9.3 8.4-10.2 [facility] HospitalTotal Xbiqnlnxz1184-66-79 00:00:00* Test Item Value Reference Range Interpretation Comments Total Bilirubin (test code = 1975-2) 0.3 0.2-1.2 [facility] HospitalAspartate Amino Transf (AST/SGOT) 2018-11-10 00:00:00* Test Item Value Reference Range Interpretation Comments Aspartate Amino Transf (AST/SGOT) (test code = Aspartate Amino Transf (AST/SGOT)) 12 5-34 [facility] HospitalAlanine Aminotransferase (ALT/SGPT) 2018-11-10 00:00:00* Test Item Value Reference Range Interpretation Comments Alanine Aminotransferase (ALT/SGPT) (test code = 1742-6) 7 0-55 [facility] HospitalTotal Jnxcojk2559-41-40 00:00:00* Test Item Value Reference Range Interpretation Comments Total Protein (test code = 2885-2) 7.7 6.5-8.1 [facility] HospitalAlbumin2019-04-18 00:00:00* Test Item Value Reference Range Interpretation Comments Albumin (test code = 1751-7) 2.2 3.5-5.[address] [facility] HospitalGlobulin2019-04-18 00:00:00* Test Item Value Reference Range Interpretation Comments Globulin (test code = 75642-6) 5.5 2.3-3.[address] [facility] HospitalAlbumin/Globulin Mbacc0077-34-15 00:00:00 * Test Item Value Reference Range Interpretation Comments Albumin/Globulin Ratio (test code = 1759-0) 0.4 0.8-2.[address] [facility] HospitalAlkaline Qinqnwgarhz2413-65-26 00:00:00* Test Item Value Reference Range Interpretation Comments Alkaline Phosphatase (test code = 6768-6) 123 40-[facility] [facility]Creatine [id number] 00:00:00* Test Item Value Reference Range Interpretation Comments Creatine Kinase (test code = 2157-6) 47 29-168 [facility]Creat[facility] Kinase [id number] 00:00:00* Test Item Value Reference Range Interpretation Comments Creatine Kinase MB (test code = 80889-9) 0.80 0-5.0 [facility] HospitalTroponin [id number] 00:00:00* Test Item Value Reference Range Interpretation Comments Troponin I (test code = QVO3056) 0.014 0-0.300 [facility] HospitalWhite Blood [id number] 23:08:00* Test Item Value Reference Range Interpretation Comments White Blood Count (test code = 6690-2) 16.77 4.8-10.[address] [facility] HospitalRed Blood [id number] 23:08:00* Test Item Value Reference Range Interpretation Comments Red Blood Count (test code = 789-8) 3.32 3.6-5.[address] [facility] HospitalHemoglobin2019-04-17 23:08:00* Test Item Value Reference Range Interpretation Comments Hemoglobin (test code = 12266-3) 8.5 12.0-16.[address] [facility] HospitalHematocrit2019-04-17 23:08:00* Test Item Value Reference Range Interpretation Comments Hematocrit (test code = 4544-3) 27.0 34.2-44.[address] [facility] HospitalMean Corpuscular [id number] 23:08:00* Test Item Value Reference Range Interpretation Comments Mean Corpuscular Volume (test code = 787-2) 81.3 81-99 [facility] HospitalMean Corpuscular [id number] 23:08:00* Test Item Value Reference Range Interpretation Comments Mean Corpuscular Hemoglobin (test code = 785-6) 25.6 28-[address] [facility] HospitalMean Corpuscular Hemoglobin Concent 2018-11-09 23:08:00* Test Item Value Reference Range Interpretation Comments Mean Corpuscular Hemoglobin Concent (test code = 786-4) 31.5 31-35 [facility] HospitalRed Cell Distribution [id number] 23:08:00* Test Item Value Reference Range Interpretation Comments Red Cell Distribution Width (test code = 48767-0) 14.4 11.7 -14.4 [facility] HospitalPlatelet [id number] 23:08:00* Test Item Value Reference Range Interpretation Comments Platelet Count (test code = 777-3) 348 140-360 [facility] HospitalNeutrophils (%) (Auto)2018-11-09 23:08:00 * Test Item Value Reference Range Interpretation Comments Neutrophils (%) (Auto) (test code = 41487-0) 81.3 38.7-80.[address] [facility] HospitalLymphocytes (%) (Auto)2018-11-09 23:08:00 * Test Item Value Reference Range Interpretation Comments Lymphocytes (%) (Auto) (test code = 736-9) 9.7 18.0-39.[address] [facility] HospitalMonocytes (%) (Auto)2018-11-09 23:08:00* Test Item Value Reference Range Interpretation Comments Monocytes (%) (Auto) (test code = 5905-5) 5.1 4.4-11.3 [facility] HospitalEosinophils (%) (Auto)2018-11-09 23:08:00 * Test Item Value Reference Range Interpretation Comments Eosinophils (%) (Auto) (test code = 713-8) 3.0 0.0-6.0 [facility] HospitalBasophils (%) (Auto)2018-11-09 23:08:00* Test Item Value Reference Range Interpretation Comments Basophils (%) (Auto) (test code = 706-2) 0.4 0.0-1.0 [facility] HospitalIM GRANULOCYTES %2018-11-09 23:08:00* Test Item Value Reference Range Interpretation Comments IM GRANULOCYTES % (test code = IM GRANULOCYTES %) 0.5 0.0- 1.0 [facility] HospitalNeutrophils # (Auto)2018-11-09 23:08:00* Test Item Value Reference Range Interpretation Comments Neutrophils # (Auto) (test code = 751-8) 13.6 2.1-6.[address] [facility] HospitalLymphocytes # (Auto)2018-11-09 23:08:00* Test Item Value Reference Range Interpretation Comments Lymphocytes # (Auto) (test code = 83252-2) 1.6 1.0-3.2 [facility] HospitalMonocytes # (Auto)2018-11-09 23:08:00* Test Item Value Reference Range Interpretation Comments Monocytes # (Auto) (test code = 742-7) 0.9 0.2-0.[address] [facility] HospitalEosinophils # (Auto)2018-11-09 23:08:00* Test Item Value Reference Range Interpretation Comments Eosinophils # (Auto) (test code = 711-2) 0.5 0.0-0.[address] [facility] HospitalBasophils # (Auto)2018-11-09 23:08:00* Test Item Value Reference Range Interpretation Comments Basophils # (Auto) (test code = 704-7) 0.1 0.0-0.1 [facility] HospitalAbsolute Immature Granulocyte (auto 2018-11-09 23:08:00* Test Item Value Reference Range Interpretation Comments Absolute Immature Granulocyte (auto (lawrence t code = Absolute Immature Granulocyte (auto) 0.09 0-0.1 [facility] SINGLE (PORTABLE)2018-11-09 22:36:00 [facility] [address] [address] Patient Name: MERLY MORGAN MR #: [id number] : 1970 Age/Sex: 48/F Req #: [id number] Adm Physician: Ordered by: ANURADHA WHYTE MD Report #: [id number] Location: ER Room/Bed: Procedure: [id number] DX/CHEST SINGLE (PORTABLE) Exam Date: 11/09/18 Exam Time: 2210 REPORT STATUS: Sign ed EXAMINATION: CHEST SINGLE (PORTABLE) COMPARISON: Chest x-ray 07/03/2018 INDICATION: chest pain [id number] Y DISCUSSIO N: Frontal view of the chest obtained at 2217 hours. HEART AND MEDIASTINU M: The heart is top normal in size but stable in morphology. LINES: N one. LUNGS: The lungs are well inflated and clear. No pneumonia or pulmona ry edema. PLEURA: No pleural effusion or pneumothorax. BONES AND SOFT TISSUES: No focal osseous lesion. The soft tissues are normal. IMPRESS ION: Stable chest. No acute cardiopulmonary disease. Signed by: Dr. Trixie Ramirez MD on 11/09/2018 10:37 PM Dictated By: DENNYS RAMIREZ MD 36 Transcribed B y: COMTRAFAEL on 11/09/182236 COPY TO: ANURADHA WHYTE MD [id number] 11:59:00* Test Item Value Reference Range Interpretation Comments GLUBED (test code = GLUBED) 134 mg/dL 74-106 H Performed by certified rubber covering machine operator at [facility] BASIC METABOLIC [id number] 08:59:00* Test Item Value Reference Range Interpretation Comments SODIUM (test code = NA) 140 mmol/L 136-145 N POTASSIUM (test code = K) 4.8 mmol/L 3.5-5.1 N CHLORIDE (test code = CL) 111.0 mmol/L 98-107 H CARBON DIOXIDE (test code = CO2) 22.0 mmol/L 21-32 N ANION GAP (test code = GAP) 11.8 10-20 N GLUCOSE (test code = GLU) 118 mg/dL 74-106 H BLOOD UREA NITROGEN (test code = BUN) 46 mg/dL 7-18 H GLOMERULAR FILTRATION RATE (test code = GFR) 18 mL/min >=60 Estimated GFR by using Modified MDRD formula.Chronic kidney disease is defined as either kidney damageor GFR <60 mL/min/1.73 m2 for >3 months. CREATININE (test code = CREAT) 2.80 mg/dL 0.55-1.02 H Note change in reference range due to change in reagent. BUN/CREATININE RATIO (test code = BUN/CREA) 16.7 10-20 N CALCIUM (test code = CA) 8.2 mg/dL 8.5-10.1 L [id number] 02:43:00* Test Item Value Reference Range Interpretation Comments GLUBED (test code = GLUBED) 125 mg/dL 74-106 H Performed by certified rubber covering machine operator at [facility] [id number] 20:22:00* Test Item Value Reference Range Interpretation Comments GLUBED (test code = GLUBED) 152 mg/dL 74-106 H Performed by certified rubber covering machine operator at [facility] [id number] 15:51:00* Test Item Value Reference Range Interpretation Comments GLUBED (test code = GLUBED) 145 mg/dL 74-106 H Performed by certified rubber covering machine operator at [facility] [id number] 13:48:00* Test Item Value Reference Range Interpretation Comments GLUBED (test code = GLUBED) 221 mg/dL 74-106 H Performed by certified rubber covering machine operator at [facility] [id number] 08:28:00* Test Item Value Reference Range Interpretation Comments GLUBED (test code = GLUBED) 126 mg/dL 74-106 H Performed by certified rubber covering machine operator at [facility] BASIC METABOLIC [id number] 07:38:00* Test Item Value Reference Range Interpretation Comments SODIUM (test code = NA) 138 mmol/L 136-145 N POTASSIUM (test code = K) 4.3 mmol/L 3.5-5.1 N CHLORIDE (test code = CL) 110.0 mmol/L 98-107 H CARBON DIOXIDE (test code = CO2) 18.0 mmol/L 21-32 L ANION GAP (test code = GAP) 14.3 10-20 N GLUCOSE (test code = GLU) 114 mg/dL 74-106 H BLOOD UREA NITROGEN (test code = BUN) 47 mg/dL 7-18 H GLOMERULAR FILTRATION RATE (test code = GFR) 17 mL/min >=60 Estimated GFR by using Modified MDRD formula.Chronic kidney disease is defined as either kidney damageor GFR <60 mL/min/1.73 m2 for >3 months. CREATININE (test code = CREAT) 2.90 mg/dL 0.55-1.02 H Note change in reference range due to change in reagent. BUN/CREATININE RATIO (test code = BUN/CREA) 16.2 10-20 N CALCIUM (test code = CA) 8.5 mg/dL 8.5-10.1 N BASIC METABOLIC [id number] 07:24:00* Test Item Value Reference Range Interpretation Comments SODIUM (test code = NA) 138 mmol/L 136-145 N POTASSIUM (test code = K) 4.3 mmol/L 3.5-5.1 N CHLORIDE (test code = CL) 110.0 mmol/L 98-107 H CARBON DIOXIDE (test code = CO2) mmol/L 21-32 ANION GAP (test code = GAP) 10-20 GLUCOSE (test code = GLU) mg/dL 74-106 BLOOD UREA NITROGEN (test code = BUN) mg/dL 7-18 GLOMERULAR FILTRATION RATE (test code = GFR) mL/min >=60 CREATININE (test code = CREAT) mg/dL 0.55-1.02 BUN/CREATININE RATIO (test code = BUN/CREA) 10-20 CALCIUM (test code = CA) mg/dL 8.5-10.1 UR PROTEIN/CREATININE [id number] 02:50:00* Test Item Value Reference Range Interpretation Comments UR PROTEIN RANDOM (test code = PROTU) 458.7 mg/dL 0.0-11.9 H Protein levels may be falsely elevated in patients withelevated level of aminoglycoside antibiotics in CSF and inhighly concentrated urine specimens. If false elevation issuspected, contact lab for alternated testing technique. UR CREATININE RANDOM (test code = CREATU) 56.0 mg/dL 30-125 N PROTEIN/CREATININE RATIO (test code = P/CRATIO) 8.19 RATIO 0.0-0. 20 H SPECIMEN COMMENTS: RN SEND NOW NOW [id number] 02:06:00* Test Item Value Reference Range Interpretation Comments GLUBED (test code = GLUBED) 115 mg/dL 74-106 H Performed by certified rubber covering machine operator at [facility] [id number] 22:08:00* Test Item Value Reference Range Interpretation Comments GLUBED (test code = GLUBED) 143 mg/dL 74-106 H Performed by certified rubber covering machine operator at [facility] [id number] 16:55:00* Test Item Value Reference Range Interpretation Comments GLUBED (test code = GLUBED) 174 mg/dL 74-106 H Performed by certified rubber covering machine operator at [facility] [id number] 15:37:00* Test Item Value Reference Range Interpretation Comments GLUBED (test code = GLUBED) 136 mg/dL 74-106 H Performed by certified rubber covering machine operator at [facility] BASIC METABOLIC [id number] 15:19:00* Test Item Value Reference Range Interpretation Comments SODIUM (test code = NA) 136 mmol/L 136-145 N POTASSIUM (test code = K) 4.6 mmol/L 3.5-5.1 N CHLORIDE (test code = CL) 109.0 mmol/L 98-107 H CARBON DIOXIDE (test code = CO2) 20.0 mmol/L 21-32 L ANION GAP (test code = GAP) 11.6 10-20 N GLUCOSE (test code = GLU) 191 mg/dL 74-106 H BLOOD UREA NITROGEN (test code = BUN) 53 mg/dL 7-18 H GLOMERULAR FILTRATION RATE (test code = GFR) 17 mL/min >=60 Estimated GFR by using Modified MDRD formula.Chronic kidney disease is defined as either kidney damageor GFR <60 mL/min/1.73 m2 for >3 months. CREATININE (test code = CREAT) 3.00 mg/dL 0.55-1.02 H Note change in reference range due to change in reagent. BUN/CREATININE RATIO (test code = BUN/CREA) 17.6 10-20 N CALCIUM (test code = CA) 8.5 mg/dL 8.5-10.1 N NOTIFIED[facility] METABOLIC [id number] 15:12:00* Test Item Value Reference Range Interpretation Comments SODIUM (test code = NA) 136 mmol/L 136-145 N POTASSIUM (test code = K) 4.6 mmol/L 3.5-5.1 N CHLORIDE (test code = CL) 109.0 mmol/L 98-107 H CARBON DIOXIDE (test code = CO2) mmol/L 21-32 ANION GAP (test code = GAP) 10-20 GLUCOSE (test code = GLU) mg/dL 74-106 BLOOD UREA NITROGEN (test code = BUN) mg/dL 7-18 GLOMERULAR FILTRATION RATE (test code = GFR) mL/min >=60 CREATININE (test code = CREAT) mg/dL 0.55-1.02 BUN/CREATININE RATIO (test code = BUN/CREA) 10-20 CALCIUM (test code = CA) mg/dL 8.5-10.1 NOTIFIED.[id number] 08:25:00* Test Item Value Reference Range Interpretation Comments GLUBED (test code = GLUBED) 124 mg/dL 74-106 H Performed by certified rubber covering machine operator at [facility] [id number] 07:34:00* Test Item Value Reference Range Interpretation Comments GLUBED (test code = GLUBED) 190 mg/dL 74-106 H Performed by certified rubber covering machine operator at [facility] [id number] 01:49:00* Test Item Value Reference Range Interpretation Comments GLUBED (test code = GLUBED) 111 mg/dL 74-106 H Performed by certified rubber covering machine operator at [facility] [id number] 20:57:00* Test Item Value Reference Range Interpretation Comments GLUBED (test code = GLUBED) 128 mg/dL 74-106 H Performed by certified rubber covering machine operator at [facility] RETRO [id number] 19:30:00 Name: MERLY MORGAN [facility] : 1970 Age/S: 48 / F [place] Colón Unit #: [id number] Loc: [place] [address] Phys: Jade Fernando MD Acct: [id number] Dis Date: Status: ADM IN PHONE #: [phone] Exam Date: 08/17/2018 1750 FAX #: [phone] Reason: angie EXAMS: CPT CODE: [id number] US RETRO LTD [id number] EXAM: Ultrasound retroperitoneum, limited; INFORMATION: Acute kidney injury; creatinine 3.1; FINDINGS: The kidneys are of normal size and shape; no hydronephrosis and no stones. They show increased parenchymal echogenicity. The right kidney measures 10.9 x 5.4 x 4.2 cm, with a parenchymal thickness of 1.3 cm. The left kidney measures 10.4 x 6.2 x 4.8 cm, with a parenchymal thickness of 4.6 cm. The urinary bladder is unremarkable. Bilateral ureteral jets are seen. IMPRESSION: 1. Normal-sized kidneys without evidence of hydronephrosis or stones. 2. Increased parenchymal echogenicity is consistent with diffuse parenchymal disease. at 1930 Reported and signed by: Chele Sheth M.D. CC: Sabas Mosquera MD; Jade Fernando MD Technologist: Corinna Jason RDMS [facility] Date/Time: 08/17/2018 (1929) [email or web address] Orig Print D/T: S: 08/17/2018 (1933) Probe: PAGE 1 Signed Report [id number] 16:23:00* Test Item Value Reference Range Interpretation Comments GLUBED (test code = GLUBED) 130 mg/dL 74-106 H Performed by certified rubber covering machine operator at [facility] [id number] 16:09:00* Test Item Value Reference Range Interpretation Comments VANCOMYCIN (test code = VANCO) 13.4 UG/ML 5.0-45.0 N [id number] 13:03:00* Test Item Value Reference Range Interpretation Comments VANCOMYCIN (test code = VANCO) 15.9 UG/ML 5.0-45.0 N [id number] 11:17:00* Test Item Value Reference Range Interpretation Comments GLUBED (test code = GLUBED) 99 mg/dL 74-106 N Performed by certified rubber covering machine operator at [facility] [id number] 08:13:00* Test Item Value Reference Range Interpretation Comments GLUBED (test code = GLUBED) 89 mg/dL 74-106 N Performed by certified rubber covering machine operator at [facility] BASIC METABOLIC [id number] 07:36:00* Test Item Value Reference Range Interpretation Comments SODIUM (test code = NA) 139 mmol/L 136-145 N POTASSIUM (test code = K) 4.9 mmol/L 3.5-5.1 N CHLORIDE (test code = CL) 114.0 mmol/L 98-107 H CARBON DIOXIDE (test code = CO2) 17.0 mmol/L 21-32 L ANION GAP (test code = GAP) 12.9 10-20 N GLUCOSE (test code = GLU) 81 mg/dL 74-106 N BLOOD UREA NITROGEN (test code = BUN) 59 mg/dL 7-18 H GLOMERULAR FILTRATION RATE (test code = GFR) 16 mL/min >=60 Estimated GFR by using Modified MDRD formula.Chronic kidney disease is defined as either kidney damageor GFR <60 mL/min/1.73 m2 for >3 months. CREATININE (test code = CREAT) 3.10 mg/dL 0.55-1.02 H Note change in reference range due to change in reagent. BUN/CREATININE RATIO (test code = BUN/CREA) 19.1 10-20 N CALCIUM (test code = CA) 8.2 mg/dL 8.5-10.1 L CBC W/AUTO [id number] 06:40:00* Test Item Value Reference Range Interpretation Comments WHITE BLOOD CELL (test code = WBC) 12.6 K/mm3 4.5-12.5 H RED BLOOD CELL (test code = RBC) 3.46 mill/mm3 3.7-5.2 L HEMOGLOBIN (test code = HGB) 8.2 gram/dL 11.5-15.5 L HEMATOCRIT (test code = HCT) 28.4 % 36.0-46.0 L MEAN CELL VOLUME (test code = MCV) 82.1 fL 80-98 N MEAN CELL HGB (test code = MCH) 23.7 picogram 27.0-33.0 L MEAN CELL HGB CONCETRATION (test code = MCHC) 28.9 gram/dL 33.0-36. 0 L RED CELL DISTRIBUTION WIDTH (test code = RDW) 15.9 % 11.6-16. 2 N RED CELL DISTRIBUTION WIDTH SD (test code = RDW-SD) 47.4 fL 37 .0-51.0 N PLATELET COUNT (test code = PLT) 356 K/mm3 150-450 N MEAN PLATELET VOLUME (test code = MPV) 8.7 fL 6.7-11.0 N NEUTROPHIL % (test code = NT%) 64.5 % 39.0-69.0 N IMMATURE GRANULOCYTE % (test code = IG%) 1.3 % 0.0-5.0 N LYMPHOCYTE % (test code = LY%) 16.9 % 25.0-55.0 L MONOCYTE % (test code = MO%) 8.1 % 0.0-10.0 N EOSINOPHIL % (test code = EO%) 8.7 % 0.0-5.0 H BASOPHIL % (test code = BA%) 0.5 % 0.0-1.0 N NUCLEATED RBC % (test code = NRBC%) 0.0 % 0-0 N NEUTROPHIL # (test code = NT#) 8.13 K/mm3 1.8-7.7 H IMMATURE GRANULOCYTE # (test code = IG#) 0.16 x10 3/uL 0-0.03 H LYMPHOCYTE # (test code = LY#) 2.13 K/mm3 1.0-5.0 N MONOCYTE # (test code = MO#) 1.02 K/mm3 0-0.8 H EOSINOPHIL # (test code = EO#) 1.10 K/mm3 0.0-0.5 H BASOPHIL # (test code = BA#) 0.06 K/mm3 0.0-0.2 N NUCLEATED RBC # (test code = NRBC#) 0.00 K/mm3 0.0-0.1 N MANUAL DIFF REQUIRED (test code = MDIFF) NO, ONLY SCAN NEEDED DIFFERENTIAL [id number] 06:40:00* Test Item Value Reference Range Interpretation Comments STAIN ACCEPTABILITY (test code = STN ACCEPTABLE) STAIN ACCEPTABLE ANISOCYTOSIS (test code = ANISO) 1+ MICROCYTOSIS (test code = MICR) 1+ CRENATED CELLS (test code = CREN) 1+ PLATELET ESTIMATE (test code = PLTEST) ADEQUATE PLATELET MORPHOLOGY (test code = PLTMORPH) NORMAL CBC W/AUTO [id number] 05:30:00* Test Item Value Reference Range Interpretation Comments WHITE BLOOD CELL (test code = WBC) 12.6 K/mm3 4.5-12.5 H RED BLOOD CELL (test code = RBC) 3.46 mill/mm3 3.7-5.2 L HEMOGLOBIN (test code = HGB) 8.2 gram/dL 11.5-15.5 L HEMATOCRIT (test code = HCT) 28.4 % 36.0-46.0 L MEAN CELL VOLUME (test code = MCV) 82.1 fL 80-98 N MEAN CELL HGB (test code = MCH) 23.7 picogram 27.0-33.0 L MEAN CELL HGB CONCETRATION (test code = MCHC) 28.9 gram/dL 33.0-36. 0 L RED CELL DISTRIBUTION WIDTH (test code = RDW) 15.9 % 11.6-16. 2 N RED CELL DISTRIBUTION WIDTH SD (test code = RDW-SD) 47.4 fL 37 .0-51.0 N PLATELET COUNT (test code = PLT) 356 K/mm3 150-450 N MEAN PLATELET VOLUME (test code = MPV) 8.7 fL 6.7-11.0 N NEUTROPHIL % (test code = NT%) 64.5 % 39.0-69.0 N IMMATURE GRANULOCYTE % (test code = IG%) 1.3 % 0.0-5.0 N LYMPHOCYTE % (test code = LY%) 16.9 % 25.0-55.0 L MONOCYTE % (test code = MO%) 8.1 % 0.0-10.0 N EOSINOPHIL % (test code = EO%) 8.7 % 0.0-5.0 H BASOPHIL % (test code = BA%) 0.5 % 0.0-1.0 N NUCLEATED RBC % (test code = NRBC%) 0.0 % 0-0 N NEUTROPHIL # (test code = NT#) 8.13 K/mm3 1.8-7.7 H IMMATURE GRANULOCYTE # (test code = IG#) 0.16 x10 3/uL 0-0.03 H LYMPHOCYTE # (test code = LY#) 2.13 K/mm3 1.0-5.0 N MONOCYTE # (test code = MO#) 1.02 K/mm3 0-0.8 H EOSINOPHIL # (test code = EO#) 1.10 K/mm3 0.0-0.5 H BASOPHIL # (test code = BA#) 0.06 K/mm3 0.0-0.2 N NUCLEATED RBC # (test code = NRBC#) 0.00 K/mm3 0.0-0.1 N MANUAL DIFF REQUIRED (test code = MDIFF) NO, ONLY SCAN NEEDED DIFFERENTIAL [id number] 05:30:00* Test Item Value Reference Range Interpretation Comments STAIN ACCEPTABILITY (test code = STN ACCEPTABLE) MORPHOLOGY COMMENT (test code = MOC) PLATELET ESTIMATE (test code = PLTEST) PLATELET MORPHOLOGY (test code = PLTMORPH) CBC W/AUTO [id number] 05:28:00* Test Item Value Reference Range Interpretation Comments WHITE BLOOD CELL (test code = WBC) 12.6 K/mm3 4.5-12.5 H RED BLOOD CELL (test code = RBC) 3.46 mill/mm3 3.7-5.2 L HEMOGLOBIN (test code = HGB) 8.2 gram/dL 11.5-15.5 L HEMATOCRIT (test code = HCT) 28.4 % 36.0-46.0 L MEAN CELL VOLUME (test code = MCV) 82.1 fL 80-98 N MEAN CELL HGB (test code = MCH) 23.7 picogram 27.0-33.0 L MEAN CELL HGB CONCETRATION (test code = MCHC) 28.9 gram/dL 33.0-36. 0 L RED CELL DISTRIBUTION WIDTH (test code = RDW) 15.9 % 11.6-16. 2 N RED CELL DISTRIBUTION WIDTH SD (test code = RDW-SD) 47.4 fL 37 .0-51.0 N PLATELET COUNT (test code = PLT) 356 K/mm3 150-450 N MEAN PLATELET VOLUME (test code = MPV) 8.7 fL 6.7-11.0 N NEUTROPHIL % (test code = NT%) 64.5 % 39.0-69.0 N IMMATURE GRANULOCYTE % (test code = IG%) 1.3 % 0.0-5.0 N LYMPHOCYTE % (test code = LY%) 16.9 % 25.0-55.0 L MONOCYTE % (test code = MO%) 8.1 % 0.0-10.0 N EOSINOPHIL % (test code = EO%) 8.7 % 0.0-5.0 H BASOPHIL % (test code = BA%) 0.5 % 0.0-1.0 N NUCLEATED RBC % (test code = NRBC%) 0.0 % 0-0 N NEUTROPHIL # (test code = NT#) 8.13 K/mm3 1.8-7.7 H IMMATURE GRANULOCYTE # (test code = IG#) 0.16 x10 3/uL 0-0.03 H LYMPHOCYTE # (test code = LY#) 2.13 K/mm3 1.0-5.0 N MONOCYTE # (test code = MO#) 1.02 K/mm3 0-0.8 H EOSINOPHIL # (test code = EO#) 1.10 K/mm3 0.0-0.5 H BASOPHIL # (test code = BA#) 0.06 K/mm3 0.0-0.2 N NUCLEATED RBC # (test code = NRBC#) 0.00 K/mm3 0.0-0.1 N MANUAL DIFF REQUIRED (test code = MDIFF) NO, ONLY SCAN NEEDED DIFFERENTIAL [id number] 05:28:00* Test Item Value Reference Range Interpretation Comments STAIN ACCEPTABILITY (test code = STN ACCEPTABLE) CABOT RINGS (test code = CAB) MORPHOLOGY COMMENT (test code = MOC) PLATELET ESTIMATE (test code = PLTEST) PLATELET MORPHOLOGY (test code = PLTMORPH) CBC W/AUTO [id number] 05:28:00* Test Item Value Reference Range Interpretation Comments WHITE BLOOD CELL (test code = WBC) 12.6 K/mm3 4.5-12.5 H RED BLOOD CELL (test code = RBC) 3.46 mill/mm3 3.7-5.2 L HEMOGLOBIN (test code = HGB) 8.2 gram/dL 11.5-15.5 L HEMATOCRIT (test code = HCT) 28.4 % 36.0-46.0 L MEAN CELL VOLUME (test code = MCV) 82.1 fL 80-98 N MEAN CELL HGB (test code = MCH) 23.7 picogram 27.0-33.0 L MEAN CELL HGB CONCETRATION (test code = MCHC) 28.9 gram/dL 33.0-36. 0 L RED CELL DISTRIBUTION WIDTH (test code = RDW) 15.9 % 11.6-16. 2 N RED CELL DISTRIBUTION WIDTH SD (test code = RDW-SD) 47.4 fL 37 .0-51.0 N PLATELET COUNT (test code = PLT) 356 K/mm3 150-450 N MEAN PLATELET VOLUME (test code = MPV) 8.7 fL 6.7-11.0 N NEUTROPHIL % (test code = NT%) 64.5 % 39.0-69.0 N IMMATURE GRANULOCYTE % (test code = IG%) 1.3 % 0.0-5.0 N LYMPHOCYTE % (test code = LY%) 16.9 % 25.0-55.0 L MONOCYTE % (test code = MO%) 8.1 % 0.0-10.0 N EOSINOPHIL % (test code = EO%) 8.7 % 0.0-5.0 H BASOPHIL % (test code = BA%) 0.5 % 0.0-1.0 N NUCLEATED RBC % (test code = NRBC%) 0.0 % 0-0 N NEUTROPHIL # (test code = NT#) 8.13 K/mm3 1.8-7.7 H IMMATURE GRANULOCYTE # (test code = IG#) 0.16 x10 3/uL 0-0.03 H LYMPHOCYTE # (test code = LY#) 2.13 K/mm3 1.0-5.0 N MONOCYTE # (test code = MO#) 1.02 K/mm3 0-0.8 H EOSINOPHIL # (test code = EO#) 1.10 K/mm3 0.0-0.5 H BASOPHIL # (test code = BA#) 0.06 K/mm3 0.0-0.2 N NUCLEATED RBC # (test code = NRBC#) 0.00 K/mm3 0.0-0.1 N MANUAL DIFF REQUIRED (test code = MDIFF) NO, ONLY SCAN NEEDED DIFFERENTIAL [id number] 05:28:00* Test Item Value Reference Range Interpretation Comments STAIN ACCEPTABILITY (test code = STN ACCEPTABLE) MORPHOLOGY COMMENT (test code = MOC) PLATELET ESTIMATE (test code = PLTEST) PLATELET MORPHOLOGY (test code = PLTMORPH) CBC W/AUTO [id number] 05:28:00* Test Item Value Reference Range Interpretation Comments WHITE BLOOD CELL (test code = WBC) 12.6 K/mm3 4.5-12.5 H RED BLOOD CELL (test code = RBC) 3.46 mill/mm3 3.7-5.2 L HEMOGLOBIN (test code = HGB) 8.2 gram/dL 11.5-15.5 L HEMATOCRIT (test code = HCT) 28.4 % 36.0-46.0 L MEAN CELL VOLUME (test code = MCV) 82.1 fL 80-98 N MEAN CELL HGB (test code = MCH) 23.7 picogram 27.0-33.0 L MEAN CELL HGB CONCETRATION (test code = MCHC) 28.9 gram/dL 33.0-36. 0 L RED CELL DISTRIBUTION WIDTH (test code = RDW) 15.9 % 11.6-16. 2 N RED CELL DISTRIBUTION WIDTH SD (test code = RDW-SD) 47.4 fL 37 .0-51.0 N PLATELET COUNT (test code = PLT) 356 K/mm3 150-450 N MEAN PLATELET VOLUME (test code = MPV) 8.7 fL 6.7-11.0 N NEUTROPHIL % (test code = NT%) 64.5 % 39.0-69.0 N IMMATURE GRANULOCYTE % (test code = IG%) 1.3 % 0.0-5.0 N LYMPHOCYTE % (test code = LY%) 16.9 % 25.0-55.0 L MONOCYTE % (test code = MO%) 8.1 % 0.0-10.0 N EOSINOPHIL % (test code = EO%) 8.7 % 0.0-5.0 H BASOPHIL % (test code = BA%) 0.5 % 0.0-1.0 N NUCLEATED RBC % (test code = NRBC%) 0.0 % 0-0 N NEUTROPHIL # (test code = NT#) 8.13 K/mm3 1.8-7.7 H IMMATURE GRANULOCYTE # (test code = IG#) 0.16 x10 3/uL 0-0.03 H LYMPHOCYTE # (test code = LY#) 2.13 K/mm3 1.0-5.0 N MONOCYTE # (test code = MO#) 1.02 K/mm3 0-0.8 H EOSINOPHIL # (test code = EO#) 1.10 K/mm3 0.0-0.5 H BASOPHIL # (test code = BA#) 0.06 K/mm3 0.0-0.2 N NUCLEATED RBC # (test code = NRBC#) 0.00 K/mm3 0.0-0.1 N MANUAL DIFF REQUIRED (test code = MDIFF) NO, ONLY SCAN NEEDED DIFFERENTIAL [id number] 05:28:00* Test Item Value Reference Range Interpretation Comments STAIN ACCEPTABILITY (test code = STN ACCEPTABLE) CABOT RINGS (test code = CAB) MORPHOLOGY COMMENT (test code = MOC) PLATELET ESTIMATE (test code = PLTEST) PLATELET MORPHOLOGY (test code = PLTMORPH) [id number] 04:56:00* Test Item Value Reference Range Interpretation Comments GLUBED (test code = GLUBED) 85 mg/dL 74-106 N Performed by certified rubber covering machine operator at [facility] [id number] 00:36:00* Test Item Value Reference Range Interpretation Comments GLUBED (test code = GLUBED) 188 mg/dL 74-106 H Performed by certified rubber covering machine operator at [facility] [id number] 21:17:00* Test Item Value Reference Range Interpretation Comments GLUBED (test code = GLUBED) 163 mg/dL 74-106 H Performed by certified rubber covering machine operator at [facility] [id number] 15:48:00* Test Item Value Reference Range Interpretation Comments GLUBED (test code = GLUBED) 174 mg/dL 74-106 H Performed by certified rubber covering machine operator at [facility] VANCOMYCIN [id number] 15:12:00* Test Item Value Reference Range Interpretation Comments VANCOMYCIN TROUGH (test code = VANCT) 20.2 ug/mL 10-20 H CBC W/AUTO [id number] 14:43:00* Test Item Value Reference Range Interpretation Comments WHITE BLOOD CELL (test code = WBC) 15.6 K/mm3 4.5-12.5 H RED BLOOD CELL (test code = RBC) 3.60 mill/mm3 3.7-5.2 L HEMOGLOBIN (test code = HGB) 8.8 gram/dL 11.5-15.5 L HEMATOCRIT (test code = HCT) 29.1 % 36.0-46.0 L MEAN CELL VOLUME (test code = MCV) 80.8 fL 80-98 N MEAN CELL HGB (test code = MCH) 24.4 picogram 27.0-33.0 L MEAN CELL HGB CONCETRATION (test code = MCHC) 30.2 gram/dL 33.0-36. 0 L RED CELL DISTRIBUTION WIDTH (test code = RDW) 16.0 % 11.6-16. 2 N RED CELL DISTRIBUTION WIDTH SD (test code = RDW-SD) 47.1 fL 37 .0-51.0 N PLATELET COUNT (test code = PLT) 376 K/mm3 150-450 N MEAN PLATELET VOLUME (test code = MPV) 8.7 fL 6.7-11.0 N NEUTROPHIL % (test code = NT%) 67.9 % 39.0-69.0 N IMMATURE GRANULOCYTE % (test code = IG%) 1.3 % 0.0-5.0 N LYMPHOCYTE % (test code = LY%) 14.5 % 25.0-55.0 L MONOCYTE % (test code = MO%) 6.8 % 0.0-10.0 N EOSINOPHIL % (test code = EO%) 8.9 % 0.0-5.0 H BASOPHIL % (test code = BA%) 0.6 % 0.0-1.0 N NUCLEATED RBC % (test code = NRBC%) 0.0 % 0-0 N NEUTROPHIL # (test code = NT#) 10.56 K/mm3 1.8-7.7 H IMMATURE GRANULOCYTE # (test code = IG#) 0.20 x10 3/uL 0-0.03 H LYMPHOCYTE # (test code = LY#) 2.26 K/mm3 1.0-5.0 N MONOCYTE # (test code = MO#) 1.05 K/mm3 0-0.8 H EOSINOPHIL # (test code = EO#) 1.38 K/mm3 0.0-0.5 H BASOPHIL # (test code = BA#) 0.10 K/mm3 0.0-0.2 N NUCLEATED RBC # (test code = NRBC#) 0.00 K/mm3 0.0-0.1 N [id number] 07:36:00* Test Item Value Reference Range Interpretation Comments GLUBED (test code = GLUBED) 124 mg/dL 74-106 H Performed by certified rubber covering machine operator at [facility] FE W/TOTAL IRON BINDING CAP.2018-08-16 06:09:00* Test Item Value Reference Range Interpretation Comments SERUM IRON (test code = IRON) 41 ug/dL 50-175 L TOTAL IRON BINDING CAPACITY (test code = TIBC) 179 mcg/dL 250-450 L IRON SATURATION (test code = FESAT) 22.91 % 13-45 N [id number] 06:09:00* Test Item Value Reference Range Interpretation Comments FERRITIN (test code = MONIK) 113 ng/mL 8-388 N [id number] 00:38:00* Test Item Value Reference Range Interpretation Comments GLUBED (test code = GLUBED) 136 mg/dL 74-106 H Performed by certified rubber covering machine operator at [facility] BASIC METABOLIC [id number] 21:21:00* Test Item Value Reference Range Interpretation Comments SODIUM (test code = NA) 140 mmol/L 136-145 N POTASSIUM (test code = K) 5.7 mmol/L 3.5-5.1 H CHLORIDE (test code = CL) 115.0 mmol/L 98-107 H CARBON DIOXIDE (test code = CO2) 19.0 mmol/L 21-32 L ANION GAP (test code = GAP) 11.7 10-20 N GLUCOSE (test code = GLU) 162 mg/dL 74-106 H BLOOD UREA NITROGEN (test code = BUN) 66 mg/dL 7-18 H GLOMERULAR FILTRATION RATE (test code = GFR) 14 mL/min >=60 Estimated GFR by using Modified MDRD formula.Chronic kidney disease is defined as either kidney damageor GFR <60 mL/min/1.73 m2 for >3 months. CREATININE (test code = CREAT) 3.40 mg/dL 0.55-1.02 H Note change in reference range due to change in reagent. BUN/CREATININE RATIO (test code = BUN/CREA) 19.7 10-20 N CALCIUM (test code = CA) 7.9 mg/dL 8.5-10.1 L 08/15/18 1105BASIC METABOLIC [id number] 21:18:00* Test Item Value Reference Range Interpretation Comments SODIUM (test code = NA) 140 mmol/L 136-145 N POTASSIUM (test code = K) 5.7 mmol/L 3.5-5.1 H CHLORIDE (test code = CL) 115.0 mmol/L 98-107 H CARBON DIOXIDE (test code = CO2) mmol/L 21-32 ANION GAP (test code = GAP) 10-20 GLUCOSE (test code = GLU) mg/dL 74-106 BLOOD UREA NITROGEN (test code = BUN) mg/dL 7-18 GLOMERULAR FILTRATION RATE (test code = GFR) mL/min >=60 CREATININE (test code = CREAT) mg/dL 0.55-1.02 BUN/CREATININE RATIO (test code = BUN/CREA) 10-20 CALCIUM (test code = CA) mg/dL 8.5-10.1 08/15/18 1105CBC W/AUTO [id number] 21:09:00* Test Item Value Reference Range Interpretation Comments WHITE BLOOD CELL (test code = WBC) 15.1 K/mm3 4.5-12.5 H RED BLOOD CELL (test code = RBC) 3.12 mill/mm3 3.7-5.2 L HEMOGLOBIN (test code = HGB) 7.6 gram/dL 11.5-15.5 L RESULT VERIFIED BY REPEAT ANALYSIS HEMATOCRIT (test code = HCT) 25.2 % 36.0-46.0 L MEAN CELL VOLUME (test code = MCV) 80.8 fL 80-98 N MEAN CELL HGB (test code = MCH) 24.4 picogram 27.0-33.0 L MEAN CELL HGB CONCETRATION (test code = MCHC) 30.2 gram/dL 33.0-36. 0 L RED CELL DISTRIBUTION WIDTH (test code = RDW) 15.9 % 11.6-16. 2 N RED CELL DISTRIBUTION WIDTH SD (test code = RDW-SD) 47.5 fL 37 .0-51.0 N PLATELET COUNT (test code = PLT) 342 K/mm3 150-450 RESULT VERIFIED BY REPEAT ANALYSIS MEAN PLATELET VOLUME (test code = MPV) 8.6 fL 6.7-11.0 N NEUTROPHIL % (test code = NT%) 71.3 % 39.0-69.0 H IMMATURE GRANULOCYTE % (test code = IG%) 0.7 % 0.0-5.0 N LYMPHOCYTE % (test code = LY%) 12.3 % 25.0-55.0 L MONOCYTE % (test code = MO%) 7.6 % 0.0-10.0 N EOSINOPHIL % (test code = EO%) 7.6 % 0.0-5.0 H BASOPHIL % (test code = BA%) 0.5 % 0.0-1.0 N NUCLEATED RBC % (test code = NRBC%) 0.0 % 0-0 N NEUTROPHIL # (test code = NT#) 10.72 K/mm3 1.8-7.7 H IMMATURE GRANULOCYTE # (test code = IG#) 0.11 x10 3/uL 0-0.03 H LYMPHOCYTE # (test code = LY#) 1.86 K/mm3 1.0-5.0 N MONOCYTE # (test code = MO#) 1.15 K/mm3 0-0.8 H EOSINOPHIL # (test code = EO#) 1.15 K/mm3 0.0-0.5 H BASOPHIL # (test code = BA#) 0.08 K/mm3 0.0-0.2 N NUCLEATED RBC # (test code = NRBC#) 0.00 K/mm3 0.0-0.1 N 1 08/15/18 [id number] 20:41:00* Test Item Value Reference Range Interpretation Comments GLUBED (test code = GLUBED) 155 mg/dL 74-106 H Performed by certified rubber covering machine operator at [facility] [id number] 16:02:00* Test Item Value Reference Range Interpretation Comments GLUBED (test code = GLUBED) 125 mg/dL 74-106 H Performed by certified rubber covering machine operator at [facility] [id number] 13:30:00* Test Item Value Reference Range Interpretation Comments GLUBED (test code = GLUBED) 175 mg/dL 74-106 H Performed by certified rubber covering machine operator at [facility] [id number] 08:19:00* Test Item Value Reference Range Interpretation Comments GLUBED (test code = GLUBED) 141 mg/dL 74-106 H Performed by certified rubber covering machine operator at [facility] [id number] 05:14:00* Test Item Value Reference Range Interpretation Comments GLUBED (test code = GLUBED) 106 mg/dL 74-106 N Performed by certified rubber covering machine operator at [facility] DRUGS OF ABUSE SCREEN [id number] 04:55:00* Test Item Value Reference Range Interpretation Comments UA PH DIPSTICK (test code = TIMI) 6.0 5.0-8.0 URN COCAINE (test code = COCAURN) NEGATIVE <300 ng/mL URN CANNABINOIDS (test code = CANNABURN) NEGATIVE <50 ng/mL URN AMPHETAMINE (test code = AMPHETURN) NEGATIVE <1000 ng/mL URN BARBITURATE (test code = BARBITURN) NEGATIVE <200 ng/mL URN BENZODIAZEPINE (test code = BENZOURN) NEGATIVE <200 ng/mL URN OPIATES (test code = OPIATURN) NEGATIVE <300 ng/mL URN PHENCYCLIDINE (PCP) (test code = PHENCURN) NEGATIVE <25 ng/ mL URN METHADONE (test code = METHAURN) NEGATIVE <300 ng/mL DRUGS OF ABUSE SCREEN [id number] 04:40:00* Test Item Value Reference Range Interpretation Comments UA PH DIPSTICK (test code = TIMI) 5.0-8.0 URN COCAINE (test code = COCAURN) NEGATIVE <300 ng/mL URN CANNABINOIDS (test code = CANNABURN) NEGATIVE <50 ng/mL URN AMPHETAMINE (test code = AMPHETURN) NEGATIVE <1000 ng/mL URN BARBITURATE (test code = BARBITURN) NEGATIVE <200 ng/mL URN BENZODIAZEPINE (test code = BENZOURN) NEGATIVE <200 ng/mL URN OPIATES (test code = OPIATURN) NEGATIVE <300 ng/mL URN PHENCYCLIDINE (PCP) (test code = PHENCURN) NEGATIVE <25 ng/ mL URN METHADONE (test code = METHAURN) NEGATIVE <300 ng/mL URINALYSIS [id number] 03:54:00* Test Item Value Reference Range Interpretation Comments UA COLOR (test code = COLU) LIGHT YELLOW YELLOW UA APPEARANCE (test code = APPU) SLIGHTLY CLOUDY CLEAR A UA GLUCOSE DIPSTICK (test code = DGLUU) 50 (Trace) mg/dL NEGATIVE A UA BILIRUBIN DIPSTICK (test code = BILU) NEGATIVE mg/dL NEGATIVE UA KETONE DIPSTICK (test code = KETU) Negative mg/dL NEGATIVE UA SPECIFIC GRAVITY (test code = SGU) 1.014 1.001-1.035 UA BLOOD DIPSTICK (test code = LIZZ) 2+ (Moderate) NEGATIVE A UA PH DIPSTICK (test code = TIMI) 5.0 5.0-8.0 UA PROTEIN DIPSTICK (test code = PROU) 100 (2+) mg/dL NEGATIVE A UA UROBILINIOGEN DIPSTICK (test code = URO) NEGATIVE mg/dL NEGATIVE UA NITRITE DIPSTICK (test code = HEMAL) NEGATIVE NEGATIVE UA LEUKOCYTE ESTERASE W REFLEX (test code = LEUUR) 1+ NEG ATIVE A UA WBC (test code = WBCU) 21-50 #/HPF 0-5 A UA RBC (test code = RBCU) >20 #/HPF 0-5 A UA EPITHELIAL CELLS (test code = EPIU) FEW per HPF FEW UA BACTERIA (test code = BACU) FEW #/HPF NONE A UA HYALINE CAST (test code = HYALU) 0-2 #/LPF 0-5 UA MUCUS (test code = MUCU) FEW #/LPF FEW Urine Source? Clean CatchBASIC METABOLIC [id number] 03:31:00* Test Item Value Reference Range Interpretation Comments SODIUM (test code = NA) 137 mmol/L 136-145 N POTASSIUM (test code = K) 5.3 mmol/L 3.5-5.1 H CHLORIDE (test code = CL) 110.0 mmol/L 98-107 H CARBON DIOXIDE (test code = CO2) 18.0 mmol/L 21-32 L ANION GAP (test code = GAP) 14.3 10-20 N GLUCOSE (test code = GLU) 123 mg/dL 74-106 H BLOOD UREA NITROGEN (test code = BUN) 68 mg/dL 7-18 H GLOMERULAR FILTRATION RATE (test code = GFR) 17 mL/min >=60 Estimated GFR by using Modified MDRD formula.Chronic kidney disease is defined as either kidney damageor GFR <60 mL/min/1.73 m2 for >3 months. CREATININE (test code = CREAT) 3.00 mg/dL 0.55-1.02 H Note change in reference range due to change in reagent. BUN/CREATININE RATIO (test code = BUN/CREA) 22.7 10-20 H CALCIUM (test code = CA) 8.7 mg/dL 8.5-10.1 N HEPATIC FUNCTION [id number] 03:31:00* Test Item Value Reference Range Interpretation Comments TOTAL PROTEIN (test code = PROT) 8.7 gram/dL 6.4-8.2 H ALBUMIN (test code = ALB) 2.2 g/dL 3.4-5.0 L GLOBULIN (test code = GLOB) 6.5 gram/dL 2.7-4.2 H ALBUMIN/GLOBULIN RATIO (test code = A/G) 0.3 0.75-1.50 L BILIRUBIN TOTAL (test code = BILT) 0.60 mg/dL 0.0-1.0 N BILIRUBIN DIRECT (test code = BILD) 0.07 mg/dL 0.0-0.20 N SGOT/AST (test code = AST) 11 IUnit/L 15-37 L SGPT/ALT (test code = ALT) 17 IUnit/L 12-78 N ALKALINE PHOSPHATASE TOTAL (test code = ALKP) 148 IUnit/L 45-117 H Note change in reference range due to change in reagent. HCG SERUM [id number] 03:31:00* Test Item Value Reference Range Interpretation Comments HCG SERUM QUAL (test code = HCGQL) NEGATIVE NEGATIVE This HCGQL test is NOT applicable for MALE patients.Check with nurse about probable order error.If Tumor Marker Test needed, nurse should order test "HCGTU"(Test #550.19772) [id number] 03:31:00* Test Item Value Reference Range Interpretation Comments TROPONIN-I (test code = TROPI) <0.015 ng/mL 0-0.045 N BASIC METABOLIC [id number] 03:17:00* Test Item Value Reference Range Interpretation Comments SODIUM (test code = NA) 137 mmol/L 136-145 N POTASSIUM (test code = K) 5.3 mmol/L 3.5-5.1 H CHLORIDE (test code = CL) 110.0 mmol/L 98-107 H CARBON DIOXIDE (test code = CO2) 18.0 mmol/L 21-32 L ANION GAP (test code = GAP) 14.3 10-20 N GLUCOSE (test code = GLU) 123 mg/dL 74-106 H BLOOD UREA NITROGEN (test code = BUN) 68 mg/dL 7-18 H GLOMERULAR FILTRATION RATE (test code = GFR) 17 mL/min >=60 Estimated GFR by using Modified MDRD formula.Chronic kidney disease is defined as either kidney damageor GFR <60 mL/min/1.73 m2 for >3 months. CREATININE (test code = CREAT) 3.00 mg/dL 0.55-1.02 H Note change in reference range due to change in reagent. BUN/CREATININE RATIO (test code = BUN/CREA) 22.7 10-20 H CALCIUM (test code = CA) 8.7 mg/dL 8.5-10.1 N HEPATIC FUNCTION [id number] 03:17:00* Test Item Value Reference Range Interpretation Comments TOTAL PROTEIN (test code = PROT) 8.7 gram/dL 6.4-8.2 H ALBUMIN (test code = ALB) 2.2 g/dL 3.4-5.0 L GLOBULIN (test code = GLOB) 6.5 gram/dL 2.7-4.2 H ALBUMIN/GLOBULIN RATIO (test code = A/G) 0.3 0.75-1.50 L BILIRUBIN TOTAL (test code = BILT) 0.60 mg/dL 0.0-1.0 N BILIRUBIN DIRECT (test code = BILD) 0.07 mg/dL 0.0-0.20 N SGOT/AST (test code = AST) 11 IUnit/L 15-37 L SGPT/ALT (test code = ALT) 17 IUnit/L 12-78 N ALKALINE PHOSPHATASE TOTAL (test code = ALKP) 148 IUnit/L 45-117 H Note change in reference range due to change in reagent. HCG SERUM [id number] 03:17:00* Test Item Value Reference Range Interpretation Comments HCG SERUM QUAL (test code = HCGQL) NEGATIVE [id number] 03:17:00* Test Item Value Reference Range Interpretation Comments TROPONIN-I (test code = TROPI) <0.015 ng/mL 0-0.045 N PROCALCITONIN (PCT)2018-08-15 02:36:00* Test Item Value Reference Range Interpretation Comments PROCALCITONIN (PCT) (test code = PROCAL) 0.13 ng/ml Concentration Interpretation (ng/mL) <0.51 Sepsis is not likely. Local bacterial infection is possible. (LOW RISK for progression to Sepsis) 0.51 - 2.00 Sepsis is possible, but other conditions are known to elevate PCT as well. (MODERATE RISK for progression to Sepsis) > 2.00 Sepsis is likely, unless other causes are known. (HIGH RISK for progression to Severe Sepsis or Septic Shock) 10.00 High likelihood of Severe Sepsis or Septic or higher Shock. *Increased PCT levels may not always be related to systemic bacterial infection.*Low PCT levels do not automatically exclude the presence of bacterial infection.*All results should be interpreted taking into account the patients history. [id number] 02:22:00* Test Item Value Reference Range Interpretation Comments GLYCOSYLATED HEMOGLOBIN (HA1C) (test code = GLYHGB) 6.7 % HbA1 4. 8-6.0 H ESTIMATED AVERAGE GLUCOSE (test code = EAG) 146 MG/DL LIPID PROFILE (CORONARY RISK)2018-08-15 02:17:00* Test Item Value Reference Range Interpretation Comments TRIGLYCERIDES (test code = TRIG) 130 mg/dL 20-150 N CHOLESTEROL (test code = CHOL) 132 mg/dL 0-200 N CHOLESTEROL/HDL RATIO (test code = CHOLHDL) 4.0 RATIO 0-4.9 N RISK ASSOCIATED WITH CHOL/HDL RATIOS: Risk Male Female1/2 AVERAGE 3.43 3.27AVERAGE 4.97 4.442X AVERAGE 9.55 7.053X AVERAGE 23.39 11.04 REFERENCE VALUE IS RELATED TO RISK LEVELS ASRECOMMENDED BY THE SHIN. HEART, LUNG, AND BLOOD INST. HDL CHOLESTEROL (test code = HDL) 29 mg/dL 40-60 L LIPOPROTEIN LDL (test code = LDL) 89 mg/dL 100-129 L Reference Interval: mg/dL mmol/L Optimal <100 <2.6Near/above optimal 100-129 2.6- 3.3Borderline High 130-159 3.4-4.1High 160-189 4.1-4.9Very High >=190 >=4.9========= This LDL result is a direct measurement.========= BASIC METABOLIC [id number] 02:13:00* Test Item Value Reference Range Interpretation Comments SODIUM (test code = NA) 137 mmol/L 136-145 N POTASSIUM (test code = K) 5.3 mmol/L 3.5-5.1 H CHLORIDE (test code = CL) 110.0 mmol/L 98-107 H CARBON DIOXIDE (test code = CO2) mmol/L 21-32 ANION GAP (test code = GAP) 10-20 GLUCOSE (test code = GLU) mg/dL 74-106 BLOOD UREA NITROGEN (test code = BUN) mg/dL 7-18 GLOMERULAR FILTRATION RATE (test code = GFR) mL/min >=60 CREATININE (test code = CREAT) mg/dL 0.55-1.02 BUN/CREATININE RATIO (test code = BUN/CREA) 10-20 CALCIUM (test code = CA) mg/dL 8.5-10.1 HEPATIC FUNCTION [id number] 02:13:00* Test Item Value Reference Range Interpretation Comments TOTAL PROTEIN (test code = PROT) gram/dL 6.4-8.2 ALBUMIN (test code = ALB) g/dL 3.4-5.0 GLOBULIN (test code = GLOB) gram/dL 2.7-4.2 ALBUMIN/GLOBULIN RATIO (test code = A/G) 0.75-1.50 BILIRUBIN TOTAL (test code = BILT) mg/dL 0.0-1.0 BILIRUBIN DIRECT (test code = BILD) mg/dL 0.0-0.20 SGOT/AST (test code = AST) IUnit/L 15-37 SGPT/ALT (test code = ALT) IUnit/L 12-78 ALKALINE PHOSPHATASE TOTAL (test code = ALKP) IUnit/L 45-117 HCG SERUM [id number] 02:13:00* Test Item Value Reference Range Interpretation Comments HCG SERUM QUAL (test code = HCGQL) NEGATIVE [id number] 02:13:00* Test Item Value Reference Range Interpretation Comments TROPONIN-I (test code = TROPI) ng/mL 0-0.045 LACTIC [id number] 02:13:00* Test Item Value Reference Range Interpretation Comments LACTIC ACID (test code = LACT) 0.5 mmol/L 0.4-1.9 N PROTHROMBIN [id number] 01:46:00* Test Item Value Reference Range Interpretation Comments PROTHROMBIN TIME PATIENT (test code = PTP) 12.0 seconds 9.0-14.0 N INTERNATIONAL NORMAL RATIO (test code = INR) 1.0 0.8-1.2 N The therapeutic range for oral anticoagulant therapy formost indications is an international normalized ratio (INR)of between 2.0 and 3.0. The recommended therapeutic INRrange for various clinical situations is listed below: Clinical Situation INR range Pulmonary e mbolism treatment (2.0-3.0)Venous thrombosis treatmentVenous thrombosis prophylaxis (high risk surgery)Prevention of systemic embolism from: Acute myocardial infarction Valvular heart disease Atrial fibrillation Mechanical prosthetic heart valves (2.5-3.5) IS PATIENT ON ANTICOAGULANTS? NCBC W/AUTO [id number] 01:21:00* Test Item Value Reference Range Interpretation Comments WHITE BLOOD CELL (test code = WBC) 15.8 K/mm3 4.5-12.5 H RED BLOOD CELL (test code = RBC) 3.99 mill/mm3 3.7-5.2 N HEMOGLOBIN (test code = HGB) 9.6 gram/dL 11.5-15.5 L HEMATOCRIT (test code = HCT) 31.8 % 36.0-46.0 L MEAN CELL VOLUME (test code = MCV) 79.7 fL 80-98 L MEAN CELL HGB (test code = MCH) 24.1 picogram 27.0-33.0 L MEAN CELL HGB CONCETRATION (test code = MCHC) 30.2 gram/dL 33.0-36. 0 L RED CELL DISTRIBUTION WIDTH (test code = RDW) 15.5 % 11.6-16. 2 N RED CELL DISTRIBUTION WIDTH SD (test code = RDW-SD) 45.1 fL 37 .0-51.0 N PLATELET COUNT (test code = PLT) 414 K/mm3 150-450 N MEAN PLATELET VOLUME (test code = MPV) 8.5 fL 6.7-11.0 N NEUTROPHIL % (test code = NT%) 78.1 % 39.0-69.0 H IMMATURE GRANULOCYTE % (test code = IG%) 1.0 % 0.0-5.0 N LYMPHOCYTE % (test code = LY%) 9.9 % 25.0-55.0 L MONOCYTE % (test code = MO%) 5.5 % 0.0-10.0 N EOSINOPHIL % (test code = EO%) 5.1 % 0.0-5.0 H BASOPHIL % (test code = BA%) 0.4 % 0.0-1.0 N NUCLEATED RBC % (test code = NRBC%) 0.0 % 0-0 N NEUTROPHIL # (test code = NT#) 12.35 K/mm3 1.8-7.7 H IMMATURE GRANULOCYTE # (test code = IG#) 0.16 x10 3/uL 0-0.03 H LYMPHOCYTE # (test code = LY#) 1.56 K/mm3 1.0-5.0 N MONOCYTE # (test code = MO#) 0.87 K/mm3 0-0.8 H EOSINOPHIL # (test code = EO#) 0.81 K/mm3 0.0-0.5 H BASOPHIL # (test code = BA#) 0.07 K/mm3 0.0-0.2 N NUCLEATED RBC # (test code = NRBC#) 0.00 K/mm3 0.0-0.1 N MANUAL DIFF REQUIRED (test code = MDIFF) NO Blood [id number] 16:14:00* Test Item Value Reference Range Interpretation Comments Blood Culture (test code = 37220381) NO GROWTH AFTER 5 DAYS, [facility] Mpdvywt6754-07-39 08:12:00* Test Item Value Reference Range Interpretation Comments B-Type Natriuretic Peptide (test code = 04630-2) 124.3 0-[address] [facility] [id number] 08:12:00* Test Item Value Reference Range Interpretation Comments B-Type Natriuretic Peptide (test code = 08325-4) 124.3 0-100 [facility] Mwwty6312[facility]18[facility]16 07:51:00* Test Item Value Reference Range Interpretation Comments Sodium Level (test code = 2951-2) 139 136-145 [facility] HospitalPotassium [id number] 07:51:00* Test Item Value Reference Range Interpretation Comments Potassium Level (test code = 2823-3) 5.2 3.5-5.[address] [facility] HospitalChloride Yqwqv2121-35-58 07:51:00* Test Item Value Reference Range Interpretation Comments Chloride Level (test code = 2075-0) 109 98-[address] [facility] HospitalCarbon Dioxide Txioi4435-90-68 07:51:00* Test Item Value Reference Range Interpretation Comments Carbon Dioxide Level (test code = 2028-9) 22 22-29 [facility] HospitalAnion [id number] 07:51:00* Test Item Value Reference Range Interpretation Comments Anion Gap (test code = 12956-7) 13.2 8-16 [facility] HospitalBlood Urea [id number] 07:51:00* Test Item Value Reference Range Interpretation Comments Blood Urea Nitrogen (test code = 3094-0) 53 7-[address] [facility] HospitalCreatinine2018-12-11 07:51:00* Test Item Value Reference Range Interpretation Comments Creatinine (test code = 2160-0) 3.22 0.57-1.[address] [facility] HospitalBUN/Creatinine Oldqb4731-48-70 07:51:00* Test Item Value Reference Range Interpretation Comments BUN/Creatinine Ratio (test code = 3097-3) 16 6-25 [facility] HospitalEstimat Glomerular Filtration Rate 2018-07-05 07:51:00* Test Item Value Reference Range Interpretation Comments Estimat Glomerular Filtration Rate (test code = 697035946) 15 >60 L Ranges were taken from the National Kidney Disease Education Program and the [facility] [employer] literature.Reference ranges:60 or greater: [place]37-88 ( for 3 consecutive months): Chronic kidney disease 15 or less: Kidney failureSt. Luke's Health – The Woodlands HospitalGlucose Wbkkv4563-47-91 07:51:00* Test Item Value Reference Range Interpretation Comments Glucose Level (test code = JRY3927) 99 74-118 [facility] HospitalCalcium Nlmao7614-23-95 07:51:00* Test Item Value Reference Range Interpretation Comments Calcium Level (test code = 15029-0) 8.6 8.4-10.2 [facility] HospitalWhite Blood Oyehj5075-47-95 07:36:00* Test Item Value Reference Range Interpretation Comments White Blood Count (test code = 6690-2) 12.26 4.8-10.[address] [facility] HospitalRed Blood Yjqdu4001-90-52 07:36:00* Test Item Value Reference Range Interpretation Comments Red Blood Count (test code = 789-8) 3.89 3.6-5.1 [facility] HospitalHemoglobin2018-12-11 07:36:00* Test Item Value Reference Range Interpretation Comments Hemoglobin (test code = 48173-3) 9.7 12.0-16.[address] [facility] HospitalHematocrit2018-12-11 07:36:00* Test Item Value Reference Range Interpretation Comments Hematocrit (test code = 4544-3) 31.2 34.2-44.[address] [facility] HospitalMean Corpuscular Mewmbg9927-29-41 07:36:00* Test Item Value Reference Range Interpretation Comments Mean Corpuscular Volume (test code = 787-2) 80.2 81-[address] [facility] HospitalMean Corpuscular Lyhcbrshgx9481-74-81 07:36:00* Test Item Value Reference Range Interpretation Comments Mean Corpuscular Hemoglobin (test code = 785-6) 24.9 28-[address] [facility] HospitalMean Corpuscular Hemoglobin Concent 2018-07-05 07:36:00* Test Item Value Reference Range Interpretation Comments Mean Corpuscular Hemoglobin Concent (test code = 786-4) 31.1 31-35 [facility] HospitalRed Cell Distribution Jedpb9174-21-92 07:36:00* Test Item Value Reference Range Interpretation Comments Red Cell Distribution Width (test code = 83268-3) 15.4 11.7 -14.[address] [facility] HospitalPlatelet Vxppy4603-31-73 07:36:00* Test Item Value Reference Range Interpretation Comments Platelet Count (test code = 777-3) 331 140-360 [facility] HospitalNeutrophils (%) (Auto)2018-07-05 07:36:00 * Test Item Value Reference Range Interpretation Comments Neutrophils (%) (Auto) (test code = 29516-8) 68.6 38.7-80.0 [facility] HospitalLymphocytes (%) (Auto)2018-07-05 07:36:00 * Test Item Value Reference Range Interpretation Comments Lymphocytes (%) (Auto) (test code = 736-9) 15.1 18.0-39.[address] [facility] HospitalMonocytes (%) (Auto)2018-07-05 07:36:00* Test Item Value Reference Range Interpretation Comments Monocytes (%) (Auto) (test code = 5905-5) 7.7 4.4-11.3 [facility] HospitalEosinophils (%) (Auto)2018-07-05 07:36:00 * Test Item Value Reference Range Interpretation Comments Eosinophils (%) (Auto) (test code = 713-8) 7.4 0.0-6.[address] [facility] HospitalBasophils (%) (Auto)2018-07-05 07:36:00* Test Item Value Reference Range Interpretation Comments Basophils (%) (Auto) (test code = 706-2) 0.7 0.0-1.0 [facility] HospitalIM GRANULOCYTES %2018-07-05 07:36:00* Test Item Value Reference Range Interpretation Comments IM GRANULOCYTES % (test code = IM GRANULOCYTES %) 0.5 0.0- 1.0 [facility] HospitalNeutrophils # (Auto)2018-07-05 07:36:00* Test Item Value Reference Range Interpretation Comments Neutrophils # (Auto) (test code = 751-8) 8.4 2.1-6.[address] [facility] HospitalLymphocytes # (Auto)2018-07-05 07:36:00* Test Item Value Reference Range Interpretation Comments Lymphocytes # (Auto) (test code = 59881-2) 1.9 1.0-3.2 [facility] HospitalMonocytes # (Auto)2018-07-05 07:36:00* Test Item Value Reference Range Interpretation Comments Monocytes # (Auto) (test code = 742-7) 0.9 0.2-0.[address] [facility] HospitalEosinophils # (Auto)2018-07-05 07:36:00* Test Item Value Reference Range Interpretation Comments Eosinophils # (Auto) (test code = 711-2) 0.9 0.0-0.[address] [facility] HospitalBasophils # (Auto)2018-07-05 07:36:00* Test Item Value Reference Range Interpretation Comments Basophils # (Auto) (test code = 704-7) 0.1 0.0-0.1 [facility] HospitalAbsolute Immature Granulocyte (auto 2018-07-05 07:36:00* Test Item Value Reference Range Interpretation Comments Absolute Immature Granulocyte (auto (lawrence t code = Absolute Immature Granulocyte (auto) 0.06 0-0.1 [facility] HospitalBedside Ihfzvfv7503-03-58 07:32:00* Test Item Value Reference Range Interpretation Comments Bedside Glucose (test code = 77615-6) 100 70-120 Meter ID: [id number]. [facility] HospitalBedside Glucose 2018-07-05 07:32:00* Test Item Value Reference Range Interpretation Comments Bedside Glucose (test code = 74316-7) 100 70-120 Meter ID: [id number]. [facility] HospitalBlood Culture 2018-07-04 16:14:00* Test Item Value Reference Range Interpretation Comments Blood Culture (test code = 11131538) NO GROWTH AFTER [address] [facility] HospitalVitamin B12 Ixjfv5801-51-62 05:40:00* Test Item Value Reference Range Interpretation Comments Vitamin B12 Level (test code = 70509-8) 309 213-816 [facility] HospitalFolate2018-12-10 05:40:00* Test Item Value Reference Range Interpretation Comments Folate (test code = 2284-8) 4.5 7.0-15.[address] [facility] HospitalVitamin B12 Aexml4360-84-76 05:40:00* Test Item Value Reference Range Interpretation Comments Vitamin B12 Level (test code = 35004-9) 309 213-816 [facility] HospitalFolate2018-12-10 05:40:00* Test Item Value Reference Range Interpretation Comments Folate (test code = 2284-8) 4.5 7.0-15.[address] [facility] HospitalTriglycerides Xaftr7323-92-72 05:33:00* Test Item Value Reference Range Interpretation Comments Triglycerides Level (test code = 2571-8) 102 0-149 [facility] HospitalCholesterol Mkiqr8107-94-51 05:33:00* Test Item Value Reference Range Interpretation Comments Cholesterol Level (test code = 2093-3) 154 0-199 Less than 200 mg/dL Low Jhlu395 - 239 mg/dL Borderline Tguy296 m g/dl and greater High Risk [facility] HospitalLDL Nixfwicsaqy4633-51-61 05:33:00* Test Item Value Reference Range Interpretation Comments LDL Cholesterol (test code = 2089-1) 94 60-130 [facility] Tdkhiyjezvp2745-58-15 05:33:00* Test Item Value Reference Range Interpretation Comments HDL Cholesterol (test code = 2085-9) 40 40-60 [facility] HospitalCholesterol/HDL Xdbxt6783-43-53 05:33:00 * Test Item Value Reference Range Interpretation Comments Cholesterol/HDL Ratio (test code = 9830-1) 3.9 3.0-3.[address] [facility] HospitalTriglycerides Yrciq7758-01-42 05:33:00* Test Item Value Reference Range Interpretation Comments Triglycerides Level (test code = 2571-8) 102 0-149 [facility] HospitalCholesterol Ujaok7658-28-80 05:33:00* Test Item Value Reference Range Interpretation Comments Cholesterol Level (test code = 2093-3) 154 0-199 Less than 200 mg/dL Low Nyeb438 - 239 mg/dL Borderline Bobk821 m g/dl and greater High Risk [facility] HospitalLDL Zldbjlgmyjs3062-89-48 05:33:00* Test Item Value Reference Range Interpretation Comments LDL Cholesterol (test code = 2089-1) 94 60-130 [facility] Gewmxtasswv6342-86-60 05:33:00* Test Item Value Reference Range Interpretation Comments HDL Cholesterol (test code = 2085-9) 40 40-60 [facility] HospitalCholesterol/HDL Gqnuh4278-66-53 05:33:00 * Test Item Value Reference Range Interpretation Comments Cholesterol/HDL Ratio (test code = 9830-1) 3.9 3.0-3.6 [facility] Ppqtv5124-66-91 05:02:00* Test Item Value Reference Range Interpretation Comments Stool Occult Blood (test code = 2335-8) NEGATIVE NEGATIVE [facility]ult Vlgbf9578-95-32 05:02:00* Test Item Value Reference Range Interpretation Comments Stool Occult Blood (test code = 2335-8) NEGATIVE NEGATIVE [facility] HospitalFerritin2018-12-10 04:59:00* Test Item Value Reference Range Interpretation Comments Ferritin (test code = 2276-4) 45.91 4.63-204.00 [facility] HospitalFerritin2018-12-10 04:59:00* Test Item Value Reference Range Interpretation Comments Ferritin (test code = 2276-4) 45.91 4.63-204.00 [facility] HospitalHemoglobin A1c Onpuhkz7674-98-28 04:58:00 * Test Item Value Reference Range Interpretation Comments Hemoglobin A1c Percent (test code = Hemoglobin A1c Percent) 8.7 4.0-7.0 [facility] Wbgsr7597-09-83 04:58:00* Test Item Value Reference Range Interpretation Comments Magnesium Level (test code = 35290-5) 1.8 1.3-2.1 [facility] Cxaxt4866-61-26 04:58:00* Test Item Value Reference Range Interpretation Comments Iron Level (test code = 2498-4) 18 50-[address] [facility] HospitalTotal Iron Binding Ozfweyog8411-98-90 04:58:00* Test Item Value Reference Range Interpretation Comments Total Iron Binding Capacity (test code = 2500-7) 232 261-[address] [facility] HospitalPercent Iron Zfvnjmzfwx6449-45-94 04:58:00* Test Item Value Reference Range Interpretation Comments Percent Iron Saturation (test code = 2502-3) 8 15-[address] [facility] HospitalTransferrin2018-12-10 04:58:00* Test Item Value Reference Range Interpretation Comments Transferrin (test code = 3034-6) 166 180-[address] [facility] HospitalHemoglobin A1c Utcofte7858-87-51 04:58:00 * Test Item Value Reference Range Interpretation Comments Hemoglobin A1c Percent (test code = Hemoglobin A1c Percent) 8.7 4.0-7.0 H [facility] Zevrc9615-54-63 04:58:00* Test Item Value Reference Range Interpretation Comments Magnesium Level (test code = 50999-7) 1.8 1.3-2.1 [facility] Whoye7074-71-52 04:58:00* Test Item Value Reference Range Interpretation Comments Iron Level (test code = 2498-4) 18 50-[address] [facility] HospitalTotal Iron Binding Dtnairyx0668-92-76 04:58:00* Test Item Value Reference Range Interpretation Comments Total Iron Binding Capacity (test code = 2500-7) 232 261-[address] [facility] HospitalPercent Iron Jhxpekxjxj6432-51-91 04:58:00* Test Item Value Reference Range Interpretation Comments Percent Iron Saturation (test code = 2502-3) 8 15-[address] [facility] HospitalTransferrin2018-12-10 04:58:00* Test Item Value Reference Range Interpretation Comments Transferrin (test code = 3034-6) 166 180-[address] [facility] HospitalCreatine Kinase UP2864-29-46 16:52:00* Test Item Value Reference Range Interpretation Comments Creatine Kinase MB (test code = 44595-5) 0.80 0-5.0 [facility] HospitalTroponin N0132-16-07 16:52:00* Test Item Value Reference Range Interpretation Comments Troponin I (test code = PBE4719) 0.002 0-0.300 [facility] HospitalCreatine Tpsczn9606-73-83 16:51:00* Test Item Value Reference Range Interpretation Comments Creatine Kinase (test code = 2157-6) 34 29-168 [facility] HospitalInfluenza Virus Types A,B Antigen 2018-07-03 12:19:00* Test Item Value Reference Range Interpretation Comments Influenza Virus Types A,B Antigen (test code = 68758-8) NEGATIVE NEGATIVE [facility] HospitalInfluenza Virus Types A,B Antigen 2018-07-03 12:19:00* Test Item Value Reference Range Interpretation Comments Influenza Virus Types A,B Antigen (test code = 97274-2) NEGATIVE NEGATIVE [facility] HospitalCT BRAIN PD8577-96-48 12:18:00 [place] [address] Patient Name: MERLY MORGAN MR #: [id number] : 1970 Age/Sex: 48/F Req #: [id number] Adm Physician: BENNY BARRIOS MD Ordered by: Sujatha Cummings NP Report #: [id number] Location: MED/SURG Room/Bed: [facility] Procedure: [id number] CT/CT BRAIN WO Exam Date: Exam Time: REPORT STATUS: Signed Exam: Head CT without c ontrast History:A 48-year-old female with headache and hypertension. Compar ana: None Technique: Axial images were obtained from the skull base to t he vertex. Coronal and sagittal images reconstructed from the axial data. Do se modulation, iterative reconstruction, and/or weight based adjustment of th e mA/kV was utilized to reduce the radiation dose to as low as reasonably ach ievable. Intravenous contrast: None Findings: Scalp/skull: No abnormalities. Extra-axial spaces: No masses. No fluid collections. Brain sulci: Adequate for age Ventricles: Normal in size and configuration. No hydrocephalus. Parenchyma: Subtle hypodensities in the supratentorial white matter are small vessel ischemic changes. No masses, hemorrhage, acute or chronic cortical vascular insults. Sellar/suprasellar region: Partially empty sella. Craniocervical junction: Patent foramen magnum. No Chiari one malformation. Impression: No acute abnormalities. Chronic finding s: Mild nonspecific supratentorial white matter small vessel ischemic changes. Nonenlarged partially empty sella A preliminary report was provided by Vini Regan on 07/03/2018 12:22 PM. Signed by: Dr. Emely Grove M.D. on 07/03/2018 1:42 PM Dictated By: EMELY GROVE MD, MD 1342 Transcribed By: AILYN on 07/03/18 1342 COPY TO: [facility] Urine Kvhqd6476-77-02 10:30:00* Test Item Value Reference Range Interpretation Comments Urine Color (test code = 5778-6) YELLOW YELLOW [facility] HospitalUrine Dldfxny0808-28-22 10:30:00* Test Item Value Reference Range Interpretation Comments Urine Clarity (test code = 70615-3) HAZY CLEAR [facility] HospitalUrine Specific Tmajorx8065-19-77 10:30:00 * Test Item Value Reference Range Interpretation Comments Urine Specific Matthews (test code = 5811-5) 1.020 1.010-1.[address] [facility] HospitalUrine wY4408-78-84 10:30:00* Test Item Value Reference Range Interpretation Comments Urine pH (test code = 78199-7) 6.5 5-7 [facility] HospitalUrine Leukocyte Vlhfxggm0039-98-18 10:30:00* Test Item Value Reference Range Interpretation Comments Urine Leukocyte Esterase (test code = 5799-2) TRACE NEGATIVE H [facility] HospitalUrine Ehxfaho9380-95-01 10:30:00* Test Item Value Reference Range Interpretation Comments Urine Nitrite (test code = 26679-3) NEGATIVE NEGATIVE [facility] HospitalUrine Ktgsfav9214-58-97 10:30:00* Test Item Value Reference Range Interpretation Comments Urine Protein (test code = 5804-0) 3+ NEGATIVE H [facility] HospitalUrine Glucose (UA)2018-07-03 10:30:00* Test Item Value Reference Range Interpretation Comments Urine Glucose (UA) (test code = 2349-9) 2+ NEGATIVE H [facility] HospitalUrine Qnqngrx5460-04-82 10:30:00* Test Item Value Reference Range Interpretation Comments Urine Ketones (test code = 49113-5) NEGATIVE NEGATIVE [facility] HospitalUrine Mhljhqleygiu0673-94-15 10:30:00* Test Item Value Reference Range Interpretation Comments Urine Urobilinogen (test code = 03159-1) 0.2 0.2-1 [facility] HospitalUrine Qunrwekcs1072-53-56 10:30:00* Test Item Value Reference Range Interpretation Comments Urine Bilirubin (test code = 1978-6) NEGATIVE NEGATIVE [facility] Ttjcv4893-49-49 10:30:00* Test Item Value Reference Range Interpretation Comments Urine Blood (test code = 24294-1) 1+ NEGATIVE H [facility] PFU7940-97-45 10:30:00* Test Item Value Reference Range Interpretation Comments Urine WBC (test code = 5821-4) 21-50 0-5 H [facility] QWE0107-08-76 10:30:00* Test Item Value Reference Range Interpretation Comments Urine RBC (test code = 61062-5) 0-5 0-5 [facility] Gfzjmdue8292-32-34 10:30:00* Test Item Value Reference Range Interpretation Comments Urine Bacteria (test code = 71263-1) MODERATE NONE H [facility] Epithelial Woijp6210-07-10 10:30:00 * Test Item Value Reference Range Interpretation Comments Urine Epithelial Cells (test code = 31903-4) FEW NONE [facility] Amorphous Inxrtohw6445-12-70 10:30:00* Test Item Value Reference Range Interpretation Comments Urine Amorphous Sediment (test code = 8246-1) FEW FEW [facility] HospitalUrine Esnnl8174-46-57 10:30:00* Test Item Value Reference Range Interpretation Comments Urine Color (test code = 5778-6) YELLOW YELLOW [facility] HospitalUrine Laryqfi5985-90-15 10:30:00* Test Item Value Reference Range Interpretation Comments Urine Clarity (test code = 44499-0) HAZY CLEAR [facility] HospitalUrine Specific Bcqoyse9437-73-06 10:30:00 * Test Item Value Reference Range Interpretation Comments Urine Specific Matthews (test code = 5811-5) 1.020 1.010-1.[address] [facility] HospitalUrine lC9251-14-24 10:30:00* Test Item Value Reference Range Interpretation Comments Urine pH (test code = 05142-1) 6.5 5-7 [facility] HospitalUrine Leukocyte Ajsvmxyf5224-82-75 10:30:00* Test Item Value Reference Range Interpretation Comments Urine Leukocyte Esterase (test code = 5799-2) TRACE NEGATIVE H [facility] HospitalUrine Lzrpxnr7630-21-14 10:30:00* Test Item Value Reference Range Interpretation Comments Urine Nitrite (test code = 36387-3) NEGATIVE NEGATIVE [facility] Dnnkbnn7919-56-03 10:30:00* Test Item Value Reference Range Interpretation Comments Urine Protein (test code = 5804-0) 3+ NEGATIVE H [facility] HospitalUrine Glucose (UA)2018-07-03 10:30:00* Test Item Value Reference Range Interpretation Comments Urine Glucose (UA) (test code = 2349-9) 2+ NEGATIVE H [facility] HospitalUrine Jaydayg9477-20-06 10:30:00* Test Item Value Reference Range Interpretation Comments Urine Ketones (test code = 02708-9) NEGATIVE NEGATIVE [facility] HospitalUrine Lmmacmtctjrp3524-86-15 10:30:00* Test Item Value Reference Range Interpretation Comments Urine Urobilinogen (test code = 42928-3) 0.2 0.2-1 [facility] HospitalUrine Publanuuz2488-93-24 10:30:00* Test Item Value Reference Range Interpretation Comments Urine Bilirubin (test code = 1978-6) NEGATIVE NEGATIVE [facility] Cdzzd0510-66-57 10:30:00* Test Item Value Reference Range Interpretation Comments Urine Blood (test code = 23104-8) 1+ NEGATIVE H [facility] WID2147-63-97 10:30:00* Test Item Value Reference Range Interpretation Comments Urine WBC (test code = 5821-4) 21-50 0-[address] [facility] HospitalU[facility] RSE1446-07-24 10:30:00* Test Item Value Reference Range Interpretation Comments Urine RBC (test code = 16254-6) 0-5 0-5 [facility] Lzeginpa0420-35-14 10:30:00* Test Item Value Reference Range Interpretation Comments Urine Bacteria (test code = 02228-6) MODERATE NONE H [facility] HospitalUrine Epithelial Moqat2425-77-78 10:30:00 * Test Item Value Reference Range Interpretation Comments Urine Epithelial Cells (test code = 11805-0) FEW NONE [facility] HospitalUrine Amorphous Oiuipace6334-74-91 10:30:00* Test Item Value Reference Range Interpretation Comments Urine Amorphous Sediment (test code = 8246-1) FEW FEW [facility] HospitalUrine Opiates Aemhjq5098-34-91 08:05:00* Test Item Value Reference Range Interpretation Comments Urine Opiates Screen (test code = 04638-5) NEGATIVE NEGATIVE ALL TESTS PERFORMED MANUALLY ON BenchPrep TOX/SEE TESTSt. [facility] HospitalUrine Barbiturates Vimwyb6965-62-28 08:05:00* Test Item Value Reference Range Interpretation Comments Urine Barbiturates Screen (test code = 661494273) NEGATIVE NEGA TIVE [facility] HospitalUrine Phencyclidine Alwcbw0987-77-51 08:05:00* Test Item Value Reference Range Interpretation Comments Urine Phencyclidine Screen (test code = 07524-7) NEGATIVE NEGAT RODOLFO [facility] HospitalUrine Amphetamines Bfimfh8460-81-06 08:05:00* Test Item Value Reference Range Interpretation Comments Urine Amphetamines Screen (test code = 54761-7) NEGATIVE NEGATI VE [facility] HospitalUrine Methamphetamines Oyrqdy6744-85-23 08:05:00* Test Item Value Reference Range Interpretation Comments Urine Methamphetamines Screen (test code = Urine Metha mphetamines Screen) NEGATIVE NEGATIVE [facility] HospitalUrine Benzodiazepines Vqorzc7587-03-60 08:05:00* Test Item Value Reference Range Interpretation Comments Urine Benzodiazepines Screen (test code = 55326-5) NEGATIVE NEG ATIVE [facility] HospitalUrine Cocaine Pwcoau6615-18-81 08:05:00* Test Item Value Reference Range Interpretation Comments Urine Cocaine Screen (test code = 3398-5) NEGATIVE NEGATIVE [facility] HospitalUrine Cannabinoids Uearfl1543-79-61 08:05:00* Test Item Value Reference Range Interpretation Comments Urine Cannabinoids Screen (test code = 40222-4) NEGATIVE NEGATI VE THESE RESULTS ARE FOR MEDICAL TREATMENT ONLYTHIS REPORT CONTAINS UNCONFIR MED SCREENING RESULTS*POSITIVE RESULTS WILL BE CONFIRMED BY REFERENCE LAB UPON R EQUEST CUT-OFFDRUG CLASS CONCENTRATION ng/mLAmphetamines 1000Methamphetamines 1000Cocaine 300Opiate 300Phencyc lidine 25Cannabinoid 50Barbiturates 300Benzodiazepine 300M[address]adone 300[facility] HospitalUrine Methadone Rdyvnc7517-79-40 08:05:00* Test Item Value Reference Range Interpretation Comments Urine Methadone Screen (test code = 09561-1) NEGATIVE NEGATIVE THESE RESULTS ARE FOR MEDICAL TREATMENT ONLYTHIS REPORT CONTAINS UNCONFIR MED SCREENING RESULTS*POSITIVE RESULTS WILL BE CONFIRMED BY REFERENCE LAB UPON R EQUEST CUT-OFFDRUG CLASS CONCENTRATION ng/mLAmphetamines 1000Methamphetamines 1000Cocaine Metabolite 300Opiate 300Phencyc lidine 25Cannabinoid 50Barbiturates 300Benzodiazepine [address] HospitalUrine Opiates Ybdeqv9434-70-86 08:05:00* Test Item Value Reference Range Interpretation Comments Urine Opiates Screen (test code = 20015-3) NEGATIVE NEGATIVE ALL TESTS PERFORMED MANUALLY ON BenchPrep TOX/SEE TESTSt. [facility] HospitalUrine Barbiturates Nlkoxm6944-81-94 08:05:00* Test Item Value Reference Range Interpretation Comments Urine Barbiturates Screen (test code = 607993875) NEGATIVE NEGA TIVE [facility] HospitalUrine Phencyclidine Hjqkjh1567-22-49 08:05:00* Test Item Value Reference Range Interpretation Comments Urine Phencyclidine Screen (test code = 71558-2) NEGATIVE NEGAT RODOLFO [facility] HospitalUrine Amphetamines Reeswz2936-40-05 08:05:00* Test Item Value Reference Range Interpretation Comments Urine Amphetamines Screen (test code = 57397-7) NEGATIVE NEGATI VE [facility] HospitalUrine Methamphetamines Aqbecc8332-52-11 08:05:00* Test Item Value Reference Range Interpretation Comments Urine Methamphetamines Screen (test code = Urine Metha mphetamines Screen) NEGATIVE NEGATIVE [facility] HospitalUrine Benzodiazepines Qhyzfe5126-17-72 08:05:00* Test Item Value Reference Range Interpretation Comments Urine Benzodiazepines Screen (test code = 62117-5) NEGATIVE NEG ATIVE [facility] HospitalUrine Cocaine Dfzsrr5492-52-43 08:05:00* Test Item Value Reference Range Interpretation Comments Urine Cocaine Screen (test code = 3398-5) NEGATIVE NEGATIVE [facility] HospitalUrine Cannabinoids Xhssib3543-02-38 08:05:00* Test Item Value Reference Range Interpretation Comments Urine Cannabinoids Screen (test code = 25810-2) NEGATIVE NEGATI VE THESE RESULTS ARE FOR MEDICAL TREATMENT ONLYTHIS REPORT CONTAINS UNCONFIR MED SCREENING RESULTS*POSITIVE RESULTS WILL BE CONFIRMED BY REFERENCE LAB UPON R EQUEST CUT-OFFDRUG CLASS CONCENTRATION ng/mLAmphetamines 1000Methamphetamines 1000Cocaine 300Opiate 300Phencyc lidine 25Cannabinoid 50Barbiturates 300Benzodiazepine 300[address] 300[facility]Urine Methadone Hwspgz2190-03-91 08:05:00* Test Item Value Reference Range Interpretation Comments Urine Methadone Screen (test code = 07523-7) NEGATIVE NEGATIVE THESE RESULTS ARE FOR MEDICAL TREATMENT ONLYTHIS REPORT CONTAINS UNCONFIR MED SCREENING RESULTS*POSITIVE RESULTS WILL BE CONFIRMED BY REFERENCE LAB UPON R EQUEST CUT-OFFDRUG CLASS CONCENTRATION ng/mLAmphetamines 1000Methamphetamines 1000Cocaine Metabolite 300Opiate 300Phencyc lidine 25Cannabinoid 50Barbiturates 300Benzodiazepine 300Methadone 300[facility] HospitalProthrombin [id number] 01:31:00* Test Item Value Reference Range Interpretation Comments Prothrombin Time (test code = 5902-2) 12.5 11.9-14.5 [facility] HospitalProthromb Time International Ratio 2018-07-03 01:31:00* Test Item Value Reference Range Interpretation Comments Prothromb Time International Ratio (test code = 6301-6) 0.86 Oral Anticoagulant Therapy INR Values:1. Low Intensity Therapy 1.5 - 2.02 . Moderate Intensity Therapy 2.0 - 3.03. High Intensity Therapy(1) 2.5 - 3. 54. High Intensity Therapy(2) 3.0 - 4.05. Panic Value INR > 5.0 [facility] HospitalActivated Partial Thromboplast Time 2018-07-03 01:31:00* Test Item Value Reference Range Interpretation Comments Activated Partial Thromboplast Time (test code = 14091-7) 35.4 23.8-35.5 [facility] HospitalProthrombin Axgb9608-51-39 01:31:00* Test Item Value Reference Range Interpretation Comments Prothrombin Time (test code = 5902-2) 12.5 11.9-14.5 [facility] HospitalProthromb Time International Ratio 2018-07-03 01:31:00* Test Item Value Reference Range Interpretation Comments Prothromb Time International Ratio (test code = 6301-6) 0.86 Oral Anticoagulant Therapy INR Values:1. Low Intensity Therapy 1.5 - 2.02 . Moderate Intensity Therapy 2.0 - 3.03. High Intensity Therapy(1) 2.5 - 3. 54. High Intensity Therapy(2) 3.0 - 4.05. Panic Value INR > 5.0 [facility] HospitalActivated Partial Thromboplast Time 2018-07-03 01:31:00* Test Item Value Reference Range Interpretation Comments Activated Partial Thromboplast Time (test code = 31974-9) 35.4 23.8-35.5 [facility] HospitalCHEST 2 [id number] 01:26:00 [facility] [address] [place] [address] Patient Name: MERLY MORGAN MR #: [id number] : 1970 Age/Sex: 48/F Req #: [id number] Adm Physician: Ordered by: GLORIA COSME MD Report #: [id number] Location: ER Room/Bed: Procedure: [id number] DX /CHEST 2 VIEWS Exam Date: 07/03/18 Exam Time: 0105 REPORT STATUS: Signed CHEST 2 VIE WS, Technique: CHEST 2 VIEWS Comparison: 03/29/2018 Clinical history: Chest pain DISCUSSION: Slightly enlarged cardiac silhouette with centr al vascular congestion. No consolidation or edema. No effusion or pneumothorax . IMPRESSION: Slightly enlarged cardiac silhouette with central vascular congestion. Signed by: Dr Darlene Griffin MD on 07/03/2018 1:29 AM Dic tated By: DARLENE GRIFFIN MD 8 COPY TO: HUBERT COSME RD, MD ABDOMEN ACUTE SERIES W/PA [id number] 23:30:00 [place] [address] Patient Name: MERLY MORGAN MR #: [id number] : 1970 Age/Sex: 48/F Req #: [id number] Adm Physician: Ordered by: ANURADHA WHYTE MD Report #: [id number] Location: ER Room/Bed: Procedure: [id number] DX/ABDOMEN ACUTE SERIE S W/PA CXR Exam Date: 03/29/18 Exam Time: 2239 REPORT STATUS: Signed ABDOMEN ACUTE SERIES W/PA CXR Clinical history: A bdominal pain Technique: AP view abdomen, supine and upright, frontal view of the chest Comparison: None Findings: Abdomen: Nonobstructive bowel gas pattern. Moderate to large stool burden. No free air. Other: Heart size i s upper limits of normal. No consolidation or edema. No effusion or pneumothor ax. Impression: Nonobstructive bowel gas pattern with moderate to large s tool burden. Signed by: Dr Darlene Griffin MD on 03/29/2018 11:32 PM D ictated By: DARLENE GRIFFIN MD 31 Transcribed By: AILYN on 03/29/182331 COPY TO: ANURADHA FIERRO MD Urine [id number] 22:52:00* Test Item Value Reference Range Interpretation Comments Urine WBC (test code = 5821-4) 21-50 0-[address] [facility] HospitalUrine [id number] 22:52:00* Test Item Value Reference Range Interpretation Comments Urine RBC (test code = 62691-1) 21-50 0-[address] [facility] HospitalUrine Bbrnenlz9728-65-97 22:52:00* Test Item Value Reference Range Interpretation Comments Urine Bacteria (test code = 81931-6) MODERATE NONE H [facility] HospitalUrine Epithelial Bepqi1852-38-64 22:52:00 * Test Item Value Reference Range Interpretation Comments Urine Epithelial Cells (test code = 03586-1) MODERATE NONE [facility] HospitalUrine Urioq4275-94-23 22:30:00* Test Item Value Reference Range Interpretation Comments Urine Color (test code = 5778-6) YELLOW YELLOW [facility] HospitalUrine Ubulwmr6226-31-25 22:30:00* Test Item Value Reference Range Interpretation Comments Urine Clarity (test code = 65040-7) CLEAR CLEAR [facility] HospitalUrine Specific Vptxscw2477-99-67 22:30:00 * Test Item Value Reference Range Interpretation Comments Urine Specific Matthews (test code = 5811-5) 1.020 1.010-1.[address] [facility] HospitalUrine [id number] 22:30:00* Test Item Value Reference Range Interpretation Comments Urine pH (test code = 23556-5) 6 5-7 [facility] HospitalUrine Leukocyte Fpvzkoyv0417-92-07 22:30:00* Test Item Value Reference Range Interpretation Comments Urine Leukocyte Esterase (test code = 5799-2) NEGATIVE NEGATIVE [facility] HospitalUrine Gdlwmsp8760-10-13 22:30:00* Test Item Value Reference Range Interpretation Comments Urine Nitrite (test code = 62307-5) NEGATIVE NEGATIVE [facility] HospitalUrine Fowmodm0611-42-20 22:30:00* Test Item Value Reference Range Interpretation Comments Urine Protein (test code = 5804-0) 2+ NEGATIVE H [facility] HospitalUrine Glucose (UA)2018-03-29 22:30:00* Test Item Value Reference Range Interpretation Comments Urine Glucose (UA) (test code = 2349-9) 2+ NEGATIVE H [facility] HospitalUrine Tahwunr9093-71-05 22:30:00* Test Item Value Reference Range Interpretation Comments Urine Ketones (test code = 55481-4) NEGATIVE NEGATIVE [facility] Qpyqyggbnykg7487-82-65 22:30:00* Test Item Value Reference Range Interpretation Comments Urine Urobilinogen (test code = 61753-6) 0.2 0.2-1 [facility] Dborkydxe7155-59-57 22:30:00* Test Item Value Reference Range Interpretation Comments Urine Bilirubin (test code = 1978-6) NEGATIVE NEGATIVE [facility] HospitalUrine Hfgmi6083-90-77 22:30:00* Test Item Value Reference Range Interpretation Comments Urine Blood (test code = 41294-9) 2+ NEGATIVE H [facility] HospitalUrine Lnfe3842-30-11 22:30:00* Test Item Value Reference Range Interpretation Comments Urine Test (test code = 2106-3) NEGATIVE NEGATIVE [facility] Carv0600-23-65 22:30:00* Test Item Value Reference Range Interpretation Comments Urine Test (test code = 2106-3) NEGATIVE NEGATIVE [facility] HospitalUrine Wqcr3197-40-99 22:30:00* Test Item Value Reference Range Interpretation Comments Urine Test (test code = 2106-3) NEGATIVE [facility]GATIVE [facility] Neyfv0691-37-44 22:29:00* Test Item Value Reference Range Interpretation Comments Sodium Level (test code = 2951-2) 138 136-145 [facility] HospitalPotassium Rnuhq9132-22-30 22:29:00* Test Item Value Reference Range Interpretation Comments Potassium Level (test code = 2823-3) 4.2 3.5-5.1 [facility] HospitalChloride Dzhyx5663-23-38 22:29:00* Test Item Value Reference Range Interpretation Comments Chloride Level (test code = 2075-0) 107 98-107 [facility] HospitalCarbon Dioxide Bgjkz1625-27-76 22:29:00* Test Item Value Reference Range Interpretation Comments Carbon Dioxide Level (test code = 2028-9) 22 22-29 [facility] HospitalAnion Meu7712-09-05 22:29:00* Test Item Value Reference Range Interpretation Comments Anion Gap (test code = 59287-3) 13.2 8-16 [facility] HospitalBlood Urea Gjlftsrk5720-58-92 22:29:00* Test Item Value Reference Range Interpretation Comments Blood Urea Nitrogen (test code = 3094-0) 58 7-[address] [facility] HospitalCreatinine2018-09-04 22:29:00* Test Item Value Reference Range Interpretation Comments Creatinine (test code = 2160-0) 2.50 0.57-1.[address] [facility] HospitalBUN/Creatinine Qyjpe9928-06-50 22:29:00* Test Item Value Reference Range Interpretation Comments BUN/Creatinine Ratio (test code = 3097-3) 23 6-25 [facility] HospitalEstimat Glomerular Filtration Rate 2018-03-29 22:29:00* Test Item Value Reference Range Interpretation Comments Estimat Glomerular Filtration Rate (test code = 40645-5) 21 >60 L Ranges were taken from the National Kidney Disease Education Program and the [facility] [employer] literature.Reference ranges:60 or greater: Owiwgo36-93 ( for 3 consecutive months): Chronic kidney disease 15 or less: Kidney failureSt. Luke's Health – The Woodlands HospitalGlucose Gqjts2826-19-91 22:29:00* Test Item Value Reference Range Interpretation Comments Glucose Level (test code = NPR9264) 193 74-[address] [facility] HospitalCalcium Ehpjj7285-67-81 22:29:00* Test Item Value Reference Range Interpretation Comments Calcium Level (test code = 77719-2) 8.7 8.4-10.2 [facility] HospitalTotal Radlgytse3804-12-33 22:29:00* Test Item Value Reference Range Interpretation Comments Total Bilirubin (test code = 1975-2) 0.2 0.2-1.2 [facility] HospitalAspartate Amino Transf (AST/SGOT) 2018-03-29 22:29:00* Test Item Value Reference Range Interpretation Comments Aspartate Amino Transf (AST/SGOT) (test code = Aspartate Amino Transf (AST/SGOT)) 10 5-34 [facility] HospitalAlanine Aminotransferase (ALT/SGPT) 2018-03-29 22:29:00* Test Item Value Reference Range Interpretation Comments Alanine Aminotransferase (ALT/SGPT) (test code = 1742-6) 6 0-55 [facility] HospitalTotal Whbxiok8966-18-51 22:29:00* Test Item Value Reference Range Interpretation Comments Total Protein (test code = 2885-2) 7.3 6.5-8.1 [facility] HospitalAlbumin2018-09-04 22:29:00* Test Item Value Reference Range Interpretation Comments Albumin (test code = 1751-7) 2.1 3.5-5.[address] [facility] HospitalGlobulin2018-09-04 22:29:00* Test Item Value Reference Range Interpretation Comments Globulin (test code = 34039-5) 5.2 2.3-3.[address] [facility] HospitalAlbumin/Globulin Gqnbv6739-77-32 22:29:00 * Test Item Value Reference Range Interpretation Comments Albumin/Globulin Ratio (test code = 1759-0) 0.4 0.8-2.[address] [facility] HospitalAlkaline Gaqpmdamltn8399-74-09 22:29:00* Test Item Value Reference Range Interpretation Comments Alkaline Phosphatase (test code = 6768-6) 128 40-150 [facility] HospitalAmylase Siugq1924-19-89 22:29:00* Test Item Value Reference Range Interpretation Comments Amylase Level (test code = 1798-8) 60 25-125 [facility] HospitalLipase2018-09-04 22:29:00* Test Item Value Reference Range Interpretation Comments Lipase (test code = 3040-3) 47 8-78 [facility] HospitalTotal Ithtzulcr7020-28-28 22:29:00* Test Item Value Reference Range Interpretation Comments Total Bilirubin (test code = 1975-2) 0.2 0.2-1.2 [facility] HospitalAspartate Amino Transf (AST/SGOT) 2018-03-29 22:29:00* Test Item Value Reference Range Interpretation Comments Aspartate Amino Transf (AST/SGOT) (test code = Aspartate Amino Transf (AST/SGOT)) 10 5-34 [facility] HospitalAlanine Aminotransferase (ALT/SGPT) 2018-03-29 22:29:00* Test Item Value Reference Range Interpretation Comments Alanine Aminotransferase (ALT/SGPT) (test code = 1742-6) 6 0-55 [facility] HospitalTotal Vnzswso2792-82-57 22:29:00* Test Item Value Reference Range Interpretation Comments Total Protein (test code = 2885-2) 7.3 6.5-8.1 [facility] HospitalAlbumin2018-09-04 22:29:00* Test Item Value Reference Range Interpretation Comments Albumin (test code = 1751-7) 2.1 3.5-5.[address] [facility] HospitalGlobulin2018-09-04 22:29:00* Test Item Value Reference Range Interpretation Comments Globulin (test code = 77047-5) 5.2 2.3-3.[address] [facility] HospitalAlbumin/Globulin Kguur0965-36-90 22:29:00 * Test Item Value Reference Range Interpretation Comments Albumin/Globulin Ratio (test code = 1759-0) 0.4 0.8-2.[address] [facility] HospitalAlkaline Dcsocrdccfa7559-26-92 22:29:00* Test Item Value Reference Range Interpretation Comments Alkaline Phosphatase (test code = 6768-6) 128 40-150 [facility] HospitalAmylase Ipots0805-11-08 22:29:00* Test Item Value Reference Range Interpretation Comments Amylase Level (test code = 1798-8) 60 25-125 [facility] HospitalLipase2018-09-04 22:29:00* Test Item Value Reference Range Interpretation Comments Lipase (test code = 3040-3) 47 8-78 [facility] HospitalAmylase Txrsl5849-41-58 22:29:00* Test Item Value Reference Range Interpretation Comments Amylase Level (test code = 1798-8) 60 25-125 [facility] HospitalLipase2018-09-04 22:29:00* Test Item Value Reference Range Interpretation Comments Lipase (test code = 3040-3) 47 8-78 [facility] HospitalWhite Blood Vmtrd8972-72-97 22:10:00* Test Item Value Reference Range Interpretation Comments White Blood Count (test code = 6690-2) 14.81 4.8-10.[address] [facility] HospitalRed Blood Madvz4360-99-32 22:10:00* Test Item Value Reference Range Interpretation Comments Red Blood Count (test code = 789-8) 3.95 3.6-5.1 [facility] HospitalHemoglobin2018-09-04 22:10:00* Test Item Value Reference Range Interpretation Comments Hemoglobin (test code = 30580-9) 9.8 12.0-16.[address] [facility] HospitalHematocrit2018-09-04 22:10:00* Test Item Value Reference Range Interpretation Comments Hematocrit (test code = 4544-3) 30.8 34.2-44.[address] [facility] HospitalMean Corpuscular Ltflig7616-62-61 22:10:00* Test Item Value Reference Range Interpretation Comments Mean Corpuscular Volume (test code = 787-2) 78.0 81-[address] [facility] HospitalMean Corpuscular Tqjsydbnym9401-24-89 22:10:00* Test Item Value Reference Range Interpretation Comments Mean Corpuscular Hemoglobin (test code = 785-6) 24.8 28-[address] [facility] HospitalMean Corpuscular Hemoglobin Concent 2018-03-29 22:10:00* Test Item Value Reference Range Interpretation Comments Mean Corpuscular Hemoglobin Concent (test code = 786-4) 31.8 31-35 [facility] HospitalRed Cell Distribution Zfxez3698-93-60 22:10:00* Test Item Value Reference Range Interpretation Comments Red Cell Distribution Width (test code = 35709-4) 13.9 11.7 -14.4 [facility] HospitalPlatelet Yejti1172-93-93 22:10:00* Test Item Value Reference Range Interpretation Comments Platelet Count (test code = 777-3) 379 140-[address] [facility] HospitalNeutrophils (%) (Auto)2018-03-29 22:10:00 * Test Item Value Reference Range Interpretation Comments Neutrophils (%) (Auto) (test code = 72209-1) 74.6 38.7-80.0 [facility] HospitalLymphocytes (%) (Auto)2018-03-29 22:10:00 * Test Item Value Reference Range Interpretation Comments Lymphocytes (%) (Auto) (test code = 736-9) 14.0 18.0-39.[address] [facility] HospitalMonocytes (%) (Auto)2018-03-29 22:10:00* Test Item Value Reference Range Interpretation Comments Monocytes (%) (Auto) (test code = 5905-5) 6.9 4.4-11.3 [facility] HospitalEosinophils (%) (Auto)2018-03-29 22:10:00 * Test Item Value Reference Range Interpretation Comments Eosinophils (%) (Auto) (test code = 713-8) 3.9 0.0-6.0 [facility] HospitalBasophils (%) (Auto)2018-03-29 22:10:00* Test Item Value Reference Range Interpretation Comments Basophils (%) (Auto) (test code = 706-2) 0.3 0.0-1.0 [facility] HospitalIM GRANULOCYTES %2018-03-29 22:10:00* Test Item Value Reference Range Interpretation Comments IM GRANULOCYTES % (test code = IM GRANULOCYTES %) 0.3 0.0- 1.0 [facility] HospitalNeutrophils # (Auto)2018-03-29 22:10:00* Test Item Value Reference Range Interpretation Comments Neutrophils # (Auto) (test code = 751-8) 11.0 2.1-6.[address] [facility] HospitalLymphocytes # (Auto)2018-03-29 22:10:00* Test Item Value Reference Range Interpretation Comments Lymphocytes # (Auto) (test code = 43524-9) 2.1 1.0-3.2 [facility] HospitalMonocytes # (Auto)2018-03-29 22:10:00* Test Item Value Reference Range Interpretation Comments Monocytes # (Auto) (test code = 742-7) 1.0 0.2-0.[address] [facility] HospitalEosinophils # (Auto)2018-03-29 22:10:00* Test Item Value Reference Range Interpretation Comments Eosinophils # (Auto) (test code = 711-2) 0.6 0.0-0.[address] [facility] HospitalBasophils # (Auto)2018-03-29 22:10:00* Test Item Value Reference Range Interpretation Comments Basophils # (Auto) (test code = 704-7) 0.1 0.0-0.1 [facility] HospitalAbsolute Immature Granulocyte (auto 2018-03-29 22:10:00* Test Item Value Reference Range Interpretation Comments Absolute Immature Granulocyte (auto (lawrence t code = Absolute Immature Granulocyte (auto) 0.05 0-0.1 [facility]- XR L-SPINE 08/28 TKCNM6420-21-42 23:14:00 FAX: Beverly Uriarte [phone] [place]: B St: UNK Name: MERLY BENTON [facility] : [birth year] Age/S: 47/F [address] Unit #: [id number] Loc: [place], [place] [address] Phys: Beverly Copeland MD Acct: [id number] Dis Date: Status: UNK PHONE #: [phone] Exam Date: 08/13/2017 2315 FAX #: [phone] Reason: back pain EXAMS: CPT CODE: [id number] XR L-SPINE 2/3 VIEWS 00088 HISTORY: back pain T ECHNIQUE: AP, lateral, and lumbosacral views of the lumbar spine. FINDINGS: No acute fracture or subluxation. Vertebral body alignment is sa tisfactory. Vertebral body heights are preserved. Small lumbar marginal os teophytes. Mild L5-S1 disc space loss. No evident paraspinal soft tissue c ontour abnormality. Mild bilateral hip degenerative arthrosis. IMPRESSION: Mild lumbar spondylosis. Mild L5-S1 disc spa ce loss. at 23 14 Reported and signed by: Crissy Cross D.O. CC: Beverly Copeland MD Techn[facility] gist: SRIDHAR SHERRIE, RT(R) Trnscrd Date/Time/B y: 08/13/2017 (3582) : By: [email or web address] Orig Print D/T: S: 08/13/2017 (23 20) PAGE 1 Signed Report - XR CHEST 2 [id number] 23:14:00 FAX: Roro Bloom [place]: B St: GERTRUDE Name: MERLY BENTON [facility] : [birth year] Age/S: 47/F [address] Unit #: [id number] Loc: [place] [address] Phys: Roro Bloom ie HEALTH IT SPECIALIST Acct: [id number] Dis Date: Status: UNK PHONE #: [phone] Exam Date: 08/13/2017 231 FAX #: [phone] Reason: CHEST PAIN EXAMS: CPT CODE: [id number] XR CHEST 2 V 11730 HISTORY: CHEST PAIN TECHNIQUE: PA and lateral chest x-ray COMPARISON: 12/15/16 FINDINGS: No airspace consolidation or pleural effusion. Mild cardiomegaly. Mediastinal silhouette is unremarkable. Mild thoracic spon dylosis. IMPRESSION: No radiographic evidence of acute cardiopulmonary process. at 7874 Reported and signed by: Crissy Cross D.O. CC: Roro Bloom NP Technologist: DAGMAR MACHUCA) Chuckiescbree Date/Time/By: 08/13/2017 (6752) : By: [email or web address] Orig Print D/T: S: 08/13/2017 (7891) PAGE 1 Signed Report - XR CHEST 2 [id number] 01:30:00 FAX: Lo Hudson [phone] [place]: St: [facility] FAX: Hai Barry [facility] [phone] Name: MERLY MORGAN [facility] : 1970 Age/S: 46/F [address] [facility] Unit #: [id number] Loc: [place] [address] Phys: Hai Richey [facility] Acct: [id number] Dis Date: Status: UNCommtimize PHONE #: [phone] Exam Date: 12/15/2016 0125 FAX #: [phone] Reason: COUGH W/ FEVER EXAMS: CPT CODE: [id number] XR CHEST 2 V 83070 CHEST PA AND LATERAL VIEWS CLINICAL HISTORY: Cough. Fever. COMPARISON: No previous exam available. FINDINGS: The cardiomediastinal shadow is within normal limits. An area of pulmonary opacity is seen in the left lower lobe, compatible with pneumonia. The rest of the lungs are grossly clear. No pleural fluid. No acute bony abnormality is found. IMPRESSION: Left lower lobe pneumonia. Electronically Signed by Eliza Cancino MD on at 0130 Reported and signed by: Eliza Cancino MD CC: Lo Robbins MD; Hai Richey Technologist: Libia Nair Trnscrd D ate/Time/By: 12/15/2016 (0130) : By: [email or web address] Orig Print D/T: S: 11/24 (0133) PAGE 1 Signed Repor t
--- OUTSIDE RECORDS SUMMARY | 2020-03-01 00:40 | XMS REPORT | Clinical Summary ---
Author Author [facility] ict Organization [facility] ict Address Unknown Phone Unavailable Care Team Providers Care Inker Machine Name Role Phone PCP Unavailable Allergies Comments [...] directed. 2 stripIndications: Diabetes mellitus Active Insulin Cannon, Inject 2 Box 3 Disposable, 29 x [...] Effective Phone Address Plan / Dates Group [facility] SELF-PAY SELF-PAY xxxxxx 2016- [phone] [address] [place] [address] (Work) Advance Directives Date Inactivated Comments Code Status Date Activated 02/08/2016 7:02 PM Full Code 02/08/2016 5:44 AM 11/22/2011 8:07 PM Full Code 11/19/2011 1:01 PM 06/27/2011 7:09 PM Full Code 06/23/2011 6:23 AM
--- OUTSIDE RECORDS SUMMARY | 2020-03-01 00:42 | XMS REPORT | Continuity of Care Document ---
Author Author [facility] t Organization [facility] Address [address] [place] [address] Phone Unavailable Care Team Providers Care Aids Nurse Name Role Phone NO, PCP PCP Unavailable Jennifer VARNER Attphys Unavailable Sarwat WHYTE Attphys Unavailable BENNY BARRIOS Attphys Unavailable DAANNIE, S MICHELRIES Admphys Unavailable BENNY BARRIOS Admphys Unavailable Payers Payer Name Policy Type Policy Number Effective Date Expiration Date S liyah [facility] [id number] [facility] Self Pay NA [facility] Problems Condition Name Condition Details Condition Category Status Onset Date Resolution Date Last Treatment Date Treating Clinician Comments Source Abscess of neck Abscess of neck Disease Active 2016-04-14 00:00:00 [facility] Uncontrolled diabetes mellitus Uncontrolled diabetes mellitus Disea se Active 2016-02-08 00:00:00 [facility] Cough Cough Disease Active 2016-02-07 00:00:00 [facility] Hidradenitis suppurativa Hidradenitis suppurativa Disease Acti ve 2012-12-17 00:00:00 [facility] Cellulitis of breast Cellulitis of breast Disease Active 00:00:00 [facility] Bacteremia Bacteremia Disease Active 2011-11-22 00:00:00 [facility] UTI (lower urinary tract infection) UTI (lower urinary tract inf ection) Disease Active 2011-11-19 00:00:00 [facility] Abscess Abscess Disease Active 2011-11-19 00:00:00 [facility] Diabetes mellitus Diabetes mellitus Disease Active 2011-06-24 00:00:00 [facility] Abscess of breast, left Abscess of breast, left Disease Active 2011-06-23 00:00:00 [facility] Breast pain Breast pain Disease Active 2011-06-22 00:00:00 [facility] Hyperglycemia Hyperglycemia Disease Active 2010-11-25 00:00:00 [facility] Chest pain Chest pain Problem Active 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 ition, uncontrolled, with microalbuminuria, with long-term current use of insulin Diabetes mellitus due to underlying condition, uncontrolled, with microalbuminuria, with long-term current use of insulin Disease Active [facility] Essential hypertension with goal blood pressure less t saucedo 140/90 Essential hypertension with goal blood pressure less than 140/90 Disease Active [facility] Allergies, Adverse Reactions, Alerts Allergy Name Allergy Type Status Severity Reaction(s) Onset Date Inacti ve Date Treating Clinician Comments Source No Known Allergies DA Active U 2020-01-22 00:00:00 [facility] No Known Allergies DA Active U 2019-03-10 00:00:00 [facility] No Known Allergies DA Active U 2018-12-26 00:00:00 [facility] No Known Allergies DA Active U 2017-06-02 00:00:00 [facility] No Known Allergies DA Active U 2016-12-14 00:00:00 [facility] Family History Family Member Diagnosis Comments Start Date Stop Date Source Natural father Diabetes [facility] Natural mother Cancer [facility] Social History Social Habit Start Date Stop Date Quantity Comments Source Sex Assigned At [facility] Alcohol intake 2016-04-14 00:00:00 2016-04-14 00:00:00 Current non-drinker of alcohol (finding) [facility] History of tobacco use 2009-06-23 00:00:00 Current smoker [facility] Smoking Status Start Date Stop Date Source Former smoker 2016-04-14 00:00:00 2016-04-14 00:00:00 [facility] Medic[facility] Ordered Medication Name Filled Medication Name Start Date Stop Da te Current Medication? Ordering Clinician Indication Dosage Frequency Signature (SIG) Comments Components Source Folic Acid 1 Mg Tablet Folic Acid 1 Mg Tablet 2018-07-05 00:00:00 Yes Sujatha Herminia Cmumings Radio Tower Technician 1 Daily [facility] Metoprolol Tartrate (Lopressor) 25 Mg Tab Metoprolol T artrate (Lopressor) 25 Mg Tab 2018-07-05 00:00:00 Yes Sujatha Cummings Radio Tower Technician 25 Every 12 Hours [facility] Nifedipine (Nifedipine Er) 30 Mg Tab.er.24 Nifedipine (Nifedipine Er) 30 Mg Tab.er.24 2018-07-05 00:00:00 Yes Sujatha Herminia Cummings Radio Tower Technician 90 Da keke [facility] Calcium Carbonate 500 Mg Tab, 500 Mg Oral Calcium Carb derek 500 Mg Tab, 500 Mg Oral 2018-07-05 00:00:00 2019-09-03 00:00:00 No Sujatha Cummings Radio Tower Technician 500 Twice A Day [facility] Guaifenesin/Dextromethorphan (Mucinex Dm Er 600-30 Mg Tablet) 1 Each Tab.er.12h, 1 Each Oral Guaifenesin/Dextromethorphan (Mucinex Dm Er 600-30 Mg Tablet) 1 Each Tab.er.12h, 1 Each Oral 2018-07-05 00:00:00 2019-09-03 00:00:00 No Sujatha M Conrad Radio Tower Technician 1 Twice A Day [facility] Lorazepam (Ativan*) 0.5 Mg Tablet, 0.5 Mg Oral Lorazep am (Ativan*) 0.5 Mg Tablet, 0.5 Mg Oral 2018-07-05 00:00:00 2019-09-03 00:00:00 No Sujatha Cummings [employer] Tower Technician .5 Every 6 Hours as needed for Anxiety [facility] Mirtazapine 15 Mg Tab, 15 Mg Oral Mirtazapine 15 Mg Tab, 15 Mg Oral 2018-07-05 00:00:00 2019-09-03 00:00:00 No Sujatha Cummings Radio Tower Technician 15 Bedti me [facility] insulin NPH (NOVOLIN N, HUMULIN N) 100 unit/mL injection 2016-04-14 00:00:00 Yes Diabetes mellitus du e to underlying condition, uncontrolled, with microalbuminuria, with long-term current use of insulin 25U Q.5D Inject 25 Units under the skin 2 times daily (before meals). [facility] metFORMIN (GLUCOPHAGE) 500 mg tablet 2016-04-14 00:00:00 Yes Diabetes mellitus due to underlying condition, uncontrolled, with microalbuminuria, with long-term current use of insulin 500mg Take 1 tablet by mouth 2 times daily (with meals). [facility] lisinopril (PRINIVIL) 5 mg tablet 2016-04-14 00:00:00 Yes Essential hypertension with goal blood pressure less than 140/90 5mg QD Take 1 tablet by mouth daily. [facility] insulin NPH (NOVOLIN N, HUMULIN N) 100 unit/mL injection 2016-02-08 00:00:00 Yes Diabetes mellitus du e to underlying condition, uncontrolled, with microalbuminuria, with long-term current use of insulin 25U Q.5D Inject 25 Units under the skin 2 times daily (before meals). [facility] INSULIN SYRINGE 0.5mL 30GX5/16" (MONOJEC T ULTRACOMFORT INSULIN SYR 0.5ML 30GX5/16") syringe-needle 2016-02-08 00:00:00 Yes Diabetes mellitus due to underlying condition, uncontrolled, with microalbuminuria, with long-term current use of insulin Q.5D Use to inject med ication 2 times daily. Use a new syringe each time. [facility] metFORMIN (GLUCOPHAGE) 500 mg tablet 2016-02-08 00:00:00 Yes Diabetes mellitus due to underlying condition, uncontrolled, with microalbuminuria, with long-term current use of insulin 500mg Take 1 tablet by mouth 2 times daily (with meals). [facility] insulin syringe 1cc/29g (INSULIN SYRINGE) 1 mL 29 x 1/2" syr jeremiah 2013-07-30 00:00:00 Yes Diabetes mellitus In ject insulin 2 times a day as instructed. [facility] spironolactone (ALDACTONE) 50 mg tablet 2012-12-17 00:00:00 Yes Hydradenitis 50mg QD Take 1 tablet by mouth daily. [facility] HYDROcodone-acetaminophen (NORCO) 5-325 mg tablet 2012-12-17 00:00:00 Yes Hydradenitis 1{tbl} Take 1 tablet by mouth every 6 h ours as needed for Pain. [facility] Insulin [place], Disposable, 29 x 1/2 " Ndle 2012-05-23 00:0 0:00 Yes Diabetes mellitus Inject insulin 2 times a day as directed for diabetes [facility] traMADol (ULTRAM) 50 mg tablet 2012-05-23 00:00:00 Yes Cellulitis of breast 50mg Take 1 tablet by mouth every 8 hours as needed for Pain. [facility] clotrimazole (LOTRIMIN) 1 % topical cream 2011-11-22 00:00:0 0 Yes Hydradenitis Q.5D Apply to affected area 2 times daily. [facility] povidone-iodine (BETADINE) 10 % external solution 2011-11-22 00:00:00 Yes Hydradenitis Apply to affected area as needed for Wound C are. [facility] Bismuth Tribrom-Petrolatum,Wh (XEROFORM PETROLATUM LEIDY SSING) 4 X 3 "-yard Bndg 2011-11-22 00:00:00 Yes Hydradenitis Apply to a ffected area. [facility] LANCETS 2011-11-22 00:00:00 Yes Diabetes mellitus Use as Directed [facility] blood glucose meter (PRECISION XTRA) 2011-11-22 00:00:00 Yes Diabetes mellitus Use as directed. [facility] glucose blood test strips (PRECISION XTRA) strip 2011-11-22 00:00:00 Yes Diabetes mellitus Use as directed. June [facility] Aspirin (Aspir 81) 81 Mg Tablet. Aspirin (Aspir 81) 81 Mg Tablet. Yes Daily [facility] Atorvastatin Calcium (Lipitor) 20 Mg Tablet Atorvastat in Calcium (Lipitor) 20 Mg Tablet Yes 20 Bedtime [facility] Cephalexin Monohydrate (Keflex) 500 Mg Capsule Cephale alice Monohydrate (Keflex) 500 Mg Capsule Yes Twice A Day [facility] Furosemide 40 Mg Tablet Furosemide 40 Mg Tablet Yes 40 Daily [facility] Sodium Bicarbonate 650 Mg Tablet Sodium Bicarbonate 650 Mg Tablet Yes 650 Twice A Day [facility] Doxycycline Hyclate 100 Mg Capsule, 100 Mg Oral Doxycy llanos Hyclate 100 Mg Capsule, 100 Mg Oral 2019-09-03 00:00:00 No 100 Jennifer ry 12 Hours [facility] Insulin Aspart (Novolog) 100 Unit/1 Ml Cartridge, 25 U nits Sub-Q Insulin Aspart (Novolog) 100 Unit/1 Ml Cartridge, 25 Units Sub-Q 2019-09-03 00:00:00 No 25 Before Breakfast [facility] Insulin Aspart (Novolog) 100 Unit/1 Ml Cartridge, 14 U nits Sub-Q Insulin Aspart (Novolog) 100 Unit/1 Ml Cartridge, 14 Units Sub-Q 2019-09-03 00:00:00 No 14 Bedtime [facility] Metoprolol Tartrate (Lopressor) 25 Mg Tab, 25 Mg Oral Metoprolol Tartrate (Lopressor) 25 Mg Tab, 25 Mg Oral 2018-07-05 00:00:00 No 25 Daily [facility] Nifedipine (Procardia Xl) 60 Mg Tab.er.24, 60 Mg Oral Nifedipine (Procardia Xl) 60 Mg Tab.er.24, 60 Mg Oral 2018-07-05 00:00:00 No 60 Daily [facility] Immunizations Ordered Immunization Name Filled Immunization Name Date Status Comments Source Influenza Vaccine 2012-05-23 00:00:00 Completed [facility] Tdap Tetanus, diphtheria, acellular pertussis Vaccine 2012-05-23 00:00:00 Completed [facility] PPV 23 Pneumococcal Polysaccaride 2012-05-23 00:00:00 Comp leted [facility] Influenza Vaccine 2011-06-27 00:00:00 Completed [facility] Procedures Procedure Date / Time Performed Performing Clinician Sour e Ultrasound, renal 2019-08-30 00:00:00 RONAN VARNER [facility] X-ray of chest, single view 2019-08-29 00:00:00 GLORIA COSME [facility] Plan of Care Planned Activity Planned Date Details Comments Source Future Scheduled Test 2013-05-24 00:00:00 Hemoglobin A1c becca surement (procedure) [code = 89243788] [facility] Scheduled Test 2012-06-22 00:00:00 Breast Cancer Scrn (Yearly) [code = Breast Cancer Scrn (Yearly)] [facility] Scheduled Test 1992-02-29 00:00:00 Screening for clary gnant neoplasm of cervix (procedure) [code = 940190312] [facility] Scheduled Test 1989 00:00:00 DM Foot Exam (Year ly) [code = DM Foot Exam (Yearly)] [facility] Scheduled Test 1989 00:00:00 DM Retinal Exam (Y early) [code = DM Retinal Exam (Yearly)] [facility] Encounters Start Date/Time End Date/Time Encounter Type [facility] Type [facility] Encounter ID Source 2019-08-29 15:50:00 2019-09-03 18:42:00 Discharged Inpatient 1 RONAN VARNER [facility] [id number] [facility] 2018-11-09 21:23:00 2018-11-10 02:15:00 Departed Emergency Room 1 WHYTEANURADHA [facility] [id number] [facility] 2018-07-03 02:44:00 2018-07-05 12:29:00 Discharged Inpatient (obs) 1 BENNY BARRIOS [facility] [id number] [facility] 2018-03-29 21:15:00 2018-03-30 00:24:00 Departed Emergency Room 1 ANURADHA WHYTE [facility] [id number] [facility] Results Test Description Test Time Test Comments Results Result Comments Source GLUBED 2020-02-10 16:01:00 Test Item GLUBED (test code = GLUBED) 73 mg/dL 74-106 L Performed by certified teletype or varitype keyboard operator at [facility] BASIC METABOLIC [id number] 12:11:00* Test Item Value Reference Range Interpretation [...] CA) 8.2 mg/dL 8.5-10.1 L BASIC METABOLIC [id number] 11:38:00* Test Item Value Reference Range Interpretation [...] code = CA) mg/dL 8.5-10.1 CBC W/AUTO [id number] 11:30:00* Test Item Value Reference Range Interpretation [...] code = NRBC#) 0.00 K/mm3 0.0-0.1 N [id number] 11:17:00* Test Item Value Reference Range Interpretation Comments GLUBED (test code = GLUBED) 89 mg/dL 74-106 N Performed by certified teletype or varitype keyboard operator at [facility] [id number] 07:59:00* Test Item Value Reference Range Interpretation Comments GLUBED (test code = GLUBED) 73 mg/dL 74-106 L Performed by certified teletype or varitype keyboard operator at [facility] [id number] 05:06:00* Test Item Value Reference Range Interpretation Comments GLUBED (test code = GLUBED) 76 mg/dL 74-106 N Performed by certified teletype or varitype keyboard operator at [facility] [id number] 17:22:00* Test Item Value Reference Range Interpretation Comments GLUBED (test code = GLUBED) 97 mg/dL 74-106 N Performed by certified teletype or varitype keyboard operator at [facility] [id number] 12:37:00* Test Item Value Reference Range Interpretation Comments GLUBED (test code = GLUBED) 85 mg/dL 74-106 N Performed by certified teletype or varitype keyboard operator at [facility] [id number] 08:24:00* Test Item Value Reference Range Interpretation Comments GLUBED (test code = GLUBED) 68 mg/dL 74-106 L Performed by certified teletype or varitype keyboard operator at [facility] BASIC METABOLIC [id number] 06:10:00* Test Item Value Reference Range Interpretation [...] code = CA) 8.0 mg/dL 8.5-10.1 L [id number] 06:10:00* Test Item Value Reference Range Interpretation Comments ALBUMIN (test code = ALB) 2.2 g/dL 3.4-5.0 L BASIC METABOLIC [id number] 05:48:00* Test Item Value Reference Range Interpretation [...] CALCIUM (test code = CA) mg/dL 8.5-10.1 [id number] 05:48:00* Test Item Value Reference Range Interpretation Comments ALBUMIN (test code = ALB) g/dL 3.4-5.0 CBC W/AUTO [id number] 05:29:00* Test Item Value Reference Range Interpretation [...] DIFF REQUIRED (test code = MDIFF) NO [id number] 20:34:00* Test Item Value Reference Range Interpretation Comments GLUBED (test code = GLUBED) 138 mg/dL 74-106 H Performed by certified teletype or varitype keyboard operator at [facility] [id number] 16:02:00* Test Item Value Reference Range Interpretation Comments GLUBED (test code = GLUBED) 93 mg/dL 74-106 N Performed by certified teletype or varitype keyboard operator at [facility] - US GUIDANCE VASC [id number] 13:10:00 Name: MERLY MORGAN [facility] : 1970 Age/S: 49 / F [address] Unit #: [id number] Loc: [place] [address] Phys: Taylor Suh MD Acct: [id number] Dis Date: Status: ADM IN PHONE #: [phone] Exam Date: 02/07/2020 1707 FAX #: [phone] Reason: / EXAMS: CPT CODE: [id number] US GUIDANCE VASC ACCESS 72230 Fluoro Time: DAP (Gy m2): Air Kerma (mGy): REASON FOR EXAM: ESRD Referring Physician: Taylor Suh MD PROCEDURE: Conversion of temporary dialysis catheter into a tunneled dialysis catheter CPT code: 15853, 62128 Location:[facility] [id number]-fw-[id number] procedure time is approximately: 30 minutes FINDINGS: After informed consent was obtained, the patient was brought to OR Room 2 and placed supine on the table. The right neck and chest wall were prepped and draped in the usual fashion. All elements of maximal sterile barrier technique were followed. The existing temporary dialysis catheter was removed over a guidewire. A custodial dialysis catheter was tunneled under the subcutaneous [...] Guillermo RT(R) Trnscb Date/ Time: 02/08/2020 (1310) Shelley Orig Print D/T: S: 01/23 (0744) PAGE 1 Signed Report [id number] 12:00:00* Test Item Value Reference Range Interpretation Comments GLUBED (test code = GLUBED) 81 mg/dL 74-106 N Performed by certified teletype or varitype keyboard operator at [facility] [id number] 08:53:00* Test Item Value Reference Range Interpretation Comments GLUBED (test code = GLUBED) 116 mg/dL 74-106 H Performed by certified teletype or varitype keyboard operator at [facility] BASIC METABOLIC [id number] 06:47:00* Test Item Value Reference Range Interpretation [...] CA) 8.3 mg/dL 8.5-10.1 L CBC W/AUTO [id number] 06:21:00* Test Item Value Reference Range Interpretation [...] DIFF REQUIRED (test code = MDIFF) NO [id number] 20:41:00* Test Item Value Reference Range Interpretation Comments GLUBED (test code = GLUBED) 130 mg/dL 74-106 H Performed by certified teletype or varitype keyboard operator at [facility] - XR CHEST 1 [id number] 17:52:00 FAX: Taylor Suh Varney: B St: ADM Name: MERLY BENTON [facility] : [birth year] Age/S: 49/F [address] [facility] Unit #: [id number] Loc: V.30[address] [place] [address] Phys: Nikko Morales MD Acct: [id number] Dis Date: Status: ADM IN PHONE #: [phone] Exam Date: 02/07/20201713 FAX #: [phone] Reason: S/P LINE EXAMS: CPT CODE: [id number] XR CHEST 1 V 01385 EXAM: Chest x-ray, one view; INFORMATION: Renal failure; status post line placement; IMPRESSION: 1. Well-positioned right IJ tunneled hemodialysis catheter. Its tip is in the right atrium. The line is ready for use. 2. No evidence of a pneumothorax. 3. No further changes compared with a recent study from January 25, 2020; heart borderline in size; no acute pulmonary abnormalities. Location code: [facility] Electr onically Signed by Mere Sheth on 0 at 1752 Reported and signed by: Chele mijares M.D. CC: Taylor Suh MD Technologist: Yaneth Mendoza RT(R); Ana M Guillermo RT(R) Trnscrd Date/Time/By: 02/07/2020 (1751) : By: AlexeyGRW Orig Print D/T: S: 02/07/2020 (1755) PAGE 1 Signed Report [id number] 12:05:00* Test Item Value Reference Range Interpretation Comments GLUBED (test code = GLUBED) 76 mg/dL 74-106 N Performed by certified teletype or varitype keyboard operator at [facility] BASIC METABOLIC [id number] 07:16:00* Test Item Value Reference Range Interpretation [...] CA) 7.6 mg/dL 8.5-10.1 L BASIC METABOLIC [id number] 07:12:00* Test Item Value Reference Range Interpretation [...] CALCIUM (test code = CA) mg/dL 8.5-10.1 [id number] 07:04:00* Test Item Value Reference Range Interpretation Comments GLUBED (test code = GLUBED) 80 mg/dL 74-106 N Performed by certified teletype or varitype keyboard operator at [facility] CBC W/AUTO [id number] 06:40:00* Test Item Value Reference Range Interpretation [...] DIFF REQUIRED (test code = MDIFF) NO [id number] 21:58:00* Test Item Value Reference Range Interpretation Comments GLUBED (test code = GLUBED) 96 mg/dL 74-106 N Performed by certified teletype or varitype keyboard operator at [facility] [id number] 17:57:00* Test Item Value Reference Range Interpretation Comments GLUBED (test code = GLUBED) 99 mg/dL 74-106 N Performed by certified teletype or varitype keyboard operator at [facility] [id number] 12:15:00* Test Item Value Reference Range Interpretation Comments GLUBED (test code = GLUBED) 88 mg/dL 74-106 N Performed by certified teletype or varitype keyboard operator at [facility] [id number] 08:31:00* Test Item Value Reference Range Interpretation Comments GLUBED (test code = GLUBED) 71 mg/dL 74-106 L Performed by certified teletype or varitype keyboard operator at [facility] [id number] 06:00:00* Test Item Value Reference Range Interpretation Comments GLUBED (test code = GLUBED) 77 mg/dL 74-106 N Performed by certified teletype or varitype keyboard operator at [facility] COMPREHENSIVE METABOLIC [id number] 05:51:00* Test Item Value Reference Range Interpretation [...] due to change in reagent. CBC W/AUTO [id number] 05:43:00* Test Item Value Reference Range Interpretation [...] NRBC#) 0.00 K/mm3 0.0-0.1 N COMPREHENSIVE METABOLIC [id number] 05:34:00* Test Item Value Reference Range Interpretation [...] TOTAL (test code = ALKP) IUnit/L 45-117 [id number] 21:40:00* Test Item Value Reference Range Interpretation Comments GLUBED (test code = GLUBED) 90 mg/dL 74-106 N Performed by certified teletype or varitype keyboard operator at [facility] [id number] 16:53:00* Test Item Value Reference Range Interpretation Comments GLUBED (test code = GLUBED) 71 mg/dL 74-106 L Performed by certified teletype or varitype keyboard operator at [facility] CBC W/AUTO [id number] 14:48:00* Test Item Value Reference Range Interpretation [...] code = NRBC#) 0.00 K/mm3 0.0-0.1 N [id number] 11:43:00* Test Item Value Reference Range Interpretation Comments GLUBED (test code = GLUBED) 108 mg/dL 74-106 H Performed by certified teletype or varitype keyboard operator at [facility] COMPREHENSIVE METABOLIC [id number] 07:07:00* Test Item Value Reference Range Interpretation [...] due to change in reagent. COMPREHENSIVE METABOLIC [id number] 06:52:00* Test Item Value Reference Range Interpretation [...] TOTAL (test code = ALKP) IUnit/L 45-117 [id number] 05:49:00* Test Item Value Reference Range Interpretation Comments GLUBED (test code = GLUBED) 87 mg/dL 74-106 N Performed by certified teletype or varitype keyboard operator at [facility] [id number] 21:34:00* Test Item Value Reference Range Interpretation Comments GLUBED (test code = GLUBED) 83 mg/dL 74-106 N Performed by certified teletype or varitype keyboard operator at [facility] [facility] [id number] 18:47:00* Test Item Value Reference Range Interpretation Comments GLUBED (test code = GLUBED) 103 mg/dL 74-106 N Performed by certified teletype or varitype keyboard operator at [facility] [id number] 13:35:00* Test Item Value Reference Range Interpretation Comments GLUBED (test code = GLUBED) 79 mg/dL 74-106 N Performed by certified teletype or varitype keyboard operator at [facility] COMPREHENSIVE METABOLIC [id number] 08:29:00* Test Item Value Reference Range Interpretation [...] due to change in reagent. CBC W/AUTO [id number] 06:30:00* Test Item Value Reference Range Interpretation [...] DIFF REQUIRED (test code = MDIFF) NO [id number] 05:41:00* Test Item Value Reference Range Interpretation Comments GLUBED (test code = GLUBED) 78 mg/dL 74-106 N Performed by certified teletype or varitype keyboard operator at [facility] [id number] 20:36:00* Test Item Value Reference Range Interpretation Comments GLUBED (test code = GLUBED) 98 mg/dL 74-106 N Performed by certified teletype or varitype keyboard operator at [facility] [id number] 17:36:00* Test Item Value Reference Range Interpretation Comments GLUBED (test code = GLUBED) 113 mg/dL 74-106 H Performed by certified teletype or varitype keyboard operator at [facility] [id number] 12:55:00* Test Item Value Reference Range Interpretation Comments GLUBED (test code = GLUBED) 93 mg/dL 74-106 N Performed by certified teletype or varitype keyboard operator at [facility] COMPREHENSIVE METABOLIC [id number] 11:02:00* Test Item Value Reference Range Interpretation [...] due to change in reagent. COMPREHENSIVE METABOLIC [id number] 10:56:00* Test Item Value Reference Range Interpretation [...] code = ALKP) IUnit/L 45-117 CBC W/AUTO [id number] 10:46:00* Test Item Value Reference Range Interpretation [...] 116 mg/dL 74-106 H Performed by certified teletype or varitype keyboard operator at [facility] [id number] 20:41:00* Test Item Value Reference Range Interpretation Comments GLUBED (test code = GLUBED) 101 mg/dL 74-106 N Performed by certified teletype or varitype keyboard operator at [facility] [id number] 16:01:00* Test Item Value Reference Range Interpretation Comments GLUBED (test code = GLUBED) 125 mg/dL 74-106 H Performed by certified teletype or varitype keyboard operator at [facility] [id number] 12:23:00* Test Item Value Reference Range Interpretation Comments GLUBED (test code = GLUBED) 89 mg/dL 74-106 N Performed by certified teletype or varitype keyboard operator at [facility] [id number] 07:58:00* Test Item Value Reference Range Interpretation Comments GLUBED (test code = GLUBED) 71 mg/dL 74-106 L Performed by certified teletype or varitype keyboard operator at [facility] COMPREHENSIVE METABOLIC [id number] 07:17:00* Test Item Value Reference Range Interpretation [...] reference range due to change in reagent. [id number] 07:17:00* Test Item Value Reference Range Interpretation Comments PHOSPHORUS (test code = PHOS) 5.0 mg/dL 2.5-4.9 H [id number] 07:17:00* Test Item Value Reference Range Interpretation Comments MAGNESIUM (test code = MAG) 1.7 mg/dL 1.8-2.4 L COMPREHENSIVE METABOLIC [id number] 06:59:00* Test Item Value Reference Range Interpretation [...] TOTAL (test code = ALKP) IUnit/L 45-117 [id number] 06:59:00* Test Item Value Reference Range Interpretation Comments PHOSPHORUS (test code = PHOS) mg/dL 2.5-4.9 [id number] 06:59:00* Test Item Value Reference Range Interpretation Comments MAGNESIUM (test code = MAG) mg/dL 1.8-2.4 CBC W/AUTO [id number] 06:52:00* Test Item Value Reference Range Interpretation [...] code = NRBC#) 0.00 K/mm3 0.0-0.1 N [id number] 21:20:00* Test Item Value Reference Range Interpretation Comments GLUBED (test code = GLUBED) 93 mg/dL 74-106 N Performed by certified teletype or varitype keyboard operator at [facility] [id number] 17:14:00* Test Item Value Reference Range Interpretation Comments GLUBED (test code = GLUBED) 96 mg/dL 74-106 N Performed by certified teletype or varitype keyboard operator at [facility] [id number] 12:39:00* Test Item Value Reference Range Interpretation Comments GLUBED (test code = GLUBED) 84 mg/dL 74-106 N Performed by certified teletype or varitype keyboard operator at [facility] COMPREHENSIVE METABOLIC [id number] 09:32:00* Test Item Value Reference Range Interpretation [...] NURSE HAS TO COLLECT THE BLOOD,V.LAB.VP1 01/31/20 [id number] 09:32:00* Test Item Value Reference Range Interpretation Comments PHOSPHORUS (test code = PHOS) 3.9 mg/dL 2.5-4.9 N NURSE HAS TO COLLECT THE BLOOD,V.LAB.VP1 01/31/20 [id number] 09:32:00* Test Item Value Reference Range Interpretation Comments MAGNESIUM (test code = MAG) 1.6 mg/dL 1.8-2.4 L NURSE HAS TO COLLECT THE BLOOD,V.LAB.VP1 01/31/20 0232PARATHYROID HORMONE INTACT 2020-02-01 09:32:00* Test Item Value Reference Range Interpretation Comments PARATHYROID HORMONE INTACT (test code = PARAI) 388.10 pgram/mL 8.4- 88 H NURSE HAS TO COLLECT THE BLOOD,V.LAB.VP1 01/31/20 0232COMPREHENSIVE METABOLIC [id number] 08:57:00* Test Item Value Reference Range Interpretation [...] NURSE HAS TO COLLECT THE BLOOD,V.LAB.VP1 01/31/20 [id number] 08:57:00* Test Item Value Reference Range Interpretation Comments PHOSPHORUS (test code = PHOS) 3.9 mg/dL 2.5-4.9 N NURSE HAS TO COLLECT THE BLOOD,V.LAB.VP1 01/31/20 [id number] 08:57:00* Test Item Value Reference Range Interpretation Comments MAGNESIUM (test code = MAG) 1.6 mg/dL 1.8-2.4 L NURSE HAS TO COLLECT THE BLOOD,V.LAB.VP1 01/31/20 0232PARATHYROID HORMONE INTACT 2020-02-01 08:57:00* Test Item Value Reference Range Interpretation Comments PARATHYROID HORMONE INTACT (test code = PARAI) pgram/mL 8.4-88 NURSE HAS TO COLLECT THE BLOOD,V.LAB.VP1 01/31/20 0232COMPREHENSIVE METABOLIC [id number] 08:45:00* Test Item Value Reference Range Interpretation [...] NURSE HAS TO COLLECT THE BLOOD,V.LAB.VP1 01/31/20 [id number] 08:45:00* Test Item Value Reference Range Interpretation Comments PHOSPHORUS (test code = PHOS) mg/dL 2.5-4.9 NURSE HAS TO COLLECT THE BLOOD,V.LAB.VP1 01/31/20 [id number] 08:45:00* Test Item Value Reference Range Interpretation Comments MAGNESIUM (test code = MAG) mg/dL 1.8-2.4 NURSE HAS TO COLLECT THE BLOOD,V.LAB.VP1 01/31/20 0232PARATHYROID HORMONE INTACT 2020-02-01 08:45:00* Test Item Value Reference Range Interpretation Comments PARATHYROID HORMONE INTACT (test code = PARAI) pgram/mL 8.4-88 NURSE HAS TO COLLECT THE BLOOD,V.LAB.VP1 01/31/20 0232CBC W/AUTO [id number] 08:26:00* Test Item Value Reference Range Interpretation [...] K/mm3 0.0-0.1 N PATIENT UNDER INVESTIGATION FOR [id number] 06:16:00* Test Item Value Reference Range Interpretation Comments GLUBED (test code = GLUBED) 86 mg/dL 74-106 N Performed by certified teletype or varitype keyboard operator at [facility] [id number] 22:08:00* Test Item Value Reference Range Interpretation Comments GLUBED (test code = GLUBED) 91 mg/dL 74-106 N Performed by certified teletype or varitype keyboard operator at [facility] COVID 19 INHOUSE [id number] 20:23:00* Test Item Value Reference Range Interpretation Comments COVID 19 INHOUSE AG (test code = ZAWOH33JCXN) POSITIVE [id number] 19:20:00* Test Item Value Reference Range Interpretation Comments GLUBED (test code = GLUBED) 90 mg/dL 74-106 N Performed by certified teletype or varitype keyboard operator at [facility] [id number] 12:05:00* Test Item Value Reference Range Interpretation Comments GLUBED (test code = GLUBED) 97 mg/dL 74-106 N Performed by certified teletype or varitype keyboard operator at [facility] [id number] 06:30:00* Test Item Value Reference Range Interpretation Comments GLUBED (test code = GLUBED) 103 mg/dL 74-106 N Performed by certified teletype or varitype keyboard operator at [facility] [id number] 21:57:00* Test Item Value Reference Range Interpretation Comments GLUBED (test code = GLUBED) 86 mg/dL 74-106 N Performed by certified teletype or varitype keyboard operator at [facility] [id number] 16:51:00* Test Item Value Reference Range Interpretation Comments GLUBED (test code = GLUBED) 90 mg/dL 74-106 N Performed by certified teletype or varitype keyboard operator at [facility] [id number] 12:46:00* Test Item Value Reference Range Interpretation Comments GLUBED (test code = GLUBED) 86 mg/dL 74-106 N Performed by certified teletype or varitype keyboard operator at [facility] AB HEPATITIS B [id number] 09:11:00* Test Item Value Reference Range Interpretation Comments AB HEPATITIS B SURFACE (test code = HBSAB) Non Reactive () Non Reactive: Inconsistent with immunity, less than 10 mIU/mL Reactive: Consistent with immunity, greater than 9.9 mIU/mLPerformed At: [facility] [id number] Fam MD Ph:[phone] HEPATITIS B CORE ANTIBODY,[id number] 09:11:00* Test Item Value Reference Range Interpretation Comments HEPATITIS B CORE ANTIBODY,TOT (test code = HBCAB) Negative Nega tive Performed At: [facility] [address] [id number] Fam MD Ph:[phone] HEPATITIS B CORE ANTIBODY,[id number] 09:11:00* Test Item Value Reference Range Interpretation Comments HEPATITIS B CORE ANTIBODY,IGM (test code = HBCMAB) Negative Neg ative Performed At: [facility] [address] [place], [place] [id number] Robert Fam MD Ph:[phone] BASIC METABOLIC [id number] 07:16:00* Test Item Value Reference Range Interpretation [...] CA) 7.6 mg/dL 8.5-10.1 L BASIC METABOLIC [id number] 07:09:00* Test Item Value Reference Range Interpretation [...] CA) 7.8 mg/dL 8.5-10.1 L BASIC METABOLIC [id number] 07:04:00* Test Item Value Reference Range Interpretation [...] code = CA) mg/dL 8.5-10.1 BASIC METABOLIC [id number] 07:04:00* Test Item Value Reference Range Interpretation [...] CALCIUM (test code = CA) mg/dL 8.5-10.1 [id number] 05:50:00* Test Item Value Reference Range Interpretation Comments GLUBED (test code = GLUBED) 104 mg/dL 74-106 N Performed by certified teletype or varitype keyboard operator at [facility] [id number] 20:14:00* Test Item Value Reference Range Interpretation Comments GLUBED (test code = GLUBED) 114 mg/dL 74-106 H Performed by certified teletype or varitype keyboard operator at [facility] [id number] 20:14:00* Test Item Value Reference Range Interpretation Comments GLUBED (test code = GLUBED) 160 mg/dL 74-106 H Performed by certified teletype or varitype keyboard operator at [facility] Novel Coronavirus 2019 [id number] 14:14:00* Test Item Value Reference Range Interpretation Comments Novel Coronavirus 2019 nCoV (test code = COVID19) NEGATIVE Does patient have the clinical criteria consistent with COVID-19? YIs the patien t going to be discharged home? YCA 13:09:00* Test Item Value Reference Range Interpretation Comments CA 125 (test code = CA125) 5.4 U/mL 0.0-38.1 R Embrane Electrochemiluminescence Immunoassay(ECLIA)Values obtained with different assay methods or kits cannotbe used interchangeably. Results cannot be interpreted asabsolute evidence of the presence or absence of malignantdisease.Performed At: [facility] [id number] Robert Fam MD Ph:[phone] [id number] 06:06:00* Test Item Value Reference Range Interpretation Comments GLUBED (test code = GLUBED) 84 mg/dL 74-106 N Performed by certified teletype or varitype keyboard operator at [facility] BASIC METABOLIC [id number] 04:26:00* Test Item Value Reference Range Interpretation [...] CA) 7.7 mg/dL 8.5-10.1 L BASIC METABOLIC [id number] 04:15:00* Test Item Value Reference Range Interpretation [...] code = CA) mg/dL 8.5-10.1 CBC W/O [id number] 04:12:00* Test Item Value Reference Range Interpretation [...] code = MPV) 9.6 fL 6.7-11.0 N [id number] 20:42:00* Test Item Value Reference Range Interpretation Comments GLUBED (test code = GLUBED) 150 mg/dL 74-106 H Performed by certified teletype or varitype keyboard operator at [facility] [id number] 16:03:00* Test Item Value Reference Range Interpretation Comments GLUBED (test code = GLUBED) 107 mg/dL 74-106 H Performed by certified teletype or varitype keyboard operator at [facility] [id number] 11:32:00* Test Item Value Reference Range Interpretation Comments GLUBED (test code = GLUBED) 118 mg/dL 74-106 H Performed by certified teletype or varitype keyboard operator at [facility] BASIC METABOLIC [id number] 07:56:00* Test Item Value Reference Range Interpretation [...] CA) 7.7 mg/dL 8.5-10.1 L BASIC METABOLIC [id number] 06:57:00* Test Item Value Reference Range Interpretation [...] CALCIUM (test code = CA) mg/dL 8.5-10.1 [id number] 05:28:00* Test Item Value Reference Range Interpretation Comments GLUBED (test code = GLUBED) 77 mg/dL 74-106 N Performed by certified teletype or varitype keyboard operator at [facility] [id number] 22:09:00* Test Item Value Reference Range Interpretation Comments GLUBED (test code = GLUBED) 107 mg/dL 74-106 H Performed by certified teletype or varitype keyboard operator at [facility] [id number] 16:21:00* Test Item Value Reference Range Interpretation Comments GLUBED (test code = GLUBED) 85 mg/dL 74-106 N Performed by certified teletype or varitype keyboard operator at [facility] [id number] 11:16:00* Test Item Value Reference Range Interpretation Comments GLUBED (test code = GLUBED) 93 mg/dL 74-106 N Performed by certified teletype or varitype keyboard operator at [facility] BASIC METABOLIC [id number] 06:46:00* Test Item Value Reference Range Interpretation [...] code = CA) 8.0 mg/dL 8.5-10.1 L [id number] 06:46:00* Test Item Value Reference Range Interpretation Comments ALBUMIN (test code = ALB) 2.2 g/dL 3.4-5.0 L [id number] 06:46:00* Test Item Value Reference Range Interpretation Comments PHOSPHORUS (test code = PHOS) 3.9 mg/dL 2.5-4.9 N [id number] 06:46:00* Test Item Value Reference Range Interpretation Comments MAGNESIUM (test code = MAG) 1.7 mg/dL 1.8-2.4 L [id number] 06:14:00* Test Item Value Reference Range Interpretation Comments GLUBED (test code = GLUBED) 99 mg/dL 74-106 N Performed by certified teletype or varitype keyboard operator at [facility] CBC W/AUTO [id number] 06:00:00* Test Item Value Reference Range Interpretation [...] DIFF REQUIRED (test code = MDIFF) NO [id number] 21:09:00* Test Item Value Reference Range Interpretation Comments GLUBED (test code = GLUBED) 119 mg/dL 74-106 H Performed by certified teletype or varitype keyboard operator at [facility] AG HEPAT B [id number] 21:09:00* Test Item Value Reference Range Interpretation Comments AG HEPAT B SURF (test code = HBSAG) Negative Index Nonreactive [id number] 16:58:00* Test Item Value Reference Range Interpretation Comments GLUBED (test code = GLUBED) 153 mg/dL 74-106 H Performed by certified teletype or varitype keyboard operator at [facility] [id number] 13:11:00* Test Item Value Reference Range Interpretation Comments GLUBED (test code = GLUBED) 97 mg/dL 74-106 N Performed by certified teletype or varitype keyboard operator at [facility] [id number] 05:42:00* Test Item Value Reference Range Interpretation Comments GLUBED (test code = GLUBED) 96 mg/dL 74-106 N Performed by certified teletype or varitype keyboard operator at [facility] BASIC METABOLIC [id number] 05:33:00* Test Item Value Reference Range Interpretation [...] code = CA) 7.8 mg/dL 8.5-10.1 L [id number] 05:33:00* Test Item Value Reference Range Interpretation Comments ALBUMIN (test code = ALB) 2.3 g/dL 3.4-5.0 L CBC W/AUTO [id number] 05:31:00* Test Item Value Reference Range Interpretation [...] DIFF REQUIRED (test code = MDIFF) NO [id number] 20:34:00* Test Item Value Reference Range Interpretation Comments GLUBED (test code = GLUBED) 83 mg/dL 74-106 N Performed by certified teletype or varitype keyboard operator at [facility] - US GUIDANCE VASC [id number] 18:06:00 Name: MERLY MORGAN [facility] : 1970 Age/S: 49 / F [address] [facility] Unit #: [id number] Loc: [place] [address] Phys: Edilson Hall MD Acct: [id number] Dis Date: Status: ADM IN PHONE #: [phone] Exam Date: 01/25/2020 1505 FAX #: [phone] Reason: EXAMS: CPT CODE: [id number] US GUIDANCE VASC ACCESS 17260 Fluoro Time: DAP (Gy m2): Air Kerma (mGy): EXAM: Insertion of a non-tunneled triple-lumen temporary hemodialysis catheter with sonographic guidance; CPT: 22785, 99505; INFORMATION: Renal failure; TECHNIQUE AND FINDINGS: After [...] Sequential dilatation was performed and a 13 Khmer triple lumen temporary hemodialysis catheter was then inserted over the guidewire. Good bl ood return was noticed; the catheter was sutured to the skin and flushed w ith heparinized saline. There were no apparent complications. IMPRESSION: Successful insertion of a non-tunneled triple-lumen temp orary hemodialysis catheter via right IJ access, using sonographic sudeep nce. Location code: [facility] Electronically Si gned by Mere Sheth on 01/25/2020 at 1806 Reported and signed by: Chele Sheth M.D. CC: Edilson Hall MD Techno logist: TOM HUITRON RRT Trnscb Date/Time: 01/25/2020 (272) [email or web address] Orig Print D/T: S: 01/25/2020 (1798) PAGE 1 Signed Report - XR CHEST 1 [id number] 16:01:00 FAX: Edilson Hall MD [phone] [place]: St: ADM Name: MERLY BENTON [facility] : [birth year] Age/S: 49/F [address] [facility] Unit #: [id number] Loc: [address] [place] [address] Phys: Chele Sheth MD Acct: [id number] Dis Date: Status: ADM IN PHONE #: [phone] Exam Date: 01/25/2020 1558 FAX #: [phone] Reason: POST LINE PLACEMENT EXAMS: CPT CODE: [id number] XR CHEST 1 V 55376 REASON FOR EXAM: POST LINE PLACEMENT Exam [...] limits. IMPRESSION: No acute cardiopulmonary process. Location: [facility] at 1601 Reported and signed by: Efraín Cardoza MD CC: Edilson Hall MD Technologist: RAFAEL CROW Trnscrd Date/Time/By: 2019 (1090) : By: [email or web address] Orig Print D/T: S: 01/25/2020 (6422) PAGE 1 Signed Report [id number] 12:48:00* Test Item Value Reference Range Interpretation Comments GLUBED (test code = GLUBED) 85 mg/dL 74-106 N Performed by certified teletype or varitype keyboard operator at [facility] CBC W/AUTO [id number] 06:55:00* Test Item Value Reference Range Interpretation Comments WHITE BLOOD CELL (test code = WBC) 11.7 K/mm3 4.5-12.5 N RED BLOOD CELL (test code = RBC) 2.68 mill/mm3 3.7-5.2 L HEMOGLOBIN (test code = HGB) 6.9 gram/dL 11.5-15.5 L HEMATOCRIT (test code = HCT) 21.8 % 36.0-46.0 LL Results called to [id number] by [email or web address] 01/25/20 0655Critical results verified and [...] NRBC#) 0.00 K/mm3 0.0-0.1 N BASIC METABOLIC [id number] 06:15:00* Test Item Value Reference Range Interpretation [...] code = CA) 6.9 mg/dL 8.5-10.1 L [id number] 06:15:00* Test Item Value Reference Range Interpretation Comments ALBUMIN (test code = ALB) 2.3 g/dL 3.4-5.0 L [id number] 06:12:00* Test Item Value Reference Range Interpretation Comments GLUBED (test code = GLUBED) 98 mg/dL 74-106 N Performed by certified teletype or varitype keyboard operator at [facility] BASIC METABOLIC [id number] 06:02:00* Test Item Value Reference Range Interpretation [...] CALCIUM (test code = CA) mg/dL 8.5-10.1 [id number] 06:02:00* Test Item Value Reference Range Interpretation Comments ALBUMIN (test code = ALB) g/dL 3.4-5.0 [id number] 21:13:00* Test Item Value Reference Range Interpretation Comments GLUBED (test code = GLUBED) 99 mg/dL 74-106 N Performed by certified teletype or varitype keyboard operator at [facility] [id number] 19:54:00* Test Item Value Reference Range Interpretation Comments GLUBED (test code = GLUBED) 120 mg/dL 74-106 H Performed by certified teletype or varitype keyboard operator at [facility] HGB [id number] 19:41:00* Test Item Value Reference Range Interpretation Comments HEMOGLOBIN (test code = HGB) 7.2 gram/dL 11.5-15.5 L HEMATOCRIT (test code = HCT) 23.1 % 36.0-46.0 L [id number] 12:02:00* Test Item Value Reference Range Interpretation Comments GLUBED (test code = GLUBED) 94 mg/dL 74-106 N Performed by certified teletype or varitype keyboard operator at [facility] LIPID PROFILE (CORONARY RISK)2020-01-24 06:18:00* [...] result is a direct measurement.========= BASIC METABOLIC [id number] 05:58:00* Test Item Value Reference Range Interpretation [...] CALCIUM (test code = CA) mg/dL 8.5-10.1 [id number] 05:58:00* Test Item Value Reference Range Interpretation Comments ALBUMIN (test code = ALB) g/dL 3.4-5.0 BASIC METABOLIC [id number] 05:58:00* Test Item Value Reference Range Interpretation [...] code = CA) 6.9 mg/dL 8.5-10.1 L [id number] 05:58:00* Test Item Value Reference Range Interpretation Comments ALBUMIN (test code = ALB) 2.1 g/dL 3.4-5.0 L CBC W/AUTO [id number] 05:40:00* Test Item Value Reference Range Interpretation Comments WHITE BLOOD CELL (test code = WBC) 11.5 K/mm3 4.5-12.5 N RED BLOOD CELL (test code = RBC) 2.43 mill/mm3 3.7-5.2 L HEMOGLOBIN (test code = HGB) 6.0 gram/dL 11.5-15.5 L HEMATOCRIT (test code = HCT) 19.7 % 36.0-46.0 LL Results called to [id number] by JUSTYNA 01/24/20 0538Critical results verified and read back [...] code = NRBC#) 0.00 K/mm3 0.0-0.1 N [id number] 22:04:00* Test Item Value Reference Range Interpretation Comments GLUBED (test code = GLUBED) 97 mg/dL 74-106 N Performed by certified teletype or varitype keyboard operator at [facility] PROTHROMBIN [id number] 16:53:00* Test Item Value Reference Range Interpretation [...] ANTICOAGULANTS HEPARINSPECIMEN COMMENTS: FOR PROCEDURE TOMORROW.THROMBOPLASTIN TIME [id number] 16:53:00* Test Item Value Reference Range Interpretation Comments THROMBOPLASTIN TIME PARTIAL (test code = PTT) 24.3 seconds 23.0-37. 0 N IS PATIENT ON ANTICOAGULANTS? YLIST ANTICOAGULANTS HEPARINSPECIMEN COMMENTS: FOR PROCEDURE TOMORROW.- HEPA IMAG INCL GB W [id number] 14:46:00 FAX: Tom Ortega MD [place]: B St: ADM FAX: Jamee Ni MD [phone] Name: MERLY MORGAN [facility] : 1970 Age/S: 49/F [address] [facility] Unit #: [id number] Loc: [address] [place] [address] Phys: Jamee Silverman MD Acct: [id number] Dis Date: Status: ADM IN PHONE #: [phone] Exam Date: 01/23/2020 1440 FAX #: [phone] Reason: eval for cholecystitis EXAMS: CPT CODE: [id number] HEPA IMAG INCL GB W PHA 98533 HISTORY: eval for cholecystitis EXAM: NUCLEAR MED [...] or biliary obstruction. 2. Biliary dyskinesia. Location: [facility] at 1440 Reported and signed by: Efraín Cardoza MD CC: Tom Hernadez MD; Jamee Silverman MD Technologist: Shaheed Lozano [facility] Trnscrd Date/Time/By: 01/23/2020 (6224) : By: [email or web address] Orig Print D/T: S: 01/23/2020 (2101) PAGE 1 Signed Report AG HEPAT B [id number] 14:28:00* Test Item Value Reference Range Interpretation Comments AG HEPAT B SURF (test code = HBSAG) Nonreactive Index Nonreactive [id number] 12:16:00* Test Item Value Reference Range Interpretation Comments GLUBED (test code = GLUBED) 121 mg/dL 74-106 H Performed by certified teletype or varitype keyboard operator at [facility] [facility] [id number] 10:30:00* Test Item Value Reference Range Interpretation Comments GLYCOSYLATED HEMOGLOBIN (HA1C) (test code = GLYHGB) 5.5 % HbA1 SUGGESTED DIAGNOSIS: HbA1C (%) Diabetic >6.4Prediabetes 5.7 - 6.4Normal <5.7 ESTIMATED AVERAGE GLUCOSE (test code = EAG) 111 MG/DL XJJPGREXKT4528-76-25 06:59:00* Test Item Value Reference Range Interpretation Comments PHOSPHORUS (test code = PHOS) 7.4 mg/dL 2.5-4.9 H MUQGJIZHA1670-62-30 06:59:00* Test Item Value Reference Range Interpretation Comments MAGNESIUM (test code = MAG) 1.4 mg/dL 1.8-2.4 L TDQMOZPMWA2636-33-60 06:56:00* Test Item Value Reference Range Interpretation Comments PHOSPHORUS (test code = PHOS) mg/dL 2.5-4.9 YYYXOEIXC9338-00-87 06:56:00* Test Item Value Reference Range Interpretation Comments MAGNESIUM (test code = MAG) 1.4 mg/dL 1.8-2.4 L RZFGWY7593-35-32 06:37:00* Test Item Value Reference Range Interpretation Comments GLUBED (test code = GLUBED) 158 mg/dL 74-106 H Performed by certified teletype or varitype keyboard operator at [facility]~ RTSHON1365-54-25 06:27:00* Test Item Value Reference Range Interpretation Comments GLUBED (test code = GLUBED) 93 mg/dL 74-106 N Performed by certified teletype or varitype keyboard operator at [facility] - DUP AB/PEL/SC [id number] 00:49:00 Name: MERLY MORGAN [facility] : 1970 Age[facility]S: 49 / [facility] [address] [facility] [id number] Loc: [place] [address] Phys: Tom Ortega MD Acct: [id number] Dis Date: Status: ADM IN PHONE #: [phone] Exam Date: 01/22/2020 0011 FAX #: [phone] Reason: EVAL OF ADNEXAL MASS EXAMS: CPT CODE: [id number] DUP AB/PEL/SC COMP 30072 DICTATION LOCATION: 8 HISTORY: Female, 49 years [...] (005) Probe: PAGE 1 Signed Report - PELVIS LTD OR ON4599-52-01 00:49:00 Name: MERLY MORGAN [facility] : 1970 Age/S: 49 / F Ramone Clemonsncer [facility] Unit #: [id number] Loc: [place] [address] Phys: Adeline Benitez ACCOUNTS RECEIVABLE ANALYST Acct: [id number] Dis Date: Status: ADM IN PHONE #: [phone] Exam Date: 01/22/2020 0011 FAX #: [phone] Reason: eval of adnexal mass EXAMS: CPT CODE: [id number] [place] [address] DICTATION LOCATION: 8 HISTORY: Female, 49 years [...] PAGE 1 Signed Report - US ABDOMEN CGAKOYQV7351-51-55 00:44:00 Name: MERLY MORGAN [facility] : 1970 Age/S: 49 / F [address] [facility] Unit #: [id number] Loc: [place] [address] Phys: Adeline Benitez NP Acct: [id number] Dis Date: Status: ADM IN PHONE #: [phone] Exam Date: 01/22/2020 7812 FAX #: [phone] Reason: acute kidne injury; focus on kidney EXAMS: CPT CODE: [id number] US ABDOMEN COMPLETE 91250 DICTATION LOCATION: H48 HISTORY: Female, 49 years [...] 1 Signed Report (CONTINUED) Name: MERLY MORGAN [facility] : 1970 Age/S: 49 / F [address] Unit #: [id number] [place] [address] Phys: Adeline Benitez NP Acct: [id number] Dis Date: Status: ADM IN PHONE #: [phone] Exam Date: 01/22/2020 2358 FAX #: [phone] Reason: acute kidne injury; focus on kidney EXAMS: CPT CODE: [id number] US ABDOMEN COMPLETE 62362 <Continued> at 0044 Reported and signed by: Nataly Hernandez MD CC: Steffen Liriano MD; Adeline Benitez NP Technologist: ROSALINO REHMAN RDMS Trnhib Date/Time: 01/23/2020 (43) [email or web address] Orig Print D/T: S: 01/23/2020 (004) Probe: PAGE 2 Signed Report Coronavirus 2018 nCoV Oehwiqf0308-86-32 22:33:00* Test Item Value Reference Range Interpretation Comments Coronavirus 2018 nCoV Bedside (test code = [id number]) Negative Is patient requiring admission or transfer? YIndication for rapid COVID-19 testi ng: Mod Clinical Suspicion- CT ABD PELVIS W/O [id number] 21:53:00 Name: MERLY MORGAN [facility] : 1970 Age/S: 49 / F [address] [facility] Unit #: [id number] Loc: [place] [address] Phys: Jana Ashley NP Acct: [id number] Dis Date: Status: REG ER PHONE #: [phone] Exam Date: 01/22/2020 210 FAX #: [phone] Reason: vomiting, abd pain EXAMS: CPT CODE: [id number] CT ABD PELVIS W/O CONT 66069 REASON FOR EXAM: vomiting, abd pain EXAM [...] Signed R eport (CONTINUED) Name: MERLY MORGAN [facility] : 1970 Age/S: 49 / F [address] [facility] Unit #: [id number] Loc: [place] [address] Phys: Jana Ashley NP Acct: [id number] Dis Date: Status: REG ER PHONE #: [phone] Exam Date: 01/22/20202101 FAX #: [phone] Reason: vomiting, abd pain EXAMS: CPT CODE: [id number] CT ABD PELVIS W/O CONT 40756 <Continued> IMPRESSION: Large cystic appearing lesion, which appears to arise from the left adnexa. Given the size of this lesion, further evaluation by book store associate as well as a contrast- enhanced pelvic MRI is recommended. Cholelithiasis without findings of acute cholecystitis. Location: [facility] at 2153 Reported and signed by: Efraín Cardoza MD CC: Jana Ashley NP Technologist:Mellissa Rowe RT(R); LO Hyatt CTDI: DLP: Trnscb Date/Time: 01/22/2020 (2152) [email or web address] Orig Print D/T: S: 01/22/2020 (2155) PAGE 2 Signed Report BASIC METABOLIC [id number] 19:03:00* Test Item Value Reference Range Interpretation [...] CA) 7.6 mg/dL 8.5-10.1 L HEPATIC FUNCTION [id number] 19:03:00* Test Item Value Reference Range Interpretation [...] reference range due to change in reagent. [id number] 19:03:00* Test Item Value Reference Range Interpretation Comments LIPASE (test code = LIP) 462 U/L 73.0-393.0 H HCG SERUM [id number] 19:03:00* Test Item Value Reference Range Interpretation Comments HCG SERUM QUAL (test code = HCGQL) NEGATIVE NEGATIVE This HCGQL test is NOT applicable for MALE patients.Check with nurse about probable order error.If Tumor Marker Test needed, nurse should order test "HCGTU"(Test #550.69551) BASIC METABOLIC [id number] 18:53:00* Test Item Value Reference Range Interpretation [...] CA) 7.6 mg/dL 8.5-10.1 L HEPATIC FUNCTION [id number] 18:53:00* Test Item Value Reference Range Interpretation [...] reference range due to change in reagent. [id number] 18:53:00* Test Item Value Reference Range Interpretation Comments LIPASE (test code = LIP) 462 U/L 73.0-393.0 H HCG SERUM [id number] 18:53:00* Test Item Value Reference Range Interpretation Comments HCG SERUM QUAL (test code = HCGQL) NEGATIVE URINALYSIS SMLYEYKZ7533-25-29 18:48:00* Test Item Value Reference Range Interpretation [...] #/LPF FEW Urine Source? Clean CatchBASIC METABOLIC [id number] 18:41:00* Test Item Value Reference Range Interpretation [...] code = CA) mg/dL 8.5-10.1 HEPATIC FUNCTION [id number] 18:41:00* Test Item Value Reference Range Interpretation [...] TOTAL (test code = ALKP) IUnit/L 45-117 MGUIDQ3607-44-23 18:41:00* Test Item Value Reference Range Interpretation Comments LIPASE (test code = LIP) U/L 73.0-393.0 HCG SERUM [id number] 18:41:00* Test Item Value Reference Range Interpretation Comments HCG SERUM QUAL (test code = HCGQL) NEGATIVE CBC W/O [id number] 18:28:00* Test Item Value Reference Range Interpretation [...] fL 6.7-11.0 N - XR CHEST 1 [id number] 15:35:00 FAX: Jana Ashley NP [place]: St: REG Name: MERLY BENTON [facility] : [birth year] Age/S: 49/F [address] [facility] Unit #: [id number] Loc: [place] [address] Phys: Jana Ashley NP Acct: [id number] Dis Date: Status: REG ER PHONE #: [phone] Exam Date: 01/22/2020 5930 FAX #: [phone] Reason: Abdominal Pain EXAMS: CPT CODE: [id number] XR CHEST 1 V 68378 REASON FOR EXAM: Abdominal Pain Exam Order [...] IMPRESSION: No acute cardiopulmonary process. Location : [facility] at 1535 Reported and signed by: Efraín Cardoza MD CC: Jana Rodríguez NP Technologist: MANASA MCDONALD, RT(R); RAFAEL CROW Trnscrd Date/Time/By: 01/22/2020 (15 35) : By: [email or web address] Orig Print D/T: S: 01/22/2020 (1600) PAGE 1 Signed Report Bedside Qomqdvs7118-38-50 16:04:00* Test Item Value Reference Range Interpretation Comments Bedside Glucose (test code = 23590-6) 134 70-120 H Meter ID: [id number] [facility] 2019-09-03 05:42:00* Test Item Value Reference Range Interpretation Comments Sodium Level (test code = 2951-2) 137 136-145 [facility]alePotassium Puuhb8357-32-78 05:42:00* Test Item Value Reference Range Interpretation Comments Potassium Level (test code = 2823-3) 4.2 3.5-5.1 [facility]aleChloride Wtoht6147-34-12 05:42:00* Test Item Value Reference Range Interpretation Comments Chloride Level (test code = 2075-0) 107 98-107 [facility] SunnyvaleCarbon Dioxide Mvhaj8633-94-75 05:42:00* Test Item Value Reference Range Interpretation Comments Carbon Dioxide Level (test code = 2028-9) 17 22-29 L [facility] SunnyvaleAnion Jvt2568-56-52 05:42:00* Test Item Value Reference Range Interpretation Comments Anion Gap (test code = 08007-2) 17.2 8-16 H [facility] SunnyvaleBlood Urea Lmypoevv6322-57-68 05:42:00* Test Item Value Reference Range Interpretation Comments Blood Urea Nitrogen (test code = 3094-0) 64 7-26 H [facility] SunnyvaleCreatinine2020-02-09 05:42:00* Test Item Value Reference Range Interpretation Comments Creatinine (test code = 2160-0) 5.78 0.57-1.11 H [facility]valeBUN/Creatinine Zykjj6718-88-00 05:42:00* Test Item Value Reference Range Interpretation Comments BUN/Creatinine Ratio (test code = 3097-3) 11 6-25 [facility] SunnyvaleEstimat Glomerular Filtration Rate 2019-09-03 05:42:00* Test Item Value Reference Range Interpretation Comments Estimat Glomerular Filtration Rate (test code = 875807511) 8 >60 L Ranges were taken from the National Kidney Disease Education Program and the [facility] Kidney Foundation literature.Reference ranges:60 or greater: Ufxuuq56-95 ( for 3 consecutive months): Chronic kidney disease 15 or less: Kidney failureBaylor Scott & [facility] Center – SunnyvaleGlucose Sdeoc7377-84-02 05:42:00* Test Item Value Reference Range Interpretation Comments Glucose Level (test code = MHD4892) 96 74-118 [facility] SunnyvaleCalcium Unwgi6629-20-12 05:42:00* Test Item Value Reference Range Interpretation Comments Calcium Level (test code = 35434-6) 7.5 8.4-10.2 L [facility] SunnyvaleWhite Blood Ufvge7922-43-92 05:40:00* Test Item Value Reference Range Interpretation Comments White Blood Count (test code = 6690-2) 12.50 4.8-10.8 H [facility] SunnyvaleRed Blood Oqniw5168-25-52 05:40:00* Test Item Value Reference Range Interpretation Comments Red Blood Count (test code = 789-8) 3.49 3.6-5.1 L [facility] SunnyvaleHemoglobin2020-02-09 05:40:00* Test Item Value Reference Range Interpretation Comments Hemoglobin (test code = 40276-1) 8.8 12.0-16.0 L [facility] SunnyvaleHematocrit2020-02-09 05:40:00* Test Item Value Reference Range Interpretation Comments Hematocrit (test code = 4544-3) 29.8 34.2-44.1 L [facility] SunnyvaleMean Corpuscular Vknuxs5857-96-26 05:40:00* Test Item Value Reference Range Interpretation Comments Mean Corpuscular Volume (test code = 787-2) 85.4 81-99 [facility] SunnyvaleMean Corpuscular Srngktynzx2026-35-71 05:40:00* Test Item Value Reference Range Interpretation Comments Mean Corpuscular Hemoglobin (test code = 785-6) 25.2 28-32 L [facility] SunnyvaleMean Corpuscular Hemoglobin Concent 2019-09-03 05:40:00* Test Item Value Reference Range Interpretation Comments Mean Corpuscular Hemoglobin Concent (test code = 786-4) 29.5 31-35 L [facility] SunnyvaleRed Cell Distribution Skcss7047-15-88 05:40:00* Test Item Value Reference Range Interpretation Comments Red Cell Distribution Width (test code = 67709-2) 15.7 11.7 -14.4 H [facility] SunnyvalePlatelet Htuvd4141-41-00 05:40:00* Test Item Value Reference Range Interpretation Comments Platelet Count (test code = 777-3) 280 140-360 [facility] SunnyvaleNeutrophils (%) (Auto)2019-09-03 05:40:00 * Test Item Value Reference Range Interpretation Comments Neutrophils (%) (Auto) (test code = 55464-6) 73.3 38.7-80.0 [facility] SunnyvaleLymphocytes (%) (Auto)2019-09-03 05:40:00 * Test Item Value Reference Range Interpretation Comments Lymphocytes (%) (Auto) (test code = 736-9) 10.9 18.0-39.1 L [facility]valeMonocytes (%) (Auto)2019-09-03 05:40:00* Test Item Value Reference Range Interpretation Comments Monocytes (%) (Auto) (test code = 5905-5) 6.5 4.4-11.3 [facility]aleEosinophils (%) (Auto)2019-09-03 05:40:00 * Test Item Value Reference Range Interpretation Comments Eosinophils (%) (Auto) (test code = 713-8) 8.3 0.0-6.0 H [facility] SunnyvaleBasophils (%) (Auto)2019-09-03 05:40:00* Test Item Value Reference Range Interpretation Comments Basophils (%) (Auto) (test code = 706-2) 0.6 0.0-1.0 [facility] SunnyvaleIM GRANULOCYTES %2019-09-03 05:40:00* Test Item Value Reference Range Interpretation Comments IM GRANULOCYTES % (test code = IM GRANULOCYTES %) 0.4 0.0- 1.0 [facility]valeNeutrophils # (Auto)2019-09-03 05:40:00* Test Item Value Reference Range Interpretation Comments Neutrophils # (Auto) (test code = 751-8) 9.2 2.1-6.9 H [facility] SunnyvaleLymphocytes # (Auto)2019-09-03 05:40:00* Test Item Value Reference Range Interpretation Comments Lymphocytes # (Auto) (test code = 79167-0) 1.4 1.0-3.2 [facility] SunnyvaleMonocytes # (Auto)2019-09-03 05:40:00* Test Item Value Reference Range Interpretation Comments Monocytes # (Auto) (test code = 742-7) 0.8 0.2-0.8 [facility]aleEosinophils # (Auto)2019-09-03 05:40:00* Test Item Value Reference Range Interpretation Comments Eosinophils # (Auto) (test code = 711-2) 1.0 0.0-0.4 H [facility]valeBasophils # (Auto)2019-09-03 05:40:00* Test Item Value Reference Range Interpretation Comments Basophils # (Auto) (test code = 704-7) 0.1 0.0-0.1 [facility] SunnyvaleAbsolute Immature Granulocyte (auto 2019-09-03 05:40:00* Test Item Value Reference Range Interpretation Comments Absolute Immature Granulocyte (auto (lawrence t code = Absolute Immature Granulocyte (auto) 0.05 0-0.1 [facility] SunnyvaleTriglycerides Txftu2882-16-67 09:55:00* Test Item Value Reference Range Interpretation Comments Triglycerides Level (test code = 2571-8) 104 0-149 [facility] SunnyvaleCholesterol Bpuxj7072-89-89 09:55:00* Test Item Value Reference Range Interpretation Comments Cholesterol Level (test code = 2093-3) 146 0-199 Less than 200 mg/dL Low Dvcb175 - 239 mg/dL Borderline Nbrf723 m g/dl and greater High Risk [facility] SunnyvaleLDL Ckvhcyywnke5775-08-98 09:55:00* Test Item Value Reference Range Interpretation Comments LDL Cholesterol (test code = 2089-1) 88 60-130 [facility] SunnyvaleHDL Qjrtatcitrw1792-87-74 09:55:00* Test Item Value Reference Range Interpretation Comments HDL Cholesterol (test code = 2085-9) 37 40-60 L [facility] SunnyvaleCholesterol/HDL Iecku5855-92-91 09:55:00 * Test Item Value Reference Range Interpretation Comments Cholesterol/HDL Ratio (test code = 9830-1) 3.9 3.0-3.6 H [facility] SunnyvaleTotal Huoxbxuyx2267-64-93 05:43:00* Test Item Value Reference Range Interpretation Comments Total Bilirubin (test code = 1975-2) 0.4 0.2-1.2 [facility] SunnyvaleAspartate Amino Transf (AST/SGOT) 2019-09-01 05:43:00* Test Item Value Reference Range Interpretation Comments Aspartate Amino Transf (AST/SGOT) (test code = Aspartate Amino Transf (AST/SGOT)) 10 5-34 [facility] SunnyvaleAlanine Aminotransferase (ALT/SGPT) 2019-09-01 05:43:00* Test Item Value Reference Range Interpretation Comments Alanine Aminotransferase (ALT/SGPT) (test code = 1742-6) < 6 0-55 [facility] SunnyvaleTotal Xwkwmrz0881-81-21 05:43:00* Test Item Value Reference Range Interpretation Comments Total Protein (test code = 2885-2) 7.7 6.5-8.1 [facility] SunnyvaleAlbumin2020-02-07 05:43:00* Test Item Value Reference Range Interpretation Comments Albumin (test code = 1751-7) 2.6 3.5-5.0 L [facility] SunnyvaleGlobulin2020-02-07 05:43:00* Test Item Value Reference Range Interpretation Comments Globulin (test code = 29379-4) 5.1 2.3-3.5 H [facility] SunnyvaleAlbumin/Globulin Npeza8897-40-23 05:43:00 * Test Item Value Reference Range Interpretation Comments Albumin/Globulin Ratio (test code = 1759-0) 0.5 0.8-2.0 L [facility] SunnyvaleAlkaline Pgqldugkpib6959-38-86 05:43:00* Test Item Value Reference Range Interpretation Comments Alkaline Phosphatase (test code = 6768-6) 101 40-150 [facility] SunnyvaleCreatine Kinase RS1268-99-54 17:21:00* Test Item Value Reference Range Interpretation Comments Creatine Kinase MB (test code = 00840-9) 1.40 0-5.0 [facility] SunnyvaleTroponin Z9685-13-91 17:21:00* Test Item Value Reference Range Interpretation Comments Troponin I (test code = YKL1285) 0.015 0-0.300 [facility] SunnyvaleCreatine Ynhoxi6951-57-78 17:13:00* Test Item Value Reference Range Interpretation Comments Creatine Kinase (test code = 2157-6) 72 29-168 [facility] SunnyvaleUS RENAL RETROPERITONEAL KJCY2391-91-94 16:12:00 [facility] [address] [address] Patient Name: MERLY MORGAN MR #: [id number] : 1970 Age/Sex: 49/F Req #: [id number] Adm Physician: RONAN VARNER MD Ordered by: RONAN VARNER MD Report #: [id number] Location: MED/SURG2 Room/Bed: [facility] Procedure: [id number] U S/US RENAL RETROPERITONEAL COMP Exam Date: [...] 161 3 COPY TO: RONAN VARNER MD [facility] SINGLE (PORTABLE)2019-08-30 07:08:00 [place] [address] Patient Name: MERLY MORGAN MR #: [id number] : 1970 Age/Sex: 49/F Req #: [id number] Adm Physician: RONAN VARNER MD Ordered by: CHRISTOPHER SEPULVEDA ACCOUNTS RECEIVABLE ANALYST Report #: [id number] Location: MED/SURG2 Room/Bed: 203- Procedure: [id number] DX/CHEST SINGLE (PORTABLE) Exam Date: 08/30/19 Exam [...] 0710 COPY TO: CHRISTOPHER PEREZ NP Prothrombin Geyi0189-93-55 05:20:00* Test Item Value Reference Range Interpretation Comments Prothrombin Time (test code = 5902-2) 13.9 11.9-14.5 [facility] SunnyvaleProthromb Time International Ratio 2019-08-30 05:20:00* Test Item Value Reference Range Interpretation Comments Prothromb Time International Ratio (test code = 6301-6) 1.05 Oral Anticoagulant Therapy INR Values:1. Low Intensity Therapy 1.5 - 2.02 . Moderate Intensity Therapy 2.0 - 3.03. High Intensity Therapy(1) 2.5 - 3. 54. High Intensity Therapy(2) 3.0 - 4.05. Panic Value INR > 5.0 [facility] SunnyvaleActivated Partial Thromboplast Time 2019-08-30 05:20:00* Test Item Value Reference Range Interpretation Comments Activated Partial Thromboplast Time (test code = 28636-3) 35.4 23.8-35.5 [facility] SunnyvaleUrine MNU3664-31-62 15:57:00* Test Item Value Reference Range Interpretation Comments Urine WBC (test code = 5821-4) 0-5 0-5 [facility] SunnyvaleUrine KRA3332-32-13 15:57:00* Test Item Value Reference Range Interpretation Comments Urine RBC (test code = 38139-5) 11-20 0-5 H [facility] SunnyvaleUrine Fsbtzeut9987-07-80 15:57:00* Test Item Value Reference Range Interpretation Comments Urine Bacteria (test code = 53003-9) NONE NONE [facility] SunnyvaleUrine Epithelial Ebrnw0380-20-78 15:57:00 * Test Item Value Reference Range Interpretation Comments Urine Epithelial Cells (test code = 53138-4) FEW NONE [facility] SunnyvaleUrine Amorphous Oelpvudl3376-67-75 15:57:00* Test Item Value Reference Range Interpretation Comments Urine Amorphous Sediment (test code = 8246-1) FEW FEW [facility] SunnyvaleInfluenza Virus Types A,B Antigen 2019-08-29 15:47:00* Test Item Value Reference Range Interpretation Comments Influenza Virus Types A,B Antigen (test code = 65249-8) NEGATIVE NEGATIVE [facility] SunnyvaleGroup A Streptococcus Eommkj6109-64-54 15:45:00* Test Item Value Reference Range Interpretation Comments Group A Streptococcus Screen (test code = 89968-0) POSITIVE NEG ATIVE [facility] SunnyvaleUrine Mgvaa5785-94-62 15:43:00* Test Item Value Reference Range Interpretation Comments Urine Color (test code = 5778-6) YELLOW YELLOW [facility] SunnyvaleUrine Obdoehm7256-77-70 15:43:00* Test Item Value Reference Range Interpretation Comments Urine Clarity (test code = 29260-5) CLOUDY CLEAR H [facility] SunnyvaleUrine Specific Iruysnx7001-52-35 15:43:00 * Test Item Value Reference Range Interpretation Comments Urine Specific [place] (test code = 5811-5) 1.025 1.010-1.02 5 [facility] SunnyvaleUrine tS1072-08-56 15:43:00* Test Item Value Reference Range Interpretation Comments Urine pH (test code = 29801-5) 6.5 5-7 [facility] SunnyvaleUrine Leukocyte Casbuuyx4868-16-65 15:43:00* Test Item Value Reference Range Interpretation Comments Urine Leukocyte Esterase (test code = 5799-2) NEGATIVE NEGATIVE [facility] SunnyvaleUrine Yawtrll5308-84-36 15:43:00* Test Item Value Reference Range Interpretation Comments Urine Nitrite (test code = 08434-7) NEGATIVE NEGATIVE [facility] SunnyvaleUrine Txndbyc9628-69-58 15:43:00* Test Item Value Reference Range Interpretation Comments Urine Protein (test code = 5804-0) 3+ NEGATIVE H [facility] SunnyvaleUrine Glucose (UA)2019-08-29 15:43:00* Test Item Value Reference Range Interpretation Comments Urine Glucose (UA) (test code = 2349-9) 1+ NEGATIVE H [facility] SunnyvaleUrine Recopdy3766-53-44 15:43:00* Test Item Value Reference Range Interpretation Comments Urine Ketones (test code = 53826-5) NEGATIVE NEGATIVE [facility] SunnyvaleUrine Caophoxbpwjs4868-00-13 15:43:00* Test Item Value Reference Range Interpretation Comments Urine Urobilinogen (test code = 56162-5) 0.2 0.2-1 [facility] SunnyvaleUrine Scagwsecs0148-54-70 15:43:00* Test Item Value Reference Range Interpretation Comments Urine Bilirubin (test code = 1978-6) NEGATIVE NEGATIVE [facility] SunnyvaleUrine Swcao0844-32-54 15:43:00* Test Item Value Reference Range Interpretation Comments Urine Blood (test code = 89040-4) MODERATE NEGATIVE [facility] SunnyvaleB-Type Natriuretic Ioxbobc1954-93-38 14:13:00* Test Item Value Reference Range Interpretation Comments B-Type Natriuretic Peptide (test code = 92070-7) 401.4 0-100 H [facility] SunnyvaleCHEST SINGLE (NOT PORTABLE)2019-08-29 12:14:00 [facility] [address] [place] [address] Patient Name: MERLY MORGAN MR #: [id number] : 1970 Age/Sex: 49/F Req #: [id number] Adm Physician: Ordered by: GLORIA COSME MD Report #: [id number] Location: ER Room/Bed: Procedure: [id number] DX /CHEST SINGLE (NOT PORTABLE) Exam Date: [...] LAUREN MD on 08/29/19 1214 Transcribed By: AILNY on 08/29/19 121 4 COPY TO: GLORIA COSME MD URINALYSIS CFUCXRSZ3497-77-53 00:37:00* Test Item Value Reference Range Interpretation [...] #/HPF NONE A Urine Source? CatheterBASIC METABOLIC [id number] 23:30:00* Test Item Value Reference Range Interpretation Comments SODIUM (test code = NA) TEST NOT PERFORMED mmol/L 136-145 N Previously reported result: 139 mmol/LEdited by: PycnoVioletaLAB.DIMITRIS2 on 08/08/19:069155 2328: NA previously reported as: 139 mmol/L POTASSIUM (test code = K) TEST NOT PERFORMED mmol/L 3.5-5.1 Previously reported result: 5.7 mmol/LEdited by: Pycno.LAB.DIMITRIS2 on 08/08/19:864886 2329: K previously reported as: 5.7 H mmol/L CHLORIDE (test code = CL) TEST NOT PERFORMED mmol/L 98-107 Previously reported result: 112.0 mmol/LEdited by: Pycno.LAB.DIMITRIS2 on 08/08/19:644583 2329: CL previously reported as: 112.0 H [...] TEST NOT PERFORMED mg/dL 8.5-10.1 HEPATIC FUNCTION [id number] 23:30:00* Test Item Value Reference Range Interpretation [...] = ALKP) TEST NOT PERFORMED IUnit/L 45-117 [id number] 23:30:00* Test Item Value Reference Range Interpretation Comments LIPASE (test code = LIP) TEST NOT PERFORMED U/L 73.0-393.0 HCG SERUM [id number] 23:30:00* Test Item Value Reference Range Interpretation Comments HCG SERUM QUAL (test code = HCGQL) TEST NOT PERFORMED NEGATIVE [id number] 23:30:00* Test Item Value Reference Range Interpretation Comments TROPONIN-I (test code = TROPI) TEST NOT PERFORMED ng/mL 0-0.045 BASIC METABOLIC [id number] 23:21:00* Test Item Value Reference Range Interpretation [...] code = CA) mg/dL 8.5-10.1 HEPATIC FUNCTION [id number] 23:21:00* Test Item Value Reference Range Interpretation [...] TOTAL (test code = ALKP) IUnit/L 45-117 [id number] 23:21:00* Test Item Value Reference Range Interpretation Comments LIPASE (test code = LIP) U/L 73.0-393.0 HCG SERUM [id number] 23:21:00* Test Item Value Reference Range Interpretation Comments HCG SERUM QUAL (test code = HCGQL) NEGATIVE [id number] 23:21:00* Test Item Value Reference Range Interpretation Comments TROPONIN-I (test code = TROPI) ng/mL 0-0.045 CBC W/O [id number] 23:00:00* Test Item Value Reference Range Interpretation [...] = MPV) 9.3 fL 6.7-11.0 N URINALYSIS [id number] 22:49:00* Test Item Value Reference Range Interpretation [...] Source? Clean Catch- CT ABD PELVIS W/O [id number] 22:18:00 Name: MERLY MORGAN [facility] : 1970 Age/S: 49 / F [address] Unit #: [id number] Loc: [place] [address] Phys: Óscar Harley ACCOUNTS RECEIVABLE ANALYST Acct: [id number] Di s Date: Status: REG ER PHONE #: Exam Date: 08/08/20192154 FAX #: Reason: RIGHT FLANK PAIN EXAMS: CPT CODE: [id number] CT ABD PELVIS W/O CONT 39195 EXAM: CT of the abdomen a nd [...] or surgical evaluation is recommended. Location code: [facility] at 2218 Reported and signed by: Chele Sheth M.D. CC: Daniel Estrada MD; Leon Harley NP Technologist:Mellissa Dumont(Will)Mack Hyatt CTDI: DLP: Trnscb Date/Time: 08/08/2019 (2217) t.Jennifer CERVANTES Orig Print D/T: S: 08/08/2019 (222) PAGE 1 Signed Report GLUBED 2019-08-08 21:41:00* Test Item Value Reference Range Interpretation Comments GLUBED (test code = GLUBED) 114 mg/dL 74-106 H Performed by certified teletype or varitype keyboard operator at [facility] [id number] 15:41:00* Test Item Value Reference Range Interpretation Comments GLUBED (test code = GLUBED) 134 mg/dL 74-106 H Performed by certified teletype or varitype keyboard operator at [facility] [id number] 11:54:00* Test Item Value Reference Range Interpretation Comments GLUBED (test code = GLUBED) 147 mg/dL 74-106 H Performed by certified teletype or varitype keyboard operator at [facility] CBC W/AUTO [id number] 09:51:00* Test Item Value Reference Range Interpretation [...] (test code = MDIFF) NO BASIC METABOLIC [id number] 07:11:00* Test Item Value Reference Range Interpretation [...] CA) 8.0 mg/dL 8.5-10.1 L BASIC METABOLIC [id number] 07:02:00* Test Item Value Reference Range Interpretation [...] CALCIUM (test code = CA) mg/dL 8.5-10.1 [id number] 04:59:00* Test Item Value Reference Range Interpretation Comments GLUBED (test code = GLUBED) 83 mg/dL 74-106 N Performed by certified teletype or varitype keyboard operator at [facility] [id number] 21:05:00* Test Item Value Reference Range Interpretation Comments GLUBED (test code = GLUBED) 127 mg/dL 74-106 H Performed by certified teletype or varitype keyboard operator at [facility] [id number] 16:56:00* Test Item Value Reference Range Interpretation Comments GLUBED (test code = GLUBED) 110 mg/dL 74-106 H Performed by certified teletype or varitype keyboard operator at [facility] [id number] 11:27:00* Test Item Value Reference Range Interpretation Comments GLUBED (test code = GLUBED) 108 mg/dL 74-106 H Performed by certified teletype or varitype keyboard operator at [facility] BASIC METABOLIC [id number] 11:22:00* Test Item Value Reference Range Interpretation [...] code = CA) 7.8 mg/dL 8.5-10.1 L [id number] 11:22:00* Test Item Value Reference Range Interpretation Comments PHOSPHORUS (test code = PHOS) 4.9 mg/dL 2.5-4.9 N [id number] 11:22:00* Test Item Value Reference Range Interpretation Comments MAGNESIUM (test code = MAG) 1.6 mg/dL 1.8-2.4 L BASIC METABOLIC [id number] 10:21:00* Test Item Value Reference Range Interpretation [...] code = CA) 7.8 mg/dL 8.5-10.1 L [id number] 10:21:00* Test Item Value Reference Range Interpretation Comments PHOSPHORUS (test code = PHOS) mg/dL 2.5-4.9 [id number] 10:21:00* Test Item Value Reference Range Interpretation Comments MAGNESIUM (test code = MAG) mg/dL 1.8-2.4 BASIC METABOLIC [id number] 09:26:00* Test Item Value Reference Range Interpretation [...] code = CA) 7.8 mg/dL 8.5-10.1 L [id number] 09:26:00* Test Item Value Reference Range Interpretation Comments PHOSPHORUS (test code = PHOS) mg/dL 2.5-4.9 [id number] 09:26:00* Test Item Value Reference Range Interpretation Comments MAGNESIUM (test code = MAG) mg/dL 1.8-2.4 CBC W/AUTO [id number] 08:33:00* Test Item Value Reference Range Interpretation [...] NRBC#) 0.00 K/mm3 0.0-0.1 N UR PROTEIN/CREATININE [id number] 07:39:00* Test Item Value Reference Range Interpretation [...] = P/CRATIO) 7.66 RATIO 0.0-0. 20 H [id number] 06:44:00* Test Item Value Reference Range Interpretation Comments GLUBED (test code = GLUBED) 121 mg/dL 74-106 H Performed by certified teletype or varitype keyboard operator at [facility] [id number] 06:23:00* Test Item Value Reference Range Interpretation Comments GLUBED (test code = GLUBED) 106 mg/dL 74-106 N Performed by certified teletype or varitype keyboard operator at [facility] [id number] 16:51:00* Test Item Value Reference Range Interpretation Comments GLUBED (test code = GLUBED) 174 mg/dL 74-106 H Performed by certified teletype or varitype keyboard operator at [facility] [id number] 11:19:00* Test Item Value Reference Range Interpretation Comments GLUBED (test code = GLUBED) 99 mg/dL 74-106 N Performed by certified teletype or varitype keyboard operator at [facility] [id number] 08:28:00* Test Item Value Reference Range Interpretation Comments PHOSPHORUS (test code = PHOS) 5.6 mg/dL 2.5-4.9 H [id number] 08:28:00* Test Item Value Reference Range Interpretation Comments MAGNESIUM (test code = MAG) 1.6 mg/dL 1.8-2.4 L BASIC METABOLIC [id number] 08:28:00* Test Item Value Reference Range Interpretation [...] CA) 7.4 mg/dL 8.5-10.1 L BASIC METABOLIC [id number] 08:16:00* Test Item Value Reference Range Interpretation [...] code = CA) mg/dL 8.5-10.1 CBC W/AUTO [id number] 07:52:00* Test Item Value Reference Range Interpretation [...] code = NRBC#) 0.00 K/mm3 0.0-0.1 N [id number] 05:49:00* Test Item Value Reference Range Interpretation Comments GLUBED (test code = GLUBED) 93 mg/dL 74-106 N Performed by certified teletype or varitype keyboard operator at [facility] [id number] 20:25:00* Test Item Value Reference Range Interpretation Comments GLUBED (test code = GLUBED) 152 mg/dL 74-106 H Performed by certified teletype or varitype keyboard operator at [facility] [id number] 17:42:00* Test Item Value Reference Range Interpretation Comments POTASSIUM (test code = K) 5.1 mmol/L 3.5-5.1 N [id number] 17:38:00* Test Item Value Reference Range Interpretation Comments GLUBED (test code = GLUBED) 146 mg/dL 74-106 H Performed by certified teletype or varitype keyboard operator at [facility] [id number] 13:55:00* Test Item Value Reference Range Interpretation Comments GLUBED (test code = GLUBED) 220 mg/dL 74-106 H Performed by certified teletype or varitype keyboard operator at [facility] DRUGS OF ABUSE SCREEN [id number] 13:15:00* Test Item Value Reference Range Interpretation [...] (test code = METHAURN) NEGATIVE <300 ng/mL [id number] 13:05:00* Test Item Value Reference Range Interpretation Comments GLUBED (test code = GLUBED) 128 mg/dL 74-106 H Performed by certified teletype or varitype keyboard operator at [facility] DRUGS OF ABUSE SCREEN [id number] 12:47:00* Test Item Value Reference Range Interpretation [...] code = METHAURN) <300 ng/mL CBC W/AUTO [id number] 07:46:00* Test Item Value Reference Range Interpretation [...] = MDIFF) NO, ONLY SCAN NEEDED DIFFERENTIAL [id number] 07:46:00* Test Item Value Reference Range Interpretation Comments STAIN ACCEPTABILITY (test code = STN ACCEPTABLE) STAIN ACCEPTABLE MORPHOLOGY COMMENT (test code = MOC) NORMAL PLATELET ESTIMATE (test code = PLTEST) ADEQUATE PLATELET MORPHOLOGY (test code = PLTMORPH) NORMAL BASIC METABOLIC [id number] 07:01:00* Test Item Value Reference Range Interpretation [...] CA) 7.9 mg/dL 8.5-10.1 L CBC W/AUTO [id number] 06:54:00* Test Item Value Reference Range Interpretation [...] = MDIFF) NO, ONLY SCAN NEEDED DIFFERENTIAL [id number] 06:54:00* Test Item Value Reference Range Interpretation Comments STAIN ACCEPTABILITY (test code = STN ACCEPTABLE) CABOT RINGS (test code = CAB) MORPHOLOGY COMMENT (test code = MOC) PLATELET ESTIMATE (test code = PLTEST) PLATELET MORPHOLOGY (test code = PLTMORPH) CBC W/AUTO [id number] 06:54:00* Test Item Value Reference Range Interpretation [...] = MDIFF) NO, ONLY SCAN NEEDED DIFFERENTIAL [id number] 06:54:00* Test Item Value Reference Range Interpretation Comments STAIN ACCEPTABILITY (test code = STN ACCEPTABLE) MORPHOLOGY COMMENT (test code = MOC) PLATELET ESTIMATE (test code = PLTEST) PLATELET MORPHOLOGY (test code = PLTMORPH) CBC W/AUTO [id number] 06:54:00* Test Item Value Reference Range Interpretation [...] = MDIFF) NO, ONLY SCAN NEEDED DIFFERENTIAL [id number] 06:54:00* Test Item Value Reference Range Interpretation Comments STAIN ACCEPTABILITY (test code = STN ACCEPTABLE) MORPHOLOGY COMMENT (test code = MOC) PLATELET ESTIMATE (test code = PLTEST) PLATELET MORPHOLOGY (test code = PLTMORPH) CBC W/AUTO [id number] 06:53:00* Test Item Value Reference Range Interpretation [...] = MDIFF) NO, ONLY SCAN NEEDED DIFFERENTIAL [id number] 06:53:00* Test Item Value Reference Range Interpretation Comments STAIN ACCEPTABILITY (test code = STN ACCEPTABLE) CABOT RINGS (test code = CAB) MORPHOLOGY COMMENT (test code = MOC) PLATELET ESTIMATE (test code = PLTEST) PLATELET MORPHOLOGY (test code = PLTMORPH) [id number] 06:23:00* Test Item Value Reference Range Interpretation Comments GLUBED (test code = GLUBED) 107 mg/dL 74-106 H Performed by certified teletype or varitype keyboard operator at [facility] [id number] 21:40:00* Test Item Value Reference Range Interpretation Comments GLUBED (test code = GLUBED) 114 mg/dL 74-106 H Performed by certified teletype or varitype keyboard operator at [facility] [id number] 17:46:00* Test Item Value Reference Range Interpretation Comments GLUBED (test code = GLUBED) 103 mg/dL 74-106 N Performed by certified teletype or varitype keyboard operator at [facility] LIPID PROFILE (CORONARY RISK)2019-03-10 14:59:00* [...] is a direct measurement.========= ADD ONTHYROID STIMULATING [id number] 14:59:00* Test Item Value Reference Range Interpretation Comments THYROID STIMULATING HORMONE (test code = TSH) 1.540 uIU/mL 0.36-3.7 4 N TSH REFERENCE RANGES: EUTHYROID: 0.35 - 4.3 mIU/mL HYPO : > 5.5 mIU/mL HYPER : < 0.35 mIU/mL ADD ON- MRI BRAIN W/O [id number] 14:55:00 FAX: Steffen Liriano MD [phone] [place]: St: ADM Name: MERLY BENTON [facility] : [birth year] Age/S: 49/F [address] [facility] Unit #: [id number] Loc: V.5 [place] [address] Phys: Steffen Liriano MD Acct: [id number] Dis Date: Status: ADM IN PHONE #: [phone] Exam Date: 03/10/2019 1157 FAX #: [phone] Reason: L arm numbness, dizziness, blurry vision EXAMS: CPT CODE: [id number] MRI BRAIN W/O CONTRAST 86344 REASON FOR EXAM: L arm numbness, d [...] by Efraín Cardoza MD on 2018 at 0726 Reported and signed by: Efraín Cardoza MD PAGE 1 Signed Report (CONTINUED) F AX: Steffen Liriano MD [phone] [place]: St: ADM Name: MERLY REYES [facility] : 1970 Age/S: 49/F [address] [facility] Unit #: [id number] Loc: V.2084 [place] [address] Phys: Steffen Liriano MD Acct: [id number] Dis Date: Status: ADM IN PHONE #: [phone] Exam Date: 03/10/2019 1157 FAX #: [phone] R immanuel: L arm numbness, dizziness, blurry vision EXAMS: CPT CODE: [id number] MRI BRAIN W/O CONTRAST 33771 <Continued> CC: Steffen Liriano MD Technologist: EMBER CASTAÑEDART - MRI Trnscrd Date/Time/By: 03/10/2019 (1761) : By: [email or web address] Orig Print D/T: S: 03/10/2019 (4004) PAGE 2 Signed Report [id number] 13:59:00* Test Item Value Reference Range Interpretation Comments GLUBED (test code = GLUBED) 156 mg/dL 74-106 H Performed by certified teletype or varitype keyboard operator at [facility] [id number] 13:59:00* Test Item Value Reference Range Interpretation Comments GLUBED (test code = GLUBED) 102 mg/dL 74-106 N Performed by certified teletype or varitype keyboard operator at [facility] - US RETRO [id number] 11:55:00 Name: MERLY MORGAN [facility] : 1970 Age/S: 49 / F [address] Unit #: [id number] [place]: [place] [address] Phys: Tom Ortega MD Acct: [id number] Dis Date: Status: ADM IN PHONE #: [phone] Exam Date: 03/10/2019 1120 FAX #: [phone] Reason: eval arf EXAMS: CPT CODE: [id number] US RETRO LTD [address] REASON FOR EXAM: eval arf EXAM ORDER [...] 1 Signed Report (CONTINUED) Name: MERLY MORGAN [facility] : 1970 Age/S: 49 / F [address] Unit #: [id number] Loc: [place] [address] Phys: Tom Ortega MD Acct: [id number] Dis Date: Status: ADM IN PHONE #: [phone] Exam Date: 03/10/2019 1120 FAX #: [phone] Reason: eval arf EXAMS: CPT CODE: [id number] US RETRO LTD 68277 <Continued> CC: Tom Ortega MD Technologist: DREW ROSAS RT(R),[facility] Trnscb Date/Time: 03/10/2019 (4069) [email or web address] Orig Print D/T: S: 03/10/2019 (6665) Probe: PAGE 2 Signed Report [id number] 11:20:00* Test Item Value Reference Range Interpretation Comments TROPONIN-I (test code = TROPI) <0.015 ng/mL 0-0.045 N COMMENTS TO NIGHT TIME NANNY: COLLECT 3 HOURS AFTER PREVIOUS SAMPLETSH REFLEX TO [id number] 09:27:00* Test Item Value Reference Range Interpretation Comments TSH REFLEX TO FT4 (test code = TSHREFLEX) 1.7 0.4-5.5 N [id number] 09:23:00* Test Item Value Reference Range Interpretation Comments TROPONIN-I (test code = TROPI) <0.015 ng/mL 0-0.045 N COMMENTS TO NIGHT TIME NANNY: COLLECT 3 HOURS AFTER PREVIOUS SAMPLEAB [id number] 08:55:00* Test Item Value Reference Range Interpretation Comments AB TREPONEMA (test code = TREPAB) Nonreactive Index NonReactive [id number] 07:36:00* Test Item Value Reference Range Interpretation Comments GLYCOSYLATED HEMOGLOBIN (HA1C) (test code = GLYHGB) 6.6 % HbA1 4. 8-6.0 H ESTIMATED AVERAGE GLUCOSE (test code = EAG) 143 MG/DL URINALYSIS [id number] 06:15:00* Test Item Value Reference Range Interpretation [...] #/LPF FEW Urine Source? Clean CatchBASIC METABOLIC [id number] 03:11:00* Test Item Value Reference Range Interpretation [...] code = CA) 8.4 mg/dL 8.5-10.1 L [id number] 03:11:00* Test Item Value Reference Range Interpretation Comments TROPONIN-I (test code = TROPI) <0.015 ng/mL 0-0.045 N BASIC METABOLIC [id number] 03:04:00* Test Item Value Reference Range Interpretation [...] CALCIUM (test code = CA) mg/dL 8.5-10.1 [id number] 03:04:00* Test Item Value Reference Range Interpretation Comments TROPONIN-I (test code = TROPI) ng/mL 0-0.045 PROTHROMBIN [id number] 03:02:00* Test Item Value Reference Range Interpretation [...] (2.5-3.5) IS PATIENT ON ANTICOAGULANTS? NTHROMBOPLASTIN TIME [id number] 03:02:00* Test Item Value Reference Range Interpretation Comments THROMBOPLASTIN TIME PARTIAL (test code = PTT) 31.6 seconds 25.0-36. 5 N IS PATIENT ON ANTICOAGULANTS? N- CT NECK W/O [id number] 02:54:00 Name: MERLY MORGAN [facility] : 1970 Age/S: 49 / F [address] [facility] Unit #: [id number] Loc: [place] [address] Phys: Caio Liriano MD Acct: [id number] Di s Date: Status: REG ER PHONE #: [phone] Exam Date: 03/10/2019 0244 FAX #: Reason: L neck pain/swelling anterior EXAMS: CPT CODE: [id number] CT NECK W/O C ONTRAST 83051 Dictation location: H37. CT NECK WITHOUT IV [...] 1 Signed Report (CONTINUED) Name: MERLY MORGAN [facility] : 1970 Age/S: 49 / F [address] Unit #: [id number] Loc: [place] [address] Phy s: Steffen Liriano MD Acct: [id number] Dis Date: Status: REG ER PHONE #: [phone] Exam Date: 03/10/2019 0244 FAX #: [phone] Reason: L neck pain/swelling anterior EXAMS: CPT CODE: [id number] CT NECK W/O CONTRAST 15591 <Continued> CC: Steffen Liriano MD Technologist:ZHEN CADENA, RT CTDI: DLP: Trnscb Date/Time: 03/10/2019 (0254) t.SDR.SP17 Orig Print D/T: S: 03/10/2019 (0257) PAGE 2 Signed Report CBC W/AUTO [id number] 02:52:00* Test Item Value Reference Range Interpretation [...] K/mm3 0.0-0.1 N - CT HEAD/BRAIN W/O [id number] 02:50:00 Name: MERLY MORGAN [facility] : 1970 Age/S: 49 / F [address] [facility] Unit #: [id number] Loc: [place] [address] Phys: Steffen Liriano MD Acct: [id number] Dis Date: Status: REG ER PHONE #: [phone] Exam Date: 03/10/2019 0235 FAX #: [phone] Reason: headache L neck pain, L arm numbness EXAMS: CPT CODE: [id number] CT HEAD/BRAIN W/O CONT 22379 Dictation location: H37. CT HEAD WITHOUT CONTRAST. [...] 1 Signed Report - XR CHEST 1 [id number] 02:37:00 FAX: Steffen Liriano MD [phone] [place]: St: REG Name: MERLY BENTON [facility] : [birth year] Age/S: 49/F [address] [facility] Unit #: [id number] Loc: [place] [address] Phys: Steffen Liriano MD Acct: [id number] Dis Date: Status: REG ER PHONE #: [phone] Exam Date: 03/10/2019 0236 FAX #: [phone] Reason: CODE STROKE EXAMS: CPT CODE: [id number] XR CHEST 1 V 88242 AFTER HOURS SERVICE ON: 03/10/2019 2:37 AM [...] S: 03/10/2019 (0240) PAGE 1 Signed Report [id number] 10:52:00 * Test Item Value Reference Range Interpretation Comments GLUBED (test code = GLUBED) 133 MG/DL 70-110 H Performed by certified teletype or varitype keyboard operator at [facility] [id number] 10:52:00* Test Item Value Reference Range Interpretation Comments GLUBED (test code = GLUBED) 130 MG/DL 70-110 H Performed by certified teletype or varitype keyboard operator at [facility] [id number] 10:51:00* Test Item Value Reference Range Interpretation Comments GLUBED (test code = GLUBED) 126 MG/DL 70-110 H Performed by certified teletype or varitype keyboard operator at [facility] [id number] 10:51:00* Test Item Value Reference Range Interpretation Comments GLUBED (test code = GLUBED) 162 MG/DL 70-110 H Performed by certified teletype or varitype keyboard operator at [facility] SERUM [id number] 14:10:00* Test Item Value Reference Range Interpretation Comments SERUM IRON (test code = IRON) 50 mcg/dL 35-150 N [id number] 14:10:00* Test Item Value Reference Range Interpretation Comments TRANSFERRRIN (test code = TRANSF) 164 mg/dL 200-370 A Performed At: [address] [id number] Sanjai MD Ph:[phone] [id number] 14:10:00* Test Item Value Reference Range Interpretation Comments FERRITIN (test code = MONIK) 52.8 ng/mL 11.0-306.8 N [id number] 09:26:00* Test Item Value Reference Range Interpretation Comments GLUBED (test code = GLUBED) 112 MG/DL 70-110 H Performed by certified teletype or varitype keyboard operator at [facility] BASIC METABOLIC [id number] 08:06:00* Test Item Value Reference Range Interpretation [...] code = CA) 7.9 mg/dL 8.0-10.5 L [id number] 05:07:00* Test Item Value Reference Range Interpretation Comments GLUBED (test code = GLUBED) 114 MG/DL 70-110 H Performed by certified teletype or varitype keyboard operator at [facility] [id number] 23:38:00* Test Item Value Reference Range Interpretation Comments GLUBED (test code = GLUBED) 131 MG/DL 70-110 H Performed by certified teletype or varitype keyboard operator at [facility] [id number] 22:18:00* Test Item Value Reference Range Interpretation Comments GLUBED (test code = GLUBED) 174 MG/DL 70-110 H Performed by certified teletype or varitype keyboard operator at [facility] [id number] 18:40:00* Test Item Value Reference Range Interpretation Comments GLUBED (test code = GLUBED) 121 MG/DL 70-110 H Performed by certified teletype or varitype keyboard operator at [facility] [id number] 18:40:00* Test Item Value Reference Range Interpretation Comments GLUBED (test code = GLUBED) 144 MG/DL 70-110 H Performed by certified teletype or varitype keyboard operator at [facility] HGB [id number] 18:31:00* Test Item Value Reference Range Interpretation Comments HEMOGLOBIN (test code = HGB) 8.0 g/dL 11.0-15.0 L HEMATOCRIT (test code = HCT) 26.5 % 33.0-45.0 L CBC W/AUTO [id number] 08:21:00* Test Item Value Reference Range Interpretation [...] (test code = MDIFF) NO BASIC METABOLIC [id number] 07:42:00* Test Item Value Reference Range Interpretation [...] code = CA) 7.6 mg/dL 8.0-10.5 L [id number] 17:52:00* Test Item Value Reference Range Interpretation Comments GLUBED (test code = GLUBED) 133 MG/DL 70-110 H Performed by certified teletype or varitype keyboard operator at [facility] [id number] 16:26:00* Test Item Value Reference Range Interpretation Comments GLUBED (test code = GLUBED) 101 MG/DL 70-110 N Performed by certified teletype or varitype keyboard operator at [facility] BASIC METABOLIC [id number] 08:33:00* Test Item Value Reference Range Interpretation [...] = CA) 8.5 mg/dL 8.0-10.5 N SERUM [id number] 08:23:00* Test Item Value Reference Range Interpretation Comments SERUM IRON (test code = IRON) 50 mcg/dL 35-150 N [id number] 08:23:00* Test Item Value Reference Range Interpretation Comments TRANSFERRRIN (test code = TRANSF) [id number] 08:23:00* Test Item Value Reference Range Interpretation Comments FERRITIN (test code = MONIK) 52.8 ng/mL 11.0-306.8 N CBC W/AUTO [id number] 07:45:00* Test Item Value Reference Range Interpretation [...] DIFF REQUIRED (test code = MDIFF) NO [id number] 06:36:00* Test Item Value Reference Range Interpretation Comments GLUBED (test code = GLUBED) 88 MG/DL 70-110 N Performed by certified teletype or varitype keyboard operator at [facility] [id number] 20:50:00* Test Item Value Reference Range Interpretation Comments GLUBED (test code = GLUBED) 161 MG/DL 70-110 H Performed by certified teletype or varitype keyboard operator at [facility] [id number] 18:46:00* Test Item Value Reference Range Interpretation Comments GLUBED (test code = GLUBED) 126 MG/DL 70-110 H Performed by certified teletype or varitype keyboard operator at [facility] [id number] 11:49:00* Test Item Value Reference Range Interpretation Comments GLUBED (test code = GLUBED) 135 MG/DL 70-110 H Performed by certified teletype or varitype keyboard operator at [facility] BASIC METABOLIC [id number] 08:06:00* Test Item Value Reference Range Interpretation [...] code = CA) 7.7 mg/dL 8.0-10.5 L [id number] 08:06:00* Test Item Value Reference Range Interpretation Comments PHOSPHOROUS (test code = PHOS) 5.6 mg/dL 2.5-4.9 H [id number] 08:06:00* Test Item Value Reference Range Interpretation Comments MAGNESIUM (test code = MAG) 2.10 mg/dL 1.8-2.4 N CBC W/AUTO [id number] 08:02:00* Test Item Value Reference Range Interpretation [...] DIFF REQUIRED (test code = MDIFF) NO [id number] 20:19:00* Test Item Value Reference Range Interpretation Comments GLUBED (test code = GLUBED) 104 MG/DL 70-110 N Performed by certified teletype or varitype keyboard operator at [facility] BASIC METABOLIC [id number] 16:30:00* Test Item Value Reference Range Interpretation [...] code = CA) 8.0 mg/dL 8.0-10.5 N [id number] 12:12:00* Test Item Value Reference Range Interpretation Comments GLUBED (test code = GLUBED) 100 MG/DL 70-110 N Performed by certified teletype or varitype keyboard operator at [facility] - XR CHEST 1 [id number] 11:26:00 FAX: Everton oMe MD [phone] [place]: St: ADM FAX: Anuradha Crum MD [phone] Name: MERLY MORGAN [facility] : 1970 Age/S: 48/F [address] [place] [address] Unit #: [id number] Loc: [id number] [place] [address] Phys: Anuradha Rahman MD Acct: [id number] Dis Date: Status: ADM IN PHONE #: [phone] Exam Date: 12/28/2018 1117 FAX #: [phone] Reason: SURGERY EXAMS: CPT CODE: [id number] XR CHEST 1 V 56575 Patient: MERLY MORGAN. : 1970; Age: 48 years; Gender: Female. MR: [id number]. Ordering physician: Anuradha Rahman MD. PORTABLE CHEST AP: HISTORY: Preoperative evaluation. COMPARISON: Chest x-ray 02/16/2018. FINDINGS: Portable frontal view of the chest was obtained. The lungs are clear bilaterally. The cardiomediastinal silhouette and pulmonary vasculature are unremarkable. The partially visualized upper abdomen is unremarkable. IMPRESSION: No acute disease in the chest. SL: [id number] at 1126 Reported and signed by: Hansel Benedict M.D. CC: Everton Weinstein MD; Anuradha Rahman MD Technologist: RT Brian(R) Trnscrd Date/Time/By: 12/28/2018 (1126) : By: [email or web address] Orig Print D/T: S: 12/28/2018 (1120) PAGE 1 Signed Report HGBA1C%2018-12-28 08:41:00* Test Item Value Reference Range Interpretation Comments HGBA1C% (test code = HGBA1C%) 7.6 %A1C 4.8-6.0 H CBC W/AUTO [id number] 08:20:00* Test Item Value Reference Range Interpretation [...] (test code = MDIFF) NO BASIC METABOLIC [id number] 07:32:00* Test Item Value Reference Range Interpretation [...] code = CA) 8.4 mg/dL 8.0-10.5 N [id number] 07:32:00* Test Item Value Reference Range Interpretation Comments PHOSPHOROUS (test code = PHOS) 5.6 mg/dL 2.5-4.9 H [id number] 07:32:00* Test Item Value Reference Range Interpretation Comments MAGNESIUM (test code = MAG) 2.30 mg/dL 1.8-2.4 PROTHROMBIN [id number] 07:18:00* Test Item Value Reference Range Interpretation [...] Infarction (to prevent recurrent infarct). THROMBOPLASTIN TIME [id number] 07:18:00* Test Item Value Reference Range Interpretation Comments THROMBOPLASTIN TIME PARTIAL (test code = PTT) 29.2 Seconds 25.0-39. 5 N Therapeutic Range: 50.4 - 88.3 Seconds Effective 11/08/2018 [id number] 06:53:00* Test Item Value Reference Range Interpretation Comments GLUBED (test code = GLUBED) 103 MG/DL 70-110 N Performed by certified teletype or varitype keyboard operator at [facility] [id number] 06:53:00* Test Item Value Reference Range Interpretation Comments GLUBED (test code = GLUBED) 98 MG/DL 70-110 N Performed by certified teletype or varitype keyboard operator at [facility] UR HCG [id number] 02:56:00* Test Item Value Reference Range Interpretation Comments UR HCG QUAL (test code = HCGQLU) NEGATIVE NEGATIVE [id number] 01:05:00* Test Item Value Reference Range Interpretation Comments POTASSIUM (test code = K) 5.7 mEq/L 3.4-5.0 H URINALYSIS [id number] 22:56:00* Test Item Value Reference Range Interpretation [...] MUCU) TRACE /LPF NONE SEEN UR PROTEIN [id number] 22:56:00* Test Item Value Reference Range Interpretation Comments UR PROTEIN RANDOM (test code = PROTU) 453 mg/dL Note: Change in UNITS of MEASUREMENT. The Reference Range and Method Performance specificationshave not been established for this fluid. The test resultshould be correlated into the clinical context forinterpretation. UR CREATININE [id number] 22:56:00* Test Item Value Reference Range Interpretation Comments UR CREATININE RANDOM (test code = CREATU) 82.9 mg/dL The Reference Range and Method Performance specificationshave not been established for this fluid. The test resultshould be correlated into the clinical context forinterpretation. URINALYSIS [id number] 22:47:00* Test Item Value Reference Range Interpretation [...] MUCU) TRACE /LPF NONE SEEN UR PROTEIN [id number] 22:47:00* Test Item Value Reference Range Interpretation Comments UR PROTEIN RANDOM (test code = PROTU) mg/dL UR CREATININE [id number] 22:47:00* Test Item Value Reference Range Interpretation Comments UR CREATININE RANDOM (test code = CREATU) mg/dL [id number] 20:37:00* Test Item Value Reference Range Interpretation Comments HEMOGLOBIN (test code = HGB) 7.8 g/dL 11.0-15.0 L [id number] 20:17:00* Test Item Value Reference Range Interpretation Comments GLUBED (test code = GLUBED) 203 MG/DL 70-110 H Performed by certified teletype or varitype keyboard operator at [facility] [id number] 17:40:00* Test Item Value Reference Range Interpretation Comments GLUBED (test code = GLUBED) 121 MG/DL 70-110 H Performed by certified teletype or varitype keyboard operator at [facility] [id number] 13:08:00* Test Item Value Reference Range Interpretation Comments POTASSIUM (test code = K) 6.1 mEq/L 3.4-5.0 HH [id number] 13:01:00* Test Item Value Reference Range Interpretation Comments HEMOGLOBIN (test code = HGB) 7.2 g/dL 11.0-15.0 L [id number] 12:21:00* Test Item Value Reference Range Interpretation Comments GLUBED (test code = GLUBED) 90 MG/DL 70-110 N Performed by certified teletype or varitype keyboard operator at [facility] [id number] 10:32:00* Test Item Value Reference Range Interpretation Comments GLUBED (test code = GLUBED) 142 MG/DL 70-110 H Performed by certified teletype or varitype keyboard operator at [facility] BASIC METABOLIC [id number] 09:58:00* Test Item Value Reference Range Interpretation [...] code = CA) 8.0 mg/dL 8.0-10.5 N [id number] 09:58:00* Test Item Value Reference Range Interpretation Comments PHOSPHOROUS (test code = PHOS) 5.5 mg/dL 2.5-4.9 H [id number] 09:58:00* Test Item Value Reference Range Interpretation Comments MAGNESIUM (test code = MAG) 1.60 mg/dL 1.8-2.4 L CALCIUM [id number] 09:58:00* Test Item Value Reference Range Interpretation Comments CALCIUM IONIZED (test code = RAYMOND) 1.23 MMOL/L 1.12-1.32 N BASIC METABOLIC [id number] 09:43:00* Test Item Value Reference Range Interpretation [...] CALCIUM (test code = CA) mg/dL 8.0-10.5 [id number] 09:43:00* Test Item Value Reference Range Interpretation Comments PHOSPHOROUS (test code = PHOS) mg/dL 2.5-4.9 [id number] 09:43:00* Test Item Value Reference Range Interpretation Comments MAGNESIUM (test code = MAG) mg/dL 1.8-2.4 CALCIUM [id number] 09:43:00* Test Item Value Reference Range Interpretation Comments CALCIUM IONIZED (test code = RAYMOND) 1.23 MMOL/L 1.12-1.32 N CBC W/AUTO [id number] 09:43:00* Test Item Value Reference Range Interpretation [...] DIFF REQUIRED (test code = MDIFF) NO [id number] 07:09:00* Test Item Value Reference Range Interpretation Comments POTASSIUM (test code = K) 5.8 mEq/L 3.4-5.0 H HGB [id number] 06:38:00* Test Item Value Reference Range Interpretation Comments HEMOGLOBIN (test code = HGB) 7.5 g/dL 11.0-15.0 L HEMATOCRIT (test code = HCT) 24.6 % 33.0-45.0 L [id number] 02:21:00* Test Item Value Reference Range Interpretation Comments POTASSIUM (test code = K) 5.3 mEq/L 3.4-5.0 H LACTIC [id number] 23:06:00* Test Item Value Reference Range Interpretation Comments LACTIC ACID (test code = LACT) 0.5 mmol/L 0.4-1.9 N HGB [id number] 22:46:00* Test Item Value Reference Range Interpretation Comments HEMOGLOBIN (test code = HGB) 7.2 g/dL 11.0-15.0 L HEMATOCRIT (test code = HCT) 23.2 % 33.0-45.0 L COMPREHENSIVE METABOLIC [id number] 21:53:00* Test Item Value Reference Range Interpretation [...] ALKP) 154 IUnit/L 20-125 H CBC W/AUTO [id number] 21:38:00* Test Item Value Reference Range Interpretation [...] REQUIRED (test code = MDIFF) NO Sodium [id number] 00:00:00* Test Item Value Reference Range Interpretation Comments Sodium Level (test code = 2951-2) 139 136-145 [facility] [id number] 00:00:00* Test Item Value Reference Range Interpretation Comments Potassium Level (test code = 2823-3) 5.2 3.5-5.1 H [facility]aleChloride [id number] 00:00:00* Test Item Value Reference Range Interpretation Comments Chloride Level (test code = 2075-0) 111 98-107 H [facility]valeCarbon Dioxide [id number] 00:00:00* Test Item Value Reference Range Interpretation Comments Carbon Dioxide Level (test code = 2028-9) 19 22-29 L [facility] SunnyvaleAnion [id number] 00:00:00* Test Item Value Reference Range Interpretation Comments Anion Gap (test code = 97436-8) 14.2 8-16 [facility] SunnyvaleBlood Urea Llwdkggv6036-49-16 00:00:00* Test Item Value Reference Range Interpretation Comments Blood Urea Nitrogen (test code = 3094-0) 49 7-26 H [facility]aleCreatinine2019-04-18 00:00:00* Test Item Value Reference Range Interpretation Comments Creatinine (test code = 2160-0) 2.83 0.57-1.11 H [facility]aleBUN/Creatinine Gziwn3498-98-20 00:00:00* Test Item Value Reference Range Interpretation Comments BUN/Creatinine Ratio (test code = 3097-3) 17 6-25 [facility] SunnyvaleEstimat Glomerular Filtration Rate 2018-11-10 00:00:00* Test Item Value Reference Range Interpretation Comments Estimat Glomerular Filtration Rate (test code = 724636204) 18 >60 L Ranges were taken from the National Kidney Disease Education Program and the [facility] Kidney Foundation literature.Reference ranges:60 or greater: Jawvwm18-13 ( for 3 consecutive months): Chronic kidney disease 15 or less: Kidney failureBaylor Scott & White Medical Center – SunnyvaleGlucose Ghstb9828-24-46 00:00:00* Test Item Value Reference Range Interpretation Comments Glucose Level (test code = PFI5456) 105 74-118 [facility] SunnyvaleCalcium Wzdic2131-48-08 00:00:00* Test Item Value Reference Range Interpretation Comments Calcium Level (test code = 80318-0) 9.3 8.4-10.2 [facility] SunnyvaleTotal Latiguakn3161-29-38 00:00:00* Test Item Value Reference Range Interpretation Comments Total Bilirubin (test code = 1975-2) 0.3 0.2-1.2 [facility] SunnyvaleAspartate Amino Transf (AST/SGOT) 2018-11-10 00:00:00* Test Item Value Reference Range Interpretation Comments Aspartate Amino Transf (AST/SGOT) (test code = Aspartate Amino Transf (AST/SGOT)) 12 5-34 [facility] SunnyvaleAlanine Aminotransferase (ALT/SGPT) 2018-11-10 00:00:00* Test Item Value Reference Range Interpretation Comments Alanine Aminotransferase (ALT/SGPT) (test code = 1742-6) 7 0-55 [facility] SunnyvaleTotal Agnhyke7699-07-20 00:00:00* Test Item Value Reference Range Interpretation Comments Total Protein (test code = 2885-2) 7.7 6.5-8.1 [facility] SunnyvaleAlbumin2019-04-18 00:00:00* Test Item Value Reference Range Interpretation Comments Albumin (test code = 1751-7) 2.2 3.5-5.0 L [facility] SunnyvaleGlobulin2019-04-18 00:00:00* Test Item Value Reference Range Interpretation Comments Globulin (test code = 73574-0) 5.5 2.3-3.5 H [facility] SunnyvaleAlbumin/Globulin Zvwvv5820-43-99 00:00:00 * Test Item Value Reference Range Interpretation Comments Albumin/Globulin Ratio (test code = 1759-0) 0.4 0.8-2.0 L [facility] SunnyvaleAlkaline Efjvvxxhtao0648-49-89 00:00:00* Test Item Value Reference Range Interpretation Comments Alkaline Phosphatase (test code = 6768-6) 123 40-150 [facility] SunnyvaleCreatine Vickpt9358-83-29 00:00:00* Test Item Value Reference Range Interpretation Comments Creatine Kinase (test code = 2157-6) 47 29-168 [facility] SunnyvaleCreatine Kinase [id number] 00:00:00* Test Item Value Reference Range Interpretation Comments Creatine Kinase MB (test code = 38795-4) 0.80 0-5.0 [facility] SunnyvaleTroponin [id number] 00:00:00* Test Item Value Reference Range Interpretation Comments Troponin I (test code = AIO4850) 0.014 0-0.300 [facility] SunnyvaleWhite Blood Spepl7387-17-05 23:08:00* Test Item Value Reference Range Interpretation Comments White Blood Count (test code = 6690-2) 16.77 4.8-10.8 H [facility] SunnyvaleRed Blood Fbwgm7709-98-84 23:08:00* Test Item Value Reference Range Interpretation Comments Red Blood Count (test code = 789-8) 3.32 3.6-5.1 L [facility] SunnyvaleHemoglobin2019-04-17 23:08:00* Test Item Value Reference Range Interpretation Comments Hemoglobin (test code = 60052-8) 8.5 12.0-16.0 L [facility] SunnyvaleHematocrit2019-04-17 23:08:00* Test Item Value Reference Range Interpretation Comments Hematocrit (test code = 4544-3) 27.0 34.2-44.1 L [facility] SunnyvaleMean Corpuscular Hmxcie9943-83-47 23:08:00* Test Item Value Reference Range Interpretation Comments Mean Corpuscular Volume (test code = 787-2) 81.3 81-99 [facility] SunnyvaleMean Corpuscular Tbsebqonoz1270-57-67 23:08:00* Test Item Value Reference Range Interpretation Comments Mean Corpuscular Hemoglobin (test code = 785-6) 25.6 28-32 L [facility] SunnyvaleMean Corpuscular Hemoglobin Concent 2018-11-09 23:08:00* Test Item Value Reference Range Interpretation Comments Mean Corpuscular Hemoglobin Concent (test code = 786-4) 31.5 31-35 [facility] SunnyvaleRed Cell Distribution Pgplm5556-87-53 23:08:00* Test Item Value Reference Range Interpretation Comments Red Cell Distribution Width (test code = 30389-2) 14.4 11.7 -14.4 [facility] SunnyvalePlatelet Prdyi4010-41-33 23:08:00* Test Item Value Reference Range Interpretation Comments Platelet Count (test code = 777-3) 348 140-360 [facility] SunnyvaleNeutrophils (%) (Auto)2018-11-09 23:08:00 * Test Item Value Reference Range Interpretation Comments Neutrophils (%) (Auto) (test code = 54578-7) 81.3 38.7-80.0 H [facility] SunnyvaleLymphocytes (%) (Auto)2018-11-09 23:08:00 * Test Item Value Reference Range Interpretation Comments Lymphocytes (%) (Auto) (test code = 736-9) 9.7 18.0-39.1 L [facility] SunnyvaleMonocytes (%) (Auto)2018-11-09 23:08:00* Test Item Value Reference Range Interpretation Comments Monocytes (%) (Auto) (test code = 5905-5) 5.1 4.4-11.3 [facility]aleEosinophils (%) (Auto)2018-11-09 23:08:00 * Test Item Value Reference Range Interpretation Comments Eosinophils (%) (Auto) (test code = 713-8) 3.0 0.0-6.0 [facility] SunnyvaleBasophils (%) (Auto)2018-11-09 23:08:00* Test Item Value Reference Range Interpretation Comments Basophils (%) (Auto) (test code = 706-2) 0.4 0.0-1.0 [facility] SunnyvaleIM GRANULOCYTES %2018-11-09 23:08:00* Test Item Value Reference Range Interpretation Comments IM GRANULOCYTES % (test code = IM GRANULOCYTES %) 0.5 0.0- 1.0 [facility] SunnyvaleNeutrophils # (Auto)2018-11-09 23:08:00* Test Item Value Reference Range Interpretation Comments Neutrophils # (Auto) (test code = 751-8) 13.6 2.1-6.9 H [facility]valeLymphocytes # (Auto)2018-11-09 23:08:00* Test Item Value Reference Range Interpretation Comments Lymphocytes # (Auto) (test code = 52923-9) 1.6 1.0-3.2 [facility]valeMonocytes # (Auto)2018-11-09 23:08:00* Test Item Value Reference Range Interpretation Comments Monocytes # (Auto) (test code = 742-7) 0.9 0.2-0.8 H [facility]aleEosinophils # (Auto)2018-11-09 23:08:00* Test Item Value Reference Range Interpretation Comments Eosinophils # (Auto) (test code = 711-2) 0.5 0.0-0.4 H [facility]aleBasophils # (Auto)2018-11-09 23:08:00* Test Item Value Reference Range Interpretation Comments Basophils # (Auto) (test code = 704-7) 0.1 0.0-0.1 [facility] SunnyvaleAbsolute Immature Granulocyte (auto 2018-11-09 23:08:00* Test Item Value Reference Range Interpretation Comments Absolute Immature Granulocyte (auto (lawrence t code = Absolute Immature Granulocyte (auto) 0.09 0-0.[address] ([facility])2018-11-09 22:36:00 [facility] [address] [address] Patient Name: MERLY MORGAN MR #: [id number] : 1970 Age/Sex: 48/F Req #: [id number] Adm Physician: Ordered by: ANURADHA WHYTE MD Report #: [id number] Location: ER Room/Bed: Procedure: [id number] DX/CHEST SINGLE (PORTABLE) Exam Date: 11/09/18 Exam Time: 2210 REPORT STATUS: Sign ed EXAMINATION: CHEST SINGLE (PORTABLE) COMPARISON: Chest x-ray 07/03/2018 INDICATION: chest pain [id number] Y DISCUSSIO N: Frontal view of [...] on 11/09/182236 COPY TO: ANURADHA WHYTE MD [id number] 11:59:00* Test Item Value Reference Range Interpretation Comments GLUBED (test code = GLUBED) 134 mg/dL 74-106 H Performed by certified teletype or varitype keyboard operator at [facility] BASIC METABOLIC HUMQQ1885-49-20 08:59:00* Test Item Value Reference Range Interpretation [...] code = CA) 8.2 mg/dL 8.5-10.1 L [id number] 02:43:00* Test Item Value Reference Range Interpretation Comments GLUBED (test code = GLUBED) 125 mg/dL 74-106 H Performed by certified teletype or varitype keyboard operator at [facility] QNYLNX7321-56-54 20:22:00* Test Item Value Reference Range Interpretation Comments GLUBED (test code = GLUBED) 152 mg/dL 74-106 H Performed by certified teletype or varitype keyboard operator at [facility] EUFEEW9554-35-20 15:51:00* Test Item Value Reference Range Interpretation Comments GLUBED (test code = GLUBED) 145 mg/dL 74-106 H Performed by certified teletype or varitype keyboard operator at [facility] IZTFSA6805-31-57 13:48:00* Test Item Value Reference Range Interpretation Comments GLUBED (test code = GLUBED) 221 mg/dL 74-106 H Performed by certified teletype or varitype keyboard operator at [facility] [id number] 08:28:00* Test Item Value Reference Range Interpretation Comments GLUBED (test code = GLUBED) 126 mg/dL 74-106 H Performed by certified teletype or varitype keyboard operator at [facility] BASIC METABOLIC [id number] 07:38:00* Test Item Value Reference Range Interpretation [...] CA) 8.5 mg/dL 8.5-10.1 N BASIC METABOLIC [id number] 07:24:00* Test Item Value Reference Range Interpretation [...] code = CA) mg/dL 8.5-10.1 UR PROTEIN/CREATININE [id number] 02:50:00* Test Item Value Reference Range Interpretation [...] H SPECIMEN COMMENTS: RN SEND NOW NOW IULLUUCIZ4895-35-75 02:06:00* Test Item Value Reference Range Interpretation Comments GLUBED (test code = GLUBED) 115 mg/dL 74-106 H Performed by certified teletype or varitype keyboard operator at [facility] [id number] 22:08:00* Test Item Value Reference Range Interpretation Comments GLUBED (test code = GLUBED) 143 mg/dL 74-106 H Performed by certified teletype or varitype keyboard operator at [facility] [id number] 16:55:00* Test Item Value Reference Range Interpretation Comments GLUBED (test code = GLUBED) 174 mg/dL 74-106 H Performed by certified teletype or varitype keyboard operator at [facility] AJLLPL7878-71-24 15:37:00* Test Item Value Reference Range Interpretation Comments GLUBED (test code = GLUBED) 136 mg/dL 74-106 H Performed by certified teletype or varitype keyboard operator at [facility] BASIC METABOLIC [id number] 15:19:00* Test Item Value Reference Range Interpretation [...] code = CA) 8.5 mg/dL 8.5-10.1 N [facility] MET[facility] [id number] 15:12:00* Test Item Value Reference Range Interpretation [...] CALCIUM (test code = CA) mg/dL 8.5-10.1 NOTIFIED.FCAFGPVY3041-32-56 08:25:00* Test Item Value Reference Range Interpretation Comments GLUBED (test code = GLUBED) 124 mg/dL 74-106 H Performed by certified teletype or varitype keyboard operator at [facility] [id number] 07:34:00* Test Item Value Reference Range Interpretation Comments GLUBED (test code = GLUBED) 190 mg/dL 74-106 H Performed by certified teletype or varitype keyboard operator at [facility] PKKPQQ5101-33-27 01:49:00* Test Item Value Reference Range Interpretation Comments GLUBED (test code = GLUBED) 111 mg/dL 74-106 H Performed by certified teletype or varitype keyboard operator at [facility] [id number] 20:57:00* Test Item Value Reference Range Interpretation Comments GLUBED (test code = GLUBED) 128 mg/dL 74-106 H Performed by certified teletype or varitype keyboard operator at [facility] RETRO [id number] 19:30:00 Name: MERLY MORGAN [facility] : 1970 Age/S: 48 / F [place] Colón Unit #: [id number] Loc: GI[place] [address] Phys: Jade Fernando MD Acct: [id number] Dis Date: Status: ADM IN PHONE #: [phone] Exam Date: 08/17/2018 1750 FAX #: [phone] Reason: angie EXAMS: CPT CODE: [id number] [employer] [id number] EXAM: Ultrasound retroperitoneum, limited; INFORMATION: Acute kidney [...] Mosquera MD; Jade Fernando MD Technologist: Corinna Jaosn RDMS Trnhib Date/Time: 08/17/2018 (1929) t.GRW Orig Print D/T: S: 08/17/2018 (1933) Probe: PAGE 1 Signed Report [id number] 16:23:00* Test Item Value Reference Range Interpretation Comments GLUBED (test code = GLUBED) 130 mg/dL 74-106 H Performed by certified teletype or varitype keyboard operator at [facility] TODNRYZBOS6113-26-81 16:09:00* Test Item Value Reference Range Interpretation Comments VANCOMYCIN (test code = VANCO) 13.4 UG/ML 5.0-45.0 N [id number] 13:03:00* Test Item Value Reference Range Interpretation Comments VANCOMYCIN (test code = VANCO) 15.9 UG/ML 5.0-45.0 N [id number] 11:17:00* Test Item Value Reference Range Interpretation Comments GLUBED (test code = GLUBED) 99 mg/dL 74-106 N Performed by certified teletype or varitype keyboard operator at [facility] [id number] 08:13:00* Test Item Value Reference Range Interpretation Comments GLUBED (test code = GLUBED) 89 mg/dL 74-106 N Performed by certified teletype or varitype keyboard operator at [facility] BASIC METABOLIC [id number] 07:36:00* Test Item Value Reference Range Interpretation [...] CA) 8.2 mg/dL 8.5-10.1 L CBC W/AUTO [id number] 06:40:00* Test Item Value Reference Range Interpretation [...] = MDIFF) NO, ONLY SCAN NEEDED DIFFERENTIAL [id number] 06:40:00* Test Item Value Reference Range Interpretation Comments STAIN ACCEPTABILITY (test code = STN ACCEPTABLE) STAIN ACCEPTABLE ANISOCYTOSIS (test code = ANISO) 1+ MICROCYTOSIS (test code = MICR) 1+ CRENATED CELLS (test code = CREN) 1+ PLATELET ESTIMATE (test code = PLTEST) ADEQUATE PLATELET MORPHOLOGY (test code = PLTMORPH) NORMAL CBC W/AUTO [id number] 05:30:00* Test Item Value Reference Range Interpretation [...] = MDIFF) NO, ONLY SCAN NEEDED DIFFERENTIAL [id number] 05:30:00* Test Item Value Reference Range Interpretation Comments STAIN ACCEPTABILITY (test code = STN ACCEPTABLE) MORPHOLOGY COMMENT (test code = MOC) PLATELET ESTIMATE (test code = PLTEST) PLATELET MORPHOLOGY (test code = PLTMORPH) CBC W/AUTO [id number] 05:28:00* Test Item Value Reference Range Interpretation [...] = MDIFF) NO, ONLY SCAN NEEDED DIFFERENTIAL [id number] 05:28:00* Test Item Value Reference Range Interpretation Comments STAIN ACCEPTABILITY (test code = STN ACCEPTABLE) CABOT RINGS (test code = CAB) MORPHOLOGY COMMENT (test code = MOC) PLATELET ESTIMATE (test code = PLTEST) PLATELET MORPHOLOGY (test code = PLTMORPH) CBC W/AUTO [id number] 05:28:00* Test Item Value Reference Range Interpretation [...] = MDIFF) NO, ONLY SCAN NEEDED DIFFERENTIAL [id number] 05:28:00* Test Item Value Reference Range Interpretation Comments STAIN ACCEPTABILITY (test code = STN ACCEPTABLE) MORPHOLOGY COMMENT (test code = MOC) PLATELET ESTIMATE (test code = PLTEST) PLATELET MORPHOLOGY (test code = PLTMORPH) CBC W/AUTO [id number] 05:28:00* Test Item Value Reference Range Interpretation [...] = MDIFF) NO, ONLY SCAN NEEDED DIFFERENTIAL [id number] 05:28:00* Test Item Value Reference Range Interpretation Comments STAIN ACCEPTABILITY (test code = STN ACCEPTABLE) CABOT RINGS (test code = CAB) MORPHOLOGY COMMENT (test code = MOC) PLATELET ESTIMATE (test code = PLTEST) PLATELET MORPHOLOGY (test code = PLTMORPH) [id number] 04:56:00* Test Item Value Reference Range Interpretation Comments GLUBED (test code = GLUBED) 85 mg/dL 74-106 N Performed by certified teletype or varitype keyboard operator at [facility] [id number] 00:36:00* Test Item Value Reference Range Interpretation Comments GLUBED (test code = GLUBED) 188 mg/dL 74-106 H Performed by certified teletype or varitype keyboard operator at [facility] [id number] 21:17:00* Test Item Value Reference Range Interpretation Comments GLUBED (test code = GLUBED) 163 mg/dL 74-106 H Performed by certified teletype or varitype keyboard operator at [facility] [id number] 15:48:00* Test Item Value Reference Range Interpretation Comments GLUBED (test code = GLUBED) 174 mg/dL 74-106 H Performed by certified teletype or varitype keyboard operator at [facility] VANCOMYCIN [id number] 15:12:00* Test Item Value Reference Range Interpretation Comments VANCOMYCIN TROUGH (test code = VANCT) 20.2 ug/mL 10-20 H CBC W/AUTO [id number] 14:43:00* Test Item Value Reference Range Interpretation [...] code = NRBC#) 0.00 K/mm3 0.0-0.1 N [id number] 07:36:00* Test Item Value Reference Range Interpretation Comments GLUBED (test code = GLUBED) 124 mg/dL 74-106 H Performed by certified teletype or varitype keyboard operator at [facility] FE W/TOTAL IRON BINDING CAP.2018-08-16 06:09:00* Test Item Value Reference Range Interpretation Comments SERUM IRON (test code = IRON) 41 ug/dL 50-175 L TOTAL IRON BINDING CAPACITY (test code = TIBC) 179 mcg/dL 250-450 L IRON SATURATION (test code = FESAT) 22.91 % 13-45 N [id number] 06:09:00* Test Item Value Reference Range Interpretation Comments FERRITIN (test code = MONIK) 113 ng/mL 8-388 N [id number] 00:38:00* Test Item Value Reference Range Interpretation Comments GLUBED (test code = GLUBED) 136 mg/dL 74-106 H Performed by certified teletype or varitype keyboard operator at [facility] BASIC METABOLIC [id number] 21:21:00* Test Item Value Reference Range Interpretation [...] 7.9 mg/dL 8.5-10.1 L 08/15/18 1105BASIC METABOLIC [id number] 21:18:00* Test Item Value Reference Range Interpretation [...] = CA) mg/dL 8.5-10.1 08/15/18 1105CBC W/AUTO [id number] 21:09:00* Test Item Value Reference Range Interpretation [...] NRBC#) 0.00 K/mm3 0.0-0.1 N 1 08/15/18 [id number] 20:41:00* Test Item Value Reference Range Interpretation Comments GLUBED (test code = GLUBED) 155 mg/dL 74-106 H Performed by certified teletype or varitype keyboard operator at [facility] [id number] 16:02:00* Test Item Value Reference Range Interpretation Comments GLUBED (test code = GLUBED) 125 mg/dL 74-106 H Performed by certified teletype or varitype keyboard operator at [facility] [id number] 13:30:00* Test Item Value Reference Range Interpretation Comments GLUBED (test code = GLUBED) 175 mg/dL 74-106 H Performed by certified teletype or varitype keyboard operator at [facility] [id number] 08:19:00* Test Item Value Reference Range Interpretation Comments GLUBED (test code = GLUBED) 141 mg/dL 74-106 H Performed by certified teletype or varitype keyboard operator at [facility] [id number] 05:14:00* Test Item Value Reference Range Interpretation Comments GLUBED (test code = GLUBED) 106 mg/dL 74-106 N Performed by certified teletype or varitype keyboard operator at [facility] DRUGS OF ABUSE SCREEN [id number] 04:55:00* Test Item Value Reference Range Interpretation [...] NEGATIVE <300 ng/mL DRUGS OF ABUSE SCREEN [id number] 04:40:00* Test Item Value Reference Range Interpretation [...] code = METHAURN) NEGATIVE <300 ng/mL URINALYSIS [id number] 03:54:00* Test Item Value Reference Range Interpretation [...] #/LPF FEW Urine Source? Clean CatchBASIC METABOLIC [id number] 03:31:00* Test Item Value Reference Range Interpretation [...] CA) 8.7 mg/dL 8.5-10.1 N HEPATIC FUNCTION [id number] 03:31:00* Test Item Value Reference Range Interpretation [...] due to change in reagent. HCG SERUM [id number] 03:31:00* Test Item Value Reference Range Interpretation Comments HCG SERUM QUAL (test code = HCGQL) NEGATIVE NEGATIVE This HCGQL test is NOT applicable for MALE patients.Check with nurse about probable order error.If Tumor Marker Test needed, nurse should order test "HCGTU"(Test #550.40390) [id number] 03:31:00* Test Item Value Reference Range Interpretation Comments TROPONIN-I (test code = TROPI) <0.015 ng/mL 0-0.045 N BASIC METABOLIC [id number] 03:17:00* Test Item Value Reference Range Interpretation [...] CA) 8.7 mg/dL 8.5-10.1 N HEPATIC FUNCTION [id number] 03:17:00* Test Item Value Reference Range Interpretation [...] due to change in reagent. HCG SERUM [id number] 03:17:00* Test Item Value Reference Range Interpretation Comments HCG SERUM QUAL (test code = HCGQL) NEGATIVE [id number] 03:17:00* Test Item Value Reference Range Interpretation [...] interpreted taking into account the patients history. [id number] 02:22:00* Test Item Value Reference Range Interpretation [...] result is a direct measurement.========= BASIC METABOLIC [id number] 02:13:00* Test Item Value Reference Range Interpretation [...] code = CA) mg/dL 8.5-10.1 HEPATIC FUNCTION [id number] 02:13:00* Test Item Value Reference Range Interpretation [...] code = ALKP) IUnit/L 45-117 HCG SERUM [id number] 02:13:00* Test Item Value Reference Range Interpretation Comments HCG SERUM QUAL (test code = HCGQL) NEGATIVE [id number] 02:13:00* Test Item Value Reference Range Interpretation Comments TROPONIN-I (test code = TROPI) ng/mL 0-0.045 LACTIC [id number] 02:13:00* Test Item Value Reference Range Interpretation Comments LACTIC ACID (test code = LACT) 0.5 mmol/L 0.4-1.9 N PROTHROMBIN [id number] 01:46:00* Test Item Value Reference Range Interpretation [...] (2.5-3.5) IS PATIENT ON ANTICOAGULANTS? NCBC W/AUTO [id number] 01:21:00* Test Item Value Reference Range Interpretation [...] REQUIRED (test code = MDIFF) NO Blood [id number] 16:14:00* Test Item Value Reference Range Interpretation Comments Blood Culture (test code = 00519100) NO GROWTH AFTER 5 DAYS, FINAL REPORT [facility]aleB[facility]Type Natriuretic Odgfndg2892-30-43 08:12:00* Test Item Value Reference Range Interpretation Comments B-Type Natriuretic Peptide (test code = 84243-6) 124.3 0-100 H [facility]aleB-Type Natriuretic [id number] 08:12:00* Test Item Value Reference Range Interpretation Comments B-Type Natriuretic Peptide (test code = 98257-2) 124.3 0-100 [facility] [id number] 07:51:00* Test Item Value Reference Range Interpretation Comments Sodium Level (test code = 2951-2) 139 136-145 [facility]alePotassium [id number] 07:51:00* Test Item Value Reference Range Interpretation Comments Potassium Level (test code = 2823-3) 5.2 3.5-5.1 H [facility]valeChloride [id number] 07:51:00* Test Item Value Reference Range Interpretation Comments Chloride Level (test code = 2075-0) 109 98-107 H [facility] SunnyvaleCarbon Dioxide Yzjii1666-87-08 07:51:00* Test Item Value Reference Range Interpretation Comments Carbon Dioxide Level (test code = 2028-9) 22 22-29 [facility] SunnyvaleAnion [id number] 07:51:00* Test Item Value Reference Range Interpretation Comments Anion Gap (test code = 46322-9) 13.2 8-16 [facility] SunnyvaleBlood Urea Mgusxrph5078-66-56 07:51:00* Test Item Value Reference Range Interpretation Comments Blood Urea Nitrogen (test code = 3094-0) 53 7-26 H [facility]valeCreatinine2018-12-11 07:51:00* Test Item Value Reference Range Interpretation Comments Creatinine (test code = 2160-0) 3.22 0.57-1.11 H [facility]valeBUN/Creatinine Kxvxi4077-82-64 07:51:00* Test Item Value Reference Range Interpretation Comments BUN/Creatinine Ratio (test code = 3097-3) 16 6-25 [facility] SunnyvaleEstimat Glomerular Filtration Rate 2018-07-05 07:51:00* Test Item Value Reference Range Interpretation Comments Estimat Glomerular Filtration Rate (test code = 560860293) 15 >60 L Ranges were taken from the National Kidney Disease Education Program and the [facility] Kidney Foundation literature.Reference ranges:60 or greater: Alnyon25-07 ( for 3 consecutive months): Chronic kidney disease 15 or less: Kidney failureBaylor Scott & White Medical Center – SunnyvaleGlucose Qfptu7600-90-68 07:51:00* Test Item Value Reference Range Interpretation Comments Glucose Level (test code = RXE0657) 99 74-118 [facility] SunnyvaleCalcium Ovsdy7354-34-17 07:51:00* Test Item Value Reference Range Interpretation Comments Calcium Level (test code = 28923-2) 8.6 8.4-10.2 [facility] SunnyvaleWhite Blood Djtgj5865-40-87 07:36:00* Test Item Value Reference Range Interpretation Comments White Blood Count (test code = 6690-2) 12.26 4.8-10.8 H [facility] SunnyvaleRed Blood Fschv9556-67-53 07:36:00* Test Item Value Reference Range Interpretation Comments Red Blood Count (test code = 789-8) 3.89 3.6-5.1 [facility] SunnyvaleHemoglobin2018-12-11 07:36:00* Test Item Value Reference Range Interpretation Comments Hemoglobin (test code = 79097-2) 9.7 12.0-16.0 L [facility] SunnyvaleHematocrit2018-12-11 07:36:00* Test Item Value Reference Range Interpretation Comments Hematocrit (test code = 4544-3) 31.2 34.2-44.1 L [facility] SunnyvaleMean Corpuscular Olvums4592-14-89 07:36:00* Test Item Value Reference Range Interpretation Comments Mean Corpuscular Volume (test code = 787-2) 80.2 81-99 L [facility] SunnyvaleMean Corpuscular Gnesvvryev6581-81-98 07:36:00* Test Item Value Reference Range Interpretation Comments Mean Corpuscular Hemoglobin (test code = 785-6) 24.9 28-32 L [facility] SunnyvaleMean Corpuscular Hemoglobin Concent 2018-07-05 07:36:00* Test Item Value Reference Range Interpretation Comments Mean Corpuscular Hemoglobin Concent (test code = 786-4) 31.1 31-35 [facility] SunnyvaleRed Cell Distribution [id number] 07:36:00* Test Item Value Reference Range Interpretation Comments Red Cell Distribution Width (test code = 96582-9) 15.4 11.7 -14.4 H [facility] SunnyvalePlatelet Pparh3196-24-38 07:36:00* Test Item Value Reference Range Interpretation Comments Platelet Count (test code = 777-3) 331 140-360 [facility] SunnyvaleNeutrophils (%) (Auto)2018-07-05 07:36:00 * Test Item Value Reference Range Interpretation Comments Neutrophils (%) (Auto) (test code = 30338-9) 68.6 38.7-80.0 [facility] SunnyvaleLymphocytes (%) (Auto)2018-07-05 07:36:00 * Test Item Value Reference Range Interpretation Comments Lymphocytes (%) (Auto) (test code = 736-9) 15.1 18.0-39.1 L [facility] SunnyvaleMonocytes (%) (Auto)2018-07-05 07:36:00* Test Item Value Reference Range Interpretation Comments Monocytes (%) (Auto) (test code = 5905-5) 7.7 4.4-11.3 [facility]aleEosinophils (%) (Auto)2018-07-05 07:36:00 * Test Item Value Reference Range Interpretation Comments Eosinophils (%) (Auto) (test code = 713-8) 7.4 0.0-6.0 H [facility]valeBasophils (%) (Auto)2018-07-05 07:36:00* Test Item Value Reference Range Interpretation Comments Basophils (%) (Auto) (test code = 706-2) 0.7 0.0-1.0 [facility] SunnyvaleIM GRANULOCYTES %2018-07-05 07:36:00* Test Item Value Reference Range Interpretation Comments IM GRANULOCYTES % (test code = IM GRANULOCYTES %) 0.5 0.0- 1.0 [facility]valeNeutrophils # (Auto)2018-07-05 07:36:00* Test Item Value Reference Range Interpretation Comments Neutrophils # (Auto) (test code = 751-8) 8.4 2.1-6.9 H [facility] SunnyvaleLymphocytes # (Auto)2018-07-05 07:36:00* Test Item Value Reference Range Interpretation Comments Lymphocytes # (Auto) (test code = 40686-0) 1.9 1.0-3.2 [facility]valeMonocytes # (Auto)2018-07-05 07:36:00* Test Item Value Reference Range Interpretation Comments Monocytes # (Auto) (test code = 742-7) 0.9 0.2-0.8 H [facility]valeEosinophils # (Auto)2018-07-05 07:36:00* Test Item Value Reference Range Interpretation Comments Eosinophils # (Auto) (test code = 711-2) 0.9 0.0-0.4 H [facility]valeBasophils # (Auto)2018-07-05 07:36:00* Test Item Value Reference Range Interpretation Comments Basophils # (Auto) (test code = 704-7) 0.1 0.0-0.1 [facility] SunnyvaleAbsolute Immature Granulocyte (auto 2018-07-05 07:36:00* Test Item Value Reference Range Interpretation Comments Absolute Immature Granulocyte (auto (lawrence t code = Absolute Immature Granulocyte (auto) 0.06 0-0.1 [facility] SunnyvaleBedside Cnpyfrz4995-73-62 07:32:00* Test Item Value Reference Range Interpretation Comments Bedside Glucose (test code = 47852-8) 100 70-120 Meter ID: [id number] Scott & [facility] – SunnyvaleBedstonecrest medical center Glucose 2018-07-05 07:32:00* Test Item Value Reference Range Interpretation Comments Bedside Glucose (test code = 97937-1) 100 70-120 Meter ID: [id number] Scott & [facility] – SunnyvaleBlood Culture 2018-07-04 16:14:00* Test Item Value Reference Range Interpretation Comments Blood Culture (test code = 51296740) NO GROWTH AFTER 24 HOURS [facility] SunnyvaleVitamin B12 Vqrod2010-50-62 05:40:00* Test Item Value Reference Range Interpretation Comments Vitamin B12 Level (test code = 18092-5) 309 213-816 [facility] SunnyvaleFolate2018-12-10 05:40:00* Test Item Value Reference Range Interpretation Comments Folate (test code = 2284-8) 4.5 7.0-15.4 L [facility] SunnyvaleVitamin B12 Jlnmw2261-89-11 05:40:00* Test Item Value Reference Range Interpretation Comments Vitamin B12 Level (test code = 06884-1) 309 213-816 [facility] SunnyvaleFolate2018-12-10 05:40:00* Test Item Value Reference Range Interpretation Comments Folate (test code = 2284-8) 4.5 7.0-15.4 L [facility] SunnyvaleTriglycerides Xklff7019-50-55 05:33:00* Test Item Value Reference Range Interpretation Comments Triglycerides Level (test code = 2571-8) 102 0-149 [facility] SunnyvaleCholesterol Vqyak2321-47-83 05:33:00* Test Item Value Reference Range Interpretation Comments Cholesterol Level (test code = 2093-3) 154 0-199 Less than 200 mg/dL Low Aypa581 - 239 mg/dL Borderline Jgiu696 m g/dl and greater High Risk [facility] SunnyvaleLDL Iurhjfnjqnd7774-59-95 05:33:00* Test Item Value Reference Range Interpretation Comments LDL Cholesterol (test code = 2089-1) 94 60-130 [facility]L Bbbnrrdnker9391-56-09 05:33:00* Test Item Value Reference Range Interpretation Comments HDL Cholesterol (test code = 2085-9) 40 40-60 [facility]aleCholesterol/HDL Xwezx3016-79-83 05:33:00 * Test Item Value Reference Range Interpretation Comments Cholesterol/HDL Ratio (test code = 9830-1) 3.9 3.0-3.6 H [facility]valeTriglycerides Pnkuv0234-89-58 05:33:00* Test Item Value Reference Range Interpretation Comments Triglycerides Level (test code = 2571-8) 102 0-149 [facility] SunnyvaleCholesterol Razwc5832-54-73 05:33:00* Test Item Value Reference Range Interpretation Comments Cholesterol Level (test code = 2093-3) 154 0-199 Less than 200 mg/dL Low Ujsh577 - 239 mg/dL Borderline Sbqi434 m g/dl and greater High Risk [facility] SunnyvaleLDL Moutlrfwfyb7814-66-07 05:33:00* Test Item Value Reference Range Interpretation Comments LDL Cholesterol (test code = 2089-1) 94 60-130 [facility] Vtdbiutsoxb8848-40-58 05:33:00* Test Item Value Reference Range Interpretation Comments HDL Cholesterol (test code = 2085-9) 40 40-60 [facility]valeCholesterol/HDL Carcb5333-16-61 05:33:00 * Test Item Value Reference Range Interpretation Comments Cholesterol/HDL Ratio (test code = 9830-1) 3.9 3.0-3.6 H [facility] Hospitaltool Occult Gglxk4462-57-91 05:02:00* Test Item Value Reference Range Interpretation Comments Stool Occult Blood (test code = 2335-8) NEGATIVE NEGATIVE [facility]ol [facility] Agmna7196-38-72 05:02:00* Test Item Value Reference Range Interpretation Comments Stool Occult Blood (test code = 2335-8) NEGATIVE NEGATIVE [facility] SunnyvaleFerritin2018-12-10 04:59:00* Test Item Value Reference Range Interpretation Comments Ferritin (test code = 2276-4) 45.91 4.63-204.00 [facility] SunnyvaleFerritin2018-12-10 04:59:00* Test Item Value Reference Range Interpretation Comments Ferritin (test code = 2276-4) 45.91 4.63-204.00 [facility] SunnyvaleHemoglobin A1c Mtiwdbi4033-81-52 04:58:00 * Test Item Value Reference Range Interpretation Comments Hemoglobin A1c Percent (test code = Hemoglobin A1c Percent) 8.7 4.0-7.0 [facility] Nnlxm0703-07-36 04:58:00* Test Item Value Reference Range Interpretation Comments Magnesium Level (test code = 01495-6) 1.8 1.3-2.1 [facility]2018-12-10 04:58:00* Test Item Value Reference Range Interpretation Comments Iron Level (test code = 2498-4) 18 50-170 L [facility] SunnyvaleTotal Iron Binding Uorrpysh7500-36-74 04:58:00* Test Item Value Reference Range Interpretation Comments Total Iron Binding Capacity (test code = 2500-7) 232 261-4 78 L [facility] SunnyvalePercent Iron Vpkxungkxz6333-69-51 04:58:00* Test Item Value Reference Range Interpretation Comments Percent Iron Saturation (test code = 2502-3) 8 15-50 L [facility] SunnyvaleTransferrin2018-12-10 04:58:00* Test Item Value Reference Range Interpretation Comments Transferrin (test code = 3034-6) 166 180-382 L [facility] SunnyvaleHemoglobin A1c Jimunej7607-91-68 04:58:00 * Test Item Value Reference Range Interpretation Comments Hemoglobin A1c Percent (test code = Hemoglobin A1c Percent) 8.7 4.0-7.0 H [facility]hesium Tiayh9220-97-98 04:58:00* Test Item Value Reference Range Interpretation Comments Magnesium Level (test code = 14430-1) 1.8 1.3-2.1 [facility] Tbgmi4803-07-38 04:58:00* Test Item Value Reference Range Interpretation Comments Iron Level (test code = 2498-4) 18 50-170 L [facility] SunnyvaleTotal Iron Binding Ttvjlynw6884-29-08 04:58:00* Test Item Value Reference Range Interpretation Comments Total Iron Binding Capacity (test code = 2500-7) 232 261-4 78 L [facility] SunnyvalePercent Iron Kmkbwpastm8028-84-86 04:58:00* Test Item Value Reference Range Interpretation Comments Percent Iron Saturation (test code = 2502-3) 8 15-50 L [facility] SunnyvaleTransferrin2018-12-10 04:58:00* Test Item Value Reference Range Interpretation Comments Transferrin (test code = 3034-6) 166 180-382 L [facility] SunnyvaleCreatine Kinase [id number] 16:52:00* Test Item Value Reference Range Interpretation Comments Creatine Kinase MB (test code = 96429-8) 0.80 0-5.0 [facility] SunnyvaleTroponin R0578-50-62 16:52:00* Test Item Value Reference Range Interpretation Comments Troponin I (test code = ADO1948) 0.002 0-0.300 [facility] SunnyvaleCreatine Bxidcd5755-67-66 16:51:00* Test Item Value Reference Range Interpretation Comments Creatine Kinase (test code = 2157-6) 34 29-168 [facility] SunnyvaleInfluenza Virus Types A,B Antigen 2018-07-03 12:19:00* Test Item Value Reference Range Interpretation Comments Influenza Virus Types A,B Antigen (test code = 57487-1) NEGATIVE NEGATIVE [facility] SunnyvaleInfluenza Virus Types A,B Antigen 2018-07-03 12:19:00* Test Item Value Reference Range Interpretation Comments Influenza Virus Types A,B Antigen (test code = 97400-3) NEGATIVE NEGATIVE [facility] SunnyvaleCT BRAIN DF8137-65-38 12:18:00 [place] [address] Patient Name: MERLY MORGAN MR #: [id number] : 1970 Age/Sex: 48/F Req #: [id number] Adm Physician: BENNY BARRIOS MD Ordered by: Sujatha Cummings NP Report #: [id number] Location: MED/SURG Room/Bed: [facility] Procedure: [id number] CT/CT BRAIN WO Exam Date: Exam Time: [...] on 07/03/18 1342 COPY TO: SUJATHA CUMMINGS ACCOUNTS RECEIVABLE ANALYST Urine Ocozk3679-90-41 10:30:00* Test Item Value Reference Range Interpretation Comments Urine Color (test code = 5778-6) YELLOW YELLOW [facility] SunnyvaleUrine Tvqbfnc2418-50-00 10:30:00* Test Item Value Reference Range Interpretation Comments Urine Clarity (test code = 66402-6) HAZY CLEAR [facility] Specific Nhgxpuf4467-29-42 10:30:00 * Test Item Value Reference Range Interpretation Comments Urine Specific [place] (test code = 5811-5) 1.020 1.010-1.02 5 [facility] [id number] 10:30:00* Test Item Value Reference Range Interpretation Comments Urine pH (test code = 89599-9) 6.5 5-7 [facility] Leukocyte Jbbfrazh6064-68-01 10:30:00* Test Item Value Reference Range Interpretation Comments Urine Leukocyte Esterase (test code = 5799-2) TRACE NEGATIVE H [facility] Bfxiceh9070-86-78 10:30:00* Test Item Value Reference Range Interpretation Comments Urine Nitrite (test code = 21473-5) NEGATIVE NEGATIVE [facility] Mkdvype3964-81-87 10:30:00* Test Item Value Reference Range Interpretation Comments Urine Protein (test code = 5804-0) 3+ NEGATIVE H [facility]ale[facility]rine Glucose (UA)2018-07-03 10:30:00* Test Item Value Reference Range Interpretation Comments Urine Glucose (UA) (test code = 2349-9) 2+ NEGATIVE H [facility] Ygvkoro8384-87-67 10:30:00* Test Item Value Reference Range Interpretation Comments Urine Ketones (test code = 30109-8) NEGATIVE NEGATIVE [facility] Adqplqvvyejb9866-53-03 10:30:00* Test Item Value Reference Range Interpretation Comments Urine Urobilinogen (test code = 90569-7) 0.2 0.2-1 [facility] Wurkerqak3744-75-97 10:30:00* Test Item Value Reference Range Interpretation Comments Urine Bilirubin (test code = 1978-6) NEGATIVE NEGATIVE [facility] Gsicb1455-86-30 10:30:00* Test Item Value Reference Range Interpretation Comments Urine Blood (test code = 17424-2) 1+ NEGATIVE H [facility] TJO9937-03-73 10:30:00* Test Item Value Reference Range Interpretation Comments Urine WBC (test code = 5821-4) 21-50 0-5 H [facility] FWA0211-29-23 10:30:00* Test Item Value Reference Range Interpretation Comments Urine RBC (test code = 80159-6) 0-5 0-5 [facility] Nvryrvpf5041-73-03 10:30:00* Test Item Value Reference Range Interpretation Comments Urine Bacteria (test code = 57990-9) MODERATE NONE H [facility] Epithelial Sptqx7825-48-77 10:30:00 * Test Item Value Reference Range Interpretation Comments Urine Epithelial Cells (test code = 51977-6) FEW NONE [facility] Amorphous Ulfriinx1009-06-29 10:30:00* Test Item Value Reference Range Interpretation Comments Urine Amorphous Sediment (test code = 8246-1) FEW FEW [facility] Hiuiv8923-71-82 10:30:00* Test Item Value Reference Range Interpretation Comments Urine Color (test code = 5778-6) YELLOW YELLOW [facility] Ylaedwq2044-24-62 10:30:00* Test Item Value Reference Range Interpretation Comments Urine Clarity (test code = 26134-6) HAZY CLEAR [facility] Specific Zyhmost1149-89-77 10:30:00 * Test Item Value Reference Range Interpretation Comments Urine Specific [place] (test code = 5811-5) 1.020 1.010-1.02 5 [facility] oE8630-60-54 10:30:00* Test Item Value Reference Range Interpretation Comments Urine pH (test code = 87598-5) 6.5 5-7 [facility] Leukocyte Nhaetbhn1834-87-78 10:30:00* Test Item Value Reference Range Interpretation Comments Urine Leukocyte Esterase (test code = 5799-2) TRACE NEGATIVE H [facility] Jusrduc7902-48-51 10:30:00* Test Item Value Reference Range Interpretation Comments Urine Nitrite (test code = 05787-5) NEGATIVE NEGATIVE [facility] Rfvosfa3243-85-51 10:30:00* Test Item Value Reference Range Interpretation Comments Urine Protein (test code = 5804-0) 3+ NEGATIVE H [facility] Glucose (UA)2018-07-03 10:30:00* Test Item Value Reference Range Interpretation Comments Urine Glucose (UA) (test code = 2349-9) 2+ NEGATIVE H [facility]ale[facility] Wubenmy7499-91-67 10:30:00* Test Item Value Reference Range Interpretation Comments Urine Ketones (test code = 78451-8) NEGATIVE NEGATIVE [facility] Dxsgjqkhuzzd6359-72-10 10:30:00* Test Item Value Reference Range Interpretation Comments Urine Urobilinogen (test code = 19015-5) 0.2 0.2-1 [facility] Dyhsndogt6810-03-29 10:30:00* Test Item Value Reference Range Interpretation Comments Urine Bilirubin (test code = 1978-6) NEGATIVE NEGATIVE [facility] Cxrlk4773-00-79 10:30:00* Test Item Value Reference Range Interpretation Comments Urine Blood (test code = 13310-9) 1+ NEGATIVE H [facility] YPV1855-27-09 10:30:00* Test Item Value Reference Range Interpretation Comments Urine WBC (test code = 5821-4) 21-50 0-5 H [facility] [id number] 10:30:00* Test Item Value Reference Range Interpretation Comments Urine RBC (test code = 22198-0) 0-5 0-5 [facility] Zjfemlvn0506-88-10 10:30:00* Test Item Value Reference Range Interpretation Comments Urine Bacteria (test code = 23791-5) MODERATE NONE H [facility] Epithelial Oxiek9162-79-47 10:30:00 * Test Item Value Reference Range Interpretation Comments Urine Epithelial Cells (test code = 86500-2) FEW NONE [facility] Amorphous Lcymznui6615-05-26 10:30:00* Test Item Value Reference Range Interpretation Comments Urine Amorphous Sediment (test code = 8246-1) FEW FEW [facility] Opiates Hszqjn0746-01-99 08:05:00* Test Item Value Reference Range Interpretation Comments Urine Opiates Screen (test code = 59652-5) NEGATIVE NEGATIVE ALL TESTS PERFORMED MANUALLY ON SDI TOX/SEE TESTB[facility]valeUrine Barbiturates Olkqcn6421-59-58 08:05:00* Test Item Value Reference Range Interpretation Comments Urine Barbiturates Screen (test code = 227862111) NEGATIVE NEGA TIVE [facility] Phencyclidine Fmuuem9808-53-48 08:05:00* Test Item Value Reference Range Interpretation Comments Urine Phencyclidine Screen (test code = 55153-6) NEGATIVE NEGAT RODOLFO [facility] Amphetamines Tvqqnl0870-48-58 08:05:00* Test Item Value Reference Range Interpretation Comments Urine Amphetamines Screen (test code = 52805-7) NEGATIVE NEGATI VE [facility] Methamphetamines Qgbcxc9488-26-85 08:05:00* Test Item Value Reference Range Interpretation Comments Urine Methamphetamines Screen (test code = Urine Metha mphetamines Screen) NEGATIVE NEGATIVE [facility]ale[facility] Benzodiazepines Hhgmde7072-05-88 08:05:00* Test Item Value Reference Range Interpretation Comments Urine Benzodiazepines Screen (test code = 51787-6) NEGATIVE NEG ATIVE [facility]ale[facility] Cocaine Ozbuwf9960-93-95 08:05:00* Test Item Value Reference Range Interpretation Comments Urine Cocaine Screen (test code = 3398-5) NEGATIVE NEGATIVE [facility] Cannabinoids Dzywvs0257-32-32 08:05:00* Test Item Value Reference Range Interpretation Comments Urine Cannabinoids Screen (test code = 21061-4) NEGATIVE NEGATI VE THESE RESULTS ARE FOR MEDICAL TREATMENT ONLYTHIS REPORT CONTAINS UNCONFIR MED SCREENING RESULTS*POSITIVE RESULTS WILL BE CONFIRMED BY REFERENCE LAB UPON R EQUEST CUT-OFFDRUG CLASS CONCENTRATION ng/mLAmphetamines 1000Methamphetamines 1000Cocaine 300Opiate 300Phencyc lidine 25Cannabinoid 50Barbiturates 300Benzodiazepine 300Methadone 300[facility]aleU[facility] Methadone Iesrcu2697-37-75 08:05:00* Test Item Value Reference Range Interpretation Comments Urine Methadone Screen (test code = 84093-2) NEGATIVE NEGATIVE THESE RESULTS ARE FOR MEDICAL TREATMENT ONLYTHIS REPORT CONTAINS UNCONFIR MED SCREENING RESULTS*POSITIVE RESULTS WILL BE CONFIRMED BY REFERENCE LAB UPON R EQUEST CUT-OFFDRUG CLASS CONCENTRATION ng/mLAmphetamines 1000Methamphetamines 1000Cocaine Metabolite 300Opiate 300Phencyc lidine 25Cannabinoid 50Barbiturates 300Benzodiazepine 300Methadone 300[facility]ale[facility] Opiates Ldghpq0775-12-06 08:05:00* Test Item Value Reference Range Interpretation Comments Urine Opiates Screen (test code = 95653-5) NEGATIVE NEGATIVE ALL TESTS PERFORMED MANUALLY ON SDI TOX/SEE TESTB[facility]valeUrine Barbiturates Mphsql8331-80-47 08:05:00* Test Item Value Reference Range Interpretation Comments Urine Barbiturates Screen (test code = 291570143) NEGATIVE NEGA TIVE [facility] Phencyclidine Gjkmux9732-39-46 08:05:00* Test Item Value Reference Range Interpretation Comments Urine Phencyclidine Screen (test code = 81275-9) NEGATIVE NEGAT RODOLFO [facility] Amphetamines Krcicx9588-05-79 08:05:00* Test Item Value Reference Range Interpretation Comments Urine Amphetamines Screen (test code = 99916-9) NEGATIVE NEGATI VE [facility]ale[facility] Methamphetamines Emhjoi6034-54-04 08:05:00* Test Item Value Reference Range Interpretation Comments Urine Methamphetamines Screen (test code = Urine Metha mphetamines Screen) NEGATIVE NEGATIVE [facility]ale[facility] Benzodiazepines Eqyvee5820-66-47 08:05:00* Test Item Value Reference Range Interpretation Comments Urine Benzodiazepines Screen (test code = 62950-7) NEGATIVE NEG ATIVE [facility]ale[facility] Cocaine Ubpdjc0913-19-98 08:05:00* Test Item Value Reference Range Interpretation Comments Urine Cocaine Screen (test code = 3398-5) NEGATIVE NEGATIVE [facility]ale[facility] Cannabinoids Uufshj4173-65-86 08:05:00* Test Item Value Reference Range Interpretation Comments Urine Cannabinoids Screen (test code = 96367-4) NEGATIVE NEGATI VE THESE RESULTS ARE FOR MEDICAL TREATMENT ONLYTHIS REPORT CONTAINS UNCONFIR MED SCREENING RESULTS*POSITIVE RESULTS WILL BE CONFIRMED BY REFERENCE LAB UPON R EQUEST CUT-OFFDRUG CLASS CONCENTRATION ng/mLAmphetamines 1000Methamphetamines 1000Cocaine 300Opiate 300Phencyc lidine 25Cannabinoid 50Barbiturates 300Benzodiazepine 300Methadone 300[facility]aleU[facility] Methadone Zlmjwb6713-14-61 08:05:00* Test Item Value Reference Range Interpretation Comments Urine Methadone Screen (test code = 41150-1) NEGATIVE NEGATIVE THESE RESULTS ARE FOR MEDICAL TREATMENT ONLYTHIS REPORT CONTAINS UNCONFIR MED SCREENING RESULTS*POSITIVE RESULTS WILL BE CONFIRMED BY REFERENCE LAB UPON R EQUEST CUT-OFFDRUG CLASS CONCENTRATION ng/mLAmphetamines 1000Methamphetamines 1000Cocaine Metabolite 300Opiate 300Phencyc lidine 25Cannabinoid 50Barbiturates 300Benzodiazepine 300Methadone 300[facility] SunnyvaleProthrombin Jixb7072-65-16 01:31:00* Test Item Value Reference Range Interpretation Comments Prothrombin Time (test code = 5902-2) 12.5 11.9-14.5 [facility] SunnyvaleProthromb Time International Ratio 2018-07-03 01:31:00* Test Item Value Reference Range Interpretation Comments Prothromb Time International Ratio (test code = 6301-6) 0.86 Oral Anticoagulant Therapy INR Values:1. Low Intensity Therapy 1.5 - 2.02 . Moderate Intensity Therapy 2.0 - 3.03. High Intensity Therapy(1) 2.5 - 3. 54. High Intensity Therapy(2) 3.0 - 4.05. Panic Value INR > 5.0 [facility]valeActivated Partial Thromboplast Time 2018-07-03 01:31:00* Test Item Value Reference Range Interpretation Comments Activated Partial Thromboplast Time (test code = 63497-6) 35.4 23.8-35.5 [facility] SunnyvaleProthrombin Ezeg8206-49-40 01:31:00* Test Item Value Reference Range Interpretation Comments Prothrombin Time (test code = 5902-2) 12.5 11.9-14.5 [facility]valeProthromb Time International Ratio 2018-07-03 01:31:00* Test Item Value Reference Range Interpretation Comments Prothromb Time International Ratio (test code = 6301-6) 0.86 Oral Anticoagulant Therapy INR Values:1. Low Intensity Therapy 1.5 - 2.02 . Moderate Intensity Therapy 2.0 - 3.03. High Intensity Therapy(1) 2.5 - 3. 54. High Intensity Therapy(2) 3.0 - 4.05. Panic Value INR > 5.0 [facility]aleActivated Partial Thromboplast Time 2018-07-03 01:31:00* Test Item Value Reference Range Interpretation Comments Activated Partial Thromboplast Time (test code = 62475-7) 35.4 23.8-35.5 [facility] SunnyvaleCHEST 2 IBGNS0714-86-76 01:26:00 [place] [address] Patient Name: MERLY MORGAN MR #: [id number] : 1970 Age/Sex: 48/F Req #: [id number] Adm Physician: Ordered by: GLORIA COSME MD Report #: [id number] Location: ER Room/Bed: Procedure: [id number] DX /CHEST 2 VIEWS Exam Date: 07/03/18 [...] COSME RD, MD ABDOMEN ACUTE SERIES W/PA [id number] 23:30:00 [place] [address] Patient Name: MERLY MORGAN MR #: [id number] : 1970 Age/Sex: 48/F Req #: [id number] Adm Physician: Ordered by: ANURADHA WHYTE MD Report #: [id number] Location: ER Room/Bed: Procedure: [id number] DX/ABDOMEN ACUTE SERIE S W/PA CXR Exam Date: 03/29/18 Exam Time: 224 REPORT STATUS: Signed ABDOMEN ACUTE SERIES W/PA [...] 03/29/182331 COPY TO: ANURADHA FIERRO MD Urine [id number] 22:52:00* Test Item Value Reference Range Interpretation Comments Urine WBC (test code = 5821-4) 21-50 0-5 H [facility]aleUrine QKK9630-90-51 22:52:00* Test Item Value Reference Range Interpretation Comments Urine RBC (test code = 43243-0) 21-50 0-5 H [facility]aleUrine Keizpxzb4001-88-19 22:52:00* Test Item Value Reference Range Interpretation Comments Urine Bacteria (test code = 24269-0) MODERATE NONE H [facility]aleUrine Epithelial Mxyvp9033-14-18 22:52:00 * Test Item Value Reference Range Interpretation Comments Urine Epithelial Cells (test code = 48245-1) MODERATE NONE [facility]aleUrine Dksbv6689-96-13 22:30:00* Test Item Value Reference Range Interpretation Comments Urine Color (test code = 5778-6) YELLOW YELLOW [facility]aleU[facility] Fuxwmfv3525-60-85 22:30:00* Test Item Value Reference Range Interpretation Comments Urine Clarity (test code = 60635-9) CLEAR CLEAR [facility]valeUrine Specific Whldffn7731-06-65 22:30:00 * Test Item Value Reference Range Interpretation Comments Urine Specific [place] (test code = 5811-5) 1.020 1.010-1.02 5 [facility]aleUrine dD1965-01-22 22:30:00* Test Item Value Reference Range Interpretation Comments Urine pH (test code = 07787-3) 6 5-7 [facility]aleU[facility] Leukocyte Zssqayxs5323-73-48 22:30:00* Test Item Value Reference Range Interpretation Comments Urine Leukocyte Esterase (test code = 5799-2) NEGATIVE NEGATIVE [facility]aleUrine Comzuxe7002-22-84 22:30:00* Test Item Value Reference Range Interpretation Comments Urine Nitrite (test code = 17775-3) NEGATIVE NEGATIVE [facility]aleUrine Wdkebfd4663-91-84 22:30:00* Test Item Value Reference Range Interpretation Comments Urine Protein (test code = 5804-0) 2+ NEGATIVE H [facility]aleUrine Glucose (UA)2018-03-29 22:30:00* Test Item Value Reference Range Interpretation Comments Urine Glucose (UA) (test code = 2349-9) 2+ NEGATIVE H [facility]aleUrine Resnpfu5072-76-13 22:30:00* Test Item Value Reference Range Interpretation Comments Urine Ketones (test code = 15809-2) NEGATIVE NEGATIVE [facility] Mkclyqtlgwbf9880-33-85 22:30:00* Test Item Value Reference Range Interpretation Comments Urine Urobilinogen (test code = 44190-4) 0.2 0.2-1 [facility] Jbzwbncph9577-87-73 22:30:00* Test Item Value Reference Range Interpretation Comments Urine Bilirubin (test code = 1978-6) NEGATIVE NEGATIVE [facility]aleU[facility] Vvufz9838-97-25 22:30:00* Test Item Value Reference Range Interpretation Comments Urine Blood (test code = 16913-5) 2+ NEGATIVE H [facility] Ncfl8646-57-78 22:30:00* Test Item Value Reference Range Interpretation Comments Urine Test (test code = 2106-3) NEGATIVE NEGATIVE [facility] Lrbs2195-85-97 22:30:00* Test Item Value Reference Range Interpretation Comments Urine Test (test code = 2106-3) NEGATIVE NEGATIVE [facility]aleUrine Wfdt1579-89-36 22:30:00* Test Item Value Reference Range Interpretation Comments Urine Test (test code = 2106-3) [facility]IVE [facility] Twfwj6212-76-53 22:29:00* Test Item Value Reference Range Interpretation Comments Sodium Level (test code = 2951-2) 138 136-145 [facility]alePotassium Zglcn1595-22-68 22:29:00* Test Item Value Reference Range Interpretation Comments Potassium Level (test code = 2823-3) 4.2 3.5-5.1 [facility] SunnyvaleChloride Chgfj4114-97-29 22:29:00* Test Item Value Reference Range Interpretation Comments Chloride Level (test code = 2075-0) 107 98-107 [facility] SunnyvaleCarbon Dioxide Nppoa7853-54-12 22:29:00* Test Item Value Reference Range Interpretation Comments Carbon Dioxide Level (test code = 2028-9) 22 22-29 [facility] SunnyvaleAnion Gik6531-39-99 22:29:00* Test Item Value Reference Range Interpretation Comments Anion Gap (test code = 75874-3) 13.2 8-16 [facility] SunnyvaleBlood Urea Oodlfzww5831-07-87 22:29:00* Test Item Value Reference Range Interpretation Comments Blood Urea Nitrogen (test code = 3094-0) 58 7-26 H [facility]valeCreatinine2018-09-04 22:29:00* Test Item Value Reference Range Interpretation Comments Creatinine (test code = 2160-0) 2.50 0.57-1.11 H [facility]valeBUN/Creatinine Kibxj0146-89-92 22:29:00* Test Item Value Reference Range Interpretation Comments BUN/Creatinine Ratio (test code = 3097-3) 23 6-25 [facility] SunnyvaleEstimat Glomerular Filtration Rate 2018-03-29 22:29:00* Test Item Value Reference Range Interpretation Comments Estimat Glomerular Filtration Rate (test code = 36565-7) 21 >60 L Ranges were taken from the National Kidney Disease Education Program and the [employer] [facility] [employer] [employer] literature.Reference ranges:60 or greater: Wqtztw36-69 ( for 3 consecutive months): Chronic kidney disease 15 or less: Kidney failureBaylor Scott & White Medical Center – SunnyvaleGlucose Urxse1350-53-55 22:29:00* Test Item Value Reference Range Interpretation Comments Glucose Level (test code = LIA1851) 193 74-118 H [facility] SunnyvaleCalcium Snvte6785-66-55 22:29:00* Test Item Value Reference Range Interpretation Comments Calcium Level (test code = 80052-1) 8.7 8.4-10.2 [facility] SunnyvaleTotal Zjfxwfadr6699-90-87 22:29:00* Test Item Value Reference Range Interpretation Comments Total Bilirubin (test code = 1975-2) 0.2 0.2-1.2 [facility] SunnyvaleAspartate Amino Transf (AST/SGOT) 2018-03-29 22:29:00* Test Item Value Reference Range Interpretation Comments Aspartate Amino Transf (AST/SGOT) (test code = Aspartate Amino Transf (AST/SGOT)) 10 5-34 [facility] SunnyvaleAlanine Aminotransferase (ALT/SGPT) 2018-03-29 22:29:00* Test Item Value Reference Range Interpretation Comments Alanine Aminotransferase (ALT/SGPT) (test code = 1742-6) 6 0-55 [facility] SunnyvaleTotal Cufidqv9788-47-76 22:29:00* Test Item Value Reference Range Interpretation Comments Total Protein (test code = 2885-2) 7.3 6.5-8.1 [facility] SunnyvaleAlbumin2018-09-04 22:29:00* Test Item Value Reference Range Interpretation Comments Albumin (test code = 1751-7) 2.1 3.5-5.0 L [facility] SunnyvaleGlobulin2018-09-04 22:29:00* Test Item Value Reference Range Interpretation Comments Globulin (test code = 26154-6) 5.2 2.3-3.5 H [facility] SunnyvaleAlbumin/Globulin Qekba6784-63-24 22:29:00 * Test Item Value Reference Range Interpretation Comments Albumin/Globulin Ratio (test code = 1759-0) 0.4 0.8-2.0 L [facility] SunnyvaleAlkaline Rfgvwwmapiv2258-75-52 22:29:00* Test Item Value Reference Range Interpretation Comments Alkaline Phosphatase (test code = 6768-6) 128 40-150 [facility] SunnyvaleAmylase Bxvrf5272-02-43 22:29:00* Test Item Value Reference Range Interpretation Comments Amylase Level (test code = 1798-8) 60 25-125 [facility] SunnyvaleLipase2018-09-04 22:29:00* Test Item Value Reference Range Interpretation Comments Lipase (test code = 3040-3) 47 8-78 [facility] SunnyvaleTotal Bdpjtisvs4626-21-29 22:29:00* Test Item Value Reference Range Interpretation Comments Total Bilirubin (test code = 1975-2) 0.2 0.2-1.2 [facility] SunnyvaleAspartate Amino Transf (AST/SGOT) 2018-03-29 22:29:00* Test Item Value Reference Range Interpretation Comments Aspartate Amino Transf (AST/SGOT) (test code = Aspartate Amino Transf (AST/SGOT)) 10 5-34 [facility] SunnyvaleAlanine Aminotransferase (ALT/SGPT) 2018-03-29 22:29:00* Test Item Value Reference Range Interpretation Comments Alanine Aminotransferase (ALT/SGPT) (test code = 1742-6) 6 0-55 [facility] SunnyvaleTotal Bwsgtaf3183-45-33 22:29:00* Test Item Value Reference Range Interpretation Comments Total Protein (test code = 2885-2) 7.3 6.5-8.1 [facility] SunnyvaleAlbumin2018-09-04 22:29:00* Test Item Value Reference Range Interpretation Comments Albumin (test code = 1751-7) 2.1 3.5-5.0 L [facility] SunnyvaleGlobulin2018-09-04 22:29:00* Test Item Value Reference Range Interpretation Comments Globulin (test code = 56589-2) 5.2 2.3-3.5 H [facility] SunnyvaleAlbumin/Globulin Qkiyt2604-31-43 22:29:00 * Test Item Value Reference Range Interpretation Comments Albumin/Globulin Ratio (test code = 1759-0) 0.4 0.8-2.0 L [facility] SunnyvaleAlkaline Smtkpeplcth8733-42-98 22:29:00* Test Item Value Reference Range Interpretation Comments Alkaline Phosphatase (test code = 6768-6) 128 40-150 [facility] SunnyvaleAmylase Wmsoi9403-69-44 22:29:00* Test Item Value Reference Range Interpretation Comments Amylase Level (test code = 1798-8) 60 25-125 [facility] SunnyvaleLipase2018-09-04 22:29:00* Test Item Value Reference Range Interpretation Comments Lipase (test code = 3040-3) 47 8-78 [facility] SunnyvaleAmylase Dwpmr3797-83-20 22:29:00* Test Item Value Reference Range Interpretation Comments Amylase Level (test code = 1798-8) 60 25-125 [facility] SunnyvaleLipase2018-09-04 22:29:00* Test Item Value Reference Range Interpretation Comments Lipase (test code = 3040-3) 47 878 [facility] [place] Blood [id number] 22:10:00* Test Item Value Reference Range Interpretation Comments White Blood Count (test code = 6690-2) 14.81 4.8-10.8 [facility] Blood Lasji2701-58-42 22:10:00* Test Item Value Reference Range Interpretation Comments Red Blood Count (test code = 789-8) 3.95 3.6-5.1 [facility] [place]aleHemoglobin2018-09-04 22:10:00* Test Item Value Reference Range Interpretation Comments Hemoglobin (test code = 86221-5) 9.8 12.0-16.0 L [facility] [place]aleHematocrit2018-09-04 22:10:00* Test Item Value Reference Range Interpretation Comments Hematocrit (test code = 4544-3) 30.8 34.2-44.1 L [facility] [place]aleMean Corpuscular Xescun2618-20-50 22:10:00* Test Item Value Reference Range Interpretation Comments Mean Corpuscular Volume (test code = 787-2) 78.0 81-99 L [facility] [place] Corpuscular Euewimibzo9736-65-26 22:10:00* Test Item Value Reference Range Interpretation Comments Mean Corpuscular Hemoglobin (test code = 785-6) 24.8 28-32 L [facility] [place] Corpuscular Hemoglobin Concent 2018-03-29 22:10:00* Test Item Value Reference Range Interpretation Comments Mean Corpuscular Hemoglobin Concent (test code = 786-4) 31.8 31-35 [facility] [place] Cell Distribution Wweak1153-50-14 22:10:00* Test Item Value Reference Range Interpretation Comments Red Cell Distribution Width (test code = 80780-6) 13.9 11.7 -14.4 [facility] [place]valePlatelet Fjspx0981-85-06 22:10:00* Test Item Value Reference Range Interpretation Comments Platelet Count (test code = 777-3) 379 140-360 H [facility] [place]aleNeutrophils (%) (Auto)2018-03-29 22:10:00 * Test Item Value Reference Range Interpretation Comments Neutrophils (%) (Auto) (test code = 16200-7) 74.6 38.7-80.0 [facility] [place]aleLymphocytes (%) (Auto)2018-03-29 22:10:00 * Test Item Value Reference Range Interpretation Comments Lymphocytes (%) (Auto) (test code = 736-9) 14.0 18.0-39.1 L [facility] [place]aleMonocytes (%) (Auto)2018-03-29 22:10:00* Test Item Value Reference Range Interpretation Comments Monocytes (%) (Auto) (test code = 5905-5) 6.9 4.4-11.3 [facility] [place]osinophils (%) (Auto)2018-03-29 22:10:00 * Test Item Value Reference Range Interpretation Comments Eosinophils (%) (Auto) (test code = 713-8) 3.9 0.0-6.0 [facility] [place]ophils (%) (Auto)2018-03-29 22:10:00* Test Item Value Reference Range Interpretation Comments Basophils (%) (Auto) (test code = 706-2) 0.3 0.0-1.0 [facility] [place]aleIM GRANULOCYTES %2018-03-29 22:10:00* Test Item Value Reference Range Interpretation Comments IM GRANULOCYTES % (test code = IM GRANULOCYTES %) 0.3 0.0- 1.0 [facility] [place]aleNeutrophils # (Auto)2018-03-29 22:10:00* Test Item Value Reference Range Interpretation Comments Neutrophils # (Auto) (test code = 751-8) 11.0 2.1-6.9 H [facility] [place]aleLymphocytes # (Auto)2018-03-29 22:10:00* Test Item Value Reference Range Interpretation Comments Lymphocytes # (Auto) (test code = 18584-8) 2.1 1.0-3.2 [facility] [place]ale[facility]ocytes # (Auto)2018-03-29 22:10:00* Test Item Value Reference Range Interpretation Comments Monocytes # (Auto) (test code = 742-7) 1.0 0.2-0.8 H [facility] [place]aleEosinophils # (Auto)2018-03-29 22:10:00* Test Item Value Reference Range Interpretation Comments Eosinophils # (Auto) (test code = 711-2) 0.6 0.0-0.4 H [facility] [place]ophils # (Auto)2018-03-29 22:10:00* Test Item Value Reference Range Interpretation Comments Basophils # (Auto) (test code = 704-7) 0.1 0.0-0.1 [facility] [place]aleAbsolute Immature Granulocyte (auto 2018-03-29 22:10:00* Test Item Value Reference Range Interpretation Comments Absolute Immature Granulocyte (auto (lawrence t code = Absolute Immature Granulocyte (auto) 0.05 0-0.1 [facility] [place]- XR L-SPINE 08/28 [id number] 23:14:00 FAX: Beverly Uriarte [phone] [place]: [address]: UNK Name: MERLY BENTON [facility] : [birth year] Age/S: 47/F [address] Unit #: [id number] Loc: [place] [address] Phys: Beverly Copeland MD Acct: [id number] Dis Date: Status: UNK PHONE #: [phone] Exam Date: 08/13/2017 2315 FAX #: [phone] Reason: back pain EXAMS: CPT CODE: [id number] XR L-SPINE 2/3 VIEWS 70542 HISTORY: back pain T ECHNIQUE: AP, lateral, [...] Crissy Cross D.O. CC: Beverly Copeland MD Techngrand view health gist: SRIDHAR BALDERAS RT(R) Trnscrd Date/Time/B y: 08/13/2017 (7290) : By: [email or web address] Orig Print D/T: S: 08/13/2017 (23 20) PAGE 1 Signed Report - XR CHEST 2 [id number] 23:14:00 FAX: Roro Bloom [place]: B St: GERTRUDE Name: Keyur [facility]ILLMERLY [facility] : [birth year] Age/S: 47/F [address] Unit #: [id number] Loc: GERTRUDE [place], [place] [address] Phys: Roro Bloom ie ACCOUNTS RECEIVABLE ANALYST Acct: [id number] Dis Date: Status: UNK PHONE #: [phone] Exam Date: 08/13/2017 2310 FAX #: [phone] Reason: CHEST PAIN EXAMS: CPT CODE: [id number] XR CHEST 2 V 91072 HISTORY: CHEST PAIN TECHNIQUE: PA and lateral chest x-ray COMPARISON: 12/15/16 FINDINGS: No airspace consolidation or pleural effusion. Mild cardiomegaly. Mediastinal silhouette is unremarkable. Mild thoracic spon dylosis. IMPRESSION: No radiographic evidence of acute cardiopulmonary process. at 2294 Reported and signed by: Crissy Cross D.O. CC: Roro Bloom NP Technologist: DAGMAR MACHUCA) Trnscrd Date/Time/By: 08/13/2017 (7051) : By: [email or web address] Orig Print D/T: S: 08/13/2017 (6123) PAGE 1 Signed Report - XR CHEST 2 [id number] 01:30:00 FAX: Lo Hudson [phone] [place]: St: [facility] FAX: Hai Barry [facility] [phone] Name: MERLY MORGAN [facility] : 1970 Age/S: 46/F [address] [facility] Unit #: [id number] Loc: [place] [address] Phys: Hai Richey [facility] Acct: [id number] Dis Date: Status: UNK PHONE #: [phone] Exam Date: 12/15/2016 0125 FAX #: [phone] Reason: COUGH W/ FEVER EXAMS: CPT CODE: [id number] XR CHEST 2 V 27094 CHEST PA AND LATERAL VIEWS CLINICAL HISTORY: [...]
--- NOTE | 2020-03-01 00:50 | NUR ---
RADIOLODY AT BEDSIDE FOR CHEST XRAY.
--- NOTE | 2020-03-01 01:34 | Diagnostic Imaging Report ---
EXAMINATION: CHEST SINGLE (PORTABLE) INDICATION: ^esrd no dialysis in 2 weeks COMPARISON: Radiograph dated 08/30/2019 FINDINGS: TUBES and LINES: Dialysis catheter tip projects over the right atrium. LUNGS: Normal lung volumes. Lungs are clear. No consolidations. PLEURA: No pleural effusion or pneumothorax. HEART AND MEDIASTINUM: Mildly enlarged heart. Mild central pulmonary vascular congestion. BONES AND SOFT TISSUES: No acute osseous lesion. Soft tissues are unremarkable. IMPRESSION: Mild cardiomegaly with central pulmonary vascular congestion. No consolidation. Signed by: Song Zepeda MD on 03/01/2020 1:31 AM
[2020-03-01] MEDS: HYDRALAZINE HCL 20 MG/ML VIAL IV PRN ×2 (04:10→08:50)
[2020-03-01 06:58] LABS: ALBUMIN 2.9 g/dL (3.5-5.0); ALBUMIN/GLOBULIN RATIO 0.6 (0.8-2.0); ANION GAP 17.2 mmol/L (8-16); CALCIUM 8.8 mg/dL (8.4-10.2); CREATININE, SERUM 6.53 mg/dL (0.57-1.11)
[2020-03-01 07:02] LABS: POTASSIUM 5.2 mmol/L (3.5-5.1)
[2020-03-01] MEDS: INSULIN REGULAR, HUMAN 100 UNIT/1 ML 3ML VIAL SQ SCH ×4 (07:30→21:00)
--- NOTE | 2020-03-01 07:40 | NUR ---
PATIENT IS AWAKE, ALERT, AND IN STABLE CONDITION WITH NO S/S OF RESPIRATORY DISTRESS. NO PAIN VOICED. ABSCESS/WOUNDS NOTED TO BILATERAL ARMPIT AREAS, UNDER RIGHT BREAST AREA, RIGHT SIDE OF VAGINAL AND RIGHT GROIN AREA; DRESSINGS APPLIED C/D/I. TELE APPLIED. CALL LIGHT IS WITHIN REACH, PATIENT INSTRUCTED TO CALL FOR ASSISTANCE NEEDED.
[2020-03-01] MEDS ORDERED: PNEUMOCOCCAL VACCINE POLYVALENT 23 MCG/0.5 ML VIAL IM SCH (10:00)
[2020-03-01] MEDS ORDERED: INFLUENZA VIRUS VAC SPLIT INJ 0.5 ML SYR IM SCH (10:00)
[2020-03-01] MEDS: ONDANSETRON HCL INJ 2MG/ML 2ML 2 MG/ML VIAL IV PRN (11:00)
--- NOTE | 2020-03-01 12:56 | NUR ---
WOUND CARE CONSULT FOR 50 YO FEMALE HX OF ESRD,DIALYSIS,MULT ABSCESSES SREE 22 ON CONSERVATIVE PUP STATUS AND INTERVENTIONS AND VISCO MATTRESS LABS: WBC-13.63 HGB_7.4 GLUCOSE-153 SKIN ASSESSMENT COMPLETE PATIENT PRESENTS WITH MULTIPLE DRAINING ABSCESS AREAS POSTERIOR BREAST ,RT INNER THIGH,RIGHT UNDER ARM X3 AND LEFT UNDERARM RECOMMENDATIONS: NURSING TO CONTINUE TO MAINTAIN CONSERVATIVE PUP STATUS AND INTERVENTIONS AND VISCO MATTRESS NURSING TO CONTINUE TO ASSIST PATIENT OUT OF BED FOR MEALS AND MUCH TOLERATED NURSING TO CONTINUE TO ASSIST PATIENT NEEDED WITH MEALS AND NUTRITIONAL SUPPLEMENTS TO ENSURE PROPER REQUIREMENTS FOR HEALING NURSING TO CONTINUE TO OFFLOAD FEET AND HEELS NEEDED WITH PILLOW SUSPENSION WHEN IN BED NURSING TO CLEAN MULTIPLE DRAINING ABSCESS AREAS POSTERIOR BREAST ,RT INNER THIGH,RIGHT UNDER ARM X3 AND LEFT UNDERARM WITH NORMAL SALINE DAILY AND APPLY MOIST BETADINE LONNY AND SECURE WITH FOAM TAPE COVERING Addendum: 03/01/20 at 1303 by Gurmeet Newman RN Amended: Links added.
[2020-03-01] MEDS: HYDRALAZINE HCL 25 MG TAB PO SCH ×2 (14:00→22:00)
--- NOTE | 2020-03-01 14:17 | NUR ---
ASSESSMENT: Spiritual concern Pt requested prayer. Pt felt shamed and homesick. Pt states she was humiliated by recent hospital experience and a different hospital. Pt states she misses her children and grandchildren. Intervention: Provided non-judgmental, empathic listening. Facilitated storytelling. Provided prayer. Provided encouragement. Outcome: Pt expressed appreciation for support. Provided information on how to reach plumber assistant, if needed. MEAGAN MURRAY [employer] Spiritual Care Department O: [phone]
--- NOTE | 2020-03-01 15:05 | NUR ---
SPOKE WITH DR GUERRERO ABOUT HER BEING SET UP AT [facility] WAS ABLE TO CONTACT [facility] AND SHE WAS TOLD WAS SET UP THROUGH [facility], CALLED AND SPOKE WITH ALAYNA AT [facility] WHO STATES THE CASE WAS CLOSED January. WILL HAVE TO START NEW REFERRAL.
--- NOTE | 2020-03-01 15:17 | NUR ---
WILL NEED TO START WHOLE NEW PACKET FOR DIALYSIS AT [facility]. ALL LABS ARE ORDERED BUT NOT DRAWN OR COMPLETED, SPOKE WITH MADAN AT [facility] SHE WILL GET ME SOME OF THE PRIOR INFORMATION AND WILL FAX EVERYTHING ON WEDNESDAY.
--- NOTE | 2020-03-01 15:22 | NUR ---
GAVE PACKET OF INFORMATION WITH COMM[facility]ITY [employer] FOR ASSISTANCE WITH LOW TO NO INCOME TO PATIENT. RESOURCES THAT PATIENT MAY BE ABLE TO FOLLOW UP UPON DISCHARGE. PT EDUCATED ON EACH RESOURCE AND UNDERSTANDING HOW TO FOLLOW UP TO SEE IF QUALIFIED FOR EACH RESOURCE.
[2020-03-01] MEDS ORDERED: HEPARIN SOD (PORCINE) 1000 UNIT/ML SDV IV PRN (16:15)
[2020-03-01] MEDS ORDERED: MANNITOL 25% 12.5GM/50 ML VIAL IV PRN (16:15)
[2020-03-01] MEDS ORDERED: SODIUM CHLORIDE 0.9% 1000ML 2,000 ML IV PRN (16:15)
--- NOTE | 2020-03-01 19:16 | NUR ---
PATIENT IS ALERT AND IN STABLE CONDITION WITH NO S/S OF RESPIRATORY DISTRESS. NO PAIN VOICED. PATIENT RECEIVING DIALYSIS AT THIS TIME. CALL LIGHT IS WITHIN REACH, PATIENT INSTRUCTED TO CALL FOR ASSISTANCE NEEDED. BEDSIDE SIDE SHIFT REPORT GIVEN TO ONCOMING NURSE.
--- NOTE | 2020-03-01 20:26 | History and Physical ---
REPORT TITLE: Initial Nephrology Consultation Report. BODY AFTER REPORT TITLE: REASON FOR CONSULTATION: I have been kindly asked by Dr. Elizalde to see the patient in regard to renal failure and electrolyte derangements. HISTORY OF PRESENT ILLNESS: Ms. Daniela Bautista is a 50-year-old lady, who I am being asked to see because her BUN and creatinine are 106.5 and when she presented, her potassium was 5.6. This lady I actually know well. She was just recently discharged from [facility] about maybe few weeks ago. She was at [facility] for quite some time and over there she was COVID positive and then it was there that she was initiated on dialysis. She had renal failure for quite some time and we initiated dialysis, however, she left the hospital AMA. PAST MEDICAL HISTORY: 1. Diabetes. 2. Chronic of chronic kidney disease. 3. History of diabetes. 4. History of hypertension. 5. History of . PAST SURGICAL HISTORY: She has had a tunneled dialysis catheter placed. REVIEW OF SYSTEMS: As per HPI. PHYSICAL EXAMINATION: VITAL SIGNS: Blood pressure 134/66. GENERAL: The patient is in no acute distress. HEENT: She has a tunneled dialysis catheter in the right neck area. CARDIOVASCULAR: Regular rhythm and rate. LUNGS: Decreased breath sounds. ABDOMEN: Positive bowel sounds. EXTREMITIES: No edema, cyanosis, or clubbing. LABORATORY RESULTS: Sodium 136, potassium 5.6, chloride 109, bicarb 14, BUN and creatinine and 6.6 respectively. IMPRESSION: 1. Chronic kidney disease stage 5. 2. Metabolic acidosis. 3. Hyperkalemia. 4. Hypertension. 5. Diabetes. 6. Noncompliance. 7. Status post COVID pneumonia. 8. Status post COVID infection. PLAN: The patient left the hospital AMA at [facility]. She is here now. She has likely hydramnios. We will dialyze her. I will consult with social service director to see if she should be placed on a chronic dialysis unit. It might be that she might not be able to be placed on chronic dialysis unit because of her residency status. I will look into that day. Thank you, Dr. Elizalde for this consultation. Ather MD RICKEY Montemayor/LARISSA /[id number]
--- NOTE | 2020-03-01 21:30 | NUR ---
REPORT RECEIVED FROM RN MANSI II PATIENT PENDING TRANSFER TO ROOM 296, S/P DIALYSIS TODAY 1 LITER REMOVED PER RN, PATIENT HAS RIGHT SUBCLAVIAN CATH, (+)COVID PATIENT, HX HTN, STAGE IV CKD, MULTIPLE WOUNDS R/T POOR HYGIENE RIGHT AND LEFT ARM PIT, RIGHT AND LEFT PUBIC AREA, AND RIGHT THIGH, PER RN PATIENT COMPLETED WOUND CARE CONSULT, ALL WOUNDS COVERED WITH DRY DRESSING
--- NOTE | 2020-03-01 21:51 | NUR ---
PATIENT ARRIVED TO THE ROOM VIA BED, PLACED ON DROPLET PRECAUTION, (+) COVID, PATIENT AOX3, S/P SKIN CHECK PERFORMED, MULTIPLE WOUNDS TO BOTH UNDERARMS, RIGHT THIGH, AND BOTH GROIN AREAS, RIGHT UPPER CHEST SUBCLAVIAN DIALYSIS SITE DRESSING DRY INTACT, PATIENT PENDING DIALYSIS ON 03/02/20 WILL CONTINUE CARE
--- NOTE | 2020-03-01 22:16 | NUR ---
NO INSULIN NEEDED AT THIS TIME, BLOOD SUGAR 88, PATIENT ENCOURAGED TO EAT DINNER, DINNER BROUGHT WITH HER DURING DISCHARGE, AT BEDSIDE, PATIENT REFUSING AT THIS TIME, FOR SAFETY BLOOD SUGAR WILL BE RECHECKED IN 6 HOURS, PATIENT REQUESTING FLU AND PNA SHOT BE GIVEN BEFORE DISCHARGE
[2020-03-02] VITALS (9 sets, daily range): BP systolic 139–179; BP diastolic 71–102
[2020-03-02] MEDS: HYDRALAZINE HCL 20 MG/ML VIAL IV PRN ×2 (02:50→11:30)
[2020-03-02] MEDS: HYDRALAZINE HCL 25 MG TAB PO SCH ×3 (05:36→23:07)
[2020-03-02 06:02] LABS: BASOPHILS # (AUTO) 0.1 (0.0-0.1); BASOPHILS % 0.4 % (0.0-1.0); EOSINOPHILS # (AUTO) 0.1 (0.0-0.4); EOSINOPHILS % 0.6 % (0.0-6.0); HEMATOCRIT 25.9 % (34.2-44.1); LYMPHOCYTES % 8.1 % (18.0-39.1); MEAN CORPUSCULAR HEMOGLOBIN 25.1 pg (28-32); MEAN CORPUSCULAR HGB CONC 30.9 g/dL (31-35); MEAN CORPUSCULAR VOLUME 81.2 fL (81-99); MONOCYTES # (AUTO) 0.7 (0.2-0.8); MONOCYTES % 5.6 % (4.4-11.3); PLATELET COUNT 236 x10e3/uL (140-360); RED BLOOD COUNT 3.19 x10e6/uL (3.6-5.1); RED CELL DISTRIBUTION WIDTH 15.2 % (11.7-14.4)
[2020-03-02 06:22] LABS: ANION GAP 15.1 mmol/L (8-16); CALCIUM 8.6 mg/dL (8.4-10.2); CREATININE, SERUM 3.76 mg/dL (0.57-1.11); POTASSIUM 4.1 mmol/L (3.5-5.1)
--- NOTE | 2020-03-02 06:44 | NUR ---
MD SHEPHERD CALLED FOR ORDERS FOR CONSULT FOR ID AND PULMONARY
[2020-03-02] MEDS: INSULIN REGULAR, HUMAN 100 UNIT/1 ML 3ML VIAL SQ SCH ×4 (07:30→19:46)
--- NOTE | 2020-03-02 07:45 | NUR ---
PATIENT IN BED RESTING WITH EYES CLOSED, NO DISTRESS NOTED. MULTIPLE WOUNDS AND ABSCESS TO DIFFERENT BODY PARTS. BED IN LOWER POSITION, CALL LIGHT AT REACH.
[2020-03-02] MEDS: ONDANSETRON HCL INJ 2MG/ML 2ML 2 MG/ML VIAL IV PRN ×3 (10:10→23:31)
[2020-03-02] MEDS ORDERED: ALBUTEROL SULFATE HFA 8GM INHALATION AEROSOL INH PRN (10:45)
[2020-03-02] MEDS ORDERED: ZOLPIDEM TARTRATE 5 MG TAB PO PRN (10:45)
--- NOTE | 2020-03-02 11:28 | Consultation ---
DATE OF CONSULTATION: Pulmonary Critical Care consultation CHIEF COMPLAINT: Nausea and vomiting. HISTORY OF PRESENT ILLNESS: The patient is a 50-year-old woman. She was diagnosed with COVID-19 last month. She spent some time at [facility] and left the hospital about 2 weeks ago. She now returns with nausea and vomiting. She denies fever. She does not complain of dyspnea or cough. Upon arrival, she was noted to have an elevated creatinine. She was seen by Nephrology and will require dialysis. PAST SURGICAL HISTORY: Status post tunneled dialysis catheter placement. PAST MEDICAL HISTORY: 1. Diabetes. 2. Chronic kidney disease. 3. Hypertension. 4. No prior asthma or respiratory problems. SOCIAL HISTORY: The patient quit smoking 6 to 7 years ago. She is not an active drinker. FAMILY HISTORY: Noncontributory. REVIEW OF SYSTEMS: The patient is not having any fevers. She has no headache. She does not have chest pain. She denies dyspnea or cough. She does have nausea or vomiting. She does not complain of any focal neurological complaints. PHYSICAL EXAMINATION: VITAL SIGNS: Blood pressure is 179/92, saturation is 100% on 4 L and pulse is 95. HEENT: No facial swelling or erythema. LYMPHATIC: No submandibular, cervical, or supraclavicular adenopathy. CARDIAC: Reveals regular rate and rhythm. Normal S1 and S2. LUNGS: Auscultation of lungs reveals crackles at the bases. There is no wheezing. ABDOMEN: Soft and nontender. There is no rebound or guarding. EXTREMITIES: No leg edema or calf tenderness. There is no cyanosis or clubbing. SKIN: No rashes. NEUROLOGIC: No focal abnormalities. LABORATORY DATA: White blood cell count 11.8, hemoglobin is 8, and platelet count is 236. BUN to creatinine ratio is 35 to 3.76. The other electrolytes within normal limits. RADIOGRAPHIC DATA: Chest x-ray shows some mild cardiomegaly. IMPRESSION: 1. Xbmac-nk-nalkfcw renal failure. 2. COVID-19 and viral pneumonia. 3. Hypertension. 4. Diabetes. PLAN: 1. Continue with dialysis. 2. Continue oxygen as needed. 3. Bronchodilators for rescue inhaler as needed. 4. Monitor and control blood sugars. MD MEI Montes/LARISSA /[id number]
--- NOTE | 2020-03-02 11:53 | NUR ---
PATIENT C/O NAUSEA/VOM. ZOFRAN GIVEN ORDERED. NO MORE C/O NAUSEA/VOM. IN BED WATCHING TV, CALL LIGHT AT REACH.
[2020-03-02] MEDS ORDERED: SODIUM CHLORIDE 0.9% 1000ML 2,000 ML ONE (13:50)
--- NOTE | 2020-03-02 14:42 | NUR ---
Nutrition Intervention Note RD Recommendation(s) for Physician: -Rec adding potassium restriction to current diet order -Rec adding Nepro BID to promote protein-calorie intake -Diet handouts were provided, please call #[phone] if pt has any diet question Plan of Care: RD following, monitoring for tolerance and adequacy, diet education Nutrition reason for involvement: RN consult no reason stated RD Assessment (03/02) 50yo F, who was admitted for renal failure and hyperkalemia. K has trend down to normal range. Pt is tested + for COVID. Status post tunneled dialysis catheter placement, possible placement for assisted dialysis. Due to current isolation protocol for COVID-19, RD called pts room several times to provide diet education but nobody picked up the phone. Education handout was given to RN, noted to call RD on #[phone] if pt has any question regarding diet. Per RN, pt has had poor appetite with nausea and vomiting. Noted some weight loss based on medical chart (08/2019 214#, 02/2020 177#). Will continue to follow. Principal Problems/Diagnoses: 1. Dacfl-en-nryfiks renal failure. 2. COVID-19 and viral pneumonia. PMH: 1. Diabetes. 2. Chronic kidney disease. 3. Hypertension. I/O: reviewed GI: abdomen soft, non-tender, round. LBM 03/01 Skin: no pressure ulcers noted Labs: (03/02) BUN 35 H, Creatinine 3.76 H Meds: (03/02) zofran, insulin Ht: 60in Wt: 177# BMI: 34.7kg/m2 IBW: 100# Malnutrition Evaluation (03/02) The patient meets criteria for MODERATE protein-calorie malnutrition. Energy intake: <50% of estimated energy requirements for >5 days Weight loss: >10% in 6 months (Chronic), unknown if this is intentional Fat loss: unable to evaluate Muscle loss: unable to evaluate Supporting Evidence: Fluid accumulation: unable to evaluate Functional Status: unable to evaluate Nutrition Prescription (Diet Order): ADA 1800 Estimated Nutritional Needs: Calories: 2000 2400kcal(25-30kcal/kg) Weight used: CBW Protein: 96 120g (1.2-1.5g/kg) Weight used: CBW Diet Adequacy: Not meeting calorie needs, Not meeting protein needs Tolerance: Not tolerating PO Diet Education Needs Assessment: Diet education indicated, unable to reach patient via phone. Nutrition Care Level: moderate Nutrition Diagnosis: Inadequate oral intake related to current medical status (renal failure on dialysis, nausea and vomiting) as evidenced by poor PO intake. Goal: Patient will meet 75-100% of estimated needs by follow up Progress: Not Progressing Interventions: Modified diet, Commercial beverage, Survival information Monitoring/Evaluation: Total energy intake, Total protein intake, Modified diet, Liquid supplement, Weight change, Ability to recall nutrition goals, Level of knowledge, Self management Signed: Gloria Greenwood MS, RD, LD
--- NOTE | 2020-03-02 15:49 | NUR ---
BED SIDE HEMODIALYSIS TREATMENT IN PROGRESS. PATIENT IN BED RESTING WITH NO S/S OF DISTRESS. CALL LIGHT AT REACH.
--- NOTE | 2020-03-02 16:39 | NUR ---
infectious disease consultation [facility] COMPLAINT: Nausea and vomiting. this patient was seen and examined chart review she is currently living with conflict there is no new complaint she is here for dialysis she is telling me that she was diagnosed with school with more than 2 months ago but with no there is no fever no chills no cough The patient is a 50-year-old woman. She was diagnosed with COVID-19 last month. She spent some time at [facility] and left the hospital about 2 weeks ago. She now returns with nausea and vomiting. She denies fever. She does not complain of dyspnea or cough. Upon arrival, she was noted to have an elevated creatinine. She was seen by Nephrology and will require dialysis. PAST SURGICAL HISTORY: Status post tunneled dialysis catheter placement. review of systems positive all negative PAST MEDICAL HISTORY: 1. Diabetes. 2. Chronic kidney disease. 3. Hypertension. 4. No prior asthma or respiratory problems. SOCIAL HISTORY: The patient quit smoking 6 to 7 years ago. She is not an active drinker. FAMILY HISTORY: Noncontributory. REVIEW OF SYSTEMS: all negative The patient is not having any fevers. She has no headache. She does not have chest pain. She denies dyspnea or cough. She does have nausea or vomiting. She does not complain of any focal neurological complaints. PHYSICAL EXAMINATION: she is currently alert oriented does not seem to be in acute distress she is on dialysis.hypoxemic looks very comfortable VITAL SIGNS: Blood pressure is 179/92, saturation is 100% on 4 L and pulse is 95. HEENT: No facial swelling or erythema. LYMPHATIC: No submandibular, cervical, or supraclavicular adenopathy. CARDIAC: Reveals regular rate and rhythm. Normal S1 and S2. LUNGS: Auscultation of lungs reveals crackles at the bases. There is no wheezing. ABDOMEN: Soft and nontender. There is no rebound or guarding. EXTREMITIES: No leg edema or calf tenderness. There is no cyanosis or clubbing. SKIN: No rashes. NEUROLOGIC: No focal abnormalities. LABORATORY DATA: White blood cell count 11.8, hemoglobin is 8, and platelet count is 236. BUN to creatinine ratio is 35 to 3.76. The other electrolytes wit covid 19 was diagnosed wound months ago she is currently not infectious per PCR is positive does not reflect active infection I think her symptoms are due to fluid overload end-stage renal disease stage disease on hemodialysis No need for antibiotic no need for Decadron Can Stop isolation
[2020-03-02] MEDS: ASCORBIC ACID 500 MG TAB PO SCH (17:15)
--- NOTE | 2020-03-02 17:25 | NUR ---
HEMODIALYSIS TREATMENT COMPLETED. 1 LITER REMOVED PER DIALYSIS NURSE, B/P 181/80 AND HR 95. SCHEDULED B/P MEDICATION GIVEN ORDERED. PATIENT IN BED WITH NO S/S OF DISTRESS.
--- NOTE | 2020-03-02 18:20 | Progress Note ---
DATE: Internal Medicine Progress Note SUBJECTIVE: The patient has some vomiting today. PHYSICAL EXAMINATION: HEART: Showed regular rhythm. Normal S1, S2 sound. LUNGS: Clear bilaterally. ABDOMEN: Soft. VITAL SIGNS: Blood pressure 158/82, temperature 98.9, heart rate 95 per minute, respiratory rate is 20 per minute, oxygen saturation 100%. LABORATORY STUDIES: BMP; sodium 138, potassium 4.1, chloride 103, CO2 24, BUN 35, creatinine 3.74, glucose 102. On CBC; white blood count is 11.7, hemoglobin 8.0, hematocrit 25.9, platelet count 236,000. AST 11, ALT 6, total bilirubin 0.3, alkaline phosphatase 132. Serologies; cholestasis is positive. Hepatitis B surface antigen is negative. Hepatitis B surface antibody . Hepatitis B e-antigen is negative. FINAL IMPRESSION: 1. End-stage renal disease, on dialysis. 2. Coronavirus disease-19, infection. 3. Uncontrolled diabetes mellitus type 2 with diabetic nephropathy. 4. Hypertension. 5. Hypertensive nephropathy. 6. Anemia of chronic disease. PLAN OF TREATMENT: The patient has been started on dialysis. She will be on droplet and contact isolation for COVID-19. Continue with Epogen 6000 units Wednesday, Wednesday, and Wednesday. Heparin 5000 units IV p.r.n. for dialysis catheter, hydralazine 50 mg q.8 hours, hydralazine 10 mg IV q.4 hours as needed hypertension. She got influenza vaccine. Continue to monitor blood sugar before meals and at bedtime. Continue Zofran 4 mg IV q.4 hours as needed for nausea and vomiting. Pneumococcal vaccine has been given. Ambien 5 mg at night p.r.n. for insomnia has been given. I called Dr. Montgomery for Infectious Disease and Dr. Vignesh Crisostomo for Pulmonary, going to start the patient on dexamethasone 6 mg daily for 10 days as part of the protocol for coronavirus disease-19. We are going to also start the patient on vitamin C 500 mg twice a day. Also, we are going to give her vitamin D 4000 international units daily. The patient will be in contact and droplet isolation due to the new COVID-[address] Montgomery has been consulted for Infectious Disease, Dr. Crisostomo has been consulted from the Infectious Disease. Point of view also we have Dr. Orozco for Nephrology because the patient is on dialysis. MD SULAIMAN Foreman/LARISSA /[id number]
[2020-03-02] MEDS: DEXAMETHASONE 4 MG TAB PO SCH (20:28)
--- NOTE | 2020-03-02 23:48 | NUR ---
patient requesting shower, and asked if I would "cut the knots of hair out of my head so I can wash it", educated patient that I am not a professional hairstylist but "I can just cut the matted hair out the back only and then you can wash and place in ponytail until it grows back", patient stated her verbal consent for me and FELLER OPERATOR as 2nd witness Rochelle to give bath and cut only matted hair out of her head with scissors, shower and care given as requested, linens changed, all wounds pat dry betadine applied and covered with dry dressings, placed back in bed w/o incident, safety fully maintained
[2020-03-03] VITALS (10 sets, daily range): BP systolic 116–184; BP diastolic 70–92
--- NOTE | 2020-03-03 02:10 | NUR ---
SHOWER COMPLETED, WOUND CARE GIVEN, ATTEMPTED TO COVER ABSCESS WOUNDS RIGHT AND LEFT UPPER THIGH GROIN AREA, BUT PATIENT WOULD ONLY ALLOW ME TO PAT DRY, PLACE BETADINE SOAKED GAUZE ON AREA, REFUSED FOR TAPE TO BE PLACE IN AREA TO HOLD BANDAGE,; ABSCESS AREAS POSTERIOR BREAST, RIGHT UNDERARM x 3, AND LEFT UNDERARM APPLIED MOIST BEADINE GAUZE AND SECURE WITH FOAM TAPE ORDERED BY WOUND CARE, PT CALL LIGHT WITHIN REACH, REMAIN ON CONTACT ISOLATION FOR (+) COVID
--- NOTE | 2020-03-03 02:21 | NUR ---
PER MD PATTERSON NOTES "I think her symptoms are due to fluid overload end-stage renal disease stage disease on hemodialysis No need for antibiotic no need for Decadron Can Stop isolation", WILL VERIFY ORDER AND DC ISOLATION IN THE AM
[2020-03-03 06:55] LABS: ANION GAP 14.5 mmol/L (8-16); CALCIUM 8.9 mg/dL (8.4-10.2); CREATININE, SERUM 3.42 mg/dL (0.57-1.11); POTASSIUM 4.5 mmol/L (3.5-5.1)
[2020-03-03] MEDS: INSULIN REGULAR, HUMAN 100 UNIT/1 ML 3ML VIAL SQ SCH ×4 (07:30→21:00)
--- NOTE | 2020-03-03 07:35 | NUR ---
PATIENT IN BED RESTING WITH NO S/S OF DISCOMFORT. MULTIPLE WOUNDS AND ABSCESS WITH DRESSING INTACT. BED IN LOWER POSITION, CALL LIGHT AT REACH.
[2020-03-03] MEDS: HYDRALAZINE HCL 25 MG TAB PO SCH ×3 (08:30→20:48)
[2020-03-03] MEDS: DEXAMETHASONE 4 MG TAB PO SCH ×3 (09:03→20:49)
[2020-03-03] MEDS: ASCORBIC ACID 500 MG TAB PO SCH ×2 (09:03→17:15)
[2020-03-03] MEDS: CHOLECALCIFEROL 400 UNIT TAB PO SCH (09:03)
[2020-03-03] MEDS ORDERED: PROMETHAZINE 12.5MG/ NACL 0.9% 12.5 MG/50 ML BAG IV PRN ×2 (14:15)
[2020-03-03] MEDS ORDERED: ONDANSETRON HCL 4 MG ORAL DISINTEGRATING TAB PO PRN (14:15)
--- NOTE | 2020-03-03 15:46 | NUR ---
DRESSING CHANGED TO MULTIPLE WOUNDS/ABSCESS, PATIENT TOLERATED PROCEDURE WELL. IN BED WITH CALL LIGHT AT REACH.
--- NOTE | 2020-03-03 16:49 | Progress Note ---
DATE: Internal Medicine Progress Note SUBJECTIVE: The patient is complaining of vomiting. OBJECTIVE: ABDOMEN: Soft. EXTREMITIES: No edema. VITAL SIGNS: Blood pressure is 162/87, temperature 98.8, heart rate 91 per minute, respiratory rate 18 per minute, and O2 saturation 99%. LABORATORY STUDIES: On the CBC, white blood count 11.79, hemoglobin 8.0, hematocrit 25.9, and platelet count 286,000. On the BMP; sodium 136, potassium 4.5, chloride 101, CO2 of 25, BUN 20, creatinine 3.42, glucose 136, and calcium 8.9. FINAL IMPRESSION: 1. End-stage renal disease, on hemodialysis. 2. Coronavirus disease-19 pneumonia. 3. Uncontrolled diabetes mellitus type 2 with diabetic nephropathy. 4. Hypertensive nephropathy. 5. Anemia of chronic disease. PLAN OF TREATMENT: We are going to start Phenergan 12.5 mg IV q.6 hours as needed for nausea and vomiting since Zofran is not working according to the patient. Continue albuterol 2 inhalation q.4 hours as needed for shortness of breath, metered-dose inhaler. Continue amlodipine 5 mg daily, vitamin C 500 mg twice a day, cholecalciferol 400 units daily, and dexamethasone 2 mg three times a day. Epogen 6000 units Wednesday, Wednesday, and Wednesday. Heparin 5000 units IV as needed for dialysis catheter. Continue hydralazine 50 mg q.8 hours. Continue hydralazine 10 mg IV q.4 hours as needed for hypertension. She is going to place . Continue to monitor blood sugar before meals and at bedtime. Continue Zofran 4 mg IV q.4 hours as needed for nausea and vomiting. Continue promethazine 12.5 mg IV q.6 hours as needed for nausea and vomiting, Ambien 5 mg at night p.r.n. for insomnia. Continue contact and droplet isolation in the meantime. MD SULAIMAN Foreman/LARISSA /[id number]
--- NOTE | 2020-03-03 20:25 | Progress Note ---
DATE: Pulmonary Critical Care Progress Note SUBJECTIVE: There are no new complaints. She is not having any fevers. PHYSICAL EXAMINATION: VITAL SIGNS: Blood pressure is 166/73, saturation is 99%. HEENT: Shows no facial swelling or erythema. CARDIAC: Reveals regular rate and rhythm with normal S1 and S2. LUNGS: Auscultation of lungs shows clear breath sounds bilaterally. There is no wheezing. ABDOMEN: Soft and nontender. There is no rebound or guarding. LABORATORY DATA: White blood cell count is 11.8, hemoglobin is 8. The platelet count is 236. BUN to creatinine ratio is 20 to 3.42. Other electrolytes are within normal limits. IMPRESSION: 1. Resolving viral pneumonia and COVID-19 infection. 2. Acute on chronic renal failure. 3. Hypertension. 4. Diabetes. PLAN: 1. Dialysis as needed. 2. Wean oxygen. 3. Bronchodilators p.r.n. 4. Monitor and control blood sugars. Vignesh Crisostomo MD [facility]/MODL /[id number]
[2020-03-03] MEDS ORDERED: SODIUM CHLORIDE 0.9% 100 ML ONE (21:58)
--- NOTE | 2020-03-03 22:01 | NUR ---
progress note infectious disease progress note Patient seen and examined chart reviewed the events noted Patient with no new complaints There are no new complaints. She is not having any fevers. PHYSICAL EXAMINATION: VITAL SIGNS: Blood pressure is 166/73, saturation is 99%. HEENT: Shows no facial swelling or erythema. CARDIAC: Reveals regular rate and rhythm with normal S1 and S2. LUNGS: Auscultation of lungs shows clear breath sounds bilaterally. There is no wheezing. ABDOMEN: Soft and nontender. There is no rebound or guarding. LABORATORY DATA: White blood cell count is 11.8, hemoglobin is 8. The platelet count is 236. BUN to creatinine ratio is 20 to 3.42. Other electrolytes are within normal limits. IMPRESSION: 1. viral pneumonia and COVID-19 infection. oNE MONTH AGO RESOLVED 2. Acute on chronic renal failure. 3. Hypertension. 4. Diabetes. TO BE DISCHARGED HOME pATIENT IS NOT INFECTIOUS ANYMORE a POSITIVE pcr AT THE PRESENT STAGE DOES NOT REFLECT ACUTE INFECTION Patient can leave isolation
[2020-03-04] VITALS (10 sets, daily range): BP systolic 130–174; BP diastolic 72–87
[2020-03-04] MEDS: HYDRALAZINE HCL 25 MG TAB PO SCH ×3 (05:31→21:24)
[2020-03-04 06:44] LABS: ANION GAP 14.7 mmol/L (8-16); CALCIUM 8.9 mg/dL (8.4-10.2); CREATININE, SERUM 4.97 mg/dL (0.57-1.11); POTASSIUM 4.7 mmol/L (3.5-5.1)
--- NOTE | 2020-03-04 06:59 | NUR ---
infectious disease progress note Patient seen and examined chart reviewed Patient with no new complaints Review of system otherwise negative Physical examination she is currently alert oriented vitals stable afebrile HEENT normocephalic not pale not icteric Neck supple no JVD no lymphadenopathy no thyromegaly Chest clear bilateral Heart S1-S2 Abdomen soft bowel sounds present extremities no edema skin no rash Fluid overload resolved End-stage renal disease on hemodialysis History of recent covid 19 not infectious anymore and no treatment Discharge planning per internal medicine
--- NOTE | 2020-03-04 07:00 | NUR ---
received bedside report. pt is resting in bed, no s/s of distress. call light within reach and bed safety in place
[2020-03-04] MEDS: INSULIN REGULAR, HUMAN 100 UNIT/1 ML 3ML VIAL SQ SCH ×4 (07:30→21:15)
[2020-03-04] MEDS: ASCORBIC ACID 500 MG TAB PO SCH ×2 (08:31→16:50)
[2020-03-04] MEDS: DEXAMETHASONE 4 MG TAB PO SCH ×3 (08:31→21:24)
[2020-03-04] MEDS: CHOLECALCIFEROL 400 UNIT TAB PO SCH (08:31)
[2020-03-04] MEDS ORDERED: AMLODIPINE BESYLATE 5 MG TAB PO SCH (09:00)
[2020-03-04] MEDS ORDERED: DOCUSATE SODIUM LIQD 100 MG/10 ML UDC NG SCH (10:00)
[2020-03-04] MEDS: DOCUSATE SODIUM 100 MG CAP PO SCH ×2 (10:00→16:50)
--- NOTE | 2020-03-04 11:53 | Progress Note ---
DATE: 03/04/2020 SUBJECTIVE: Ms. Bautista is a 50-year-old female who left against medical advice from [place] last week. Came to [facility] to have her dialysis catheter removed. She was found to have elevated creatinine, so she was admitted to the hospital. Test positive for COVID. PHYSICAL EXAMINATION: GENERAL: She is on isolation. VITAL SIGNS: Temperature is 98.2, blood pressure 163/85, respiratory rate is 18, pulse is 82, O2 saturation 98%. LABORATORY DATA: On the blood work, white count is 11.79, hemoglobin is 8.0, hematocrit is 25.9. Potassium 4.7. Creatinine is 4.97. COVID test came back positive. Hepatitis profile negative so far. ASSESSMENT AND PLAN: 1. End-stage renal disease, on hemodialysis. 2. Hypokalemia, resolved. 3. Anemia secondary to chronic kidney disease. 4. Coronavirus disease infection. 5. Diabetes type 2 with hyperglycemia. 6. Diabetes type 2 with chronic kidney disease. 7. Hypertension. PLAN: At the present time is to continue dialysis 3 times a week. Continue to monitor electrolytes. Phenergan for nausea and vomiting. Continue blood pressure medications. Continue dexamethasone 2 mg 3 times a day. She is also on Epogen 6000 units 3 times a week. Continue ADA diet and sliding scale with insulin. The overall prognosis of the patient remains guarded, continue contact and droplet isolation. Anais Elizalde MD [facility]/MODL /[id number]
[2020-03-04] MEDS: EPOETIN ALFA-EPBX 10,000 UNIT/ML VIAL SC SCH (13:09)
--- NOTE | 2020-03-04 13:17 | NUR ---
HD is complete, 1 L was pulled. pt is resting in bed, no s/s of distress. call light within reach and instructed pt to call for help.
--- NOTE | 2020-03-04 13:57 | NUR ---
FAXED CLINICALS TO [facility].
[2020-03-04] MEDS ORDERED: CITRATE OF MAGNESIA 300ML BOTTLE PO ONE (16:45)
--- NOTE | 2020-03-04 16:50 | Progress Note ---
DATE: SUBJECTIVE: The patient feels better. She is complaining of constipation. She has less dyspnea. She is not having any cough. PHYSICAL EXAMINATION: VITAL SIGNS: The blood pressure is 162/80 and saturation is 98% on room air. The temperature is 99. The pulse is 92. HEENT: Shows no facial swelling or erythema. The oropharynx is normal. LYMPHATIC: Shows no submandibular, cervical, or supraclavicular adenopathy. CARDIAC: Reveals regular rate and rhythm with normal S1 and S2. LUNGS: Auscultation of lungs reveals clear breath sounds bilaterally. There is no wheezing. ABDOMEN: Soft and nontender. There is no rebound or guarding. EXTREMITIES: Shows no leg edema or calf tenderness. There is no cyanosis or clubbing. SKIN: Shows no rashes. LABORATORY DATA: Hemoglobin is 8.0 and the platelet count is 236. IMPRESSION: 1. Twyqv-xq-kbiakhr renal failure. 2. Resolving viral pneumonia and COVID-19 infection. 3. Diabetes. 4. Constipation. 5. Hypertension. PLAN: 1. Laxative. 2. Dialysis as needed. 3. Continue to monitor and control blood sugars. Vignesh Crisostomo MD [facility]/CORTEZL /[id number]
[2020-03-04] MEDS ORDERED: DOCUSATE SODIUM 100 MG CAP PO SCH (17:00)
--- NOTE | 2020-03-04 17:40 | Progress Note ---
DATE: 03/04/2020 Renal Progress Note SUBJECTIVE: Events over the last 24 hours have been noted. The patient completed her dialysis session today and she is doing okay. No chest pain. No shortness of breath at this time. PHYSICAL EXAMINATION: VITAL SIGNS: Blood pressure 174/87, pulse 90, and afebrile. GENERAL: The patient is in no acute distress. HEENT: No increased JVD. CARDIOVASCULAR: Regular rate and rhythm. LUNGS: Clear to auscultation. ABDOMEN: Positive bowel sounds. EXTREMITIES: No edema. LABORATORY RESULTS: Hemoglobin and hematocrit are 8 and 26 respectively. Sodium 132, potassium 4.7, chloride 98, bicarbonate 24, BUN and creatinine 41 and 4.97 respectively. IMPRESSION/PLAN: 1. Chronic kidney disease, stage 5. 2. Diabetes. 3. Hypertension. 4. Anemia of chronic disease. PLAN: The patient underwent dialysis today with a 2 potassium and 2.5 calcium. We removed 1 L on dialysis. The patient tolerated the dialysis well. The caseworker intake is working to see if she is eligible to be placed in an outpatient dialysis facility. For her hypertension, she is on Norvasc. It is only at 5 mg. We will increase that to 10 mg. I will also make sure that she gets Epogen about 5000 units every Wednesday, Wednesday, and Wednesday subcutaneously for the anemia of chronic disease. Ather MD RICKEY Montemayor/LARISSA /[id number]
[2020-03-05] VITALS (7 sets, daily range): BP systolic 157–175; BP diastolic 63–85
[2020-03-05] MEDS: HYDRALAZINE HCL 25 MG TAB PO SCH ×3 (06:39→21:35)
[2020-03-05] MEDS: INSULIN REGULAR, HUMAN 100 UNIT/1 ML 3ML VIAL SQ SCH ×4 (07:30→21:12)
[2020-03-05] MEDS: DOCUSATE SODIUM 100 MG CAP PO SCH ×2 (08:48→16:51)
[2020-03-05] MEDS: DEXAMETHASONE 4 MG TAB PO SCH ×3 (08:48→21:35)
[2020-03-05] MEDS: CHOLECALCIFEROL 400 UNIT TAB PO SCH (08:48)
[2020-03-05] MEDS: ASCORBIC ACID 500 MG TAB PO SCH ×2 (08:48→16:51)
[2020-03-05] MEDS: AMLODIPINE BESYLATE 10 MG TAB PO SCH (08:48)
[2020-03-05] MEDS ORDERED: AMLODIPINE BESYLATE 5 MG TAB PO SCH (09:00)
[2020-03-05 09:24] LABS: ANION GAP 15.4 mmol/L (8-16); CALCIUM 8.4 mg/dL (8.4-10.2); CREATININE, SERUM 3.8 mg/dL (0.57-1.11); POTASSIUM 4.4 mmol/L (3.5-5.1)
--- NOTE | 2020-03-05 09:52 | Progress Note ---
DATE: 03/05/2020 SUBJECTIVE: Ms. Bautista is 50-year-old female who left against medical advice from [place] that she was started on hemodialysis, came here to have her catheter removed. She was admitted, started on dialysis, test positive for COVID. PHYSICAL EXAMINATION: GENERAL: I have a long phone talk over the phone with her with several answers. She had several questions that had to address. VITAL SIGNS: Temperature is 98.9, blood pressure 171/85, pulse is 80, respiratory rate is 18, O2 saturation is 99%. LABORATORY DATA: On the blood work, white count 11.79, hemoglobin 8.0, hematocrit 25.9. CMP still pending. COVID came back positive. ASSESSMENT: 1. Acute on chronic renal failure, stage five. 2. Dialysis dependent. 3. Viral pneumonia and COVID-19 infection, resolving. 4. Diabetes type 2 with hyperglycemia. 5. Constipation. 6. Hypertension. 7. Diabetes type 2 with chronic kidney disease. 8. Anemia secondary to chronic kidney disease. PLAN: At present time is to continue dialysis three times a week. Phenergan for nausea and vomiting. Norvasc was increased to 10 mg for blood pressure control. Continue ADA diet and sliding scale. Remain contact and droplet isolation. I had a long discussion with the patient over the phone. All questions were answered to satisfaction. MD EUSEBIO Camacho/LARISSA /[id number]
--- NOTE | 2020-03-05 13:33 | Progress Note ---
DATE: SUBJECTIVE: The patient is still on dialysis. She is awaiting placing with a dialysis chair. PHYSICAL EXAMINATION: VITAL SIGNS: The patient is afebrile. The vital signs are stable. HEENT: Shows no facial swelling or erythema. CARDIAC: Reveals regular rate and rhythm with normal S1 and S2. LUNGS: Auscultation of lungs reveals decreased breath sounds at the bases. There is no wheezing. ABDOMEN: Soft and nontender. There is no rebound or guarding. EXTREMITIES: Shows no leg edema or calf tenderness. There is no cyanosis or clubbing. SKIN: Shows no rashes. NEUROLOGICAL: Shows no focal abnormalities. LABORATORY DATA: White blood cell count is 11.8 and the hemoglobin is 8. The platelet count is 236. The BUN to creatinine ratio is 41 to 3.8. The other electrolytes are within normal limits. IMPRESSION: 1. Ysxpi-ry-zexohfw renal failure. 2. Resolving viral pneumonia and COVID-19 infection. 3. Diabetes. 4. Hypertension. PLAN: 1. Arrange disposition. 2. The patient will need a dialysis chair that accepts patients with positive COVID test. 3. Continue to monitor and control blood sugars. MD MEI Montes/MODL /[id number]
--- NOTE | 2020-03-05 15:41 | NUR ---
CALLED TO GET UPDATE FROM [facility], STATES DIDNT GET PACKET, WILL FAX AGAIN.
--- NOTE | 2020-03-05 16:10 | Progress Note ---
DATE: 03/05/2020 Renal Progress Note SUBJECTIVE: Events over the past 24 hours have been noted. The patient has no chest pain and no shortness of breath. PHYSICAL EXAMINATION: VITAL SIGNS: Blood pressure 162/63, pulse 72, afebrile. GENERAL: The patient is in no acute distress. HEENT: No increased JVD. The patient has a tunneled dialysis catheter in the right chest wall area. CARDIOVASCULAR: Regular rate and rhythm. LUNGS: Decreased breath sounds at bases bilaterally. ABDOMEN: Positive bowel sounds. Nontender and nondistended. EXTREMITIES: No edema, cyanosis, or clubbing. LABORATORY RESULTS: Sodium 130, potassium 4.4, chloride 95, bicarbonate 24, BUN and creatinine 41 and 3.8 respectively. Hemoglobin and hematocrit of 8 and 26 respectively. IMPRESSION: 1. COVID-19 infection/pneumonia. 2. Chronic kidney disease, stage 5. 3. Diabetes. 4. Hypertension. 5. Anemia of chronic disease. PLAN: The patient underwent dialysis yesterday. There is no need for dialysis today. Volume status is okay. The case fitter is working to see if she is eligible to place in an outpatient dialysis facility. The facility will need to be one that accepts COVID patients and she is a COVID patient at this time. For her blood pressure, her Norvasc was increased to 10 mg yesterday. We will go ahead and allow another 24 hours to go by to see if we need to add more medications. She is getting Epogen for her anemia of chronic disease and we will continue that. She is going to be scheduled for dialysis tomorrow. Ather MD RICKEY Montemayor/LARISSA /[id number]
--- NOTE | 2020-03-05 16:21 | NUR ---
The patient is still on dialysis. She is awaiting placing with a dialysis chair. doing well PHYSICAL EXAMINATION: VITAL SIGNS: The patient is afebrile. The vital signs are stable. HEENT: Shows no facial swelling or erythema. CARDIAC: Reveals regular rate and rhythm with normal S1 and S2. LUNGS: Auscultation of lungs reveals decreased breath sounds at the bases. There is no wheezing. ABDOMEN: Soft and nontender. There is no rebound or guarding. EXTREMITIES: Shows no leg edema or calf tenderness. There is no cyanosis or clubbing. SKIN: Shows no rashes. NEUROLOGICAL: Shows no focal abnormalities. LABORATORY DATA: White blood cell count is 11.8 and the hemoglobin is 8. The platelet count is 236. The BUN to creatinine ratio is 41 to 3.8. The other electrolytes are within normal limits. IMPRESSION: 1. Uxaup-af-qbcqhpt renal failure. 2. Resolving viral pneumonia and COVID-19 infection. 3. Diabetes. 4. Hypertension. no new recommendations
[2020-03-05] MEDS: ACETAMINOPHEN 325 MG TAB PO PRN (22:21)
[2020-03-06] VITALS (8 sets, daily range): BP systolic 148–188; BP diastolic 62–98
[2020-03-06] MEDS: HYDRALAZINE HCL 25 MG TAB PO SCH ×3 (06:22→21:38)
[2020-03-06 07:17] LABS: ANION GAP 15.7 mmol/L (8-16); CALCIUM 8.3 mg/dL (8.4-10.2); CREATININE, SERUM 4.98 mg/dL (0.57-1.11); POTASSIUM 4.7 mmol/L (3.5-5.1)
[2020-03-06] MEDS: INSULIN REGULAR, HUMAN 100 UNIT/1 ML 3ML VIAL SQ SCH ×4 (07:30→21:00)
--- NOTE | 2020-03-06 07:36 | NUR ---
ASSUMED CARE. AAOX3. ACYANOTIC. RESTING IN BED. NO DISTRESS NOTED. CALL LIGHT IN REACH. SIDE RAILS UP X2. BED LOW AND LOCKED.
[2020-03-06] MEDS: ASCORBIC ACID 500 MG TAB PO SCH ×2 (08:07→16:14)
[2020-03-06] MEDS: CHOLECALCIFEROL 400 UNIT TAB PO SCH (08:07)
[2020-03-06] MEDS: DOCUSATE SODIUM 100 MG CAP PO SCH ×2 (08:07→16:14)
[2020-03-06] MEDS: DEXAMETHASONE 4 MG TAB PO SCH ×3 (08:07→21:00)
[2020-03-06] MEDS: AMLODIPINE BESYLATE 10 MG TAB PO SCH (08:07)
[2020-03-06] MEDS ORDERED: SODIUM CHLORIDE 0.9% 1000ML 2,000 ML ONE (08:10)
--- NOTE | 2020-03-06 09:37 | Progress Note ---
DATE: 03/06/2020 SUBJECTIVE: Ms. Bautista is a 50-year-old female, who left against medical advice from [place], where she was started with hemodialysis and came to the emergency room here. She was admitted. She was restarted on dialysis. Test positive for COVID at present time. We are awaiting for dialysis center to take her and takes COVID patient. The patient states she is feeling much better. She wants to go home. PHYSICAL EXAMINATION: VITAL SIGNS: Temperature is 97.7, blood pressure 148/68, respiratory rate is 20, pulse is 81, and O2 saturation is 100%. LABORATORY DATA: On the blood work white count 11.76, hemoglobin 8, hematocrit 25.9. COVID came back positive. Sodium 129, potassium 4.7, creatinine 4.98, BUN is 9, glucose 129. ASSESSMENT: 1. End-stage renal disease. 2. Dialysis dependence. 3. Bilateral pneumonia secondary to coronavirus disease. 4. Diabetes type 2 with hyperglycemia. 5. Constipation. 6. Hypertension. 7. Diabetes type 2 with chronic kidney disease. 8. Anemia secondary to chronic kidney disease. PLAN: At present time is to continue dialysis three times a week. She is on Norvasc 10 mg daily. Continue ADA diet, sliding scale. She remains on contact and droplet isolation. She wants to go home. I discussed over the phone with her we are working on the process to try to find a dialysis center that takes COVID patient's. She understood. All questions were answered to satisfaction. MD EUSEBIO Camacho/MODL /[id number]
[2020-03-06] MEDS: EPOETIN ALFA-EPBX 10,000 UNIT/ML VIAL SC SCH (11:00)
--- NOTE | 2020-03-06 11:04 | NUR ---
SPOKE WITH MARIE AT [facility], SHE STATES STILL HAVE NOT RECEIVED THE CLINICALS, SHE GAVE ME ANOTHER FAX NUMBER TO SEND TO [phone]. FAXED TO THAT NUMBER AND THE PRIMARY FAX, WILL FOLLOW UP TO SEE IF RECEIVED.
--- NOTE | 2020-03-06 11:54 | NUR ---
SPOKE WITH [employer], THEY ARE PUTTING TOGETHER TO APPROVE AND GET CHAIR.
[2020-03-06] MEDS: HYDRALAZINE HCL 20 MG/ML VIAL IV PRN (13:26)
--- NOTE | 2020-03-06 13:26 | NUR ---
BLOOD PRESSURE FOLLOWING DIALYSIS TREATMENT REQUIRED ADMINISTRATION OF HYDRALAZINE IV ORDERED. PATIENT AAOX3. ACYANOTIC. SITTING UP IN BED PREPARING TO EAT.
--- NOTE | 2020-03-06 16:44 | Progress Note ---
DATE: 03/06/2020 Renal Progress Note SUBJECTIVE: Events over the past 24 hours have been noted. The patient is doing well. She completed her dialysis session a little while ago. PHYSICAL EXAMINATION: VITAL SIGNS: Blood pressure 186/91, pulse is 83 and afebrile. GENERAL: The patient is slightly obese, in no acute distress, alert and oriented. HEENT: No increased JVD. The patient has a tunneled dialysis catheter on the right chest area. CARDIOVASCULAR: Regular rate and rhythm. LUNGS: Decreased breath sounds at the bases bilaterally. ABDOMEN: Positive bowel sounds. EXTREMITIES: No significant edema, cyanosis, or clubbing. LABORATORY RESULTS: Today, sodium 129, potassium 4.7, chloride 95, bicarbonate 23, BUN and creatinine 64 and 4.98, glucose 129, calcium 8.3. White count is 11.8, hemoglobin and hematocrit 8 and 26 respectively. IMPRESSION: 1. COVID-19 infection/pneumonia. 2. Chronic kidney disease, stage 5. 3. Diabetes. 4. Hypertension. 5. Anemia of chronic disease. PLAN: The patient underwent dialysis today. We used 2 potassium and a 2.5 calcium bath. We removed only . She got dialysis for 3-1/2 hours, she tolerated the dialysis well. The registered nurse hh case manager is working on getting her a dialysis unit. She will first go to a [facility] accepting unit, which will be [facility] in [facility], but then later she will come to [facility]. The patient is not for the high blood pressure. The patient's blood pressure remains elevated. I will add probably another medication for the anemia of chronic disease. She is getting Epogen, we will continue that. Her amlodipine is 10 mg. She has hydralazine also 50 mg every 8 hours for hypertension. I will probably increase the hydralazine to 75 mg. Again, I will speak to the registered nurse hh case manager. She will dialysis through an outpatient placement. Ather MD RICKEY Montemayor/LARISSA /[id number]
--- NOTE | 2020-03-06 17:26 | NUR ---
Follow Up Note RD Recommendation(s) for Physician: -Recommend renal/diabetic diet Plan of Care: RD following, monitoring for tolerance and adequacy Nutrition reason for involvement: follow up RD Assessment 03/06: Follow up. Pt is awaiting dialysis placement. RD called pt over the phone. Pt stated her appetite has improved and ate all of her meal this morning. It is recorded pt consumed 50-75% of meals yesterday. No N/V/D/C reported. Pt did not have any questions about her diet or the diet education handouts provided on initial assessment. Will continue to monitor. (03/02) 50yo F, who was admitted for renal failure and hyperkalemia. K has trend down to normal range. Pt is tested + for COVID. Status post tunneled dialysis catheter placement, possible placement for intermodal customer service dialysis. Due to current isolation protocol for COVID-19, RD called pts room several times to provide diet education but nobody picked up the phone. Education handout was given to RN, noted to call RD on #[phone] if pt has any question regarding diet. Per RN, pt has had poor appetite with nausea and vomiting. Noted some weight loss based on medical chart (08/2019 214#, 02/2020 177#). Will continue to follow. Principal Problems/Diagnoses: 1. Llltu-bd-[id number] renal failure. 2. COVID-19 and viral pneumonia. PMH: 1. Diabetes. 2. Chronic kidney disease. 3. Hypertension. I/O: reviewed GI: abdomen soft, non-tender, round abdomen Skin: no pressure ulcers noted Labs: 03/06: Na 129, BUN 64, Cr 4.98, Glu 129, Ca 8.3 (03/02) BUN 35 H, Creatinine 3.76 H Meds: dexmethasone, colace, vitamin D, vitamin C, insulin, zofran, mannitol Ht: 60in Wt: 177# BMI: 34.7kg/m2 IBW: 100# Malnutrition Evaluation (03/06) The patient does not meet criteria for a specified degree of malnutrition at this time. Will re-evaluate at follow-up as appropriate. Energy intake: Adequate PO intake reported at this time Weight loss: >10% in 6 months (Chronic), per chart ---- pt was unsure of her usual weight Fat loss: unable to evaluate Muscle loss: unable to evaluate Supporting Evidence: Fluid accumulation: unable to evaluate Functional Status: unable to evaluate Nutrition Prescription (Diet Order): ADA 1800 Estimated Nutritional Needs: Calories: 2000 2400kcal (25-30kcal/kg) Weight used: CBW Protein: 96 120g (1.2-1.5g/kg) Weight used: CBW Diet Adequacy: meeting calorie needs, meeting protein needs Tolerance: tolerating PO Diet Education Needs Assessment: Diet education indicated, pt did not have any questions about her diet Nutrition Care Level: moderate Nutrition Diagnosis: Inadequate oral intake related to current medical status (renal failure on dialysis, nausea and vomiting) as evidenced by poor PO intake. (RESOLVED) Goal: Patient will meet 75-100% of estimated needs by follow up Progress: goal met Interventions: mineral and carbohydrate- Modified diet Monitoring/Evaluation: Total energy intake, Total protein intake, Modified diet, Weight change, Ability to recall nutrition goals, Level of knowledge, Self management Signed: Gabrielle Kumar RD, LD
--- NOTE | 2020-03-06 19:10 | NUR ---
Patient visited in room during nursing rounds. Patient alert and oriented x3. Ambulatory in room prn. Pt on COVID rm (296) for positive COVID test. Pt denies dyspnea or pain at this time. Tunnelled dialysis catheter on right upper chest. Call cordon within reach. Will monitor closely.
[2020-03-06] MEDS: ACETAMINOPHEN 325 MG TAB PO PRN (22:54)
[2020-03-07] VITALS: BP 167/79
[2020-03-07 04:00] VITALS: BP 175/86
[2020-03-07 06:18] LABS: HEMATOCRIT 26.6 % (34.2-44.1); HEMOGLOBIN 8.6 g/dL (12.0-16.0); MEAN CORPUSCULAR HEMOGLOBIN 27.4 pg (28-32); MEAN CORPUSCULAR HGB CONC 32.3 g/dL (31-35); MEAN CORPUSCULAR VOLUME 84.7 fL (81-99); PLATELET COUNT 229 x10e3/uL (140-360); RED BLOOD COUNT 3.14 x10e6/uL (3.6-5.1); RED CELL DISTRIBUTION WIDTH 14.9 % (11.7-14.4)
[2020-03-07] MEDS: HYDRALAZINE HCL 25 MG TAB PO SCH ×2 (06:25→15:00)
--- NOTE | 2020-03-07 07:26 | NUR ---
ASSUMED CARE. AAOX3. ACYANOTIC. RESTING IN BED USING SMART PHONE. CALL LIGHT IN REACH. SIDE RAILS UP X2. BED LOW AND LOCKED.
[2020-03-07] MEDS: INSULIN REGULAR, HUMAN 100 UNIT/1 ML 3ML VIAL SQ SCH ×2 (07:30→11:30)
--- NOTE | 2020-03-07 07:49 | NUR ---
CALLED [facility] AND LEFT MESSAGE TO RETURN CALL ABOUT CASE.
[2020-03-07 08:00] VITALS: BP 176/87
[2020-03-07 08:05] LABS: BAND NEUTROPHILS % (MANUAL) 3 %; LYMPHOCYTES % (MANUAL) 11 % (19-48); MONOCYTES % (MANUAL) 6 % (3.4-9.0); NEUTROPHILS % (MANUAL) 80 % (40-74)
[2020-03-07 08:16] VITALS: BP 176/87
[2020-03-07] MEDS: HYDRALAZINE HCL 20 MG/ML VIAL IV PRN (08:37)
[2020-03-07] MEDS: AMLODIPINE BESYLATE 10 MG TAB PO SCH (08:40)
[2020-03-07] MEDS: DEXAMETHASONE 4 MG TAB PO SCH ×2 (08:40→15:00)
[2020-03-07] MEDS: CHOLECALCIFEROL 400 UNIT TAB PO SCH (08:40)
[2020-03-07] MEDS: DOCUSATE SODIUM 100 MG CAP PO SCH (08:40)
[2020-03-07] MEDS: ASCORBIC ACID 500 MG TAB PO SCH (08:40)
[2020-03-07 08:59] LABS: ANION GAP 13.2 mmol/L (8-16); CALCIUM 8.1 mg/dL (8.4-10.2); CREATININE, SERUM 3.19 mg/dL (0.57-1.11); POTASSIUM 4.2 mmol/L (3.5-5.1)
--- NOTE | 2020-03-07 09:30 | Discharge Summary ---
HOSPITAL COURSE: Ms. Bautista is a 50-year-old female, who left against medical advice from [place], where she had been started on her dialysis, tested positive for COVID. She has been receiving dialysis here and we are awaiting for Dialysis Center to approve her. PHYSICAL EXAMINATION: GENERAL: The patient remains on isolation. VITAL SIGNS: Blood pressure still elevated at 176/87, temperature is 97.5 pulse is 97, respiratory rate is 19, O2 saturation is 100%. LABORATORY DATA: On blood work, white count is 12.85, hemoglobin is 8.6, hematocrit 26.6. BMP from today is pending. COVID came back positive. DISCHARGE DIAGNOSES: 1. End-stage renal disease. 2. Dialysis dependent. 3. Coronavirus disease infection. 4. Diabetes type 2 with hyperuricemia. 5. Constipation. 6. Hypertension. 7. Diabetes type 2 with chronic kidney disease. 8. Anemia secondary to chronic kidney disease. PLAN: At the present time to continue dialysis 3 times a week. She is on Norvasc 10 mg daily, hydralazine 50 mg q.8 hours, ADA diet. Continue home medication for diabetes. She is still on contact and droplet isolation. We are awaiting for Dialysis Center to approve her. Upon discharge, she is going to have to quarantine and she is going to have to follow up with her PCP in a couple of weeks. Please see home medication reconciliation list. MD EUSEBIO Camacho/LARISSA /[id number]
--- NOTE | 2020-03-07 11:04 | NUR ---
AAOX3. ACYANOTIC. RESTING IN BED. PATIENT REPORTED HAVING A HEADACHE AFTER "LISTENING TO THAT NOISE ALL DAY". PATIENT THEN POINTED TO THE MACHINE IN THE ROOM THAT CREATES A NEGATIVE PRESSURE IN THE ROOM. PATIENT STATED, "I SLEPT IN THE BATHROOM ALL NIGHT TO KEEP FROM HEARING THAT NOISE. I DO NOT WANT THAT TYLENOL. IT'S NOT GOING TO WORK. I WANT TO THROW THAT MACHINE OUT THE WINDOW. I'M READY TO JUST WALK OUT OF THIS HOSPITAL AMA." REASSURED PATIENT. CALLED CASE MANAGEMENT. [facility] IS WORKING ON OBTAINING FINANCIAL CLEARANCE FOR THIS PATIENT TO HAVE A CHAIR.
[2020-03-07 12:35] VITALS: BP 151/73
--- NOTE | 2020-03-07 13:47 | NUR ---
PATIENT RECEIVED CONSENT FORM TO HAVE TUNNELED DIALYSIS CATHETER REMOVED PER ORDER. PATIENT REFUSED AND SAID, "THIS WAS NOT PUT IN HERE. TECHNICALLY, I CAN STILL LEAVE THIS HOSPITAL WITH IT" REGARDING THE TUNNELED CATH. PROVIDED EDUCATION. RE-INFORCEMENT NEEDED.
--- NOTE | 2020-03-07 17:01 | Progress Note ---
DATE: SUBJECTIVE: The patient is afebrile. She is receiving intermittent dialysis. PHYSICAL EXAMINATION: VITAL SIGNS: Blood pressure is 151/73, pulse is 81, saturation is 100%. HEENT: No facial swelling or erythema. CARDIAC: Regular rate and rhythm. Normal S1, S2. LUNGS: Auscultation of lungs shows clear breath sounds bilaterally. There is no wheezing. ABDOMEN: Soft, nontender. IMPRESSION: 1. End-stage renal disease. 2. Resolving viral pneumonia and coronavirus disease-19 infection. 3. Diabetes. 4. Hypertension. PLAN: 1. Await dialysis chair and unit that accepts spoke over positive patients. 2. Continue to monitor and control blood sugars. Vignesh Crisostomo MD [facility] /[id number]
== END 2020-03-07 16:12 | disposition home or self-care (01) | DRG 682 ==
LOC: ER 23:30 → ERHOLD 03-01 00:19 → MED/SURG2 03-01 02:39 → MED/SURG3 03-01 21:29
PROVIDERS: ADMIT Internal Medicine; ATTEND Internal Medicine
PROC: 5A1D70Z Performance of Urinary Filtration, Intermittent, Less than 6 Hours Per Day (ICD-10-PCS; principal; 2020-03-01)
DX: I12.0 Hypertensive chronic kidney disease with stage 5 chronic kidney disease or end stage renal disease (principal); N18.6 End stage renal disease; U07.1 COVID-19; J12.89 Other viral pneumonia; E87.2 Acidosis; N17.9 Acute kidney failure, unspecified; E11.22 Type 2 diabetes mellitus with diabetic chronic kidney disease; Z79.4 Long term (current) use of insulin; E78.5 Hyperlipidemia, unspecified; E87.5 Hyperkalemia; Z91.19 Patient's noncompliance with other medical treatment and regimen; D63.1 Anemia in chronic kidney disease; K59.00 Constipation, unspecified; E79.0 Hyperuricemia without signs of inflammatory arthritis and tophaceous disease; E11.65 Type 2 diabetes mellitus with hyperglycemia; E11.21 Type 2 diabetes mellitus with diabetic nephropathy; E87.6 Hypokalemia
CPT/HCPCS: 36415; 71045; 80048; 80053; 82948; 83880; 85007; 85025; 85027; 86704; 86705; 86706; 86707; 87340; 87350; 93005; 96372; 99284; J0360; J0610; J1644; J1817; J2150; J2405; J2550; J7030; J7050; J7799; U0002

== ENCOUNTER 2020-07-02 17:26 | Inpatient (IN) | payer SELFPAY ==
[~2020-07-02] VITALS: Ht 152.4 cm; Wt 80.3 kg
[2020-07-02 18:38] LABS: BASOPHILS # (AUTO) 0.1 (0.0-0.1); BASOPHILS % 0.8 % (0.0-1.0); EOSINOPHILS # (AUTO) 0.9 (0.0-0.4); EOSINOPHILS % 5.2 % (0.0-6.0); LYMPHOCYTES # (AUTO) 1.6 (1.0-3.2); LYMPHOCYTES % 9.4 % (18.0-39.1); MEAN CORPUSCULAR HEMOGLOBIN 24.7 pg (28-32); MEAN CORPUSCULAR HGB CONC 29.2 g/dL (31-35); MEAN CORPUSCULAR VOLUME 84.6 fL (81-99); MONOCYTES # (AUTO) 0.9 (0.2-0.8); MONOCYTES % 5.3 % (4.4-11.3); NEUTROPHILS # (AUTO) 13.1 (2.1-6.9); NEUTROPHILS % 78.2 % (38.7-80.0); PLATELET COUNT 263 x10e3/uL (140-360); RED BLOOD COUNT 2.47 x10e6/uL (3.6-5.1); RED CELL DISTRIBUTION WIDTH 16.9 % (11.7-14.4)
[2020-07-02 18:40] LABS: HEMOGLOBIN 6.1 g/dL (12.0-16.0)
[2020-07-02 18:41] LABS: HEMATOCRIT 20.9 % (34.2-44.1)
[2020-07-02 18:59] LABS: CREATINE KINASE MB 4.2 ng/mL (0-5.0)
[2020-07-02 19:00] LABS: ALBUMIN/GLOBULIN RATIO 0.6 (0.8-2.0); ANION GAP 23.3 mmol/L (8-16); CREATININE, SERUM 8.98 mg/dL (0.57-1.11); POTASSIUM 5.3 mmol/L (3.5-5.1)
[2020-07-02 19:02] LABS: CALCIUM 6.7 mg/dL (8.4-10.2)
[2020-07-02] MEDS ORDERED: SODIUM BICARBONATE 8.4% INJ 50 ML SYR IV STA ×2 (19:18→20:02)
[2020-07-02] MEDS ORDERED: SOD POLYSTYRENE SULFONATE SUSP 15 GM/60 ML BTL PO ONE (19:30)
[2020-07-02] MEDS ORDERED: CALCIUM CHLORIDE 13.6 MEQ in SODIUM CHLORIDE 0.9% 100 ML 100 ML IV ONE (20:15)
[2020-07-02] MEDS ORDERED: SODIUM CHLORIDE 0.9% 250ML 250 ML IV ONE (20:15)
[2020-07-02 21:15] VITALS: BP_SYST 182; BP_DIAS 91; BP_DIAS 93
[2020-07-02] MEDS ORDERED: ACETAMINOPHEN 325 MG TAB PO PRN (22:45)
[2020-07-02] MEDS ORDERED: VANCOMYCIN 1GM/NS 250 ML 250 ML IV ONE (22:45)
[2020-07-02] MEDS ORDERED: NIFEDIPINE CR 30 MG TAB PO ONE (22:45)
[2020-07-02] MEDS ORDERED: HYDRALAZINE HCL 20 MG/ML VIAL IV PRN (22:45)
[2020-07-02] MEDS ORDERED: ONDANSETRON HCL 4 MG ORAL DISINTEGRATING TAB PO PRN (22:45)
[2020-07-02] MEDS ORDERED: ONDANSETRON HCL INJ 2MG/ML 2ML 2 MG/ML VIAL IV PRN (22:45)
[2020-07-02] MEDS ORDERED: CLONIDINE HCL 0.1 MG TAB PO PRN (22:45)
[2020-07-02 23:17] VITALS: BP 178/95
[2020-07-02] MEDS ORDERED: SODIUM CHLORIDE 0.9% 250ML 250 ML ONE (23:37)
[2020-07-03] VITALS (7 sets, daily range): BP systolic 144–165; BP diastolic 65–93
[2020-07-03] MEDS: PIPERACILLIN/TAZO 2.25 GM 50 ML IV SCH ×4 (01:00→22:13)
[2020-07-03] MEDS ORDERED: DIATRIZOATE MEGL/DIATRIZOA SOD 30 ML BTL PO ONE (01:57)
[2020-07-03] MEDS ORDERED: FUROSEMIDE INJ 10 MG/ML 4 ML VIAL ONE (02:12)
[2020-07-03] MEDS ORDERED: VANCOMYCIN 1GM/NS 250 ML 250 ML IV ONE (02:30)
[2020-07-03] MEDS ORDERED: SODIUM CHLORIDE 0.9% 250ML 250 ML ONE (04:02)
[2020-07-03] MEDS: NIFEDIPINE CR 30 MG TAB PO SCH ×2 (06:00→14:15)
[2020-07-03] MEDS ORDERED: SODIUM CHLORIDE 0.9% 1000ML 2,000 ML ONE (07:49)
[2020-07-03 09:13] LABS: BASOPHILS # (AUTO) 0.1 (0.0-0.1); BASOPHILS % 0.6 % (0.0-1.0); EOSINOPHILS # (AUTO) 0.7 (0.0-0.4); EOSINOPHILS % 4.9 % (0.0-6.0); LYMPHOCYTES # (AUTO) 0.8 (1.0-3.2); LYMPHOCYTES % 5.8 % (18.0-39.1); MEAN CORPUSCULAR HEMOGLOBIN 26.4 pg (28-32); MEAN CORPUSCULAR VOLUME 82.4 fL (81-99); MONOCYTES # (AUTO) 0.8 (0.2-0.8); MONOCYTES % 6.3 % (4.4-11.3); NEUTROPHILS # (AUTO) 10.9 (2.1-6.9); NEUTROPHILS % 81.7 % (38.7-80.0); PLATELET COUNT 221 x10e3/uL (140-360); RED CELL DISTRIBUTION WIDTH 15.7 % (11.7-14.4)
[2020-07-03 09:15] LABS: HEMOGLOBIN 6.6 g/dL (12.0-16.0)
[2020-07-03 09:16] LABS: HEMATOCRIT 20.6 % (34.2-44.1)
[2020-07-03 09:17] LABS: ANION GAP 15.9 mmol/L (8-16); CREATININE, SERUM 6.58 mg/dL (0.57-1.11); POTASSIUM 3.9 mmol/L (3.5-5.1)
[2020-07-03] MEDS ORDERED: SODIUM CHLORIDE 0.9% 250ML 250 ML IV SCH (09:30)
[2020-07-03 09:42] LABS: CALCIUM 6.1 mg/dL (8.4-10.2)
[2020-07-03] MEDS ORDERED: HEPARIN SOD (PORCINE) 1000 UNIT/ML SDV IV PRN (09:45)
[2020-07-03] MEDS ORDERED: SODIUM CHLORIDE 0.9% 1000ML 2,000 ML IV PRN (09:45)
[2020-07-03 10:03] LABS: THYROID STIMULATING HORMONE 0.951 uIU/mL (0.350-4.940)
[2020-07-03 10:48] LABS: ANISOCYTOSIS SLIGHT; HYPOCHROMASIA MODERATE
[2020-07-03 10:49] LABS: ELLIPTOCYTE, RBC SLIGHT; MICROCYTOSIS SLIGHT
[2020-07-03 10:50] LABS: PLATELET ESTIMATE ADEQUATE; PLATELET MORPHOLOGY COMMENT NORMAL; RBC MORPHOLOGY COMMENT ABNORMAL
[2020-07-03] MEDS ORDERED: CALCIUM GLUCONATE 10% INJ 4.65 MEQ in SODIUM CHLORIDE 0.9% 50ML 50 ML IV ONE (16:00)
[2020-07-03] MEDS: CALCIUM CARBONATE 500 MG CHEWABLE TABS PO SCH (20:16)
[2020-07-03 20:17] LABS: BASOPHILS # (AUTO) 0.1 (0.0-0.1); BASOPHILS % 0.6 % (0.0-1.0); EOSINOPHILS # (AUTO) 0.6 (0.0-0.4); EOSINOPHILS % 4.1 % (0.0-6.0); HEMATOCRIT 27.5 % (34.2-44.1); LYMPHOCYTES # (AUTO) 0.5 (1.0-3.2); LYMPHOCYTES % 3.5 % (18.0-39.1); MEAN CORPUSCULAR HEMOGLOBIN 26.4 pg (28-32); MEAN CORPUSCULAR HGB CONC 32.7 g/dL (31-35); MEAN CORPUSCULAR VOLUME 80.6 fL (81-99); MONOCYTES # (AUTO) 1.1 (0.2-0.8); MONOCYTES % 6.9 % (4.4-11.3); NEUTROPHILS % 84.2 % (38.7-80.0); PLATELET COUNT 194 x10e3/uL (140-360); RED BLOOD COUNT 3.41 x10e6/uL (3.6-5.1); RED CELL DISTRIBUTION WIDTH 15.5 % (11.7-14.4)
[2020-07-04] VITALS (8 sets, daily range): BP systolic 145–159; BP diastolic 68–85
[2020-07-04 05:15] LABS: BASOPHILS # (AUTO) 0.1 (0.0-0.1); BASOPHILS % 0.6 % (0.0-1.0); EOSINOPHILS # (AUTO) 0.9 (0.0-0.4); EOSINOPHILS % 5.2 % (0.0-6.0); HEMATOCRIT 29.2 % (34.2-44.1); HEMOGLOBIN 9.5 g/dL (12.0-16.0); MEAN CORPUSCULAR HEMOGLOBIN 27.1 pg (28-32); MEAN CORPUSCULAR HGB CONC 32.5 g/dL (31-35); MEAN CORPUSCULAR VOLUME 83.2 fL (81-99); MONOCYTES # (AUTO) 1.4 (0.2-0.8); MONOCYTES % 8.1 % (4.4-11.3); NEUTROPHILS # (AUTO) 13.6 (2.1-6.9); NEUTROPHILS % 79.6 % (38.7-80.0); PLATELET COUNT 203 x10e3/uL (140-360); RED BLOOD COUNT 3.51 x10e6/uL (3.6-5.1); RED CELL DISTRIBUTION WIDTH 15.8 % (11.7-14.4)
[2020-07-04 05:32] LABS: ANION GAP 12.7 mmol/L (8-16); CREATININE, SERUM 4.7 mg/dL (0.57-1.11); POTASSIUM 3.7 mmol/L (3.5-5.1)
[2020-07-04] MEDS: PIPERACILLIN/TAZO 2.25 GM 50 ML IV SCH ×3 (06:01→22:39)
[2020-07-04] MEDS: CALCITRIOL 0.25 MCG CAP PO SCH (08:26)
[2020-07-04] MEDS: CALCIUM CARBONATE 500 MG CHEWABLE TABS PO SCH ×3 (08:26→20:38)
[2020-07-04] MEDS: NIFEDIPINE CR 30 MG TAB PO SCH (08:27)
[2020-07-05] VITALS: BP 158/86
[2020-07-05 04:00] VITALS: BP 165/89
[2020-07-05 05:18] LABS: BASOPHILS # (AUTO) 0.1 (0.0-0.1); BASOPHILS % 0.7 % (0.0-1.0); EOSINOPHILS # (AUTO) 1.1 (0.0-0.4); EOSINOPHILS % 7.2 % (0.0-6.0); HEMATOCRIT 31.8 % (34.2-44.1); HEMOGLOBIN 10.1 g/dL (12.0-16.0); LYMPHOCYTES # (AUTO) 1.2 (1.0-3.2); LYMPHOCYTES % 8.2 % (18.0-39.1); MEAN CORPUSCULAR HEMOGLOBIN 26.7 pg (28-32); MEAN CORPUSCULAR HGB CONC 31.8 g/dL (31-35); MEAN CORPUSCULAR VOLUME 84.1 fL (81-99); MONOCYTES # (AUTO) 1.4 (0.2-0.8); NEUTROPHILS # (AUTO) 11.3 (2.1-6.9); NEUTROPHILS % 74.4 % (38.7-80.0); PLATELET COUNT 201 x10e3/uL (140-360); RED BLOOD COUNT 3.78 x10e6/uL (3.6-5.1)
[2020-07-05] MEDS: PIPERACILLIN/TAZO 2.25 GM 50 ML IV SCH ×2 (05:47→14:45)
[2020-07-05 08:00] VITALS: BP 179/91
[2020-07-05 08:09] VITALS: BP 179/91
[2020-07-05] MEDS: CALCIUM CARBONATE 500 MG CHEWABLE TABS PO SCH ×2 (08:09→15:03)
[2020-07-05] MEDS: CALCITRIOL 0.25 MCG CAP PO SCH (08:09)
[2020-07-05] MEDS: NIFEDIPINE CR 30 MG TAB PO SCH (08:09)
[2020-07-05] MEDS ORDERED: LIDOCAINE HCL 1% LOCAL INJ 20 ML VIAL ONE (13:28)
[2020-07-05] MEDS ORDERED: NIFEDIPINE ER30 M1 PO (15:12)
[2020-07-05] MEDS ORDERED: AUGMENTIN 875-1 EACH PO (15:12)
[2020-07-05] MEDS ORDERED: CALCITRIOL0.25 MCG PO (15:13)
[2020-07-05 15:20] VITALS: BP 142/77
== END 2020-07-05 17:41 | disposition home or self-care (01) | DRG 682 ==
LOC: ER 18:21 → ERHOLD 19:43 → IMCU 21:05
PROVIDERS: ADMIT Internal Medicine; ATTEND Internal Medicine
PROC: 30243N1 Transfusion of Nonautologous Red Blood Cells into Central Vein, Percutaneous Approach (ICD-10-PCS; 2020-07-02)
PROC: 5A1D70Z Performance of Urinary Filtration, Intermittent, Less than 6 Hours Per Day (ICD-10-PCS; principal; 2020-07-03)
DX: I12.0 Hypertensive chronic kidney disease with stage 5 chronic kidney disease or end stage renal disease (principal); N18.6 End stage renal disease; Z99.2 Dependence on renal dialysis; I51.7 Cardiomegaly; E11.22 Type 2 diabetes mellitus with diabetic chronic kidney disease; D63.1 Anemia in chronic kidney disease; Z91.15 Patient's noncompliance with renal dialysis; E83.51 Hypocalcemia; Z59.8 Other problems related to housing and economic circumstances; N83.201 Unspecified ovarian cyst, right side; Z20.828 Contact with and (suspected) exposure to other viral communicable diseases
CPT/HCPCS: 36415; 71045; 72195; 74176; 74470; 76856; 80048; 80053; 82550; 82553; 83540; 83605; 83880; 83970; 84443; 84466; 84484; 84702; 85025; 86705; 86706; 86850; 86900; 86920; 87040; 87340; 90962; 93306; 99284; J0610; J1644; J1940; J2001; J2543; J3370; J7030; J7050; P9016

== ENCOUNTER 2020-08-20 14:59 | Inpatient (IN) | payer MEDICAID ==
[~2020-08-20] VITALS: Ht 152.4 cm; Wt 90.5 kg
[~2020-08-20 14:59] MED LIST changes: +AUGMENTIN 875-1 EACH PO; +CALCITRIOL0.25 MCG PO
[2020-08-20] MEDS ORDERED: ASPIRIN 81 MG CHEW TAB PO ONE (15:45)
[2020-08-20 16:27] LABS: BASOPHILS # (AUTO) 0.1 (0.0-0.1); BASOPHILS % 0.5 % (0.0-1.0); EOSINOPHILS # (AUTO) 0.1 (0.0-0.4); EOSINOPHILS % 0.7 % (0.0-6.0); HEMATOCRIT 24.9 % (34.2-44.1); HEMOGLOBIN 7.5 g/dL (12.0-16.0); LYMPHOCYTES # (AUTO) 0.5 (1.0-3.2); LYMPHOCYTES % 3.1 % (18.0-39.1); MEAN CORPUSCULAR HEMOGLOBIN 25.5 pg (28-32); MEAN CORPUSCULAR HGB CONC 30.1 g/dL (31-35); MEAN CORPUSCULAR VOLUME 84.7 fL (81-99); MONOCYTES # (AUTO) 0.7 (0.2-0.8); NEUTROPHILS # (AUTO) 15.7 (2.1-6.9); NEUTROPHILS % 89.3 % (38.7-80.0); PLATELET COUNT 203 x10e3/uL (140-360); RED BLOOD COUNT 2.94 x10e6/uL (3.6-5.1); RED CELL DISTRIBUTION WIDTH 16.7 % (11.7-14.4)
[2020-08-20 16:54] LABS: ALBUMIN 2.5 g/dL (3.5-5.0); ALBUMIN/GLOBULIN RATIO 0.5 (0.8-2.0); ANION GAP 28.4 mmol/L (8-16); CREATININE, SERUM 13.29 mg/dL (0.57-1.11)
[2020-08-20 16:56] LABS: CALCIUM 6.3 mg/dL (8.4-10.2)
[2020-08-20 16:57] LABS: POTASSIUM 5.4 mmol/L (3.5-5.1)
[2020-08-20] MEDS ORDERED: CEFEPIME 1GM/NS 0.9% 50 ML 50 ML IV STA (17:50)
[2020-08-20] MEDS ORDERED: CALCIUM GLUCONATE 10% INJ 13.95 MEQ in SODIUM CHLORIDE 0.9% 100 ML 100 ML IV ONE (18:15)
[2020-08-20] MEDS ORDERED: SODIUM BICARBONATE 4.2% 10 ML SYRINGE IV ONE (18:15)
[2020-08-20] MEDS ORDERED: VANCOMYCIN 500MG/NS 0.9% 100ML 100 ML IV SCH (18:30)
[2020-08-20 20:01] LABS: CLARITY,URINE SL CLOUDY (CLEAR); COLOR,URINE YELLOW (YELLOW); KETONES,URINE 1+ (NEGATIVE); LEUKOCYTE ESTERASE ,URINE SMALL (NEGATIVE); NITRITE,URINE NEGATIVE (NEGATIVE); PROTEIN,URINE DIPSTICK >=300 (NEGATIVE)
[2020-08-20 20:02] LABS: URINE UROBILINOGEN 0.2 mg/dL (0.2 - 1)
[2020-08-20 20:06] LABS: WBC,URINE (MAN) 21-50 /HPF (0-5)
[2020-08-20 20:07] LABS: AMORPHOUS SEDIMENT,URINE FEW (FEW); BACTERIA,URINE MODERATE /HPF; EPITHELIAL CELLS,URINE MODERATE /LPF
[2020-08-20 23:36] LABS: ANION GAP 27.7 mmol/L (8-16); CALCIUM 7.2 mg/dL (8.4-10.2); CREATININE, SERUM 13.35 mg/dL (0.57-1.11); POTASSIUM 5.7 mmol/L (3.5-5.1)
[2020-08-20] MEDS ORDERED: SODIUM BICARBONATE 8.4% INJ 50 ML SYR IV STA (23:58)
[2020-08-21] MEDS ORDERED: DEXTROSE 5%/0.9% SOD CHL 500 ML IV ONE
[2020-08-21] MEDS ORDERED: CALCIUM GLUCONATE 10% INJ 9.3 MEQ in SODIUM CHLORIDE 0.9% 100 ML 100 ML IV ONE ×2
[2020-08-21 00:19] LABS: AMPHETAMINES SCREEN,URINE NEGATIVE (NEGATIVE); BENZODIAZEPINES SCREEN,URINE NEGATIVE (NEGATIVE); PHENCYCLIDINE SCREEN,URINE NEGATIVE (NEGATIVE)
[2020-08-21] MEDS ORDERED: CALCIUM GLUCONATE 10% INJ 0.465 MEQ/ML VIAL ONE ×3 (00:21→06:13)
[2020-08-21] MEDS ORDERED: SODIUM CHLORIDE 0.9% 100 ML ONE ×2 (00:22→06:13)
[2020-08-21 00:31] LABS: SALICYLATE < 5.0 mg/dL (0-30)
[2020-08-21] MEDS ORDERED: ONDANSETRON HCL 4 MG ORAL DISINTEGRATING TAB PO ONE (03:00)
[2020-08-21 03:20] LABS: ANION GAP 26.4 mmol/L (8-16); CREATININE, SERUM 13.31 mg/dL (0.57-1.11); POTASSIUM 5.4 mmol/L (3.5-5.1)
[2020-08-21 03:21] LABS: CALCIUM 6.9 mg/dL (8.4-10.2)
[2020-08-21] MEDS ORDERED: SODIUM BICARBONATE 8.4% INJ 50 ML SYR IV STA (05:59)
[2020-08-21] MEDS ORDERED: CALCIUM GLUCONATE 10% INJ 4.65 MEQ in SODIUM CHLORIDE 0.9% 50ML 50 ML IV ONE (06:00)
[2020-08-21 06:43] LABS: BASOPHILS # (AUTO) 0.1 (0.0-0.1); BASOPHILS % 0.3 % (0.0-1.0); EOSINOPHILS # (AUTO) 0.1 (0.0-0.4); EOSINOPHILS % 0.5 % (0.0-6.0); HEMATOCRIT 24.4 % (34.2-44.1); HEMOGLOBIN 7.4 g/dL (12.0-16.0); LYMPHOCYTES # (AUTO) 0.7 (1.0-3.2); LYMPHOCYTES % 3.3 % (18.0-39.1); MEAN CORPUSCULAR HEMOGLOBIN 25.4 pg (28-32); MEAN CORPUSCULAR HGB CONC 30.3 g/dL (31-35); MEAN CORPUSCULAR VOLUME 83.8 fL (81-99); MONOCYTES # (AUTO) 1.2 (0.2-0.8); MONOCYTES % 5.9 % (4.4-11.3); NEUTROPHILS # (AUTO) 17.5 (2.1-6.9); NEUTROPHILS % 87.5 % (38.7-80.0); PLATELET COUNT 205 x10e3/uL (140-360); RED BLOOD COUNT 2.91 x10e6/uL (3.6-5.1); RED CELL DISTRIBUTION WIDTH 16.6 % (11.7-14.4)
[2020-08-21] MEDS ORDERED: CEFTRIAXONE SOD 1 GM/NS 50 ML 50 ML IV SCH (07:45)
[2020-08-21] MEDS ORDERED: MANNITOL 25% 12.5GM/50 ML VIAL IV ONE ×2 (08:15)
[2020-08-21] MEDS ORDERED: HEPARIN SOD (PORCINE) 1000 UNIT/ML SDV IV ONE (08:15)
[2020-08-21] MEDS ORDERED: SODIUM CHLORIDE 0.9% 1000ML 2,000 ML IV SCH (08:15)
[2020-08-21] MEDS ORDERED: MANNITOL 20% 500ML 500 ML IV ONE (09:15)
[2020-08-21] MEDS ORDERED: MANNITOL 25% 12.5GM/50 ML VIAL IV PRN (11:15)
[2020-08-21] MEDS ORDERED: SODIUM CHLORIDE 0.9% 1000ML 2,000 ML IV PRN (11:15)
[2020-08-21] MEDS ORDERED: HEPARIN SOD (PORCINE) 1000 UNIT/ML SDV IV PRN (11:15)
[2020-08-21] MEDS: CEFTRIAXONE SOD 1 GM/NS 50 ML 50 ML IV SCH (12:55)
[2020-08-21 13:13] LABS: ANION GAP 23.4 mmol/L (8-16); CALCIUM 7.1 mg/dL (8.4-10.2); CREATININE, SERUM 6.95 mg/dL (0.57-1.11); POTASSIUM 3.4 mmol/L (3.5-5.1)
[2020-08-21 14:21] LABS: INR 1.2
[2020-08-21 22:15] VITALS: BP 161/79
[2020-08-21 23:41] VITALS: BP 161/79
[2020-08-21] MEDS ORDERED: DEXTROSE 50% SYRINGE 50 ML IV PRN (23:45)
[2020-08-21 23:48] VITALS: BP 161/79
[2020-08-22] VITALS (7 sets, daily range): BP systolic 151–169; BP diastolic 63–85
[2020-08-22] MEDS ORDERED: ONDANSETRON HCL INJ 2MG/ML 2ML 2 MG/ML VIAL IV PRN (02:45)
[2020-08-22] MEDS ORDERED: BENZONATATE 100 MG CAP PO PRN (02:45)
[2020-08-22 06:03] LABS: BASOPHILS % 0.3 % (0.0-1.0); EOSINOPHILS # (AUTO) 0.4 (0.0-0.4); EOSINOPHILS % 2.4 % (0.0-6.0); LYMPHOCYTES # (AUTO) 0.8 (1.0-3.2); LYMPHOCYTES % 5.4 % (18.0-39.1); MEAN CORPUSCULAR HEMOGLOBIN 25.5 pg (28-32); MEAN CORPUSCULAR HGB CONC 31.2 g/dL (31-35); MEAN CORPUSCULAR VOLUME 81.5 fL (81-99); MONOCYTES # (AUTO) 1.3 (0.2-0.8); MONOCYTES % 8.5 % (4.4-11.3); NEUTROPHILS # (AUTO) 12.6 (2.1-6.9); NEUTROPHILS % 82.7 % (38.7-80.0); PLATELET COUNT 180 x10e3/uL (140-360); RED BLOOD COUNT 2.71 x10e6/uL (3.6-5.1); RED CELL DISTRIBUTION WIDTH 16.3 % (11.7-14.4)
[2020-08-22 06:16] LABS: HEMATOCRIT 22.1 % (34.2-44.1)
[2020-08-22 06:18] LABS: HEMOGLOBIN 6.9 g/dL (12.0-16.0)
[2020-08-22] MEDS ORDERED: DEXTROSE 50% SYRINGE 50 ML IV PRN (06:30)
[2020-08-22] MEDS ORDERED: HYDRALAZINE HCL 20 MG/ML VIAL IV PRN (06:30)
[2020-08-22] MEDS ORDERED: ACETAMINOPHEN 325 MG TAB PO PRN (06:30)
[2020-08-22 07:25] LABS: ALBUMIN/GLOBULIN RATIO 0.5 (0.8-2.0); ANION GAP 19.5 mmol/L (8-16); CREATININE, SERUM 8.07 mg/dL (0.57-1.11); PHOSPHORUS 6.8 MG/DL (2.3-4.7); POTASSIUM 3.5 mmol/L (3.5-5.1)
[2020-08-22] MEDS: INSULIN LISPRO 100 UNIT/1 ML 3ML VIAL SQ SCH ×4 (07:30→20:07)
[2020-08-22 07:32] LABS: CALCIUM 6.2 mg/dL (8.4-10.2)
[2020-08-22 08:15] LABS: TARGET CELLS FEW; TEAR DROP CELLS FEW
[2020-08-22 08:16] LABS: HELMET CELLS SLIGHT; OVALOCYTES FEW; PLATELET ESTIMATE ADEQUATE; RBC MORPHOLOGY COMMENT ABNORMAL
[2020-08-22 08:17] LABS: ANISOCYTOSIS SLIGHT; HYPOCHROMASIA SLIGHT; PLATELET MORPHOLOGY COMMENT NORMAL
[2020-08-22 08:18] LABS: SCHISTOCYTES RARE
[2020-08-22] MEDS: NYSTATIN 100,000 UNITS/GM CRM 30GM TUBE TOP SCH (09:00)
[2020-08-22] MEDS ORDERED: CALCIUM CARBONATE 500 MG CHEWABLE TABS PO SCH (09:45)
[2020-08-22] MEDS ORDERED: CALCIUM CHLORIDE 13.6 MEQ in SODIUM CHLORIDE 0.9% 100 ML 100 ML IV ONE (10:00)
[2020-08-22] MEDS: CALCIUM ACETATE 667 MG GELCAP PO SCH (17:52)
[2020-08-22] MEDS: ACETAMINOPHEN/CODEINE 300MG - 30MG TAB PO PRN (18:32)
[2020-08-22] MEDS: CEFTRIAXONE SOD 1 GM/NS 50 ML 50 ML IV SCH (18:48)
[2020-08-23] VITALS (7 sets, daily range): BP systolic 145–163; BP diastolic 71–85
[2020-08-23 05:41] LABS: ANION GAP 16.8 mmol/L (8-16); CREATININE, SERUM 5.5 mg/dL (0.57-1.11); POTASSIUM 3.8 mmol/L (3.5-5.1)
[2020-08-23 05:45] LABS: CALCIUM 6.5 mg/dL (8.4-10.2)
[2020-08-23 07:12] LABS: BASOPHILS # (AUTO) 0.1 (0.0-0.1); BASOPHILS % 0.5 % (0.0-1.0); EOSINOPHILS # (AUTO) 0.8 (0.0-0.4); EOSINOPHILS % 5.6 % (0.0-6.0); HEMATOCRIT 26.8 % (34.2-44.1); HEMOGLOBIN 8.2 g/dL (12.0-16.0); LYMPHOCYTES % 7.2 % (18.0-39.1); MEAN CORPUSCULAR HEMOGLOBIN 25.2 pg (28-32); MEAN CORPUSCULAR HGB CONC 30.6 g/dL (31-35); MEAN CORPUSCULAR VOLUME 82.2 fL (81-99); MONOCYTES # (AUTO) 1.4 (0.2-0.8); MONOCYTES % 9.8 % (4.4-11.3); NEUTROPHILS # (AUTO) 10.5 (2.1-6.9); NEUTROPHILS % 76.4 % (38.7-80.0); PLATELET COUNT 157 x10e3/uL (140-360); RED BLOOD COUNT 3.26 x10e6/uL (3.6-5.1); RED CELL DISTRIBUTION WIDTH 16.4 % (11.7-14.4)
[2020-08-23] MEDS: INSULIN LISPRO 100 UNIT/1 ML 3ML VIAL SQ SCH ×4 (07:30→20:32)
[2020-08-23] MEDS: CALCIUM ACETATE 667 MG GELCAP PO SCH ×3 (07:57→17:01)
[2020-08-23] MEDS: NYSTATIN 100,000 UNITS/GM CRM 30GM TUBE TOP SCH (10:00)
[2020-08-23] MEDS ORDERED: NYSTATIN15 GM TOP (10:37)
[2020-08-23] MEDS ORDERED: Calcium Acetate PO (10:37)
[2020-08-23] MEDS: ACETAMINOPHEN/CODEINE 300MG - 30MG TAB PO PRN (10:59)
[2020-08-23] MEDS ORDERED: CEFUROXIME250 MG PO (11:11)
[2020-08-23] MEDS: CEFTRIAXONE SOD 1 GM/NS 50 ML 50 ML IV SCH (12:23)
[2020-08-23] MEDS ORDERED: SODIUM CHLORIDE 0.9% 250ML 250 ML ONE ×2 (12:33→17:17)
[2020-08-23] MEDS ORDERED: OYST-CAL-D 500MG TABLET PO SCH (17:00)
[2020-08-23] MEDS: CALCIUM CARBONATE 500 MG CHEWABLE TABS PO SCH ×2 (17:01→20:04)
[2020-08-23] MEDS ORDERED: CEFTRIAXONE SOD 1 GM/NS 50 ML 50 ML IV SCH (18:00)
[2020-08-23] MEDS ORDERED: EPOETIN ALFA-EPBX 10,000 UNIT/ML VIAL SC SCH (18:00)
[2020-08-24] VITALS: BP 145/81
[2020-08-24] MEDS: ACETAMINOPHEN/CODEINE 300MG - 30MG TAB PO PRN ×2 (00:52→12:01)
[2020-08-24 04:00] VITALS: BP 147/83
[2020-08-24 05:01] LABS: BASOPHILS # (AUTO) 0.1 (0.0-0.1); BASOPHILS % 0.6 % (0.0-1.0); EOSINOPHILS # (AUTO) 0.7 (0.0-0.4); EOSINOPHILS % 6.3 % (0.0-6.0); HEMATOCRIT 28.1 % (34.2-44.1); HEMOGLOBIN 8.5 g/dL (12.0-16.0); LYMPHOCYTES # (AUTO) 1.1 (1.0-3.2); LYMPHOCYTES % 9.6 % (18.0-39.1); MEAN CORPUSCULAR HEMOGLOBIN 25.5 pg (28-32); MEAN CORPUSCULAR HGB CONC 30.2 g/dL (31-35); MEAN CORPUSCULAR VOLUME 84.4 fL (81-99); MONOCYTES # (AUTO) 1.2 (0.2-0.8); MONOCYTES % 10.1 % (4.4-11.3); NEUTROPHILS # (AUTO) 8.4 (2.1-6.9); PLATELET COUNT 146 x10e3/uL (140-360); RED BLOOD COUNT 3.33 x10e6/uL (3.6-5.1); RED CELL DISTRIBUTION WIDTH 16.1 % (11.7-14.4)
[2020-08-24 05:28] LABS: ANION GAP 12.7 mmol/L (8-16); CREATININE, SERUM 3.61 mg/dL (0.57-1.11); PHOSPHORUS 2.5 MG/DL (2.3-4.7); POTASSIUM 3.7 mmol/L (3.5-5.1)
[2020-08-24] MEDS ORDERED: Calcium Carbonate 500MG Chew PO (05:59)
[2020-08-24] MEDS: INSULIN LISPRO 100 UNIT/1 ML 3ML VIAL SQ SCH ×2 (07:30→11:30)
[2020-08-24 08:30] VITALS: BP 162/86
[2020-08-24 08:34] VITALS: BP 162/86
[2020-08-24] MEDS: NYSTATIN 100,000 UNITS/GM CRM 30GM TUBE TOP SCH (08:38)
[2020-08-24] MEDS: CALCIUM CARBONATE 500 MG CHEWABLE TABS PO SCH ×2 (08:38→14:01)
[2020-08-24] MEDS: CALCIUM ACETATE 667 MG GELCAP PO SCH ×2 (08:38→12:01)
[2020-08-24 12:00] VITALS: BP 191/83
[2020-08-24 13:16] VITALS: BP 145/70
== END 2020-08-24 14:57 | disposition home or self-care (01) | DRG 871 ==
LOC: ER 17:00 → ERHOLD 22:29 → MED/SURG2 08-21 22:00
PROVIDERS: ADMIT Internal Medicine; ATTEND Internal Medicine
PROC: 5A1D70Z Performance of Urinary Filtration, Intermittent, Less than 6 Hours Per Day (ICD-10-PCS; principal; 2020-08-22)
PROC: 0W993ZZ Drainage of Right Pleural Cavity, Percutaneous Approach (ICD-10-PCS; 2020-08-22)
PROC: 30243N1 Transfusion of Nonautologous Red Blood Cells into Central Vein, Percutaneous Approach (ICD-10-PCS; 2020-08-22)
PROC: 5A1D70Z Performance of Urinary Filtration, Intermittent, Less than 6 Hours Per Day (ICD-10-PCS; 2020-08-22)
DX: A41.9 Sepsis, unspecified organism (principal); I50.23 Acute on chronic systolic (congestive) heart failure; N18.6 End stage renal disease; N39.0 Urinary tract infection, site not specified; I13.2 Hypertensive heart and chronic kidney disease with heart failure and with stage 5 chronic kidney disease, or end stage renal disease; J90 Pleural effusion, not elsewhere classified; E87.2 Acidosis; E11.22 Type 2 diabetes mellitus with diabetic chronic kidney disease; Z99.2 Dependence on renal dialysis; Z79.899 Other long term (current) drug therapy; B96.89 Other specified bacterial agents as the cause of diseases classified elsewhere; B96.20 Unspecified Escherichia coli [E. coli] as the cause of diseases classified elsewhere; K80.80 Other cholelithiasis without obstruction; D63.1 Anemia in chronic kidney disease; E83.51 Hypocalcemia; Z91.19 Patient's noncompliance with other medical treatment and regimen; E11.649 Type 2 diabetes mellitus with hypoglycemia without coma; Z91.15 Patient's noncompliance with renal dialysis; Z20.822 Contact with and (suspected) exposure to COVID-19; N61.0 Mastitis without abscess
CPT/HCPCS: 32555; 36415; 71045; 71250; 74470; 76705; 80048; 80053; 80307; 80320; 80329; 81001; 82550; 82553; 82948; 83036; 83605; 83690; 83735; 83880; 84100; 84484; 85025; 85610; 86850; 86900; 86920; 87040; 87086; 87186; 87340; 90962; 93005; 93306; 99284; J0610; J0692; J0696; J1644; J2405; J3370; J7030; J7042; J7050; P9016; U0002

== ENCOUNTER 2020-09-14 11:19 | Emergency (ER) | payer MEDICAID, MEDICARE ==
[~2020-09-14] VITALS: Ht 152.4 cm; Wt 90.3 kg
[~2020-09-14 11:19] MED LIST changes: +CEFUROXIME250 MG PO; +Calcium Acetate PO; +Calcium Carbonate 500MG Chew PO; +NYSTATIN15 GM TOP
[2020-09-14] MEDS ORDERED: HYDROCODONE/APAP 5MG-325MG TAB PO STA (11:48)
[2020-09-14] MEDS ORDERED: HYDROCODONE/APAP 5MG-325MG TAB PO NR (12:15)
[2020-09-14] MEDS ORDERED: CLINDAMYCIN HC150 MG PO (13:02)
== END 2020-09-14 13:34 | disposition home or self-care (01) ==
LOC: ER 11:46
DX: M25.562 Pain in left knee (principal); M25.561 Pain in right knee; M79.641 Pain in right hand; M25.531 Pain in right wrist; W18.11XA Fall from or off toilet without subsequent striking against object, initial encounter; Y92.002 Bathroom of unspecified non-institutional (private) residence as the place of occurrence of the external cause; I10 Essential (primary) hypertension; E11.9 Type 2 diabetes mellitus without complications; N18.6 End stage renal disease; Z99.2 Dependence on renal dialysis
CPT/HCPCS: 99283